=== PATIENT | male | born 1970 | race Caucasian/White ===

== ENCOUNTER 2016-06-29 14:16 | Inpatient (IN) | payer OTHER ==
[2016-06-29 18:09] VITALS: BMI 25.9
--- NOTE | 2016-06-29 18:46 | HP ---
COWS - Scale Resting Pulse: 0= [place] 80 or Below Sweatin= Chills/Flushing Restless Observation: 3= Extraneous Movement Pupil Size: 1= Pupils >than Normal Bone or Joint Aches: 2= Severe Diffuse Aches Runny Nose/ Eye Tearin= Runny Nose/Eyes GI Upset > 30mins: 2= Nausea/Diarrhea Tremor Observation: 2= Slight Tremor Visible Yawning Observation: 0= None Anxiety or Irritability: 2=Irritable/Anxious Goose Flesh Skin: 3=Piloerection COWS Score: 18 CIWA Score - CIWA Score Nausea/Vomitin-Mild Nausea/No Vomiting Muscle Tremors: 4-Moderate,w/Arms Extend Anxiety: 4-Mod. Anxious/Guarded Agitation: 4-Moderately Restless Paroxysmal Sweats: 1-Minimal Palms Moist Orientation: 2-Disoriented Date<2 days Tacttile Disturbances: 0-None Auditory Disturbances: 0-None Visual Disturbances: 0-None Headache: 1-Very Mild CIWA-Ar Total Score: 17 Admission ROS S - HPI Chief Complaint: WITHDRAWAL SX Allergies/Adverse Reactions: Allergies Allergy/AdvReac Type Severity Reaction Status Date / Time shellfish derived Allergy Severe Swelling Verified 06/29/16 19:56 No Known Drug Allergies Allergy Verified 06/29/16 19:56 NKDA Allergy Uncoded 06/29/16 19:56 History of Present Illness: 46 YEARS OLD MALE WITH LONG HISTORY OF OPIOID NICOTINE ALCOHOL DEPENDENCE HAS ASTHMA AND BIPOLAR II IS ADMITTED TO DETOX Exam Limitations: No Limitations - Ebola screening Have you traveled outside of the country in the last 21 days: No Have you had contact with anyone from an Ebola affected area: No Have you been sick,other than usual withdrawal symptoms: No Do you have a fever: No - Review of Systems Constitutional: Chills, Changes in sleep, Weight Stable EENT: reports: No Symptoms Reported Respiratory: reports: Cough, SOB with Exertion Cardiac: reports: No Symptoms Reported GI: reports: Nausea, Poor Fluid Intake, Vomiting, Indigestion, Abdominal cramping : reports: No Symptoms Reported Musculoskeletal: reports: Back Pain, Joint Pain, Muscle Pain, Neck Pain Integumentary: reports: No Symptoms Reported Neuro: reports: Tremors Endocrine: reports: No Symptoms Reported Hematology: reports: No Symptoms Reported Psychiatric: reports: Judgement Intact, Anxious, Depressed Other Systems: Reviewed and Negative Patient History - Patient Medical History Hx Anemia: No Hx Asthma: Yes Hx Chronic Obstructive Pulmonary Disease (COPD): No Hx Cancer: No Hx Cardiac Disorders: No Hx Congestive Heart Failure: No Hx Hypertension: No Hx Hypercholesterolemia: No Hx Pacemaker: No HX Cerebrovascular Accident: No Hx Seizures: No Hx Dementia: No Hx Diabetes: No Hx Gastrointestinal Disorders: Yes Hx Liver Disease: No Hx Genitourinary Disorders: No Hx Sexually Transmitted Disorders: No Hx Renal Disease (ESRD): No Hx Thyroid Disease: No Hx Human Immunodeficiency Virus (HIV): No Hx Hepatitis C: No Hx Depression: No Hx Suicide Attempt: No Hx Bipolar Disorder: Yes Hx Schizophrenia: No - Patient Surgical History Past Surgical History: Yes Hx Neurologic Surgery: No Hx Cataract Extraction: No Hx Cardiac Surgery: No Hx Lung Surgery: No Hx Breast Surgery: No Hx Breast Biopsy: No Hx Abdominal Surgery: No Hx Appendectomy: No Hx Cholecystectomy: No Hx Genitourinary Surgery: No Hx Orthopedic Surgery: Yes (R knee sx 2005) Anesthesia Reaction: No - PPD History Previous Implant?: Yes Documented Results: Negative w/o proof Implanted On Prior [facility] Admission?: Yes Date: 08/08/15 Results: 0 mm PPD to be Administered?: No - Smoking Cessation Smoking history: Current every day smoker Have you smoked in the past 12 months: Yes Aproximately how many cigarettes per day: 10 Cigars Per Day: 0 Hx Chewing Tobacco Use: No Initiated information on smoking cessation: Yes 'Breaking Loose' booklet given: 06/29/16 - Substance & Tx. History Hx Alcohol Use: Yes Hx Substance Use: Yes Substance Use Type: Alcohol, Cocaine, Opiates Hx Substance Use Treatment: Yes - Substances Abused Alcohol Route: Oral Frequency: Daily Amount used: PINT VOLKA Age of first use: 17 Date of Last Use: 06/28/16 Heroin Route: Inhalation Frequency: Daily Amount used: 12 BAGS Age of first use: 19 Date of Last Use: 06/28/16 Family Disease History - Family Disease History Family Disease History: Other: Father (DRUG & ALCOHOL) Admission Physical Exam [facility] - Vital Signs Vital Signs: Vital Signs - 24 hr 06/29/16 18:01 Temperature 95.4 F L Pulse Rate 77 Respiratory 18 Rate Blood Pressure 96/66 - Physical General Appearance: Yes: Appropriately Dressed, Moderate Distress, Tremorous, Irritable, Sweating, Anxious HEENTM: Yes: Hearing grossly Normal, Normal ENT Inspection, Normocephalic, Normal Voice Respiratory: Yes: Chest Non-Tender, No Respiratory Distress, No Accessory Muscle Use, Wheezing, Expiration Neck: Yes: Supple, Trachea in good position Breast: Yes: Breasts Symetrical Cardiology: Yes: Regular Rhythm, Regular Rate, S1, S2 Abdominal: Yes: Non Tender, Soft Genitourinary: Yes: Within Normal Limits Back: Yes: Normal Inspection Musculoskeletal: Yes: full range of Motion, Gait Steady, Back pain, Muscle Pain Extremities: Yes: Normal Range of Motion, Non-Tender, Tremors Neurological: Yes: Alert, Motor Strength 5/5, Normal Response, Depressed Affect Integumentary: Yes: Warm Lymphatic: Yes: Within Normal Limits - Diagnostic (1) Alcohol dependence with uncomplicated withdrawal Current Visit: Yes Status: Acute (2) Asthma Current Visit: Yes Status: Chronic Qualifiers: Asthma severity: mild intermittent Asthma complication type: with status asthmaticus Qualified Code(s): J45.22 - Mild intermittent asthma with status asthmaticus Comment: ventolin (3) Cocaine dependence, uncomplicated Current Visit: Yes Status: Chronic (4) Nicotine dependence Current Visit: Yes Status: Acute Qualifiers: Nicotine product type: cigarettes Substance use status: in withdrawal Qualified Code(s): F17.213 - Nicotine dependence, cigarettes, with withdrawal (5) Opioid dependence with withdrawal Current Visit: Yes Status: Acute (6) GERD (gastroesophageal reflux disease) Current Visit: Yes Status: Chronic Qualifiers: Esophagitis presence: without esophagitis Qualified Code(s): K21.9 - Gastro-esophageal reflux disease without esophagitis (7) Bipolar II disorder Current Visit: Yes Status: Suspected Cleared for Admission [facility] - Detox or Rehab [facility] Level of Care: Medically Managed Detox Regimen/Protocol: Methadone/Librium [facility] Breath Alcohol Content Breath Alcohol Content: 0 Urine Drug Screen - Results Drug Screen Negative: No Urine Drug Screen Results: GEOVANNA-Cocaine, OPI-Opiates, OXY-Oxycodone
[2016-06-29] MEDS ORDERED: ACETAMINOPHEN 325 MG TABLET (FP) PO PRN (18:53)
[2016-06-29] MEDS ORDERED: chlordiazePOXIDE HCL 25 MG CAPSULE PO PRN (18:53)
[2016-06-29] MEDS ORDERED: METHADONE HCL 10 MG TABLET (FOR DETOX USE ONLY) PO ONE ×3 (18:53→23:00)
[2016-06-29] MEDS ORDERED: MAGNESIUM HYDROX 2400MG/30ML ORAL SUSPENSION 30 ML CUP PO PRN (18:53)
[2016-06-29] MEDS ORDERED: P-EPHED 60MG/TRIPROLIDI 2.5MG TABLET PO PRN (18:53)
[2016-06-29] MEDS ORDERED: guaiFENesin/D-METHORPHAN HB 10 ML UNIT-DOSE CUPS PO PRN (18:53)
[2016-06-29] MEDS ORDERED: MENTHOL/PHENOL 1 EACH UD MM PRN (18:53)
[2016-06-29] MEDS ORDERED: LOPERAMIDE HCL 2 MG CAPSULE PO PRN (18:53)
[2016-06-29] MEDS ORDERED: diphenhydrAMINE HCL 50 MG CAPSULE PO PRN (18:53)
[2016-06-29] MEDS ORDERED: NICOTINE POLACRILEX 2 MG GUM BC PRN (18:53)
[2016-06-29] MEDS ORDERED: MAGNESIUM CITRATE 300 ML BOTTLE PO PRN (18:53)
[2016-06-29] MEDS ORDERED: MAG HYDROX/AL HYDROX/SIMETH 30 ML UNIT-DOSE CUP PO PRN (18:53)
[2016-06-29] MEDS ORDERED: ALBUTEROL SO4 2.5/IPRATROPIUM 0.5 INH SOL 3 ML VIAL.NEB. NEB PRN (18:58)
[2016-06-29] MEDS ORDERED: ALBUTEROL SO4 6.7 GM HFA INHALER IH PRN (18:58)
[2016-06-29] MEDS: THIAMINE HCL 100 MG TABLET (FP) PO SCH (22:48)
[2016-06-29] MEDS: RANITIDINE HCL 150 MG TABLET (FP) PO SCH (22:48)
[2016-06-29] MEDS: chlordiazePOXIDE HCL 25 MG CAPSULE PO SCH (22:49)
[2016-06-29 23:26] LABS: URINE APPEARANCE CLEAR; URINE BILIRUBIN NEGATIVE (NEGATIVE); URINE BLOOD NEGATIVE (NEGATIVE); URINE COLOR YELLOW; URINE GLUCOSE (UA) NEGATIVE (NEGATIVE); URINE KETONE NEGATIVE (NEGATIVE); URINE LEUK ESTERASE NEGATIVE (NEGATIVE); URINE NITRITE NEGATIVE (NEGATIVE); URINE PROTEIN NEGATIVE (NEGATIVE); URINE UROBILINOGEN NEGATIVE E.U./dl (0.2-1.0)
[2016-06-30] MEDS: chlordiazePOXIDE HCL 25 MG CAPSULE PO SCH ×4 (05:45→22:44)
[2016-06-30] MEDS ORDERED: METHADONE HCL 10 MG TABLET (FOR DETOX USE ONLY) PO SCH (10:00)
[2016-06-30 10:06] LABS: MCHC 32.9 g/dl (32.0-35.9); MEAN CELL VOLUME 91.1 fl (80-96); MEAN PLT VOLUME 10.8 fl (7.5-11.1); PLATELET COUNT 171 K/MM3 (134-434)
[2016-06-30] MEDS: PRENATAL VITAMINS W/ FOLIC ACID TABLET (FP) PO SCH (10:36)
[2016-06-30] MEDS: RANITIDINE HCL 150 MG TABLET (FP) PO SCH ×2 (10:37→22:44)
[2016-06-30] MEDS: NICOTINE 14 MG/24 HOURS TOPICAL PATCH TD SCH (10:37)
[2016-06-30 10:38] LABS: ALBUMIN 3.4 g/dl (3.4-5.0); ALK PHOS 65 U/L (45-117); ANION GAP 8 (8-16); BILIRUBIN,TOTAL 0.1 mg/dL (0.2-1.0); CALCIUM 8.5 mg/dL (8.5-10.1); CO2 28 mmol/L (21-32); COCKROFT - GAULT 86.85; CREATININE 1.2 mg/dL (0.7-1.3); GLUCOSE,RANDOM 111 mg/dL (74-106); SGOT/AST 12 U/L (15-37); SGPT/ALT 19 U/L (12-78)
--- NOTE | 2016-06-30 11:19 | EKG ---
Test Reason : Blood Pressure : / mmHG Vent. Rate : 061 BPM Atrial Rate : 061 BPM P-R Int : 126 ms QRS Dur : 092 ms QT Int : 406 ms P-R-T Axes : 027 067 048 degrees QTc Int : 408 ms NORMAL SINUS RHYTHM INCOMPLETE RBBB NO PREVIOUS ECGS AVAILABLE Confirmed by JUAN MCCATRY MD ([id number]) on 06/30/2016 11:19:09 AM Referred By: Luis E Novak Confirmed By:JUAN MCCARTY MD
--- NOTE | 2016-06-30 13:20 | CONSULT ---
[facility] Psychiatric Consult - Data Date of interview: 06/30/16 Admission source: [facility] Identifying data: Readmission to [facility] for this 46 y/o AA male seeking detox treatment for alcohol,heroin and cocaine dependence.Patient is ,a father of three,domiciled,unemployed and supported by his spouse. Substance Abuse History: - Smoking Cessation. Smoking history: Current every day smoker. Have you smoked in the past 12 months: Yes. Aproximately how many cigarettes per day: 10. Cigars Per Day: 0. Hx Chewing Tobacco Use: No. Initiated information on smoking cessation: Yes. 'Breaking Loose' booklet given : 06/29/16. - Substance & Tx. History. Hx Alcohol Use: Yes. Hx Substance Use : Yes. Substance Use Type: Alcohol, Cocaine, Opiates. Hx Substance Use Treatment: Yes. - Substances Abused. Alcohol. Route: Oral. Frequency: Daily. Amount used: PINT VOLKA. Age of first use: 17. Date of Last Use: 06/28. Heroin. Route: Inhalation. Frequency: Daily. Amount used: 12 BAGS. Age of first use: 19. Date of Last Use: 06/28/16. Confirmed by patient. Medical History: Bronchial asthma,GERD and history of stomach ulcer.Noted history of orthosurgery (right knee) in 2005. Psychiatric History: Patient reports a remote history of psychiatric hospitalizations.Diagnosed with Bipolar Disorder (as per patient).Records indicate past affiliation with the [facility] program.Lost to follow up for several months.No psychiatric OPD care provider.Patient agrees to take zolpidem to address insomnia (only for the duration of this hospital course).Patient denies history of suicide attempts. Physical/Sexual Abuse/Trauma History: Patient denies. Additional Comment: Urine Drug Screen Results: GEOVANNA-Cocaine, OPI-Opiates, OXY- Oxycodone.Noted. Mental Status Exam - Mental Status Exam Alert and Oriented to: Time, Place, Person Cognitive Function: Good Patient Appearance: Well Groomed Mood: Withdrawn Affect: Constricted Patient Behavior: Fatigued, Appropriate, Cooperative Speech Pattern: Clear, Appropriate Voice Loudness: Normal Thought Process: Goal Oriented Thought Disorder: Not Present Hallucinations: Denies Suicidal Ideation: Denies Insight/Judgement: Poor Sleep: Poorly, Difficulty falling asleep Appetite: Good Muscle strength/Tone: Normal Gait/Station: Normal Psychiatric Findings - Problem List ([place] 1, 2,3) (1) Alcohol dependence with uncomplicated withdrawal Current Visit: Yes Status: Acute (2) Nicotine dependence Current Visit: Yes Status: Acute Qualifiers: Nicotine product type: cigarettes Substance use status: in withdrawal Qualified Code(s): F17.213 - Nicotine dependence, cigarettes, with withdrawal (3) Opioid dependence with withdrawal Current Visit: Yes Status: Acute (4) Cocaine dependence, uncomplicated Current Visit: Yes Status: Acute (5) Substance induced mood disorder Current Visit: Yes Status: Chronic (6) Substance-induced sleep disorder Current Visit: Yes Status: Chronic (7) Asthma Current Visit: Yes Status: Chronic Qualifiers: Asthma severity: mild intermittent Asthma complication type: with status asthmaticus Qualified Code(s): J45.22 - Mild intermittent asthma with status asthmaticus Comment: ventolin (8) GERD (gastroesophageal reflux disease) Current Visit: Yes Status: Chronic Qualifiers: Esophagitis presence: without esophagitis Qualified Code(s): K21.9 - Gastro-esophageal reflux disease without esophagitis - Initial Treatment Plan Initial Treatment Plan: Psychoeducation.Detoxification.Medication : ambien 10 mg po hs prn.Patient is made aware of potential for parasomnias.He is in agreement with this careplan.Observation.
--- NOTE | 2016-06-30 15:27 | PN ---
[facility] CIWA - CIWA Score Nausea/Vomitin-No Nausea/No Vomiting Muscle Tremors: 3 Anxiety: 3 Agitation: 2 Paroxysmal Sweats: 3 Orientation: 0-Oriented Tacttile Disturbances: 3-Moderate Itch/Numb/Burn Auditory Disturbances: 0-None Visual Disturbances: 2-Mild Sensitivity Headache: 0-None Present CIWA-Ar Total Score: 16 [facility]HS COWS - Scale Resting Pulse: 0= [place] 80 or Below Sweatin=Flushed/Facial Moisture Restless Observation: 1= Difficult to Sit Still Pupil Size: 0= Normal to Room Light Bone or Joint Aches: 2= Severe Diffuse Aches Runny Nose/ Eye Tearin= Nasal Congestion GI Upset > 30mins: 1= Stomach Cramp Tremor Observation of Outstretched Hands: 2= Slight Tremor Visible Yawning Observation: 1= 1-2x During Session Anxiety or Irritability: 2=Irritable/Anxious Goose Flesh Skin: 3=Piloerection COWS Score: 15 S Progress Note (SOAP) Subjective: Tremors, Interrupted sleep, Back Ache, Sweating. Objective: PT. A & O X 3, OBSERVED AMBULATING ON UNIT. 06/30/16 15:24 Vital Signs Temperature 99.6 F 06/30/16 13:55 Pulse Rate 78 06/30/16 13:55 Respiratory Rate 18 06/30/16 13:55 Blood Pressure 133/66 06/30/16 13:55 O2 Sat by Pulse Oximetry (%) Laboratory Last Values WBC 7.0 K/mm3 (4.0-10.0) 06/30/16 07:00 RBC 4.46 M/mm3 (4.00-5.60) 06/30/16 07:00 Hgb 13.4 GM/dL (11.7-16.9) 06/30/16 07:00 Hct 40.7 % (35.4-49) 06/30/16 07:00 MCV 91.1 fl (80-96) 06/30/16 07:00 MCHC 32.9 g/dl (32.0-35.9) 06/30/16 07:00 RDW 14.0 % (11.9-15.9) 06/30/16 07:00 Plt Count 171 K/MM3 (134-434) D 06/30/16 07:00 MPV 10.8 fl (7.5-11.1) 06/30/16 07:00 Sodium 146 mmol/L (136-145) H 06/30/16 07:00 Potassium 3.7 mmol/L (3.5-5.1) 06/30/16 07:00 Chloride 110 mmol/L (98-107) H 06/30/16 07:00 Carbon Dioxide 28 mmol/L (21-32) 06/30/16 07:00 Anion Gap 8 (8-16) 06/30/16 07:00 BUN 22 mg/dL (7-18) H 06/30/16 07:00 Creatinine 1.2 mg/dL (0.7-1.3) 06/30/16 07:00 Creat Clearance w eGFR > 60 (>60) 06/30/16 07:00 Random Glucose 111 mg/dL (74-106) H 06/30/16 07:00 Calcium 8.5 mg/dL (8.5-10.1) 06/30/16 07:00 Total Bilirubin 0.1 mg/dL (0.2-1.0) L D 06/30/16 07:00 AST 12 U/L (15-37) L 06/30/16 07:00 ALT 19 U/L (12-78) 06/30/16 07:00 Alkaline Phosphatase 65 U/L (45-117) 06/30/16 07:00 Total Protein 6.0 g/dl (6.4-8.2) L 06/30/16 07:00 Albumin 3.4 g/dl (3.4-5.0) 06/30/16 07:00 Urine Color Yellow 06/29/16 22:51 Urine Appearance Clear 06/29/16 22:51 Urine pH 5.0 (5.0-8.0) D 06/29/16 22:51 Ur Specific [place] 1.025 (1.005-1.025) 06/29/16 22:51 Urine Protein Negative (NEGATIVE) 06/29/16 22:51 Urine Glucose (UA) Negative (NEGATIVE) 06/29/16 22:51 Urine Ketones Negative (NEGATIVE) 06/29/16 22:51 Urine Blood Negative (NEGATIVE) 06/29/16 22:51 Urine Nitrite Negative (NEGATIVE) 06/29/16 22:51 Urine Bilirubin Negative (NEGATIVE) 06/29/16 22:51 Urine Urobilinogen Negative E.U./dl (0.2-1.0) 06/29/16 22:51 Ur Leukocyte Esterase Negative (NEGATIVE) 06/29/16 22:51 RPR Titer Nonreactive (NONREACTIVE) 06/30/16 07:00 LABS NOTED. Assessment: 06/30/16 15:25 WITHDRAWAL SYMPTOMS. Plan: CONTINUE DETOX. ADVISED PATIENT TO FOLLOW-UP WITH [facility] / REHAB MEDICAL PROVIDER AFTER DISCHARGE FROM DETOX FOR GENERAL MEDICAL ASSESSMENT AND FOR ABNORMAL ADMISSION LAB VALUES.
[2016-06-30] MEDS: ZOLPIDEM TARTRATE 10 MG TABLET (PARK CARE ONLY) PO PRN (22:44)
[2016-06-30] MEDS: THIAMINE HCL 100 MG TABLET (FP) PO SCH (22:44)
[2016-07-01] MEDS: chlordiazePOXIDE HCL 25 MG CAPSULE PO SCH ×3 (05:31→17:09)
[2016-07-01] MEDS: RANITIDINE HCL 150 MG TABLET (FP) PO SCH ×2 (10:56→22:12)
[2016-07-01] MEDS: METHADONE HCL 5 MG TABLET (FOR DETOX USE ONLY) PO SCH (10:56)
[2016-07-01] MEDS: NICOTINE 14 MG/24 HOURS TOPICAL PATCH TD SCH (10:56)
[2016-07-01] MEDS: PRENATAL VITAMINS W/ FOLIC ACID TABLET (FP) PO SCH (10:56)
--- NOTE | 2016-07-01 15:19 | PN ---
[facility] CIWA - CIWA Score Nausea/Vomitin-No Nausea/No Vomiting Muscle Tremors: 2 Anxiety: 4-Mod. Anxious/Guarded Agitation: 3 Paroxysmal Sweats: 3 Orientation: 0-Oriented Tacttile Disturbances: 3-Moderate Itch/Numb/Burn Auditory Disturbances: 2-Mild Harshness/Frighten Visual Disturbances: 0-None Headache: 0-None Present CIWA-Ar Total Score: 17 B[facility] COWS - Scale Resting Pulse: 1= [place] 81-100 Sweatin=Flushed/Facial Moisture Restless Observation: 1= Difficult to Sit Still Pupil Size: 0= Normal to Room Light Bone or Joint Aches: 2= Severe Diffuse Aches Runny Nose/ Eye Tearin= Runny Nose/Eyes GI Upset > 30mins: 1= Stomach Cramp Tremor Observation of Outstretched Hands: 0= None Yawning Observation: 1= 1-2x During Session Anxiety or Irritability: 2=Irritable/Anxious Goose Flesh Skin: 3=Piloerection COWS Score: 15 S Progress Note (SOAP) Subjective: Interrupted sleep, Body aches, Sweating. Objective: PT. A & O X 3, OBSERVED AMBULATING ON UNIT. PT. DENIES CHEST PAIN. 07/01/16 15:18 Vital Signs Temperature 97.6 F 07/01/16 13:14 Pulse Rate 91 H 07/01/16 13:14 Respiratory Rate 20 07/01/16 13:14 Blood Pressure 127/87 07/01/16 13:14 O2 Sat by Pulse Oximetry (%) Laboratory Last Values WBC 7.0 K/mm3 (4.0-10.0) 06/30/16 07:00 RBC 4.46 M/mm3 (4.00-5.60) 06/30/16 07:00 Hgb 13.4 GM/dL (11.7-16.9) 06/30/16 07:00 Hct 40.7 % (35.4-49) 06/30/16 07:00 MCV 91.1 fl (80-96) 06/30/16 07:00 MCHC 32.9 g/dl (32.0-35.9) 06/30/16 07:00 RDW 14.0 % (11.9-15.9) 06/30/16 07:00 Plt Count 171 K/MM3 (134-434) D 06/30/16 07:00 MPV 10.8 fl (7.5-11.1) 06/30/16 07:00 Sodium 146 mmol/L (136-145) H 06/30/16 07:00 Potassium 3.7 mmol/L (3.5-5.1) 06/30/16 07:00 Chloride 110 mmol/L (98-107) H 06/30/16 07:00 Carbon Dioxide 28 mmol/L (21-32) 06/30/16 07:00 Anion Gap 8 (8-16) 06/30/16 07:00 BUN 22 mg/dL (7-18) H 06/30/16 07:00 Creatinine 1.2 mg/dL (0.7-1.3) 06/30/16 07:00 Creat Clearance w eGFR > 60 (>60) 06/30/16 07:00 Random Glucose 111 mg/dL (74-106) H 06/30/16 07:00 Calcium 8.5 mg/dL (8.5-10.1) 06/30/16 07:00 Total Bilirubin 0.1 mg/dL (0.2-1.0) L D 06/30/16 07:00 AST 12 U/L (15-37) L 06/30/16 07:00 ALT 19 U/L (12-78) 06/30/16 07:00 Alkaline Phosphatase 65 U/L (45-117) 06/30/16 07:00 Total Protein 6.0 g/dl (6.4-8.2) L 06/30/16 07:00 Albumin 3.4 g/dl (3.4-5.0) 06/30/16 07:00 Urine Color Yellow 06/29/16 22:51 Urine Appearance Clear 06/29/16 22:51 Urine pH 5.0 (5.0-8.0) D 06/29/16 22:51 Ur Specific [place] 1.025 (1.005-1.025) 06/29/16 22:51 Urine Protein Negative (NEGATIVE) 06/29/16 22:51 Urine Glucose (UA) Negative (NEGATIVE) 06/29/16 22:51 Urine Ketones Negative (NEGATIVE) 06/29/16 22:51 Urine Blood Negative (NEGATIVE) 06/29/16 22:51 Urine Nitrite Negative (NEGATIVE) 06/29/16 22:51 Urine Bilirubin Negative (NEGATIVE) 06/29/16 22:51 Urine Urobilinogen Negative E.U./dl (0.2-1.0) 06/29/16 22:51 Ur Leukocyte Esterase Negative (NEGATIVE) 06/29/16 22:51 RPR Titer Nonreactive (NONREACTIVE) 06/30/16 07:00 LABS NOTED. Assessment: 07/01/16 15:19 WITHDRAWAL SYMPTOMS. Plan: CONTINUE DETOX. INCREASE PO FLUID INTAKE. ADVISED PATIENT TO FOLLOW-UP WITH [facility] APPRENTICE AFTER DISCHARGE FROM DETOX FOR GENERAL MEDICAL ASSESSMENT AND FOR ABNORMAL ADMISSION LAB VALUES.
[2016-07-01] MEDS: THIAMINE HCL 100 MG TABLET (FP) PO SCH (22:12)
[2016-07-01] MEDS: ZOLPIDEM TARTRATE 10 MG TABLET (PARK CARE ONLY) PO PRN (22:13)
[2016-07-01] MEDS: chlordiazePOXIDE 5 MG CAPSULE PO SCH (22:13)
[2016-07-02] MEDS: chlordiazePOXIDE 5 MG CAPSULE PO SCH ×3 (05:17→16:56)
[2016-07-02] MEDS: RANITIDINE HCL 150 MG TABLET (FP) PO SCH ×2 (10:19→22:21)
[2016-07-02] MEDS: METHADONE HCL 5 MG TABLET (FOR DETOX USE ONLY) PO SCH (10:19)
[2016-07-02] MEDS: PRENATAL VITAMINS W/ FOLIC ACID TABLET (FP) PO SCH (10:19)
[2016-07-02] MEDS: NICOTINE 14 MG/24 HOURS TOPICAL PATCH TD SCH (10:20)
--- NOTE | 2016-07-02 16:57 | PN ---
[facility] Progress Note (SOAP) Subjective: Tremors, Interrupted sleep, H/A, Sweating. Objective: PT. A & O X 3, OBSERVED AMBULATING ON UNIT. 07/02/16 16:55 Vital Signs Temperature 96.8 F L 07/02/16 13:23 Pulse Rate 75 07/02/16 13:23 Respiratory Rate 18 07/02/16 13:23 Blood Pressure 139/93 07/02/16 13:23 O2 Sat by Pulse Oximetry (%) Laboratory Last Values WBC 7.0 K/mm3 (4.0-10.0) 06/30/16 07:00 RBC 4.46 M/mm3 (4.00-5.60) 06/30/16 07:00 Hgb 13.4 GM/dL (11.7-16.9) 06/30/16 07:00 Hct 40.7 % (35.4-49) 06/30/16 07:00 MCV 91.1 fl (80-96) 06/30/16 07:00 MCHC 32.9 g/dl (32.0-35.9) 06/30/16 07:00 RDW 14.0 % (11.9-15.9) 06/30/16 07:00 Plt Count 171 K/MM3 (134-434) D 06/30/16 07:00 MPV 10.8 fl (7.5-11.1) 06/30/16 07:00 Sodium 146 mmol/L (136-145) H 06/30/16 07:00 Potassium 3.7 mmol/L (3.5-5.1) 06/30/16 07:00 Chloride 110 mmol/L (98-107) H 06/30/16 07:00 Carbon Dioxide 28 mmol/L (21-32) 06/30/16 07:00 Anion Gap 8 (8-16) 06/30/16 07:00 BUN 22 mg/dL (7-18) H 06/30/16 07:00 Creatinine 1.2 mg/dL (0.7-1.3) 06/30/16 07:00 Creat Clearance w eGFR > 60 (>60) 06/30/16 07:00 Random Glucose 111 mg/dL (74-106) H 06/30/16 07:00 Calcium 8.5 mg/dL (8.5-10.1) 06/30/16 07:00 Total Bilirubin 0.1 mg/dL (0.2-1.0) L D 06/30/16 07:00 AST 12 U/L (15-37) L 06/30/16 07:00 ALT 19 U/L (12-78) 06/30/16 07:00 Alkaline Phosphatase 65 U/L (45-117) 06/30/16 07:00 Total Protein 6.0 g/dl (6.4-8.2) L 06/30/16 07:00 Albumin 3.4 g/dl (3.4-5.0) 06/30/16 07:00 Urine Color Yellow 06/29/16 22:51 Urine Appearance Clear 06/29/16 22:51 Urine pH 5.0 (5.0-8.0) D 06/29/16 22:51 Ur Specific [place] 1.025 (1.005-1.025) 06/29/16 22:51 Urine Protein Negative (NEGATIVE) 06/29/16 22:51 Urine Glucose (UA) Negative (NEGATIVE) 06/29/16 22:51 Urine Ketones Negative (NEGATIVE) 06/29/16 22:51 Urine Blood Negative (NEGATIVE) 06/29/16 22:51 Urine Nitrite Negative (NEGATIVE) 06/29/16 22:51 Urine Bilirubin Negative (NEGATIVE) 06/29/16 22:51 Urine Urobilinogen Negative E.U./dl (0.2-1.0) 06/29/16 22:51 Ur Leukocyte Esterase Negative (NEGATIVE) 06/29/16 22:51 RPR Titer Nonreactive (NONREACTIVE) 06/30/16 07:00 LABS NOTED. Assessment: 07/02/16 16:56 WITHDRAWAL SYMPTOMS. Plan: CONTINUE DETOX. ADVISED PATIENT TO FOLLOW-UP WITH SAFETY OFFICER AFTER DISCHARGE FROM DETOX FOR GENERAL MEDICAL ASSESSMENT AND FOR ABNORMAL ADMISSION LAB VALUES.
[2016-07-02] MEDS: chlordiazePOXIDE HCL 10 MG CAPSULE PO SCH (22:20)
[2016-07-02] MEDS: ZOLPIDEM TARTRATE 10 MG TABLET (PARK CARE ONLY) PO PRN (22:21)
[2016-07-02] MEDS: THIAMINE HCL 100 MG TABLET (FP) PO SCH (22:21)
[2016-07-03] MEDS: chlordiazePOXIDE HCL 10 MG CAPSULE PO SCH ×3 (05:46→16:49)
[2016-07-03] MEDS ORDERED: METHADONE HCL 10 MG TABLET (FOR DETOX USE ONLY) PO SCH (10:00)
[2016-07-03] MEDS: NICOTINE 14 MG/24 HOURS TOPICAL PATCH TD SCH (10:38)
[2016-07-03] MEDS: PRENATAL VITAMINS W/ FOLIC ACID TABLET (FP) PO SCH (10:38)
[2016-07-03] MEDS: RANITIDINE HCL 150 MG TABLET (FP) PO SCH ×2 (10:38→22:37)
--- NOTE | 2016-07-03 12:31 | PN ---
[facility] Progress Note (SOAP) Subjective: Sweating,interrupted sleep,restless Objective: 07/03/16 12:29 Vital Signs - 8 hr 07/03/16 07/03/16 06:19 09:28 Temperature 96.9 F L 97.4 F L Pulse Rate 81 78 Respiratory 18 18 Rate Blood Pressure 121/86 138/84 Laboratory Last Values WBC 7.0 K/mm3 (4.0-10.0) 06/30/16 07:00 RBC 4.46 M/mm3 (4.00-5.60) 06/30/16 07:00 Hgb 13.4 GM/dL (11.7-16.9) 06/30/16 07:00 Hct 40.7 % (35.4-49) 06/30/16 07:00 MCV 91.1 fl (80-96) 06/30/16 07:00 MCHC 32.9 g/dl (32.0-35.9) 06/30/16 07:00 RDW 14.0 % (11.9-15.9) 06/30/16 07:00 Plt Count 171 K/MM3 (134-434) D 06/30/16 07:00 MPV 10.8 fl (7.5-11.1) 06/30/16 07:00 Sodium 146 mmol/L (136-145) H 06/30/16 07:00 Potassium 3.7 mmol/L (3.5-5.1) 06/30/16 07:00 Chloride 110 mmol/L (98-107) H 06/30/16 07:00 Carbon Dioxide 28 mmol/L (21-32) 06/30/16 07:00 Anion Gap 8 (8-16) 06/30/16 07:00 BUN 22 mg/dL (7-18) H 06/30/16 07:00 Creatinine 1.2 mg/dL (0.7-1.3) 06/30/16 07:00 Creat Clearance w eGFR > 60 (>60) 06/30/16 07:00 Random Glucose 111 mg/dL (74-106) H 06/30/16 07:00 Calcium 8.5 mg/dL (8.5-10.1) 06/30/16 07:00 Total Bilirubin 0.1 mg/dL (0.2-1.0) L D 06/30/16 07:00 AST 12 U/L (15-37) L 06/30/16 07:00 ALT 19 U/L (12-78) 06/30/16 07:00 Alkaline Phosphatase 65 U/L (45-117) 06/30/16 07:00 Total Protein 6.0 g/dl (6.4-8.2) L 06/30/16 07:00 Albumin 3.4 g/dl (3.4-5.0) 06/30/16 07:00 Urine Color Yellow 06/29/16 22:51 Urine Appearance Clear 06/29/16 22:51 Urine pH 5.0 (5.0-8.0) D 06/29/16 22:51 Ur Specific [place] 1.025 (1.005-1.025) 06/29/16 22:51 Urine Protein Negative (NEGATIVE) 06/29/16 22:51 Urine Glucose (UA) Negative (NEGATIVE) 06/29/16 22:51 Urine Ketones Negative (NEGATIVE) 06/29/16 22:51 Urine Blood Negative (NEGATIVE) 06/29/16 22:51 Urine Nitrite Negative (NEGATIVE) 06/29/16 22:51 Urine Bilirubin Negative (NEGATIVE) 06/29/16 22:51 Urine Urobilinogen Negative E.U./dl (0.2-1.0) 06/29/16 22:51 Ur Leukocyte Esterase Negative (NEGATIVE) 06/29/16 22:51 RPR Titer Nonreactive (NONREACTIVE) 06/30/16 07:00 labs noted Assessment: 07/03/16 12:30 Withdrawal sx. Plan: Continue detox
[2016-07-03] MEDS: THIAMINE HCL 100 MG TABLET (FP) PO SCH (22:37)
[2016-07-04] MEDS ORDERED: METHADONE HCL 5 MG TABLET (FOR DETOX USE ONLY) PO SCH (06:00)
[2016-07-04 06:29] VITALS: BP 127/88; PULSE 81; TEMP 96.3
--- NOTE | 2016-07-04 08:57 | DS ---
[facility] Detox Discharge Summary Admission Date: 06/29/16 Discharge Date: 07/04/16 - History Present History: Alcohol Dependence, Cocaine Dependence, Opioid Dependence Pertinent Past History: Asthma GERD - Physical Exam Results Vital Signs: Vital Signs Temperature 96.3 F L 07/04/16 06:29 Pulse Rate 81 07/04/16 06:29 Respiratory Rate 18 07/04/16 06:29 Blood Pressure 127/88 07/04/16 06:29 O2 Sat by Pulse Oximetry (%) Pertinent Admission Physical Exam Findings: Withdrawal sx. Laboratory Last Values WBC 7.0 K/mm3 (4.0-10.0) 06/30/16 07:00 RBC 4.46 M/mm3 (4.00-5.60) 06/30/16 07:00 Hgb 13.4 GM/dL (11.7-16.9) 06/30/16 07:00 Hct 40.7 % (35.4-49) 06/30/16 07:00 MCV 91.1 fl (80-96) 06/30/16 07:00 MCHC 32.9 g/dl (32.0-35.9) 06/30/16 07:00 RDW 14.0 % (11.9-15.9) 06/30/16 07:00 Plt Count 171 K/MM3 (134-434) D 06/30/16 07:00 MPV 10.8 fl (7.5-11.1) 06/30/16 07:00 Sodium 146 mmol/L (136-145) H 06/30/16 07:00 Potassium 3.7 mmol/L (3.5-5.1) 06/30/16 07:00 Chloride 110 mmol/L (98-107) H 06/30/16 07:00 Carbon Dioxide 28 mmol/L (21-32) 06/30/16 07:00 Anion Gap 8 (8-16) 06/30/16 07:00 BUN 22 mg/dL (7-18) H 06/30/16 07:00 Creatinine 1.2 mg/dL (0.7-1.3) 06/30/16 07:00 Creat Clearance w eGFR > 60 (>60) 06/30/16 07:00 Random Glucose 111 mg/dL (74-106) H 06/30/16 07:00 Calcium 8.5 mg/dL (8.5-10.1) 06/30/16 07:00 Total Bilirubin 0.1 mg/dL (0.2-1.0) L D 06/30/16 07:00 AST 12 U/L (15-37) L 06/30/16 07:00 ALT 19 U/L (12-78) 06/30/16 07:00 Alkaline Phosphatase 65 U/L (45-117) 06/30/16 07:00 Total Protein 6.0 g/dl (6.4-8.2) L 06/30/16 07:00 Albumin 3.4 g/dl (3.4-5.0) 06/30/16 07:00 Urine Color Yellow 06/29/16 22:51 Urine Appearance Clear 06/29/16 22:51 Urine pH 5.0 (5.0-8.0) D 06/29/16 22:51 Ur Specific [place] 1.025 (1.005-1.025) 06/29/16 22:51 Urine Protein Negative (NEGATIVE) 06/29/16 22:51 Urine Glucose (UA) Negative (NEGATIVE) 06/29/16 22:51 Urine Ketones Negative (NEGATIVE) 06/29/16 22:51 Urine Blood Negative (NEGATIVE) 06/29/16 22:51 Urine Nitrite Negative (NEGATIVE) 06/29/16 22:51 Urine Bilirubin Negative (NEGATIVE) 06/29/16 22:51 Urine Urobilinogen Negative E.U./dl (0.2-1.0) 06/29/16 22:51 Ur Leukocyte Esterase Negative (NEGATIVE) 06/29/16 22:51 RPR Titer Nonreactive (NONREACTIVE) 06/30/16 07:00 labs noted - Treatment Hospital Course: Detox Protocol Followed, Detoxed Safely, Responded well, Discharged Condition Good, Rehab Referral Accepted Patient has Accepted a Rehab Referral to: AA/NA 12 Steps meetings - Medication Discharge Medications: Ambulatory Orders Albuterol Sulfate Inhaler - [Ventolin Hfa Inhaler -] 2 inh PO Q4H PRN 08/06/15 - Diagnosis (1) Alcohol dependence with uncomplicated withdrawal Status: Acute (2) Nicotine dependence Status: Acute Qualifiers: Nicotine product type: cigarettes Substance use status: in withdrawal Qualified Code(s): F17.213 - Nicotine dependence, cigarettes, with withdrawal (3) Opioid dependence with withdrawal Status: Acute (4) Asthma Status: Chronic Qualifiers: Asthma severity: mild intermittent Asthma complication type: with status asthmaticus Qualified Code(s): J45.22 - Mild intermittent asthma with status asthmaticus (5) Cocaine dependence, uncomplicated Status: Chronic (6) GERD (gastroesophageal reflux disease) Status: Chronic Qualifiers: Esophagitis presence: without esophagitis Qualified Code(s): K21.9 - Gastro-esophageal reflux disease without esophagitis (7) Substance induced mood disorder Status: Chronic (8) Substance-induced sleep disorder Status: Chronic - AMA Did Patient Leave Against Medical Advice: No
== END 2016-07-04 07:00 | disposition home or self-care (01) | DRG 897 ==
LOC: YASAS 14:16 → Y3N 19:24
PROVIDERS: ADMIT Internal Medicine Addiction Medicine; ATTEND Internal Medicine Addiction Medicine
PROC: HZ2ZZZZ Detoxification Services for Substance Abuse Treatment (ICD-10-PCS; principal; 2016-06-29)
DX: F11.23 Opioid dependence with withdrawal (principal); F14.20 Cocaine dependence, uncomplicated; F19.282 Other psychoactive substance dependence with psychoactive substance-induced sleep disorder; F31.81 Bipolar II disorder; J45.22 Mild intermittent asthma with status asthmaticus; F10.230 Alcohol dependence with withdrawal, uncomplicated; F17.213 Nicotine dependence, cigarettes, with withdrawal; F19.24 Other psychoactive substance dependence with psychoactive substance-induced mood disorder; K21.9 Gastro-esophageal reflux disease without esophagitis
CPT/HCPCS: 36415; 80053; 81003; 85027; 86593; 93005; 93010

== ENCOUNTER 2016-07-13 08:47 | Inpatient (IN) | payer OTHER ==
[2016-07-13 09:20] VITALS: BMI 25.9
[2016-07-13] MEDS ORDERED: ACETAMINOPHEN 325 MG TABLET (FP) PO PRN (12:13)
[2016-07-13] MEDS ORDERED: LOPERAMIDE HCL 2 MG CAPSULE PO PRN (12:13)
[2016-07-13] MEDS ORDERED: NICOTINE POLACRILEX 4 MG GUM BC PRN (12:13)
[2016-07-13] MEDS ORDERED: guaiFENesin/D-METHORPHAN HB 10 ML UNIT-DOSE CUPS PO PRN (12:13)
[2016-07-13] MEDS ORDERED: IBUPROFEN 400 MG TABLET (FP) PO PRN (12:13)
[2016-07-13] MEDS ORDERED: P-EPHED 60MG/TRIPROLIDI 2.5MG TABLET PO PRN (12:13)
[2016-07-13] MEDS ORDERED: MAGNESIUM CITRATE 300 ML BOTTLE PO PRN (12:13)
[2016-07-13] MEDS ORDERED: MAG HYDROX/AL HYDROX/SIMETH 30 ML UNIT-DOSE CUP PO PRN (12:13)
[2016-07-13] MEDS ORDERED: MAGNESIUM HYDROX 2400MG/30ML ORAL SUSPENSION 30 ML CUP PO PRN (12:13)
[2016-07-13] MEDS ORDERED: MENTHOL/PHENOL 1 EACH UD MM PRN (12:13)
[2016-07-13] MEDS ORDERED: diphenhydrAMINE HCL 50 MG CAPSULE PO PRN (12:13)
--- NOTE | 2016-07-13 12:13 | HP ---
[facility] Rehab Assess/Revision - Admission History Ad[facility] (PT COMPLETED DETOX ON 07/04/16.) Date of Admission to Rehab: 07/13/16 - Vital signs Vital Signs: Vital Signs Period Temp Pulse Resp BP Sys/[place] Pulse Ox Last 24 Hr 96.7 F 87 18 147/91 - Findings Detox History & Physical reviewed: Yes (HX ASTHMA AND BIPOLAR DISORDER) Concur with findings: Yes Comments/Additional Findings: PT REFERRED TO REHAB FOR AFTERCARE. ALERT O X 3. NAD. LUNGS: CTA/P [place]. ADMIT TO [facility]
[2016-07-13] MEDS ORDERED: NICOTINE 21 MG/24 HOURS TOPICAL PATCH TD SCH (12:15)
[2016-07-13] MEDS ORDERED: ALBUTEROL SO4 6.7 GM HFA INHALER IH PRN (12:19)
[2016-07-13] MEDS ORDERED: NICOTINE POLACRILEX 4 MG GUM BUC PRN (12:19)
[2016-07-13 18:17] LABS: URINE APPEARANCE CLEAR; URINE BILIRUBIN NEGATIVE (NEGATIVE); URINE COLOR LTYELLOW; URINE GLUCOSE (UA) NEGATIVE (NEGATIVE); URINE KETONE NEGATIVE (NEGATIVE); URINE LEUK ESTERASE NEGATIVE (NEGATIVE); URINE NITRITE NEGATIVE (NEGATIVE); URINE PROTEIN NEGATIVE (NEGATIVE); URINE UROBILINOGEN NEGATIVE E.U./dl (0.2-1.0)
[2016-07-13 18:23] LABS: URINE BLOOD 1+ (NEGATIVE)
[2016-07-13 18:27] LABS: URINE MUCUS RARE; URINE RBC 1 /hpf (0-3); URINE WBC <1 /hpf (3-5)
[2016-07-13] MEDS: THIAMINE HCL 100 MG TABLET (FP) PO SCH (21:44)
[2016-07-13] MEDS: BUDESONIDE/FORMETEROL FUMARATE 80/4.5 mcg INHALER IH SCH (21:44)
[2016-07-14 06:35] VITALS: BP 163/91; PULSE 73; TEMP 97.9
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
[2016-07-14] MEDS: BUDESONIDE/FORMETEROL FUMARATE 80/4.5 mcg INHALER IH SCH ×2 (10:42→22:15)
[2016-07-14] MEDS: NICOTINE 21 MG/24 HOURS TOPICAL PATCH TD SCH (10:42)
[2016-07-14] MEDS: PRENATAL VITAMINS W/ FOLIC ACID TABLET (FP) PO SCH (10:43)
[2016-07-14] MEDS: hydrOXYzine PAMOATE 25 MG CAPSULE (FP) PO PRN (14:41)
[2016-07-14] MEDS: THIAMINE HCL 100 MG TABLET (FP) PO SCH (22:15)
[2016-07-15] MEDS: hydrOXYzine PAMOATE 25 MG CAPSULE (FP) PO PRN (02:52)
[2016-07-15] MEDS ORDERED: PT OWN MED DRAWER 7, Y5N ONE (08:35)
[2016-07-15] MEDS: NICOTINE 21 MG/24 HOURS TOPICAL PATCH TD SCH (10:12)
[2016-07-15] MEDS: BUDESONIDE/FORMETEROL FUMARATE 80/4.5 mcg INHALER IH SCH (10:13)
[2016-07-15] MEDS: PRENATAL VITAMINS W/ FOLIC ACID TABLET (FP) PO SCH (10:13)
== END 2016-07-15 16:55 | disposition left against medical advice (07) | DRG 894 ==
LOC: YASAS 08:47 → Y3W 11:58
PROVIDERS: ADMIT Psychiatry & Neurology Psychiatry; ATTEND Psychiatry & Neurology Psychiatry
PROC: HZ42ZZZ Group Counseling for Substance Abuse Treatment, Cognitive-Behavioral (ICD-10-PCS; principal; 2016-07-13)
DX: F11.20 Opioid dependence, uncomplicated (principal); F14.20 Cocaine dependence, uncomplicated; F19.282 Other psychoactive substance dependence with psychoactive substance-induced sleep disorder; F31.81 Bipolar II disorder; J45.22 Mild intermittent asthma with status asthmaticus; F10.20 Alcohol dependence, uncomplicated; F17.210 Nicotine dependence, cigarettes, uncomplicated; F19.24 Other psychoactive substance dependence with psychoactive substance-induced mood disorder; K21.9 Gastro-esophageal reflux disease without esophagitis
CPT/HCPCS: 81003; 81015

== ENCOUNTER 2017-02-23 16:35 | Inpatient (IN) | payer OTHER ==
[2017-02-23 17:18] VITALS: BMI 27.3
--- NOTE | 2017-02-23 19:51 | HP ---
COWS - Scale Resting Pulse: 2= [place] 101-120 Sweatin=Flushed/Facial Moisture Restless Observation: 3= Extraneous Movement Pupil Size: 1= Pupils >than Normal Bone or Joint Aches: 2= Severe Diffuse Aches Runny Nose/ Eye Tearin= Runny Nose/Eyes GI Upset > 30mins: 2= Nausea/Diarrhea Tremor Observation: 1= Tremor [place], Not Seen Yawning Observation: 1= 1-2x During Session Anxiety or Irritability: 2=Irritable/Anxious Goose Flesh Skin: 3=Piloerection COWS Score: 21 CIWA Score - CIWA Score Nausea/Vomitin Muscle Tremors: 3 Anxiety: 3 Agitation: 1-Slight > Activity Paroxysmal Sweats: 2 Orientation: 1-Uncertain about Date Tacttile Disturbances: 0-None Auditory Disturbances: 0-None Visual Disturbances: 0-None Headache: 2-Mild CIWA-Ar Total Score: 15 Admission ROS BHS - HPI Chief Complaint: WITHDRAWAL SYMPTOMS Allergies/Adverse Reactions: Allergies Allergy/AdvReac Type Severity Reaction Status Date / Time shellfish derived Allergy Severe Swelling Verified 07/13/16 10:06 No Known Drug Allergies Allergy Verified 07/13/16 10:06 NKDA Allergy Uncoded 07/13/16 10:06 History of Present Illness: 47 Y.O. MAN WITH A HISTORY OF OPIATE, COCAINE AND ALCOHOL DEPENDENCE IS HERE SEEKING DETOX. HE LAST COMPLETED DETOX HERE IN 06/2016. HE LEFT [facility] FROM HIS LAST ADMISSION HERE TO REHAB. LONGEST PERIOD CLEAN HAS BEEN 2 YEARS. Exam Limitations: No Limitations - Ebola screening Have you traveled outside of the country in the last 21 days: No (N) Have you had contact with anyone from an Ebola affected area: No Have you been sick,other than usual withdrawal symptoms: No Do you have a fever: No - Review of Systems Constitutional: Chills, Loss of Appetite, Changes in sleep, Unintentional Wgt. Loss EENT: reports: Tearing, Nose Congestion Respiratory: reports: Cough Cardiac: reports: No Symptoms Reported GI: reports: Diarrhea, Nausea, Abdominal cramping : reports: No Symptoms Reported Musculoskeletal: reports: Joint Pain Integumentary: reports: No Symptoms Reported Neuro: reports: Headache Endocrine: reports: No Symptoms Reported Hematology: reports: No Symptoms Reported Psychiatric: reports: Anxious, Depressed Other Systems: Reviewed and Negative Patient History - Patient Medical History Hx Anemia: No Hx Asthma: Yes Hx Chronic Obstructive Pulmonary Disease (COPD): No Hx Cancer: No Hx Cardiac Disorders: No Hx Congestive Heart Failure: No Hx Hypertension: No Hx Hypercholesterolemia: No Hx Pacemaker: No HX Cerebrovascular Accident: No Hx Seizures: No Hx Dementia: No Hx Diabetes: No Hx Gastrointestinal Disorders: Yes (GERD, hx of colitis) Hx Liver Disease: No Hx Genitourinary Disorders: No Hx Sexually Transmitted Disorders: No Hx Renal Disease (ESRD): No Hx Thyroid Disease: No Hx Human Immunodeficiency Virus (HIV): No Hx Hepatitis C: No Hx Depression: Yes Hx Suicide Attempt: No Hx Bipolar Disorder: Yes Hx Schizophrenia: No - Patient Surgical History Past Surgical History: Yes Hx Neurologic Surgery: No Hx Cataract Extraction: No Hx Cardiac Surgery: No Hx Lung Surgery: No Hx Breast Surgery: No Hx Breast Biopsy: No Hx Abdominal Surgery: No Hx Appendectomy: No Hx Cholecystectomy: No Hx Genitourinary Surgery: No Hx Section: No Hx Orthopedic Surgery: Yes (R knee sx 2005) Anesthesia Reaction: No - PPD History Previous Implant?: Yes Documented Results: Negative w/proof Implanted On Prior R Admission?: Yes Date: 08/08/15 Results: 0 mm PPD to be Administered?: Yes - Reproductive History Patient is a Female of Child Bearing Age (11 -55 yrs old): No - Smoking Cessation Smoking history: Current every day smoker Have you smoked in the past 12 months: Yes Aproximately how many cigarettes per day: 10 Cigars Per Day: 0 Hx Chewing Tobacco Use: No Initiated information on smoking cessation: Yes 'Breaking Loose' booklet given: 02/23/17 - Substance & Tx. History Hx Alcohol Use: Yes Hx Substance Use: Yes Substance Use Type: Alcohol, Cocaine, Heroin Hx Substance Use Treatment: Yes (DETOX AND REHAB: 06/2016) - Substances Abused Alcohol Route: Oral Frequency: Daily Amount used: 1 PINT OF LIQUOR Age of first use: 19 Date of Last Use: 02/22/17 Heroin Route: Inhalation Frequency: Daily Amount used: 1 BUNDLE Age of first use: 19 Date of Last Use: 02/23/17 Crack Route: Smoking Frequency: 1-2 times per week Amount used: $50 Age of first use: 25 Date of Last Use: 02/21/17 Family Disease History - Family Disease History Family Disease History: Other: Father (DRUG & ALCOHOL) Admission Physical Exam [facility] - Vital Signs Vital Signs: Vital Signs - 24 hr 02/23/17 17:17 Temperature 96.4 F L Pulse Rate 102 H Respiratory 18 Rate Blood Pressure 109/80 - Physical General Appearance: Yes: Disheveled, Tremorous, Irritable, Anxious HEENTM: Yes: Hearing grossly Normal, Normal ENT Inspection, Normocephalic Respiratory: Yes: Chest Non-Tender, Lungs Clear, Normal Breath Sounds, No Respiratory Distress, No Accessory Muscle Use Neck: Yes: No masses,lesions,Nodules, Trachea in good position Breast: Yes: Breast Exam Deferred Cardiology: Yes: Regular Rhythm, Tachycardia Abdominal: Yes: Normal Bowel Sounds, Non Tender, Flat Genitourinary: Yes: Other (NO COMPLAINTS REPORTED) Back: Yes: Normal Inspection Musculoskeletal: Yes: full range of Motion, Gait Steady, Pelvis Stable Extremities: Yes: Normal Capillary Refill, Normal Inspection, Normal Range of Motion, Non-Tender Neurological: Yes: Alert, Normal Mood/Affect, Normal Response Integumentary: Yes: Normal Color, Dry, Warm Lymphatic: Yes: Within Normal Limits - Diagnostic (1) Alcohol dependence with uncomplicated withdrawal Current Visit: Yes Status: Chronic (2) Nicotine dependence Current Visit: Yes Status: Chronic (3) Opioid dependence with withdrawal Current Visit: Yes Status: Chronic (4) Weight loss Current Visit: Yes Status: Acute Comment: ensure (5) Asthma Current Visit: Yes Status: Chronic Qualifiers: Asthma severity: mild intermittent Asthma complication type: with status asthmaticus Qualified Code(s): J45.22 - Mild intermittent asthma with status asthmaticus Comment: ventolin (6) Cocaine dependence, uncomplicated Current Visit: Yes Status: Chronic (7) GERD (gastroesophageal reflux disease) Current Visit: Yes Status: Chronic Qualifiers: Esophagitis presence: without esophagitis Qualified Code(s): K21.9 - Gastro -esophageal reflux disease without esophagitis Cleared for Admission [facility] - Detox or Rehab [facility] Level of Care: Medically Managed Detox Regimen/Protocol: Methadone/Librium [facility] Breath Alcohol Content Breath Alcohol Content: 0 Urine Drug Screen - Results Drug Screen Negative: No Urine Drug Screen Results: GEOVANNA-Cocaine, OPI-Opiates
[2017-02-23] MEDS ORDERED: MAGNESIUM HYDROX 2400MG/30ML ORAL SUSPENSION 30 ML CUP PO PRN (20:01)
[2017-02-23] MEDS ORDERED: chlordiazePOXIDE HCL 25 MG CAPSULE PO PRN (20:01)
[2017-02-23] MEDS ORDERED: IBUPROFEN 400 MG TABLET (FP) PO PRN (20:01)
[2017-02-23] MEDS ORDERED: LOPERAMIDE HCL 2 MG CAPSULE PO PRN (20:01)
[2017-02-23] MEDS ORDERED: P-EPHED 60MG/TRIPROLIDI 2.5MG TABLET PO PRN (20:01)
[2017-02-23] MEDS ORDERED: MAGNESIUM CITRATE 300 ML BOTTLE PO PRN (20:01)
[2017-02-23] MEDS ORDERED: MENTHOL/PHENOL 1 EACH UD MM PRN (20:01)
[2017-02-23] MEDS ORDERED: ACETAMINOPHEN 325 MG TABLET (FP) PO PRN (20:01)
[2017-02-23] MEDS ORDERED: METHADONE HCL 10 MG TABLET (FOR DETOX USE ONLY) PO ONE ×2 (20:01→23:00)
[2017-02-23] MEDS ORDERED: MAG HYDROX/AL HYDROX/SIMETH 30 ML UNIT-DOSE CUP PO PRN (20:01)
[2017-02-23] MEDS ORDERED: hydrOXYzine PAMOATE 50 MG CAPSULE (FP) PO PRN (20:01)
[2017-02-23] MEDS ORDERED: chlordiazePOXIDE HCL 25 MG CAPSULE PO ONE (20:01)
[2017-02-23] MEDS ORDERED: guaiFENesin/D-METHORPHAN HB 10 ML UNIT-DOSE CUPS PO PRN (20:01)
[2017-02-23] MEDS: chlordiazePOXIDE HCL 25 MG CAPSULE PO SCH (22:58)
[2017-02-23] MEDS: THIAMINE HCL 100 MG TABLET (FP) PO SCH (22:59)
[2017-02-23 23:25] LABS: URINE APPEARANCE CLEAR; URINE BILIRUBIN NEGATIVE (NEGATIVE); URINE BLOOD NEGATIVE (NEGATIVE); URINE COLOR LTYELLOW; URINE GLUCOSE (UA) NEGATIVE (NEGATIVE); URINE KETONE TRACE (NEGATIVE); URINE LEUK ESTERASE NEGATIVE (NEGATIVE); URINE NITRITE NEGATIVE (NEGATIVE); URINE PROTEIN NEGATIVE (NEGATIVE); URINE UROBILINOGEN NEGATIVE mg/dL (0.2-1.0)
[2017-02-24] MEDS: chlordiazePOXIDE HCL 25 MG CAPSULE PO SCH ×4 (05:09→22:10)
--- NOTE | 2017-02-24 09:29 | PN ---
S CIWA - CIWA Score Nausea/Vomitin Muscle Tremors: 3 Anxiety: 3 Agitation: 3 Paroxysmal Sweats: 1-Minimal Palms Moist Orientation: 0-Oriented Tacttile Disturbances: 1-Very Mild Itch/Numbness Auditory Disturbances: 1-Very Mild Visual Disturbances: 0-None Headache: 2-Mild CIWA-Ar Total Score: 17 BHS COWS - Scale Resting Pulse: 1= [place] 81-100 Sweatin= Chills/Flushing Restless Observation: 3= Extraneous Movement Pupil Size: 1= Pupils >than Normal Bone or Joint Aches: 2= Severe Diffuse Aches Runny Nose/ Eye Tearin= Runny Nose/Eyes GI Upset > 30mins: 3= Vomiting/Diarrhea Tremor Observation of Outstretched Hands: 2= Slight Tremor Visible Yawning Observation: 0= None Anxiety or Irritability: 2=Irritable/Anxious Goose Flesh Skin: 0=Smooth Skin COWS Score: 17 S Progress Note (SOAP) Subjective: ALERT,IRRITABLE,ANXIOUS,INTERRUPTED SLEEP,TREMOR,PAIN IN THE BODY AND BACK Objective: 02/24/17 09:27 Vital Signs Temperature 98.4 F 02/24/17 06:03 Pulse Rate 92 H 02/24/17 06:03 Respiratory Rate 20 02/24/17 06:03 Blood Pressure 123/73 02/24/17 06:03 O2 Sat by Pulse Oximetry (%) EKG NSR,NORMAL ECG Laboratory Last Values Urine Color Ltyellow 02/23/17 22:21 Urine Appearance Clear 02/23/17 22:21 Urine pH 5.0 (5.0-8.0) 02/23/17 22:21 Ur Specific [place] 1.015 (1.001-1.035) 02/23/17 22:21 Urine Protein Negative (NEGATIVE) 02/23/17 22:21 Urine Glucose (UA) Negative (NEGATIVE) 02/23/17 22:21 Urine Ketones Trace (NEGATIVE) H 02/23/17 22:21 Urine Blood Negative (NEGATIVE) 02/23/17 22:21 Urine Nitrite Negative (NEGATIVE) 02/23/17 22:21 Urine Bilirubin Negative (NEGATIVE) 02/23/17 22:21 Urine Urobilinogen Negative mg/dL (0.2-1.0) 02/23/17 22:21 Ur Leukocyte Esterase Negative (NEGATIVE) 02/23/17 22:21 LABS PENDING Assessment: 02/24/17 09:28 WITHDRAWAL SYMPTOM Plan: CONTINUE DETOX
[2017-02-24] MEDS ORDERED: METHADONE HCL 10 MG TABLET (FOR DETOX USE ONLY) PO SCH (10:00)
[2017-02-24] MEDS: PRENATAL VITAMINS W/ FOLIC ACID TABLET (FP) PO SCH (10:07)
[2017-02-24 11:05] LABS: ALBUMIN 3.5 g/dl (3.4-5.0); ANION GAP 7 (8-16); BLOOD UREA NITROGEN 23 mg/dL (7-18); CALCIUM 8.8 mg/dL (8.5-10.1); CHLORIDE 108 mmol/L (98-107); CO2 29 mmol/L (21-32); GLUCOSE,RANDOM 135 mg/dL (74-106); POTASSIUM 4.2 mmol/L (3.5-5.1); SODIUM 144 mmol/L (136-145)
[2017-02-24 11:09] LABS: ALK PHOS 84 U/L (45-117); BILIRUBIN,TOTAL 0.3 mg/dL (0.2-1.0); CREATININE 1.3 mg/dL (0.7-1.3); SGOT/AST 16 U/L (15-37); SGPT/ALT 19 U/L (12-78); TOT PROT 6.7 g/dl (6.4-8.2)
[2017-02-24 11:12] LABS: HEMATOCRIT 40.6 % (35.4-49); HEMOGLOBIN 13.2 GM/dL (11.7-16.9); MCH 28.4 pg (25.7-33.7); MCHC 32.5 g/dl (32.0-35.9); MEAN CELL VOLUME 87.5 fl (80-96); MEAN PLT VOLUME 10.5 fl (7.5-11.1); PLATELET COUNT 247 K/MM3 (134-434); RBC 4.64 M/mm3 (4.00-5.60); RDW 14.7 % (11.9-15.9); WHITE BLOOD COUNT 7.9 K/mm3 (4.0-10.0)
--- NOTE | 2017-02-24 13:40 | EKG ---
Test Reason : Blood Pressure : / mmHG Vent. Rate : 089 BPM Atrial Rate : 089 BPM P-R Int : 136 ms QRS Dur : 080 ms QT Int : 360 ms P-R-T Axes : 060 052 048 degrees QTc Int : 438 ms NORMAL SINUS RHYTHM NORMAL ECG WHEN COMPARED WITH ECG OF 29-JUN-2016 20:10, NO SIGNIFICANT CHANGE WAS FOUND Confirmed by JUAN MCCARTY MD ([id number]) on 02/24/2017 1:39:51 PM Referred By: Confirmed By:JUAN MCCARTY MD
--- NOTE | 2017-02-24 14:49 | CONSULT ---
[facility] Psychiatric Consult - Data Date of interview: 02/24/17 Admission source: [facility] Identifying data: This is one of multiple admissions to [facility] for this 47 y/ o AA male seeking detox treatment for alcohol,heroin and cocaine dependence.Patient is ,a father of three,domiciled,unemployed and supported by his spouse. Substance Abuse History: Confirmed by patient in this session.Details in current [facility] report : Smoking history: Current every day smoker. Have you smoked in the past 12 months: Yes. Aproximately how many cigarettes per day: 10. Cigars Per Day: 0. Hx Chewing Tobacco Use: No. Initiated information on smoking cessation: Yes. 'Breaking Loose' booklet given: 02/23/17. - Substance & Tx. History. Hx Alcohol Use: Yes. Hx Substance Use: Yes. Substance Use Type : Alcohol, Cocaine, Heroin. Hx Substance Use Treatment: Yes (DETOX AND REHAB: ). - Substances Abused. Alcohol. Route: Oral. Frequency: Daily. Amount used: 1 PINT OF LIQUOR. Age of first use: 19. Date of Last Use: . Heroin. Route: Inhalation. Frequency: Daily. Amount used: 1 BUNDLE. Age of first use: 19. Date of Last Use: 02/23/17. Crack. Route: Smoking. Frequency: 1-2 times per week. Amount used: $50. Age of first use: 25. Date of Last Use: 02/21/17 Medical History: History of colitis,bronchial asthma,GERD and gastric ulcer.Remote history of orthosurgery (injury of right knee in 2005). Psychiatric History: Patient reports a remote history of psychiatric hospitalizations ([facility] in [place] and [facility] in [facility]Diagnosed with Bipolar Disorder.Mr Madison states that he used to be prescribed risperdal and hydroxyzine.Previously known to [facility] ([facility]).Lost to follow up for several months.No psychiatric OPD care provider (patient is also known to the [facility] clinic).Mr Madison declares his preference for seroquel (no more than 100 mg at bedtime) .Declines to resume lexapro and risperdal.No reported history of suicide attempts. Physical/Sexual Abuse/Trauma History: Patient denies. Additional Comment: Urine Drug Screen Results: GEOVANNA-Cocaine, OPI-Opiates.Noted. Mental Status Exam - Mental Status Exam Alert and Oriented to: Time, Place, Person Cognitive Function: Good Patient Appearance: Well Groomed Mood: Nervous, Withdrawn, Anxious Affect: Mood Congruent Patient Behavior: Fatigued, Appropriate, Cooperative Speech Pattern: Clear, Appropriate Voice Loudness: Normal Thought Process: Intact, Goal Oriented Thought Disorder: Not Present Hallucinations: Denies Suicidal Ideation: Denies Homicidal Ideation: Denies Insight/Judgement: Poor Sleep: Poorly, Difficulty falling asleep Appetite: Good Muscle strength/Tone: Normal Gait/Station: Normal Psychiatric Findings - Problem List ([place] 1, 2,3) (1) Alcohol dependence with uncomplicated withdrawal Current Visit: Yes Status: Acute (2) Opioid dependence with withdrawal Current Visit: Yes Status: Acute (3) Cocaine dependence, uncomplicated Current Visit: Yes Status: Acute (4) Nicotine dependence Current Visit: Yes Status: Acute (5) Substance induced mood disorder Current Visit: Yes Status: Chronic (6) Insomnia Current Visit: Yes Status: Acute - Initial Treatment Plan Initial Treatment Plan: Records reviewed.Psychoeducation and support provided.Detoxification in progress.Sleep hygiene discussed.Seroquel 100 mg po hs (patient's specific request).Ordered.Side effects/benefits are discussed with patient.Mr Madison gave his consent (verbal) to follow this plan of care.Observation.Patient is made aware of search of recent pharmacy claims that yields evidence of refills - on 01/03/17 - for lexapro 20 mg/day + risperdal 3 mg/hs at [id number].Patient aknowledges the findings but he INSISTS on switching to quetiapine.
[2017-02-24] MEDS: QUEtiapine FUMARATE 100 MG TABLET (FP) PO SCH (22:10)
[2017-02-24] MEDS: THIAMINE HCL 100 MG TABLET (FP) PO SCH (22:10)
[2017-02-25] MEDS: chlordiazePOXIDE HCL 25 MG CAPSULE PO SCH ×3 (05:20→17:55)
--- NOTE | 2017-02-25 09:26 | PN ---
[facility] CIWA - CIWA Score Nausea/Vomitin-No Nausea/No Vomiting Muscle Tremors: 3 Anxiety: 3 Agitation: 3 Paroxysmal Sweats: 1-Minimal Palms Moist Orientation: 0-Oriented Tacttile Disturbances: 0-None Auditory Disturbances: 0-None Visual Disturbances: 0-None Headache: 0-None Present CIWA-Ar Total Score: 10 BHS COWS - Scale Resting Pulse: 1= [place] 81-100 Sweatin= Chills/Flushing Restless Observation: 1= Difficult to Sit Still Pupil Size: 0= Normal to Room Light Bone or Joint Aches: 1= Mild Discomfort Runny Nose/ Eye Tearin= Nasal Congestion GI Upset > 30mins: 1= Stomach Cramp Tremor Observation of Outstretched Hands: 1= Tremor [place], Not Seen Yawning Observation: 0= None Anxiety or Irritability: 1=Feels Anxious/Irritable Goose Flesh Skin: 3=Piloerection COWS Score: 11 [facility] Progress Note (SOAP) Subjective: sweat body ache restlessness anxiety tremor Objective: 02/25/17 09:27 Vital Signs Temperature 97.2 F L 02/25/17 06:14 Pulse Rate 82 02/25/17 06:14 Respiratory Rate 18 02/25/17 06:14 Blood Pressure 127/85 02/25/17 06:14 O2 Sat by Pulse Oximetry (%) Laboratory Last Values WBC 7.9 K/mm3 (4.0-10.0) 02/24/17 08:00 RBC 4.64 M/mm3 (4.00-5.60) 02/24/17 08:00 Hgb 13.2 GM/dL (11.7-16.9) 02/24/17 08:00 Hct 40.6 % (35.4-49) 02/24/17 08:00 MCV 87.5 fl (80-96) 02/24/17 08:00 MCH 28.4 pg (25.7-33.7) 02/24/17 08:00 MCHC 32.5 g/dl (32.0-35.9) 02/24/17 08:00 RDW 14.7 % (11.9-15.9) 02/24/17 08:00 Plt Count 247 K/MM3 (134-434) D 02/24/17 08:00 MPV 10.5 fl (7.5-11.1) 02/24/17 08:00 Sodium 144 mmol/L (136-145) 02/24/17 08:00 Potassium 4.2 mmol/L (3.5-5.1) 02/24/17 08:00 Chloride 108 mmol/L (98-107) H 02/24/17 08:00 Carbon Dioxide 29 mmol/L (21-32) 02/24/17 08:00 Anion Gap 7 (8-16) L 02/24/17 08:00 BUN 23 mg/dL (7-18) H 02/24/17 08:00 Creatinine 1.3 mg/dL (0.7-1.3) 02/24/17 08:00 Creat Clearance w eGFR 59.17 (>60) 02/24/17 08:00 POC Glucometer 85 UNITS (80-120) 02/25/17 05:20 Random Glucose 135 mg/dL (74-106) H D 02/24/17 08:00 Calcium 8.8 mg/dL (8.5-10.1) 02/24/17 08:00 Total Bilirubin 0.3 mg/dL (0.2-1.0) D 02/24/17 08:00 AST 16 U/L (15-37) D 02/24/17 08:00 ALT 19 U/L (12-78) 02/24/17 08:00 Alkaline Phosphatase 84 U/L (45-117) D 02/24/17 08:00 Total Protein 6.7 g/dl (6.4-8.2) 02/24/17 08:00 Albumin 3.5 g/dl (3.4-5.0) 02/24/17 08:00 Urine Color Ltyellow 02/23/17 22:21 Urine Appearance Clear 02/23/17 22:21 Urine pH 5.0 (5.0-8.0) 02/23/17 22:21 Ur Specific [place] 1.015 (1.001-1.035) 02/23/17 22:21 Urine Protein Negative (NEGATIVE) 02/23/17 22:21 Urine Glucose (UA) Negative (NEGATIVE) 02/23/17 22:21 Urine Ketones Trace (NEGATIVE) H 02/23/17 22:21 Urine Blood Negative (NEGATIVE) 02/23/17 22:21 Urine Nitrite Negative (NEGATIVE) 02/23/17 22:21 Urine Bilirubin Negative (NEGATIVE) 02/23/17 22:21 Urine Urobilinogen Negative mg/dL (0.2-1.0) 02/23/17 22:21 Ur Leukocyte Esterase Negative (NEGATIVE) 02/23/17 22:21 RPR Titer Nonreactive (NONREACTIVE) 02/24/17 08:00 lab noted Assessment: 02/25/17 09:27 withdrawal sx Plan: continue detox
[2017-02-25] MEDS: METHADONE HCL 5 MG TABLET (FOR DETOX USE ONLY) PO SCH (11:05)
[2017-02-25] MEDS: PRENATAL VITAMINS W/ FOLIC ACID TABLET (FP) PO SCH (11:06)
[2017-02-25] MEDS: chlordiazePOXIDE 5 MG CAPSULE PO SCH (22:36)
[2017-02-25] MEDS: THIAMINE HCL 100 MG TABLET (FP) PO SCH (22:36)
[2017-02-25] MEDS: QUEtiapine FUMARATE 100 MG TABLET (FP) PO SCH (22:37)
[2017-02-26] MEDS: chlordiazePOXIDE 5 MG CAPSULE PO SCH ×3 (05:25→18:34)
[2017-02-26 10:07] LABS: HEMATOCRIT 43.1 % (35.4-49); HEMOGLOBIN 13.7 GM/dL (11.7-16.9); MCH 28.2 pg (25.7-33.7); MCHC 31.9 g/dl (32.0-35.9); MEAN CELL VOLUME 88.4 fl (80-96); MEAN PLT VOLUME 10.6 fl (7.5-11.1); PLATELET COUNT 219 K/MM3 (134-434); RBC 4.88 M/mm3 (4.00-5.60); RDW 14.4 % (11.9-15.9); WHITE BLOOD COUNT 6.6 K/mm3 (4.0-10.0)
--- NOTE | 2017-02-26 10:12 | PN ---
BHS Progress Note (SOAP) Subjective: ALERT,IRRITABLE,ANXIOUS,INTERRUPTED SLEEP,PAIN IN THE BODY AND BACK Objective: 02/26/17 10:11 Vital Signs Temperature 96.4 F L 02/26/17 06:06 Pulse Rate 76 02/26/17 06:06 Respiratory Rate 18 02/26/17 06:06 Blood Pressure 125/68 02/26/17 06:06 O2 Sat by Pulse Oximetry (%) Assessment: 02/26/17 10:11 WITHDRAWAL SYMPTOM Plan: CONTINUE DETOX
[2017-02-26] MEDS: PRENATAL VITAMINS W/ FOLIC ACID TABLET (FP) PO SCH (10:22)
[2017-02-26] MEDS: METHADONE HCL 5 MG TABLET (FOR DETOX USE ONLY) PO SCH (10:23)
[2017-02-26] MEDS: QUEtiapine FUMARATE 100 MG TABLET (FP) PO SCH (22:17)
[2017-02-26] MEDS: chlordiazePOXIDE HCL 10 MG CAPSULE PO SCH (22:17)
[2017-02-26] MEDS: THIAMINE HCL 100 MG TABLET (FP) PO SCH (22:17)
[2017-02-27] MEDS: chlordiazePOXIDE HCL 10 MG CAPSULE PO SCH ×3 (06:12→17:59)
[2017-02-27] MEDS ORDERED: METHADONE HCL 10 MG TABLET (FOR DETOX USE ONLY) PO SCH (10:00)
--- NOTE | 2017-02-27 10:19 | PN ---
BHS Progress Note (SOAP) Subjective: ALERT,IRRITABLE,ANXIOUS,INTERRUPTED SLEEP,PAIN IN THE BODY Objective: 02/27/17 10:18 Vital Signs Temperature 97.7 F 02/27/17 10:00 Pulse Rate 121 H 02/27/17 10:00 Respiratory Rate 0 L 02/27/17 10:00 Blood Pressure 116/69 02/27/17 10:00 O2 Sat by Pulse Oximetry (%) Assessment: 02/27/17 10:18 WITHDRAWAL SYMPTOM Plan: CONTINUE DETOX
[2017-02-27] MEDS: PRENATAL VITAMINS W/ FOLIC ACID TABLET (FP) PO SCH (10:55)
[2017-02-27] MEDS: QUEtiapine FUMARATE 100 MG TABLET (FP) PO SCH (22:15)
[2017-02-27] MEDS: THIAMINE HCL 100 MG TABLET (FP) PO SCH (22:15)
[2017-02-28] MEDS ORDERED: METHADONE HCL 5 MG TABLET (FOR DETOX USE ONLY) PO SCH (06:00)
[2017-02-28 06:24] VITALS: BP 142/66; PULSE 89; TEMP 97.9
--- NOTE | 2017-02-28 08:33 | DS ---
[facility] Detox Discharge Summary Admission Date: 02/23/17 Discharge Date: 02/28/17 - History Present History: Alcohol Dependence, Cocaine Dependence, Opioid Dependence Pertinent Past History: weight loss asthma gerd - Physical Exam Results Vital Signs: Vital Signs Temperature 97.9 F 02/28/17 06:24 Pulse Rate 89 02/28/17 06:24 Respiratory Rate 02/28/17 06:24 Blood Pressure 142/66 02/28/17 06:24 O2 Sat by Pulse Oximetry (%) Pertinent Admission Physical Exam Findings: withdrawal symptom - Treatment Hospital Course: Detox Protocol Followed, Detoxed Safely, Responded well, Discharged Condition Good, Rehab Referral Accepted Patient has Accepted [facility] Referral [facility] - Medication Discharge Medications: Ambulatory Orders Albuterol Sulfate Inhaler - [Ventolin Hfa Inhaler -] 2 inh PO Q4H PRN 08/06/15 Quetiapine Fumarate [Seroquel] 100 mg PO HS #30 tablet 02/27/17 - Diagnosis (1) Opioid dependence with withdrawal Current Visit: Yes Status: Acute (2) Alcohol dependence with uncomplicated withdrawal Current Visit: Yes Status: Acute (3) Cocaine dependence, uncomplicated Current Visit: Yes Status: Acute (4) Nicotine dependence Current Visit: Yes Status: Acute (5) Weight loss Current Visit: Yes Status: Acute (6) Asthma Current Visit: Yes Status: Chronic Qualifiers: Asthma severity: mild intermittent Asthma complication type: with status asthmaticus (7) GERD (gastroesophageal reflux disease) Current Visit: Yes Status: Chronic Qualifiers: Esophagitis presence: without esophagitis Qualified Code(s): K21.9 - Gastro -esophageal reflux disease without esophagitis (8) Insomnia Current Visit: Yes Status: Acute (9) Substance induced mood disorder Current Visit: Yes Status: Chronic - AMA Did Patient Leave Against Medical Advice: No
[2017-02-28] MEDS: PRENATAL VITAMINS W/ FOLIC ACID TABLET (FP) PO SCH (09:07)
== END 2017-02-28 09:20 | disposition home or self-care (01) | DRG 897 ==
LOC: YASAS 16:35 → Y6N 20:14
PROVIDERS: ADMIT Internal Medicine; ATTEND Internal Medicine
PROC: HZ2ZZZZ Detoxification Services for Substance Abuse Treatment (ICD-10-PCS; principal; 2017-02-23)
DX: F11.23 Opioid dependence with withdrawal (principal); F14.20 Cocaine dependence, uncomplicated; F19.282 Other psychoactive substance dependence with psychoactive substance-induced sleep disorder; J45.902 Unspecified asthma with status asthmaticus; F10.230 Alcohol dependence with withdrawal, uncomplicated; F17.210 Nicotine dependence, cigarettes, uncomplicated; F31.9 Bipolar disorder, unspecified; F19.24 Other psychoactive substance dependence with psychoactive substance-induced mood disorder; K21.9 Gastro-esophageal reflux disease without esophagitis; R63.4 Abnormal weight loss; Z68.27 Body mass index [BMI] 27.0-27.9, adult
CPT/HCPCS: 36415; 80053; 81003; 82962; 85027; 86593; 93005; 93010

== ENCOUNTER 2017-03-23 10:20 | Inpatient (IN) | payer OTHER ==
[2017-03-23 10:56] VITALS: BMI 26.6
--- NOTE | 2017-03-23 15:47 | HP ---
COWS - Scale Resting Pulse: 1= [place] 81-100 Sweatin= Chills/Flushing Restless Observation: 3= Extraneous Movement Pupil Size: 0= Normal to Room Light Bone or Joint Aches: 4=Acute Joint/Muscle Pain Runny Nose/ Eye Tearin= Runny Nose/Eyes GI Upset > 30mins: 2= Nausea/Diarrhea (NO DIARRHEA) Tremor Observation: 2= Slight Tremor Visible Yawning Observation: 1= 1-2x During Session Anxiety or Irritability: 2=Irritable/Anxious Goose Flesh Skin: 0=Smooth Skin COWS Score: 18 CIWA Score - CIWA Score Nausea/Vomitin-No Nausea/No Vomiting Muscle Tremors: 3 Anxiety: 4-Mod. Anxious/Guarded Agitation: 3 Paroxysmal Sweats: 1-Minimal Palms Moist Orientation: 0-Oriented Tacttile Disturbances: 3-Moderate Itch/Numb/Burn Auditory Disturbances: 0-None Visual Disturbances: 0-None Headache: 0-None Present CIWA-Ar Total Score: 14 Admission [facility] - HPI Chief Complaint: WITHDRAWAL SX FROM HEROIN/ALCOHOL Allergies/Adverse Reactions: Allergies Allergy/AdvReac Type Severity Reaction Status Date / Time shellfish derived Allergy Severe Swelling Verified 03/23/17 11:38 No Known Drug Allergies Allergy Verified 03/23/17 11:38 History of Present Illness: 47 Y/O MALE WITH A HX OF ALCOHOL AND HEROIN DEPENDENCE SEEKING DETOX [place]. Exam Limitations: No Limitations - Ebola screening Have you traveled outside of the country in the last 21 days: No (N) Have you had contact with anyone from an Ebola affected area: No Have you been sick,other than usual withdrawal symptoms: No Do you have a fever: No - Review of Systems Constitutional: Chills, Loss of Appetite, Night Sweats, Changes in sleep EENT: reports: Blurred Vision, Tearing, Nose Congestion Respiratory: reports: Shortness of Breath (HX ASTHMA), Wheezing Cardiac: reports: Lightheadedness GI: reports: Constipated, Diarrhea, Nausea, Vomiting : reports: No Symptoms Reported Musculoskeletal: reports: Back Pain, Muscle Pain Integumentary: reports: No Symptoms Reported Neuro: reports: Tremors, Unsteady Gait, Dizziness Endocrine: reports: No Symptoms Reported Hematology: reports: No Symptoms Reported Psychiatric: reports: Orientated x3, Anxious, Depressed Other Systems: Reviewed and Negative Patient History - Patient Medical History Hx Anemia: No Hx Asthma: Yes (MDI) Hx Chronic Obstructive Pulmonary Disease (COPD): No Hx Cancer: No Hx Cardiac Disorders: No Hx Congestive Heart Failure: No Hx Hypertension: No Hx Hypercholesterolemia: No Hx Pacemaker: No HX Cerebrovascular Accident: No Hx Seizures: No Hx Dementia: No Hx Diabetes: No Hx Gastrointestinal Disorders: No Hx Liver Disease: No Hx Genitourinary Disorders: No Hx Sexually Transmitted Disorders: No Hx Renal Disease (ESRD): No Hx Thyroid Disease: No Hx Human Immunodeficiency Virus (HIV): No (NEGATIVE HX) Hx Hepatitis C: No Hx Depression: Yes Hx Suicide Attempt: No (DENIES) Hx Bipolar Disorder: Yes (NO CURRENT MEDS) Hx Schizophrenia: No - Patient Surgical History Past Surgical History: Yes Hx Neurologic Surgery: No Hx Cataract Extraction: No Hx Cardiac Surgery: No Hx Lung Surgery: No Hx Breast Surgery: No Hx Breast Biopsy: No Hx Abdominal Surgery: No Hx Appendectomy: No Hx Cholecystectomy: No Hx Genitourinary Surgery: No Hx Orthopedic Surgery: Yes (R knee sx 2005) Anesthesia Reaction: No - PPD History Previous Implant?: Yes Documented Results: Negative w/proof Implanted On Prior [facility] Admission?: Yes Date: 02/25/17 Results: 0 mm PPD to be Administered?: No - Reproductive History Patient is a Female of Child Bearing Age (11 -55 yrs old): No (MALE) - Smoking Cessation Smoking history: Current every day smoker Have you smoked in the past 12 months: Yes Aproximately how many cigarettes per day: 10 Cigars Per Day: 0 Hx Chewing Tobacco Use: No Initiated information on smoking cessation: Yes 'Breaking Loose' booklet given: 03/23/17 - Substance & Tx. History Hx Alcohol Use: Yes (VODKA) Hx Substance Use: Yes (HEROIN/COCAINE) Substance Use Type: Alcohol, Cocaine, Heroin Hx Substance Use Treatment: Yes (LAST TX AT [facility]) - Substances Abused Alcohol Route: Oral Frequency: Daily Amount used: vodka(2 pints) Age of first use: 18 Date of Last Use: 03/22/17 Heroin Route: Inhalation Frequency: Daily Amount used: 10 bags Age of first use: 17 Date of Last Use: 03/22/17 Cocaine Route: Smoking Frequency: Daily Amount used: $100 Age of first use: 21 Date of Last Use: 03/22/17 Family Disease History - Family Disease History Family Disease History: Other: Father (DRUG & ALCOHOL) Admission Physical Exam S - Vital Signs Vital Signs: Vital Signs - 24 hr 03/23/17 10:54 Temperature 97.2 F L Pulse Rate 95 H Respiratory 20 Rate Blood Pressure 133/80 - Physical General Appearance: Yes: Moderate Distress, Irritable, Anxious HEENTM: Yes: EOMI, Normocephalic, MARVIN, Pharynx Normal, Nasal Congestion, Rhinorrhea Respiratory: Yes: Chest Non-Tender, Lungs Clear, Normal Breath Sounds, No Respiratory Distress Neck: Yes: No masses,lesions,Nodules, Supple, Trachea in good position Breast: Yes: Breast Exam Deferred Cardiology: Yes: Regular Rhythm, Regular Rate, S1, S2 Abdominal: Yes: Normal Bowel Sounds, Non Tender, Flat, Soft Genitourinary: Yes: Other (N/C) Back: Yes: Within Normal Limits Musculoskeletal: Yes: full range of Motion, Gait Steady Extremities: Yes: Normal Range of Motion, Non-Tender 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 NML intact, Fully Oriented, Alert, Motor Strength 5/5 Integumentary: Yes: Dry, Warm Lymphatic: Yes: Within Normal Limits - Diagnostic (1) Alcohol dependence with uncomplicated withdrawal Current Visit: Yes Status: Acute (2) Cocaine dependence, uncomplicated Current Visit: Yes Status: Acute (3) Nicotine dependence Current Visit: Yes Status: Acute Qualifiers: Substance use status: in withdrawal (4) Opioid dependence with withdrawal Current Visit: Yes Status: Acute (5) Asthma Current Visit: Yes Status: Chronic Qualifiers: Asthma severity: mild intermittent Asthma complication type: with status asthmaticus Comment: vanessa (6) GERD (gastroesophageal reflux disease) Current Visit: Yes Status: Chronic Qualifiers: Esophagitis presence: without esophagitis Qualified Code(s): K21.9 - Gastro -esophageal reflux disease without esophagitis Cleared for Admission BHS - Detox or Rehab Detox Regimen/Protocol: Methadone/Librium [facility] Breath Alcohol Content Breath Alcohol Content: 0 Urine Drug Screen - Results Drug Screen Negative: No Urine Drug Screen Results: GEOVANNA-Cocaine, OPI-Opiates, MET-Methamphetamine
[2017-03-23] MEDS ORDERED: NICOTINE POLACRILEX 2 MG GUM BUC PRN (15:55)
[2017-03-23] MEDS ORDERED: MAG HYDROX/AL HYDROX/SIMETH 30 ML UNIT-DOSE CUP PO PRN (15:55)
[2017-03-23] MEDS ORDERED: P-EPHED 60MG/TRIPROLIDI 2.5MG TABLET PO PRN (15:55)
[2017-03-23] MEDS ORDERED: ACETAMINOPHEN 325 MG TABLET (FP) PO PRN (15:55)
[2017-03-23] MEDS ORDERED: LOPERAMIDE HCL 2 MG CAPSULE PO PRN (15:55)
[2017-03-23] MEDS ORDERED: MENTHOL/PHENOL 1 EACH UD MM PRN (15:55)
[2017-03-23] MEDS ORDERED: chlordiazePOXIDE HCL 25 MG CAPSULE PO PRN (15:55)
[2017-03-23] MEDS ORDERED: MAGNESIUM HYDROX 2400MG/30ML ORAL SUSPENSION 30 ML CUP PO PRN (15:55)
[2017-03-23] MEDS ORDERED: IBUPROFEN 400 MG TABLET (FP) PO PRN (15:55)
[2017-03-23] MEDS ORDERED: guaiFENesin/D-METHORPHAN HB 10 ML UNIT-DOSE CUPS PO PRN (15:55)
[2017-03-23] MEDS ORDERED: METHADONE HCL 10 MG TABLET (FOR DETOX USE ONLY) PO ONE ×2 (15:55→23:00)
[2017-03-23] MEDS ORDERED: MAGNESIUM CITRATE 300 ML BOTTLE PO PRN (15:55)
[2017-03-23] MEDS: NICOTINE 14 MG/24 HOURS TOPICAL PATCH TD SCH (17:26)
[2017-03-23] MEDS: chlordiazePOXIDE HCL 25 MG CAPSULE PO SCH ×2 (17:27→22:01)
[2017-03-23] MEDS: THIAMINE HCL 100 MG TABLET (FP) PO SCH (22:00)
[2017-03-24 02:37] LABS: URINE APPEARANCE CLEAR; URINE BILIRUBIN NEGATIVE (NEGATIVE); URINE BLOOD NEGATIVE (NEGATIVE); URINE COLOR YELLOW; URINE GLUCOSE (UA) NEGATIVE (NEGATIVE); URINE KETONE 1+ (NEGATIVE); URINE LEUK ESTERASE NEGATIVE (NEGATIVE); URINE NITRITE NEGATIVE (NEGATIVE); URINE PROTEIN NEGATIVE (NEGATIVE)
[2017-03-24] MEDS: chlordiazePOXIDE HCL 25 MG CAPSULE PO SCH ×4 (05:23→22:04)
[2017-03-24] MEDS ORDERED: METHADONE HCL 10 MG TABLET (FOR DETOX USE ONLY) PO SCH (10:00)
[2017-03-24] MEDS: PRENATAL VITAMINS W/ FOLIC ACID TABLET (FP) PO SCH (10:06)
[2017-03-24] MEDS: NICOTINE 14 MG/24 HOURS TOPICAL PATCH TD SCH (10:06)
[2017-03-24 10:39] LABS: HEMOGLOBIN 13.3 GM/dL (11.7-16.9); MCH 28.4 pg (25.7-33.7); MCHC 32.4 g/dl (32.0-35.9); MEAN CELL VOLUME 87.8 fl (80-96); MEAN PLT VOLUME 12.2 fl (7.5-11.1); PLATELET COUNT 197 K/MM3 (134-434); RBC 4.67 M/mm3 (4.00-5.60); RDW 15.5 % (11.9-15.9)
[2017-03-24 11:12] LABS: ALBUMIN 3.8 g/dl (3.4-5.0); ANION GAP 8 (8-16); BLOOD UREA NITROGEN 19 mg/dL (7-18); CALCIUM 8.9 mg/dL (8.5-10.1); CHLORIDE 104 mmol/L (98-107); CO2 27 mmol/L (21-32); GLUCOSE,RANDOM 112 mg/dL (74-106); POTASSIUM 3.9 mmol/L (3.5-5.1); SGOT/AST 12 U/L (15-37); SGPT/ALT 14 U/L (12-78); SODIUM 139 mmol/L (136-145)
[2017-03-24 11:21] LABS: ALK PHOS 66 U/L (45-117); BILIRUBIN,TOTAL 0.9 mg/dL (0.2-1.0); TOT PROT 7.1 g/dl (6.4-8.2)
[2017-03-24] MEDS ORDERED: TRIMETHOBENZAMIDE HCL 200MG/2ML INJ IM PRN (11:31)
--- NOTE | 2017-03-24 11:55 | CONSULT ---
[facility] Psychiatric Consult - Data Date of interview: 03/24/17 Admission source: [facility] Identifying data: Another admission to [facility] for this 47 y/o AA male seeking detox treatment for alcohol,heroin and cocaine dependence.Patient is ,a father of three,domiciled,unemployed and supported by . Substance Abuse History: Confirmed by patient in this session.Details in current [facility] report : Smoking history: Current every day smoker. Have you smoked in the past 12 months: Yes. Aproximately how many cigarettes per day: 10. Cigars Per Day: 0. Hx Chewing Tobacco Use: No. Initiated information on smoking cessation: Yes. 'Breaking Loose' booklet given: 03/23/17. - Substance & Tx. History. Hx Alcohol Use: Yes (VODKA). Hx Substance Use: Yes (HEROIN/ COCAINE). Substance Use Type: Alcohol, Cocaine, Heroin. Hx Substance Use Treatment: Yes (LAST TX AT [facility]). - Substances Abused. Alcohol. Route: Oral. Frequency: Daily. Amount used: vodka(2 pints). Age of first use: 18. Date of Last Use: 03/22/17. Heroin. Route: Inhalation. Frequency: Daily. Amount used: 10 bags. Age of first use: 17. Date of Last Use: 03/22/17. Cocaine. Route: Smoking. Frequency: Daily. Amount used: $100. Age of first use: 21. Date of Last Use: 03/22/17 Medical History: No changes in medical profile since last month's encounter. History of colitis,bronchial asthma,GERD and gastric ulcer.Remote history of orthosurgery (injury of right knee in 2005). Psychiatric History: Distant history of psychiatric hospitalizations ([facility] facility in [place] and [facility] in [facility]) years ago.Diagnosed with Bipolar Disorder.In this interview,Mr Madison declares that he has no recollection of psychotropic medications prescribed in the past ( records indicate previous scripts for risperdal and hydroxyzine).Patient used to attend [facility] ([facility]).No follow up for several months.No psychiatric OPD care provider (patient is also known to the [facility]PD clinic) for " a while ", which is to be translated into a 2-3 years of non- adherence to aftercare (according to patient).Mr Madison requests seroquel (no more than 100 mg at bedtime).No reported history of suicide attempts. Physical/Sexual Abuse/Trauma History: Patient denies. Additional Comment: Urine Drug Screen Results: GEOVANNA-Cocaine, OPI-Opiates, MET- Methamphetamine.Noted. Mental Status Exam - Mental Status Exam Alert and Oriented to: Time, Place, Person Cognitive Function: Good Patient Appearance: Well Groomed Mood: Nervous (dysphoric), Withdrawn, Anxious Affect: Mood Congruent (neutral) Patient Behavior: Fatigued, Appropriate, Cooperative Speech Pattern: Clear, Appropriate Voice Loudness: Normal Thought Process: Intact, Goal Oriented Thought Disorder: Not Present Hallucinations: Denies Suicidal Ideation: Denies Homicidal Ideation: Denies Insight/Judgement: Poor Sleep: Poorly, Difficulty falling asleep Appetite: Good Muscle strength/Tone: Normal Gait/Station: Normal Psychiatric Findings - Problem List ([place] 1, 2,3) (1) Opioid dependence with withdrawal Current Visit: Yes Status: Acute (2) Alcohol dependence with uncomplicated withdrawal Current Visit: Yes Status: Acute (3) Cocaine dependence, uncomplicated Current Visit: Yes Status: Acute (4) Nicotine dependence Current Visit: Yes Status: Acute Qualifiers: Substance use status: in withdrawal (5) Substance induced mood disorder Current Visit: Yes Status: Chronic (6) Insomnia Current Visit: Yes Status: Acute - Initial Treatment Plan Initial Treatment Plan: Records reviewed.Psychoeducation and support provided in this session.Detoxification in progress.Sleep hygiene discussed with the patient.Seroquel 100 mg po hs.Ordered at patient's request.Side effects/ benefits revisited with patient.Mr Madison consented (verbally) to follow this plan of care.Observation.
--- NOTE | 2017-03-24 14:32 | PN ---
S CIWA - CIWA Score Nausea/Vomitin Muscle Tremors: 3 Anxiety: 4-Mod. Anxious/Guarded Agitation: 3 Paroxysmal Sweats: 3 Orientation: 0-Oriented Tacttile Disturbances: 0-None Auditory Disturbances: 0-None Visual Disturbances: 2-Mild Sensitivity Headache: 0-None Present CIWA-Ar Total Score: 18 BHS COWS - Scale Resting Pulse: 0= MA 80 or Below Sweatin= Chills/Flushing Restless Observation: 1= Difficult to Sit Still Pupil Size: 0= Normal to Room Light Bone or Joint Aches: 2= Severe Diffuse Aches Runny Nose/ Eye Tearin= None GI Upset > 30mins: 2= Nausea/Diarrhea Tremor Observation of Outstretched Hands: 2= Slight Tremor Visible Yawning Observation: 1= 1-2x During Session Anxiety or Irritability: 2=Irritable/Anxious Goose Flesh Skin: 3=Piloerection COWS Score: 14 BHS Progress Note (SOAP) Subjective: Nausea, Diarrhea, Tremors, Sweating, Body Aches, Stomach Cramping. Objective: PT. A & O X 3. NO ACUTE DISTRESS. 03/24/17 14:30 Vital Signs Temperature 96.5 F L 03/24/17 13:18 Pulse Rate 72 03/24/17 13:18 Respiratory Rate 18 03/24/17 13:18 Blood Pressure 127/83 03/24/17 13:18 O2 Sat by Pulse Oximetry (%) Laboratory Tests 03/23/17 03/24/17 03/24/17 22:45 06:00 06:00 WBC 7.0 RBC 4.67 Hgb 13.3 Hct 41.0 MCV 87.8 MCH 28.4 MCHC 32.4 RDW 15.5 Plt Count 197 MPV 12.2 H D Sodium 139 Potassium 3.9 Chloride 104 Carbon Dioxide 27 Anion Gap 8 BUN 19 H Creatinine 1.0 D Creat Clearance w eGFR > 60 Random Glucose 112 H Calcium 8.9 Total Bilirubin 0.9 D AST 12 L D ALT 14 D Alkaline Phosphatase 66 D Total Protein 7.1 Albumin 3.8 Urine Color Yellow Urine Appearance Clear Urine pH 6.0 Ur Specific [place] 1.023 Urine Protein Negative Urine Glucose (UA) Negative Urine Ketones 1+ H Urine Blood Negative Urine Nitrite Negative Urine Bilirubin Negative Urine Urobilinogen 2.0 Ur Leukocyte Esterase Negative RPR Titer 03/24/17 06:00 WBC RBC Hgb Hct MCV MCH MCHC RDW Plt Count MPV Sodium Potassium Chloride Carbon Dioxide Anion Gap BUN Creatinine Creat Clearance w eGFR Random Glucose Calcium Total Bilirubin AST ALT Alkaline Phosphatase Total Protein Albumin Urine Color Urine Appearance Urine pH Ur Specific [place] Urine Protein Urine Glucose (UA) Urine Ketones Urine Blood Urine Nitrite Urine Bilirubin Urine Urobilinogen Ur Leukocyte Esterase RPR Titer Nonreactive LABS NOTED. Assessment: 03/24/17 14:31 WITHDRAWAL SYMPTOMS. Plan: CONTINUE DETOX. TIGAN IM PRN FOR NAUSEA. PRN IMMDOIUM FOR DIARRHEA. INCREASE DAILY PO FLUID INTAKE.
[2017-03-24] MEDS: THIAMINE HCL 100 MG TABLET (FP) PO SCH (22:03)
[2017-03-24] MEDS: QUEtiapine FUMARATE 100 MG TABLET (FP) PO SCH (22:04)
[2017-03-25] MEDS: chlordiazePOXIDE HCL 25 MG CAPSULE PO SCH ×2 (06:32→10:09)
[2017-03-25] MEDS: METHADONE HCL 5 MG TABLET (FOR DETOX USE ONLY) PO SCH (10:09)
[2017-03-25] MEDS: NICOTINE 14 MG/24 HOURS TOPICAL PATCH TD SCH (10:09)
[2017-03-25] MEDS: PRENATAL VITAMINS W/ FOLIC ACID TABLET (FP) PO SCH (10:09)
--- NOTE | 2017-03-25 13:16 | PN ---
[facility] CIWA - CIWA Score Nausea/Vomitin-No Nausea/No Vomiting Muscle Tremors: 3 Anxiety: 3 Agitation: 2 Paroxysmal Sweats: 3 Orientation: 2-Disoriented Date<2 days Tacttile Disturbances: 2-Mild Itch/Numbness/Burn Auditory Disturbances: 0-None Visual Disturbances: 0-None Headache: 0-None Present CIWA-Ar Total Score: 15 BHS COWS - Scale Resting Pulse: 1= [place] 81-100 Sweatin= Chills/Flushing Restless Observation: 1= Difficult to Sit Still Pupil Size: 0= Normal to Room Light Bone or Joint Aches: 2= Severe Diffuse Aches Runny Nose/ Eye Tearin= None GI Upset > 30mins: 0= None Tremor Observation of Outstretched Hands: 2= Slight Tremor Visible Yawning Observation: 1= 1-2x During Session Anxiety or Irritability: 2=Irritable/Anxious Goose Flesh Skin: 3=Piloerection COWS Score: 13 S Progress Note (SOAP) Subjective: Tremors, Sweating, Fatigue, Body Aches. Objective: PT. A & O X 2 (UNCERTAIN ABOUT CURRENT DAY / DATE). NO ACUTE DISTRESS. 03/25/17 13:14 Vital Signs Temperature 97.4 F L 03/25/17 09:37 Pulse Rate 85 03/25/17 09:37 Respiratory Rate 18 03/25/17 09:37 Blood Pressure 127/88 03/25/17 09:37 O2 Sat by Pulse Oximetry (%) Laboratory Tests 03/23/17 03/24/17 03/24/17 22:45 06:00 06:00 WBC 7.0 RBC 4.67 Hgb 13.3 Hct 41.0 MCV 87.8 MCH 28.4 MCHC 32.4 RDW 15.5 Plt Count 197 MPV 12.2 H D Sodium 139 Potassium 3.9 Chloride 104 Carbon Dioxide 27 Anion Gap 8 BUN 19 H Creatinine 1.0 D Creat Clearance w eGFR > 60 Random Glucose 112 H Calcium 8.9 Total Bilirubin 0.9 D AST 12 L D ALT 14 D Alkaline Phosphatase 66 D Total Protein 7.1 Albumin 3.8 Urine Color Yellow Urine Appearance Clear Urine pH 6.0 Ur Specific [place] 1.023 Urine Protein Negative Urine Glucose (UA) Negative Urine Ketones 1+ H Urine Blood Negative Urine Nitrite Negative Urine Bilirubin Negative Urine Urobilinogen 2.0 Ur Leukocyte Esterase Negative RPR Titer 03/24/17 06:00 WBC RBC Hgb Hct MCV MCH MCHC RDW Plt Count MPV Sodium Potassium Chloride Carbon Dioxide Anion Gap BUN Creatinine Creat Clearance w eGFR Random Glucose Calcium Total Bilirubin AST ALT Alkaline Phosphatase Total Protein Albumin Urine Color Urine Appearance Urine pH Ur Specific [place] Urine Protein Urine Glucose (UA) Urine Ketones Urine Blood Urine Nitrite Urine Bilirubin Urine Urobilinogen Ur Leukocyte Esterase RPR Titer Nonreactive LABS NOTED. Assessment: 03/25/17 13:15 WITHDRAWAL SYMPTOMS. Plan: CONTINUE DETOX. INCREASE DAILY PO FLUID INTAKE.
--- NOTE | 2017-03-25 13:22 | EKG ---
Test Reason : Blood Pressure : / mmHG Vent. Rate : 071 BPM Atrial Rate : 071 BPM P-R Int : 132 ms QRS Dur : 086 ms QT Int : 380 ms P-R-T Axes : 038 063 049 degrees QTc Int : 412 ms NORMAL SINUS RHYTHM NORMAL ECG WHEN COMPARED WITH ECG OF 23-FEB-2017 21:10, NO SIGNIFICANT CHANGE WAS FOUND Confirmed by YESSENIA MIRELES MD ([id number]) on 03/25/2017 1:22:13 PM Referred By: Confirmed By:YESSENIA MIRELES MD
[2017-03-25] MEDS: chlordiazePOXIDE 5 MG CAPSULE PO SCH ×2 (17:32→21:59)
[2017-03-25] MEDS: QUEtiapine FUMARATE 100 MG TABLET (FP) PO SCH (21:59)
[2017-03-25] MEDS: THIAMINE HCL 100 MG TABLET (FP) PO SCH (22:00)
[2017-03-26] MEDS: chlordiazePOXIDE 5 MG CAPSULE PO SCH ×2 (05:04→10:14)
--- NOTE | 2017-03-26 10:08 | PN ---
[facility] Progress Note (SOAP) Subjective: shakes sweats Objective: 03/26/17 10:06 A & O x 3, no acute distress noted Vital Signs Temperature 96.8 F L 03/26/17 09:09 Pulse Rate 109 H 03/26/17 09:09 Respiratory Rate 16 03/26/17 09:09 Blood Pressure 131/81 03/26/17 09:09 O2 Sat by Pulse Oximetry (%) Assessment: 03/26/17 10:07 withdrawal sx Plan: continue detox
[2017-03-26] MEDS: METHADONE HCL 5 MG TABLET (FOR DETOX USE ONLY) PO SCH (10:14)
[2017-03-26] MEDS: PRENATAL VITAMINS W/ FOLIC ACID TABLET (FP) PO SCH (10:14)
[2017-03-26] MEDS: NICOTINE 14 MG/24 HOURS TOPICAL PATCH TD SCH (10:16)
[2017-03-26] MEDS: chlordiazePOXIDE HCL 10 MG CAPSULE PO SCH ×2 (17:00→21:59)
[2017-03-26] MEDS: THIAMINE HCL 100 MG TABLET (FP) PO SCH (21:57)
[2017-03-26] MEDS: QUEtiapine FUMARATE 100 MG TABLET (FP) PO SCH (21:58)
[2017-03-27] MEDS: chlordiazePOXIDE HCL 10 MG CAPSULE PO SCH ×2 (05:40→10:06)
[2017-03-27] MEDS ORDERED: METHADONE HCL 10 MG TABLET (FOR DETOX USE ONLY) PO SCH (10:00)
[2017-03-27] MEDS: PRENATAL VITAMINS W/ FOLIC ACID TABLET (FP) PO SCH (10:06)
[2017-03-27] MEDS: NICOTINE 14 MG/24 HOURS TOPICAL PATCH TD SCH (10:07)
--- NOTE | 2017-03-27 12:32 | PN ---
BHS Progress Note (SOAP) Subjective: Fatigue, Anxious, Sweating. Objective: PT. A & O X 3. NO ACUTE DISTRESS. 03/27/17 12:32 Vital Signs Temperature 96.1 F L 03/27/17 09:00 Pulse Rate 104 H 03/27/17 09:00 Respiratory Rate 20 03/27/17 09:00 Blood Pressure 126/81 03/27/17 09:00 O2 Sat by Pulse Oximetry (%) Laboratory Tests 03/23/17 03/24/17 03/24/17 22:45 06:00 06:00 WBC 7.0 RBC 4.67 Hgb 13.3 Hct 41.0 MCV 87.8 MCH 28.4 MCHC 32.4 RDW 15.5 Plt Count 197 MPV 12.2 H D Sodium 139 Potassium 3.9 Chloride 104 Carbon Dioxide 27 Anion Gap 8 BUN 19 H Creatinine 1.0 D Creat Clearance w eGFR > 60 Random Glucose 112 H Calcium 8.9 Total Bilirubin 0.9 D AST 12 L D ALT 14 D Alkaline Phosphatase 66 D Total Protein 7.1 Albumin 3.8 Urine Color Yellow Urine Appearance Clear Urine pH 6.0 Ur Specific [place] 1.023 Urine Protein Negative Urine Glucose (UA) Negative Urine Ketones 1+ H Urine Blood Negative Urine Nitrite Negative Urine Bilirubin Negative Urine Urobilinogen 2.0 Ur Leukocyte Esterase Negative RPR Titer 03/24/17 06:00 WBC RBC Hgb Hct MCV MCH MCHC RDW Plt Count MPV Sodium Potassium Chloride Carbon Dioxide Anion Gap BUN Creatinine Creat Clearance w eGFR Random Glucose Calcium Total Bilirubin AST ALT Alkaline Phosphatase Total Protein Albumin Urine Color Urine Appearance Urine pH Ur Specific [place] Urine Protein Urine Glucose (UA) Urine Ketones Urine Blood Urine Nitrite Urine Bilirubin Urine Urobilinogen Ur Leukocyte Esterase RPR Titer Nonreactive LABS NOTED. Assessment: 03/27/17 12:32 WITHDRAWAL SYMPTOMS. Plan: CONTINUE DETOX. INCREASE DAILY PO FLUID INTAKE.
[2017-03-27] MEDS: THIAMINE HCL 100 MG TABLET (FP) PO SCH (21:59)
[2017-03-27] MEDS: QUEtiapine FUMARATE 100 MG TABLET (FP) PO SCH (21:59)
[2017-03-28] MEDS ORDERED: METHADONE HCL 5 MG TABLET (FOR DETOX USE ONLY) PO SCH (06:00)
[2017-03-28 08:52] VITALS: BP 136/83; PULSE 104; TEMP 96.4
[2017-03-28] MEDS: PRENATAL VITAMINS W/ FOLIC ACID TABLET (FP) PO SCH (10:02)
--- NOTE | 2017-03-28 16:07 | DS ---
[facility] Detox Discharge Summary Admission Date: 03/23/17 Discharge Date: 03/28/17 - History Present History: Alcohol Dependence, Cocaine Dependence, Opioid Dependence Additional Comments: PATIENT REFERRED TO [facility] SUBSTANCE USE TREATMENT OUTPATIENT PROGRAM ( Balwinder MOISE) FOR AFTERCARE. PATIENT WAS DISCHARGED FROM DETOX UNIT IN STABLE MEDICAL CONDITION. Pertinent Past History: Asthma, Depression, GERD, Bipolar Disorder, Insomnia, Nicotine Dependence. - Physical Exam Results Vital Signs: Vital Signs Temperature 96.4 F L 03/28/17 08:51 Pulse Rate 104 H 03/28/17 08:51 Respiratory Rate 20 03/28/17 08:51 Blood Pressure 136/83 03/28/17 08:51 O2 Sat by Pulse Oximetry (%) Pertinent Admission Physical Exam Findings: WITHDRAWAL SYMPTOMS. Laboratory Tests 03/23/17 03/24/17 03/24/17 22:45 06:00 06:00 WBC 7.0 RBC 4.67 Hgb 13.3 Hct 41.0 MCV 87.8 MCH 28.4 MCHC 32.4 RDW 15.5 Plt Count 197 MPV 12.2 H D Sodium 139 Potassium 3.9 Chloride 104 Carbon Dioxide 27 Anion Gap 8 BUN 19 H Creatinine 1.0 D Creat Clearance w eGFR > 60 Random Glucose 112 H Calcium 8.9 Total Bilirubin 0.9 D AST 12 L D ALT 14 D Alkaline Phosphatase 66 D Total Protein 7.1 Albumin 3.8 Urine Color Yellow Urine Appearance Clear Urine pH 6.0 Ur Specific [place] 1.023 Urine Protein Negative Urine Glucose (UA) Negative Urine Ketones 1+ H Urine Blood Negative Urine Nitrite Negative Urine Bilirubin Negative Urine Urobilinogen 2.0 Ur Leukocyte Esterase Negative RPR Titer 03/24/17 06:00 WBC RBC Hgb Hct MCV MCH MCHC RDW Plt Count MPV Sodium Potassium Chloride Carbon Dioxide Anion Gap BUN Creatinine Creat Clearance w eGFR Random Glucose Calcium Total Bilirubin AST ALT Alkaline Phosphatase Total Protein Albumin Urine Color Urine Appearance Urine pH Ur Specific [place] Urine Protein Urine Glucose (UA) Urine Ketones Urine Blood Urine Nitrite Urine Bilirubin Urine Urobilinogen Ur Leukocyte Esterase RPR Titer Nonreactive LABS NOTED. - Treatment Hospital Course: Detox Protocol Followed, Detoxed Safely, Responded well Patient has Accepted a Rehab Referral to: PT GOING TO [facility] OUTPATIENT TREATMENT PROGRAM (Balwinder MOISE). - Medication Discharge Medications: Ambulatory Orders Quetiapine Fumarate [Seroquel] 100 mg PO HS #30 tablet 02/27/17 Albuterol Sulfate Inhaler - [Ventolin HFA Inhaler -] 2 inh PO Q4H PRN #1 inhaler 02/28/17 Quetiapine Fumarate [Seroquel] 100 mg PO HS #30 tablet 03/24/17 - Diagnosis (1) Alcohol dependence with uncomplicated withdrawal Status: Acute (2) Nicotine dependence Status: Acute Qualifiers: Nicotine product type: cigarettes Substance use status: in withdrawal Qualified Code(s): F17.213 - Nicotine dependence, cigarettes, with withdrawal (3) Opioid dependence with withdrawal Status: Acute (4) Asthma Status: Chronic Qualifiers: Asthma severity: unspecified severity Asthma persistence: unspecified Asthma complication type: with status asthmaticus Qualified Code(s): J45.902 - Unspecified asthma with status asthmaticus (5) GERD (gastroesophageal reflux disease) Status: Chronic Qualifiers: Esophagitis presence: without esophagitis Qualified Code(s): K21.9 - Gastro -esophageal reflux disease without esophagitis (6) Cocaine dependence, uncomplicated Status: Acute (7) Insomnia Status: Acute Qualifiers: Insomnia type: unspecified Qualified Code(s): G47.00 - Insomnia, unspecified (8) Substance induced mood disorder Status: Chronic - AMA Did Patient Leave Against Medical Advice: No
== END 2017-03-28 11:29 | disposition home or self-care (01) | DRG 897 ==
LOC: YASAS 10:20 → Y3N 14:48
PROVIDERS: ADMIT Internal Medicine; ATTEND Internal Medicine
PROC: HZ2ZZZZ Detoxification Services for Substance Abuse Treatment (ICD-10-PCS; principal; 2017-03-23)
DX: F11.23 Opioid dependence with withdrawal (principal); F14.20 Cocaine dependence, uncomplicated; J45.902 Unspecified asthma with status asthmaticus; F10.230 Alcohol dependence with withdrawal, uncomplicated; F17.213 Nicotine dependence, cigarettes, with withdrawal; F19.24 Other psychoactive substance dependence with psychoactive substance-induced mood disorder; K21.9 Gastro-esophageal reflux disease without esophagitis; G47.00 Insomnia, unspecified; Z91.013 Allergy to seafood
CPT/HCPCS: 36415; 80053; 81003; 85027; 86593; 93005; 93010

== ENCOUNTER 2017-05-24 08:57 | Inpatient (IN) | payer OTHER ==
[2017-05-24 09:35] VITALS: BMI 26.9
--- NOTE | 2017-05-24 14:10 | HP ---
COWS - Scale Resting Pulse: 1= [place] 81-100 Sweatin=Flushed/Facial Moisture Restless Observation: 3= Extraneous Movement Pupil Size: 2= Moderately Dilated Bone or Joint Aches: 2= Severe Diffuse Aches Runny Nose/ Eye Tearin= Runny Nose/Eyes GI Upset > 30mins: 3= Vomiting/Diarrhea Tremor Observation: 2= Slight Tremor Visible Yawning Observation: 2= >3x During Session Anxiety or Irritability: 2=Irritable/Anxious Goose Flesh Skin: 0=Smooth Skin COWS Score: 21 CIWA Score - CIWA Score Nausea/Vomitin Muscle Tremors: 3 Anxiety: 3 Agitation: 3 Paroxysmal Sweats: 2 Orientation: 0-Oriented Tacttile Disturbances: 2-Mild Itch/Numbness/Burn Auditory Disturbances: 2-Mild Harshness/Frighten Visual Disturbances: 1-Very Mild Sensitivity Headache: 2-Mild CIWA-Ar Total Score: 21 Admission ROS BHS - HPI Chief Complaint: I NEED HELP TO STOP USING HEROIN,ALCOHOL AND COCAINE Allergies/Adverse Reactions: Allergies Allergy/AdvReac Type Severity Reaction Status Date / Time shellfish derived Allergy Severe Swelling Verified 05/24/17 10:13 No Known Drug Allergies Allergy Verified 05/24/17 10:13 History of Present Illness: THIS 47 YEARS OLD MALE WITH HEROIN,ALCOHOL AND COCAINE DEPENDENCE SEEKING DETOX, WITHDRAWAL SYMPTOM,LAST DETOX 03/23/17 TO 03/28/17 SYNCOPE ASTHMA NICOTINE DEPENDENCE BIPOLAR DISORDER,ANXIETY AND DEPRESSION LONGEST PERIOD OF SOBRIETY 2 YEARS Exam Limitations: No Limitations - Ebola screening Have you traveled outside of the country in the last 21 days: No (N) Have you had contact with anyone from an Ebola affected area: No Have you been sick,other than usual withdrawal symptoms: No Do you have a fever: No - Review of Systems Constitutional: Chills, Diaphoresis, Loss of Appetite, Malaise, Night Sweats, Changes in sleep, Weakness, Unintentional Wgt. Loss EENT: reports: Tearing, Nose Congestion Respiratory: reports: No Symptoms reported, Other (ASTHMA) Cardiac: reports: No Symptoms Reported GI: reports: Diarrhea, Nausea, Vomiting, Abdominal cramping : reports: No Symptoms Reported Musculoskeletal: reports: Back Pain, Joint Pain, Muscle Pain, Joint Stiffness Integumentary: reports: Dryness Neuro: reports: Headache, Tremors Endocrine: reports: No Symptoms Reported Hematology: reports: No Symptoms Reported Psychiatric: reports: No Sypmtoms Reported (BIPOLAR DISORDER), Judgement Intact , Mood/Affect Appropiate, Anxious, Depressed Patient History - Patient Medical History Hx Anemia: No Hx Asthma: Yes (ON ALBUTEROL INHALER) Hx Chronic Obstructive Pulmonary Disease (COPD): No Hx Cancer: No Hx Cardiac Disorders: No Hx Congestive Heart Failure: No Hx Hypertension: No Hx Hypercholesterolemia: No Hx Pacemaker: No HX Cerebrovascular Accident: No Hx Seizures: No Hx Dementia: No Hx Diabetes: No Hx Gastrointestinal Disorders: Yes (acid reflux) Hx Liver Disease: No Hx Genitourinary Disorders: No Hx Sexually Transmitted Disorders: No Hx Renal Disease (ESRD): No Hx Thyroid Disease: No Hx Human Immunodeficiency Virus (HIV): No (NEGATIVE HX LAST 1995) Hx Hepatitis C: No Hx Depression: Yes Hx Suicide Attempt: Yes (Pt states he tried to overdose as a teenager.) Hx Bipolar Disorder: Yes (NO CURRENT MEDS) Hx Schizophrenia: No Other Medical History: NO SUICIDAL,NO HOMICIDAL - Patient Surgical History Past Surgical History: Yes Hx Neurologic Surgery: No Hx Cataract Extraction: No Hx Cardiac Surgery: No Hx Lung Surgery: No Hx Breast Surgery: No Hx Breast Biopsy: No Hx Abdominal Surgery: No Hx Appendectomy: No Hx Cholecystectomy: No Hx Genitourinary Surgery: No Hx Section: No Hx Orthopedic Surgery: Yes (R knee sx 2005) Anesthesia Reaction: No - PPD History Previous Implant?: Yes Documented Results: Negative w/proof Implanted On Prior R Admission?: Yes Date: 02/25/17 Results: 0 MM PPD to be Administered?: No - Smoking Cessation Smoking history: Current every day smoker Have you smoked in the past 12 months: Yes Aproximately how many cigarettes per day: 10 Cigars Per Day: 0 Hx Chewing Tobacco Use: No Initiated information on smoking cessation: Yes 'Breaking Loose' booklet given: 05/24/17 - Substance & Tx. History Hx Alcohol Use: Yes Hx Substance Use: Yes Substance Use Type: Alcohol, Cocaine, Heroin - Substances Abused Heroin Route: Inhalation Frequency: Daily Amount used: 10 BAGS Age of first use: 18 Date of Last Use: 05/23/17 Alcohol Route: Oral Frequency: Daily Amount used: 2 PINTS VODKA Age of first use: 25 Date of Last Use: 05/23/17 Crack Route: Smoking Frequency: Daily Amount used: $50 Age of first use: 21 Date of Last Use: 05/23/17 Family Disease History - Family Disease History Family Disease History: Other: Father (DRUG & ALCOHOL) Admission Physical Exam S - Vital Signs Vital Signs: Vital Signs - 24 hr 05/24/17 09:23 Temperature 97.9 F Pulse Rate 95 H Respiratory 20 Rate Blood Pressure 147/94 - Physical General Appearance: Yes: Within Normal Limits, Moderate Distress, Tremorous, Irritable, Sweating, Anxious HEENTM: Yes: Normal ENT Inspection, MARVIN, Pharynx Normal Respiratory: Yes: Within Normal Limits, Lungs Clear, Normal Breath Sounds Neck: Yes: Within Normal Limits, Supple, Trachea in good position Breast: Yes: Within Normal Limits Cardiology: Yes: Within Normal Limits, Regular Rhythm, Regular Rate, S1, S2 Abdominal: Yes: Within Normal Limits, Normal Bowel Sounds, Non Tender, Soft, Hepatomegaly Back: Yes: Within Normal Limits, Normal Inspection, Muscle Spasm Musculoskeletal: Yes: full range of Motion, Back pain, Muscle Pain Extremities: Yes: Within Normal Limits, Normal Range of Motion, Tremors Neurological: Yes: fixture maker II-XII NML intact, Fully Oriented, Alert, Motor Strength 5/5 Integumentary: Yes: Within Normal Limits, Dry Lymphatic: Yes: Within Normal Limits - Diagnostic (1) Opioid dependence with withdrawal Current Visit: No Status: Acute (2) Alcohol dependence with uncomplicated withdrawal Current Visit: No Status: Acute (3) Bipolar 1 disorder, depressed Current Visit: No Status: Chronic (4) Cocaine dependence, uncomplicated Current Visit: No Status: Acute (5) Nicotine dependence Current Visit: No Status: Acute Qualifiers: Nicotine product type: cigarettes Substance use status: in withdrawal Qualified Code(s): F17.213 - Nicotine dependence, cigarettes, with withdrawal (6) Weight loss Current Visit: No Status: Acute Comment: ensure (7) Asthma Current Visit: No Status: Chronic Qualifiers: Asthma severity: unspecified severity Asthma persistence: unspecified Asthma complication type: with status asthmaticus Qualified Code(s): J45.902 - Unspecified asthma with status asthmaticus Comment: ventolin (8) GERD (gastroesophageal reflux disease) Current Visit: No Status: Chronic Qualifiers: Esophagitis presence: without esophagitis Qualified Code(s): K21.9 - Gastro -esophageal reflux disease without esophagitis Cleared for Admission [facility] - Detox or Rehab [facility] Level of Care: Medically Managed Detox Regimen/Protocol: Methadone/Librium S Breath Alcohol Content Breath Alcohol Content: 0 Urine Drug Screen - Results Drug Screen Negative: No Urine Drug Screen Results: GEOVANNA-Cocaine, OPI-Opiates
[2017-05-24] MEDS ORDERED: MAGNESIUM CITRATE 300 ML BOTTLE PO PRN (14:18)
[2017-05-24] MEDS ORDERED: MAGNESIUM HYDROX 2400MG/30ML ORAL SUSPENSION 30 ML CUP PO PRN (14:18)
[2017-05-24] MEDS ORDERED: P-EPHED 60MG/TRIPROLIDI 2.5MG TABLET PO PRN (14:18)
[2017-05-24] MEDS ORDERED: MAG HYDROX/AL HYDROX/SIMETH 30 ML UNIT-DOSE CUP PO PRN (14:18)
[2017-05-24] MEDS ORDERED: chlordiazePOXIDE HCL 25 MG CAPSULE PO PRN (14:18)
[2017-05-24] MEDS ORDERED: guaiFENesin/D-METHORPHAN HB 10 ML UNIT-DOSE CUPS PO PRN (14:18)
[2017-05-24] MEDS ORDERED: ACETAMINOPHEN 325 MG TABLET (FP) PO PRN (14:18)
[2017-05-24] MEDS ORDERED: hydrOXYzine PAMOATE 25 MG CAPSULE (FP) PO PRN (14:18)
[2017-05-24] MEDS ORDERED: IBUPROFEN 400 MG TABLET (FP) PO PRN (14:18)
[2017-05-24] MEDS ORDERED: LOPERAMIDE HCL 2 MG CAPSULE PO PRN (14:18)
[2017-05-24] MEDS ORDERED: MENTHOL/PHENOL 1 EACH UD MM PRN (14:18)
[2017-05-24] MEDS ORDERED: ALBUTEROL SO4 18 GM HFA INHALER IH PRN (14:22)
[2017-05-24] MEDS ORDERED: chlordiazePOXIDE HCL 25 MG CAPSULE PO ONE (14:40)
[2017-05-24] MEDS ORDERED: METHADONE HCL 10 MG TABLET (FOR DETOX USE ONLY) PO ONE ×2 (14:40→23:00)
[2017-05-24] MEDS: NICOTINE 21 MG/24 HOURS TOPICAL PATCH TD SCH (14:55)
--- NOTE | 2017-05-24 15:17 | CONSULT ---
[facility] Psychiatric Consult - Data Date of interview: 05/24/17 Admission source: [facility] Identifying data: This is 47 years old male, , father of three, unemployed, living with family, with history of Bipolar Disorder, history of psychiatrioc hospitalization, is here for detoxification with withdrawl symptoms after abusing Alcohol, Cocaine, Heroin and Nicotine Substance Abuse History: Smoking history: Current every day smoker. Have you smoked in the past 12 months: Yes. Aproximately how many cigarettes per day: 10. Cigars Per Day: 0. Hx Chewing Tobacco Use: No. Initiated information on smoking cessation: Yes. 'Breaking Loose' booklet given: 05/24/17. - Substance & Tx. History. Hx Alcohol Use: Yes. Hx Substance Use: Yes. Substance Use Type : Alcohol, Cocaine, Heroin. - Substances Abused. Heroin. Route: Inhalation. Frequency: Daily. Amount used: 10 BAGS. Age of first use: 18. Date of Last Use: 05/23/17. Alcohol. Route: Oral. Frequency: Daily. Amount used: 2 PINTS VODKA. Age of first use: 25. Date of Last Use: 05/23/17. Crack. Route: Smoking. Frequency: Daily. Amount used: $50. Age of first use: 21. Date of Last Use: 05/23/17 Medical History: Patient reports history of Asthma, Syncope Psychiatric History: Patient reports history of Bipolar disorder, reports psychiatric admission back on more then 15 years ago, reports history of depression and anxietry, insomnia, reports taking prior to admission: Seroquel 100mg po qhs. Denies suicidal, Homicidal history. As per computer carries Schizop[hrenia as well Physical/Sexual Abuse/Trauma History: Denies Additional Comment: Seroquel 100mg po qhs Mental Status Exam - Mental Status Exam Alert and Oriented to: Person Cognitive Function: Fair Patient Appearance: Unkempt Mood: Anxious Affect: Mood Congruent Patient Behavior: Cooperative Speech Pattern: Appropriate Voice Loudness: Normal Thought Process: Goal Oriented Thought Disorder: Being Controlled Hallucinations: Denies Suicidal Ideation: Denies Homicidal Ideation: Denies Insight/Judgement: Fair Sleep: Difficulty falling asleep Appetite: Fair Muscle strength/Tone: Normal Gait/Station: Normal Additional Comments: Seroquel 100mg po qhs Psychiatric Findings - Problem List ([place] 1, 2,3) (1) Alcohol dependence with uncomplicated withdrawal Current Visit: No Status: Acute (2) Bipolar 1 disorder, depressed Current Visit: No Status: Chronic (3) Cocaine dependence, uncomplicated Current Visit: No Status: Acute (4) Nicotine dependence Current Visit: No Status: Acute Qualifiers: Nicotine product type: cigarettes Substance use status: in withdrawal Qualified Code(s): F17.213 - Nicotine dependence, cigarettes, with withdrawal (5) Opioid dependence with withdrawal Current Visit: No Status: Acute (6) Substance induced mood disorder Current Visit: No Status: Chronic (7) Substance-induced sleep disorder Current Visit: No Status: Chronic (8) Schizophrenia Current Visit: No Status: Suspected Qualifiers: Schizophrenia type: undifferentiated schizophrenia Qualified Code(s): F20.3 - Undifferentiated schizophrenia Comment: auditory hallucination - people talking vision hallucination - see people walking passing - Initial Treatment Plan Initial Treatment Plan: Seroquel 100mg po qhs
[2017-05-24] MEDS: chlordiazePOXIDE HCL 25 MG CAPSULE PO SCH ×2 (17:52→22:36)
[2017-05-24 19:42] LABS: URINE APPEARANCE CLEAR; URINE BILIRUBIN NEGATIVE (<2.0 mg/dL); URINE BLOOD NEGATIVE (NEGATIVE); URINE COLOR LTYELLOW; URINE GLUCOSE (UA) NEGATIVE (NEGATIVE); URINE KETONE NEGATIVE (NEGATIVE); URINE LEUK ESTERASE NEGATIVE (NEGATIVE); URINE NITRITE NEGATIVE (NEGATIVE); URINE PROTEIN NEGATIVE (NEGATIVE)
[2017-05-24] MEDS ORDERED: MELATONIN 5 MG TABLETS PO PRN (22:00)
[2017-05-24] MEDS: THIAMINE HCL 100 MG TABLET (FP) PO SCH (22:37)
[2017-05-25] MEDS: chlordiazePOXIDE HCL 25 MG CAPSULE PO SCH ×4 (05:49→22:32)
[2017-05-25] MEDS ORDERED: METHADONE HCL 10 MG TABLET (FOR DETOX USE ONLY) PO SCH (10:00)
[2017-05-25 10:22] LABS: HEMATOCRIT 42.8 % (35.4-49); HEMOGLOBIN 14.3 GM/dL (11.7-16.9); MCH 30.1 pg (25.7-33.7); MCHC 33.3 g/dl (32.0-35.9); MEAN CELL VOLUME 90.4 fl (80-96); MEAN PLT VOLUME 11.4 fl (7.5-11.1); PLATELET COUNT 210 K/MM3 (134-434); RBC 4.74 M/mm3 (4.00-5.60); RDW 15.7 % (11.9-15.9); WHITE BLOOD COUNT 7.7 K/mm3 (4.0-10.0)
[2017-05-25 10:27] LABS: CHLORIDE 101 mmol/L (98-107); POTASSIUM 4.4 mmol/L (3.5-5.1); SODIUM 138 mmol/L (136-145)
--- NOTE | 2017-05-25 10:37 | PN ---
S CIWA - CIWA Score Nausea/Vomitin Muscle Tremors: 3 Anxiety: 3 Agitation: 3 Paroxysmal Sweats: 1-Minimal Palms Moist Orientation: 0-Oriented Tacttile Disturbances: 1-Very Mild Itch/Numbness Auditory Disturbances: 1-Very Mild Visual Disturbances: 0-None Headache: 2-Mild CIWA-Ar Total Score: 17 BHS COWS - Scale Resting Pulse: 0= [place] 80 or Below Sweatin= Chills/Flushing Restless Observation: 3= Extraneous Movement Pupil Size: 1= Pupils >than Normal Bone or Joint Aches: 2= Severe Diffuse Aches Runny Nose/ Eye Tearin= Nasal Congestion GI Upset > 30mins: 2= Nausea/Diarrhea Tremor Observation of Outstretched Hands: 2= Slight Tremor Visible Yawning Observation: 1= 1-2x During Session Anxiety or Irritability: 2=Irritable/Anxious Goose Flesh Skin: 0=Smooth Skin COWS Score: 15 BHS Progress Note (SOAP) Subjective: ALERT,IRRITABLE,ANXIOUS,INTERRUPTED SLEEP,TREMOR,PAIN IN THE BODY AND BACK Objective: 05/25/17 10:35 Vital Signs Temperature 97.7 F 05/25/17 10:22 Pulse Rate 76 05/25/17 10:22 Respiratory Rate 18 05/25/17 10:22 Blood Pressure 133/69 05/25/17 10:22 O2 Sat by Pulse Oximetry (%) 05/25/17 10:36 EKG NSR,NORMAL ECG Laboratory Last Values Urine Color Ltyellow 05/24/17 19:00 Urine Appearance Clear 05/24/17 19:00 Urine pH 7.0 (5.0-8.0) 05/24/17 19:00 Ur Specific [place] 1.011 (1.001-1.035) 05/24/17 19:00 Urine Protein Negative (NEGATIVE) 05/24/17 19:00 Urine Glucose (UA) Negative (NEGATIVE) 05/24/17 19:00 Urine Ketones Negative (NEGATIVE) 05/24/17 19:00 Urine Blood Negative (NEGATIVE) 05/24/17 19:00 Urine Nitrite Negative (NEGATIVE) 05/24/17 19:00 Urine Bilirubin Negative (<2.0 mg/dL) 05/24/17 19:00 Urine Urobilinogen 2.0 mg/dL (0.2-1.0) 05/24/17 19:00 Ur Leukocyte Esterase Negative (NEGATIVE) 05/24/17 19:00 LABS PENDING Assessment: 05/25/17 10:37 WITHDRAWAL SYMPTOM Plan: CONTINUE DETOX
[2017-05-25 10:39] LABS: ALBUMIN 4.1 g/dl (3.4-5.0); ALK PHOS 69 U/L (45-117); ANION GAP 8 (8-16); BILIRUBIN,TOTAL 0.5 mg/dL (0.2-1.0); BLOOD UREA NITROGEN 23 mg/dL (7-18); CALCIUM 9.1 mg/dL (8.5-10.1); CO2 29 mmol/L (21-32); CREATININE 1.2 mg/dL (0.7-1.3); GLUCOSE,RANDOM 79 mg/dL (74-106); SGOT/AST 17 U/L (15-37); SGPT/ALT 19 U/L (12-78); TOT PROT 7.4 g/dl (6.4-8.2)
[2017-05-25] MEDS: PRENATAL VITAMINS W/ FOLIC ACID TABLET (FP) PO SCH (10:56)
[2017-05-25] MEDS: NICOTINE 21 MG/24 HOURS TOPICAL PATCH TD SCH (10:57)
--- NOTE | 2017-05-25 12:51 | PN ---
Psychiatric Progress Note Vital Signs: Vital Signs Period Temp Pulse Resp BP Sys/[place] Pulse Ox Last 24 Hr 97 F-99.3 F 64-91 18-20 116-146/60-91 Date of Session: 05/25/17 Chief Complaint:: " I did not sleep well." ROS: Unremarkable Current Medications: Active Medications Generic Name Dose Route Start Last Admin Trade Name Freq PRN Reason Stop Dose Admin Acetaminophen 650 mg 05/24/17 14:18 Tylenol - PO Q4H PRN FEVER Al Hydroxide/Mg Hydroxide 30 ml 05/24/17 14:18 Mylanta Oral Suspension - PO Q6H PRN DYSPEPSIA Albuterol Sulfate 2 puff 05/24/17 14:22 Ventolin Hfa Inhaler - IH Q4H PRN ASTHMA Chlordiazepoxide HCl 25 mg 05/25/17 17:00 Librium - PO 05/26/17 11:01 [id number] DEMETRI Chlordiazepoxide HCl 15 mg 05/26/17 17:00 Librium - PO 05/27/17 11:01 [id number] DEMETRI Chlordiazepoxide HCl 10 mg 05/27/17 17:00 Librium - PO 05/28/17 11:01 [id number] DEMETRI Chlordiazepoxide HCl 25 mg 05/24/17 14:18 Librium - PO 05/27/17 14:18 Q4H PRN WITHDRAWAL(CONT SUBST) Eucalyptus/Menthol/Phenol/Sorbitol 1 each 05/24/17 14:18 Cepastat Lozenge - MM Q4H PRN SORE THROAT Guaifenesin 10 ml 05/24/17 14:18 Robitussin Dm - PO Q6H PRN COUGH Hydroxyzine Pamoate 25 mg 05/24/17 14:18 Vistaril - PO Q4H PRN AGITATION Ibuprofen 400 mg 05/24/17 14:18 Motrin - PO Q6H PRN PAIN LEVEL 4-6 Loperamide HCl 4 mg 05/24/17 14:18 Imodium - PO Q6H PRN DIARRHEA Magnesium Citrate 300 ml 05/24/17 14:18 Citroma - PO Q48H PRN CONSTIPATION Magnesium Hydroxide 30 ml 05/24/17 14:18 Milk Of Magnesia - PO DAILY PRN CONSTIPATION Melatonin 5 mg 05/24/17 22:00 05/24/17 22:40 Melatonin PO 5 mg HS PRN Administration INSOMNIA Methadone HCl 15 mg 05/26/17 10:00 Dolophine - PO 05/27/17 10:01 DAILY DEMETRI Methadone HCl 5 mg 05/29/17 06:00 Dolophine - PO 05/29/17 06:01 DAILY@0600 DEMETRI Methadone HCl 10 mg 05/28/17 10:00 Dolophine - PO 05/28/17 10:01 DAILY DEMETRI Nicotine 21 mg 05/24/17 14:30 05/25/17 10:57 Nicoderm Patch - TD Not Given DAILY [facility] Multivit/Folic Acid/Iron 1 tab 05/25/17 10:00 05/25/17 10:56 Vitamins (Sjr) - PO 1 tab DAILY DEMETRI Administration Pseudoephedrine/Triprolidine 1 combo 05/24/17 14:18 Actifed - PO TID PRN NASAL CONGESTION Quetiapine Fumarate 100 mg 05/25/17 22:00 Seroquel - PO HS DEMETRI Thiamine HCl 100 mg 05/24/17 22:00 05/24/17 22:37 Vitamin B1 - PO 100 mg HS DEMETRI Administration Medication(s) Change(s): Yes. Will add Seroquel 100mg qhs. Current Side Effect: No Lab tests ordered: No Lab tests reviewed: Yes Provider note:: Cpr Instructor met with patient for psychiatric reconsultation. Pt. seen by Dr. Miller on 05/24/17. Dr. Miller's note read and appreciated. Pt. reports poor sleep and state he takes seroquel 100mg qhs. Pt. reports taking the most recent dose of seroquel a few days before admitting self to hospital. As per pharmacy claims patient received his most recent prescription of seroquel on 03/24/17. Pt. has also been prescribed risperdal 3mg in the past. Seroquel 100mg qhs to be ordered. Benefits and side effects discussed. Verbal consent given. Will continue to monitor. Total face to face time:: 15 Mental Status Exam - Mental Status Exam Alert and Oriented to: Time, Place, Person Cognitive Function: Good Patient Appearance: Well Groomed Mood: Hopeful Affect: Appropriate Patient Behavior: Appropriate, Cooperative Speech Pattern: Clear, Appropriate Voice Loudness: Normal Thought Process: Goal Oriented Thought Disorder: Not Present Hallucinations: Denies Suicidal Ideation: Denies Homicidal Ideation: Denies Insight/Judgement: Poor Sleep: Poorly Appetite: Fair Muscle strength/Tone: Normal Gait/Station: Normal Psychiatric Treatment Plan - Problem List (1) Cocaine dependence, uncomplicated Current Visit: Yes (2) Insomnia Current Visit: Yes Qualifiers: Insomnia type: unspecified Qualified Code(s): G47.00 - Insomnia, unspecified (3) Opioid dependence with withdrawal Current Visit: Yes
[2017-05-25] MEDS: QUEtiapine FUMARATE 100 MG TABLET (FP) PO SCH (22:32)
[2017-05-25] MEDS: THIAMINE HCL 100 MG TABLET (FP) PO SCH (22:32)
[2017-05-26] MEDS: chlordiazePOXIDE HCL 25 MG CAPSULE PO SCH ×2 (05:28→10:35)
[2017-05-26] MEDS: PRENATAL VITAMINS W/ FOLIC ACID TABLET (FP) PO SCH (10:34)
[2017-05-26] MEDS: NICOTINE 21 MG/24 HOURS TOPICAL PATCH TD SCH (10:35)
[2017-05-26] MEDS: METHADONE HCL 5 MG TABLET (FOR DETOX USE ONLY) PO SCH (10:35)
--- NOTE | 2017-05-26 10:39 | EKG ---
Test Reason : Blood Pressure : / mmHG Vent. Rate : 081 BPM Atrial Rate : 081 BPM P-R Int : 134 ms QRS Dur : 088 ms QT Int : 368 ms P-R-T Axes : 037 059 050 degrees QTc Int : 427 ms NORMAL SINUS RHYTHM NORMAL ECG WHEN COMPARED WITH ECG OF 23-MAR-2017 16:57, NO SIGNIFICANT CHANGE WAS FOUND Confirmed by JEANINE ROSAS MD ([id number]) on 05/26/2017 10:38:37 AM Referred By: Confirmed By:JEANINE ROSAS MD
--- NOTE | 2017-05-26 11:38 | PN ---
S CIWA - CIWA Score Nausea/Vomitin Muscle Tremors: 2 Anxiety: 2 Agitation: 2 Paroxysmal Sweats: 2 Orientation: 0-Oriented Tacttile Disturbances: 2-Mild Itch/Numbness/Burn Auditory Disturbances: 0-None Visual Disturbances: 1-Very Mild Sensitivity Headache: 2-Mild CIWA-Ar Total Score: 15 BHS COWS - Scale Resting Pulse: 0= [place] 80 or Below Sweatin= Chills/Flushing Restless Observation: 1= Difficult to Sit Still Pupil Size: 0= Normal to Room Light Bone or Joint Aches: 1= Mild Discomfort Runny Nose/ Eye Tearin= Nasal Congestion GI Upset > 30mins: 2= Nausea/Diarrhea Tremor Observation of Outstretched Hands: 2= Slight Tremor Visible Yawning Observation: 1= 1-2x During Session Anxiety or Irritability: 1=Feels Anxious/Irritable Goose Flesh Skin: 3=Piloerection COWS Score: 13 BHS Progress Note (SOAP) Subjective: Generalized pain, interrupted sleep, nausea, diarrhea, shakes and sweats Objective: 05/26/17 11:37 Vital Signs 05/26/17 05/26/17 06:00 10:00 Temperature 97.0 F L 96.4 F L Pulse Rate 78 92 H Respiratory 18 20 Rate Blood Pressure 120/68 136/82 Laboratory Last Values WBC 7.7 K/mm3 (4.0-10.0) 05/25/17 05:50 RBC 4.74 M/mm3 (4.00-5.60) 05/25/17 05:50 Hgb 14.3 GM/dL (11.7-16.9) 05/25/17 05:50 Hct 42.8 % (35.4-49) 05/25/17 05:50 MCV 90.4 fl (80-96) 05/25/17 05:50 MCH 30.1 pg (25.7-33.7) 05/25/17 05:50 MCHC 33.3 g/dl (32.0-35.9) 05/25/17 05:50 RDW 15.7 % (11.9-15.9) 05/25/17 05:50 Plt Count 210 K/MM3 (134-434) 05/25/17 05:50 MPV 11.4 fl (7.5-11.1) H 05/25/17 05:50 Sodium 138 mmol/L (136-145) 05/25/17 05:50 Potassium 4.4 mmol/L (3.5-5.1) 05/25/17 05:50 Chloride 101 mmol/L (98-107) 05/25/17 05:50 Carbon Dioxide 29 mmol/L (21-32) 05/25/17 05:50 Anion Gap 8 (8-16) 05/25/17 05:50 BUN 23 mg/dL (7-18) H D 05/25/17 05:50 Creatinine 1.2 mg/dL (0.7-1.3) 05/25/17 05:50 Creat Clearance w eGFR > 60 (>60) 05/25/17 05:50 Random Glucose 79 mg/dL (74-106) D 05/25/17 05:50 Calcium 9.1 mg/dL (8.5-10.1) 05/25/17 05:50 Total Bilirubin 0.5 mg/dL (0.2-1.0) D 05/25/17 05:50 AST 17 U/L (15-37) D 05/25/17 05:50 ALT 19 U/L (12-78) D 05/25/17 05:50 Alkaline Phosphatase 69 U/L (45-117) 05/25/17 05:50 Total Protein 7.4 g/dl (6.4-8.2) 05/25/17 05:50 Albumin 4.1 g/dl (3.4-5.0) 05/25/17 05:50 Urine Color Ltyellow 05/24/17 19:00 Urine Appearance Clear 05/24/17 19:00 Urine pH 7.0 (5.0-8.0) 05/24/17 19:00 Ur Specific [place] 1.011 (1.001-1.035) 05/24/17 19:00 Urine Protein Negative (NEGATIVE) 05/24/17 19:00 Urine Glucose (UA) Negative (NEGATIVE) 05/24/17 19:00 Urine Ketones Negative (NEGATIVE) 05/24/17 19:00 Urine Blood Negative (NEGATIVE) 05/24/17 19:00 Urine Nitrite Negative (NEGATIVE) 05/24/17 19:00 Urine Bilirubin Negative (<2.0 mg/dL) 05/24/17 19:00 Urine Urobilinogen 2.0 mg/dL (0.2-1.0) 05/24/17 19:00 Ur Leukocyte Esterase Negative (NEGATIVE) 05/24/17 19:00 RPR Titer Nonreactive (NONREACTIVE) 05/25/17 05:50 Labs noted Assessment: 05/26/17 11:37 Withdrawal sx Plan: Continue detox
[2017-05-26] MEDS: chlordiazePOXIDE 5 MG CAPSULE PO SCH ×2 (17:58→22:31)
[2017-05-26] MEDS: THIAMINE HCL 100 MG TABLET (FP) PO SCH (22:31)
[2017-05-26] MEDS: QUEtiapine FUMARATE 100 MG TABLET (FP) PO SCH (22:31)
[2017-05-27] MEDS: chlordiazePOXIDE 5 MG CAPSULE PO SCH ×2 (06:03→10:36)
[2017-05-27] MEDS: NICOTINE 21 MG/24 HOURS TOPICAL PATCH TD SCH (10:36)
[2017-05-27] MEDS: PRENATAL VITAMINS W/ FOLIC ACID TABLET (FP) PO SCH (10:36)
[2017-05-27] MEDS: METHADONE HCL 5 MG TABLET (FOR DETOX USE ONLY) PO SCH (10:37)
--- NOTE | 2017-05-27 13:19 | PN ---
[facility] Progress Note (SOAP) Subjective: joint ache restlessness sweat irritable Objective: 05/27/17 13:18 Vital Signs Temperature 97.0 F L 05/27/17 10:00 Pulse Rate 97 H 05/27/17 10:00 Respiratory Rate 18 05/27/17 10:00 Blood Pressure 136/77 05/27/17 10:00 O2 Sat by Pulse Oximetry (%) Laboratory Last Values WBC 7.7 K/mm3 (4.0-10.0) 05/25/17 05:50 RBC 4.74 M/mm3 (4.00-5.60) 05/25/17 05:50 Hgb 14.3 GM/dL (11.7-16.9) 05/25/17 05:50 Hct 42.8 % (35.4-49) 05/25/17 05:50 MCV 90.4 fl (80-96) 05/25/17 05:50 MCH 30.1 pg (25.7-33.7) 05/25/17 05:50 MCHC 33.3 g/dl (32.0-35.9) 05/25/17 05:50 RDW 15.7 % (11.9-15.9) 05/25/17 05:50 Plt Count 210 K/MM3 (134-434) 05/25/17 05:50 MPV 11.4 fl (7.5-11.1) H 05/25/17 05:50 Sodium 138 mmol/L (136-145) 05/25/17 05:50 Potassium 4.4 mmol/L (3.5-5.1) 05/25/17 05:50 Chloride 101 mmol/L (98-107) 05/25/17 05:50 Carbon Dioxide 29 mmol/L (21-32) 05/25/17 05:50 Anion Gap 8 (8-16) 05/25/17 05:50 BUN 23 mg/dL (7-18) H D 05/25/17 05:50 Creatinine 1.2 mg/dL (0.7-1.3) 05/25/17 05:50 Creat Clearance w eGFR > 60 (>60) 05/25/17 05:50 Random Glucose 79 mg/dL (74-106) D 05/25/17 05:50 Calcium 9.1 mg/dL (8.5-10.1) 05/25/17 05:50 Total Bilirubin 0.5 mg/dL (0.2-1.0) D 05/25/17 05:50 AST 17 U/L (15-37) D 05/25/17 05:50 ALT 19 U/L (12-78) D 05/25/17 05:50 Alkaline Phosphatase 69 U/L (45-117) 05/25/17 05:50 Total Protein 7.4 g/dl (6.4-8.2) 05/25/17 05:50 Albumin 4.1 g/dl (3.4-5.0) 05/25/17 05:50 Urine Color Ltyellow 05/24/17 19:00 Urine Appearance Clear 05/24/17 19:00 Urine pH 7.0 (5.0-8.0) 05/24/17 19:00 Ur Specific [place] 1.011 (1.001-1.035) 05/24/17 19:00 Urine Protein Negative (NEGATIVE) 05/24/17 19:00 Urine Glucose (UA) Negative (NEGATIVE) 05/24/17 19:00 Urine Ketones Negative (NEGATIVE) 05/24/17 19:00 Urine Blood Negative (NEGATIVE) 05/24/17 19:00 Urine Nitrite Negative (NEGATIVE) 05/24/17 19:00 Urine Bilirubin Negative (<2.0 mg/dL) 05/24/17 19:00 Urine Urobilinogen 2.0 mg/dL (0.2-1.0) 05/24/17 19:00 Ur Leukocyte Esterase Negative (NEGATIVE) 05/24/17 19:00 RPR Titer Nonreactive (NONREACTIVE) 05/25/17 05:50 lab noted Assessment: 05/27/17 13:18 withdrawal sx Plan: continue detox
[2017-05-27] MEDS: chlordiazePOXIDE HCL 10 MG CAPSULE PO SCH ×2 (17:06→22:22)
[2017-05-27] MEDS: THIAMINE HCL 100 MG TABLET (FP) PO SCH (22:22)
[2017-05-27] MEDS: QUEtiapine FUMARATE 100 MG TABLET (FP) PO SCH (22:22)
[2017-05-28] MEDS: chlordiazePOXIDE HCL 10 MG CAPSULE PO SCH ×2 (05:35→10:08)
[2017-05-28] MEDS ORDERED: METHADONE HCL 10 MG TABLET (FOR DETOX USE ONLY) PO SCH (10:00)
[2017-05-28] MEDS: PRENATAL VITAMINS W/ FOLIC ACID TABLET (FP) PO SCH (10:07)
[2017-05-28] MEDS: NICOTINE 21 MG/24 HOURS TOPICAL PATCH TD SCH (10:08)
--- NOTE | 2017-05-28 11:23 | PN ---
S Progress Note (SOAP) Subjective: ALERT,IRRITABLE,ANXIOUS,INTERRUPTED SLEEP Objective: 05/28/17 11:21 Vital Signs Temperature 97.3 F L 05/28/17 09:58 Pulse Rate 91 H 05/28/17 09:58 Respiratory Rate 18 05/28/17 09:58 Blood Pressure 128/80 05/28/17 09:58 O2 Sat by Pulse Oximetry (%) Assessment: 05/28/17 11:22 WITHDRAWAL SYMPTOM Plan: CONTINUE DETOX,DISCHARGE IN AM
[2017-05-28] MEDS: QUEtiapine FUMARATE 100 MG TABLET (FP) PO SCH (22:15)
[2017-05-28] MEDS: THIAMINE HCL 100 MG TABLET (FP) PO SCH (22:15)
[2017-05-29] MEDS ORDERED: METHADONE HCL 5 MG TABLET (FOR DETOX USE ONLY) PO SCH (06:00)
--- NOTE | 2017-05-29 08:28 | PN ---
S Progress Note (SOAP) Subjective: ALERT,NO COMPLAINT Objective: 05/29/17 08:27 Vital Signs Temperature 97.2 F L 05/29/17 06:16 Pulse Rate 88 05/29/17 06:16 Respiratory Rate 18 05/29/17 06:16 Blood Pressure 113/66 05/29/17 06:16 O2 Sat by Pulse Oximetry (%) Assessment: 05/29/17 08:27 DETOX COMPLETED,NO WITHDRAWAL SYMPTOM Plan: DISCHARGE TODAY,FOLLOW UP WITH AFTER CARE PROGRAM ARRANGEMENT
--- NOTE | 2017-05-29 08:48 | DS ---
[facility] Detox Discharge Summary Admission Date: 05/24/17 Discharge Date: 05/29/17 - History Present History: Alcohol Dependence, Cocaine Dependence, Opioid Dependence Additional Comments: FOLLOW UP WITH AFTER CARE PROGRAM ,[facility] Pertinent Past History: NICOTINE DEPENDENCE BIPOLAR 1 DISORDER - Physical Exam Results Vital Signs: Vital Signs Temperature 97.2 F L 05/29/17 06:16 Pulse Rate 88 05/29/17 06:16 Respiratory Rate 18 05/29/17 06:16 Blood Pressure 113/66 05/29/17 06:16 O2 Sat by Pulse Oximetry (%) Pertinent Admission Physical Exam Findings: WITHDRAWAL SIGNS AND SYMPTOM Vital Signs Temperature 97.2 F L 05/29/17 06:16 Pulse Rate 88 05/29/17 06:16 Respiratory Rate 18 05/29/17 06:16 Blood Pressure 113/66 05/29/17 06:16 O2 Sat by Pulse Oximetry (%) Laboratory Last Values WBC 7.7 K/mm3 (4.0-10.0) 05/25/17 05:50 RBC 4.74 M/mm3 (4.00-5.60) 05/25/17 05:50 Hgb 14.3 GM/dL (11.7-16.9) 05/25/17 05:50 Hct 42.8 % (35.4-49) 05/25/17 05:50 MCV 90.4 fl (80-96) 05/25/17 05:50 MCH 30.1 pg (25.7-33.7) 05/25/17 05:50 MCHC 33.3 g/dl (32.0-35.9) 05/25/17 05:50 RDW 15.7 % (11.9-15.9) 05/25/17 05:50 Plt Count 210 K/MM3 (134-434) 05/25/17 05:50 MPV 11.4 fl (7.5-11.1) H 05/25/17 05:50 Sodium 138 mmol/L (136-145) 05/25/17 05:50 Potassium 4.4 mmol/L (3.5-5.1) 05/25/17 05:50 Chloride 101 mmol/L (98-107) 05/25/17 05:50 Carbon Dioxide 29 mmol/L (21-32) 05/25/17 05:50 Anion Gap 8 (8-16) 05/25/17 05:50 BUN 23 mg/dL (7-18) H D 05/25/17 05:50 Creatinine 1.2 mg/dL (0.7-1.3) 05/25/17 05:50 Creat Clearance w eGFR > 60 (>60) 05/25/17 05:50 Random Glucose 79 mg/dL (74-106) D 05/25/17 05:50 Calcium 9.1 mg/dL (8.5-10.1) 05/25/17 05:50 Total Bilirubin 0.5 mg/dL (0.2-1.0) D 05/25/17 05:50 AST 17 U/L (15-37) D 05/25/17 05:50 ALT 19 U/L (12-78) D 05/25/17 05:50 Alkaline Phosphatase 69 U/L (45-117) 05/25/17 05:50 Total Protein 7.4 g/dl (6.4-8.2) 05/25/17 05:50 Albumin 4.1 g/dl (3.4-5.0) 05/25/17 05:50 Urine Color Ltyellow 05/24/17 19:00 Urine Appearance Clear 05/24/17 19:00 Urine pH 7.0 (5.0-8.0) 05/24/17 19:00 Ur Specific [place] 1.011 (1.001-1.035) 05/24/17 19:00 Urine Protein Negative (NEGATIVE) 05/24/17 19:00 Urine Glucose (UA) Negative (NEGATIVE) 05/24/17 19:00 Urine Ketones Negative (NEGATIVE) 05/24/17 19:00 Urine Blood Negative (NEGATIVE) 05/24/17 19:00 Urine Nitrite Negative (NEGATIVE) 05/24/17 19:00 Urine Bilirubin Negative (<2.0 mg/dL) 05/24/17 19:00 Urine Urobilinogen 2.0 mg/dL (0.2-1.0) 05/24/17 19:00 Ur Leukocyte Esterase Negative (NEGATIVE) 05/24/17 19:00 RPR Titer Nonreactive (NONREACTIVE) 05/25/17 05:50 - Treatment Hospital Course: Detox Protocol Followed, Detoxed Safely, Responded well, Discharged Condition Good Patient has Accepted a Rehab Referral to: [facility] - Medication Discharge Medications: Ambulatory Orders Quetiapine Fumarate [Seroquel] 100 mg PO HS #30 tablet 05/24/17 Albuterol Sulfate Inhaler - [Ventolin HFA Inhaler -] 2 puff IH Q4H PRN #1 inhaler 05/28/17 - Diagnosis (1) Opioid dependence with withdrawal Current Visit: Yes Status: Acute (2) Alcohol dependence with uncomplicated withdrawal Current Visit: Yes Status: Acute (3) Bipolar 1 disorder, depressed Current Visit: Yes Status: Chronic (4) Cocaine dependence, uncomplicated Current Visit: Yes Status: Acute (5) Nicotine dependence Current Visit: Yes Status: Acute Qualifiers: Nicotine product type: cigarettes Substance use status: in withdrawal Qualified Code(s): F17.213 - Nicotine dependence, cigarettes, with withdrawal (6) Weight loss Current Visit: No Status: Acute (7) Asthma Current Visit: No Status: Chronic Qualifiers: Asthma severity: mild Asthma persistence: intermittent Asthma complication type: uncomplicated Qualified Code(s): J45.20 - Mild intermittent asthma, uncomplicated (8) GERD (gastroesophageal reflux disease) Current Visit: No Status: Chronic Qualifiers: Esophagitis presence: without esophagitis Qualified Code(s): K21.9 - Gastro -esophageal reflux disease without esophagitis - AMA Did Patient Leave Against Medical Advice: No
[2017-05-29] MEDS: PRENATAL VITAMINS W/ FOLIC ACID TABLET (FP) PO SCH (10:39)
[2017-05-29] MEDS: NICOTINE 21 MG/24 HOURS TOPICAL PATCH TD SCH (10:40)
[2017-05-29 14:08] VITALS: BP 122/70; PULSE 105; TEMP 98.1
== END 2017-05-29 12:30 | disposition other institution (70) | DRG 897 ==
LOC: YASAS 08:57 → Y6N 14:26
PROVIDERS: ADMIT Internal Medicine; ATTEND Internal Medicine
PROC: HZ2ZZZZ Detoxification Services for Substance Abuse Treatment (ICD-10-PCS; principal; 2017-05-24)
DX: F11.23 Opioid dependence with withdrawal (principal); F14.20 Cocaine dependence, uncomplicated; F31.89 Other bipolar disorder; F19.282 Other psychoactive substance dependence with psychoactive substance-induced sleep disorder; J45.902 Unspecified asthma with status asthmaticus; F10.230 Alcohol dependence with withdrawal, uncomplicated; F17.210 Nicotine dependence, cigarettes, uncomplicated; F19.24 Other psychoactive substance dependence with psychoactive substance-induced mood disorder; F20.3 Undifferentiated schizophrenia; K21.9 Gastro-esophageal reflux disease without esophagitis; R63.4 Abnormal weight loss; Z68.26 Body mass index [BMI] 26.0-26.9, adult; G47.00 Insomnia, unspecified
CPT/HCPCS: 36415; 80053; 81003; 85027; 86593; 93005; 93010

== ENCOUNTER 2017-05-29 12:55 | Inpatient (IN) | payer OTHER ==
[2017-05-29] MEDS ORDERED: P-EPHED 60MG/TRIPROLIDI 2.5MG TABLET PO PRN (15:10)
[2017-05-29] MEDS ORDERED: MAG HYDROX/AL HYDROX/SIMETH 30 ML UNIT-DOSE CUP PO PRN (15:10)
[2017-05-29] MEDS ORDERED: LOPERAMIDE HCL 2 MG CAPSULE PO PRN (15:10)
[2017-05-29] MEDS ORDERED: MAGNESIUM HYDROX 2400MG/30ML ORAL SUSPENSION 30 ML CUP PO PRN (15:10)
[2017-05-29] MEDS ORDERED: IBUPROFEN 400 MG TABLET (FP) PO PRN (15:10)
[2017-05-29] MEDS ORDERED: NICOTINE 14 MG/24 HOURS TOPICAL PATCH TD PRN (15:10)
[2017-05-29] MEDS ORDERED: MENTHOL/PHENOL 1 EACH UD MM PRN (15:10)
[2017-05-29] MEDS ORDERED: NICOTINE POLACRILEX 2 MG GUM BUC PRN (15:10)
[2017-05-29] MEDS ORDERED: ACETAMINOPHEN 325 MG TABLET (FP) PO PRN (15:10)
[2017-05-29] MEDS ORDERED: guaiFENesin/D-METHORPHAN HB 10 ML UNIT-DOSE CUPS PO PRN (15:10)
[2017-05-29] MEDS ORDERED: MAGNESIUM CITRATE 300 ML BOTTLE PO PRN (15:10)
--- NOTE | 2017-05-29 15:10 | HP ---
[facility] Rehab Assess/Revision - Admission History Admitted to Rehab from: [facility] Date of Admission to Rehab: 05/29/17 - Vital signs Vital Signs: Vital Signs Period Temp Pulse Resp BP Sys/[place] Pulse Ox Last 24 Hr 98.8 F 104 18 112/70 - Findings Detox History & Physical reviewed: Yes Concur with findings: Yes Comments/Additional Findings: transferred from detox to rehab admission as per protocol Inpatient Rehab Admission - Initial Determination Are CD services needed?: Yes Free of communicable disease: Yes Not in need of hospitalization: Yes - Rehab Admission Criteria Previous failed treatment: Yes Poor recovery environment: Yes Comorbidities: Yes Lacks judgement: No Patient is meeting Inpatient Rehab admission criteria:: Yes
[2017-05-29] MEDS ORDERED: ALBUTEROL SO4 18 GM HFA INHALER IH PRN (15:12)
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
[2017-05-29] MEDS ORDERED: THIAMINE HCL 100 MG TABLET (FP) PO SCH (22:00)
[2017-05-29] MEDS ORDERED: MELATONIN 5 MG TABLETS PO PRN (22:00)
[2017-05-29] MEDS ORDERED: QUEtiapine FUMARATE 100 MG TABLET (FP) PO SCH (22:00)
[2017-05-30 07:01] VITALS: BP 126/85; PULSE 95; TEMP 98.4
[2017-05-30] MEDS ORDERED: ESCITALOPRAM OXALATE 10 MG TABLET (FP) PO SCH (10:00)
[2017-05-30] MEDS ORDERED: PRENATAL VITAMINS W/ FOLIC ACID TABLET (FP) PO SCH (10:00)
--- NOTE | 2017-05-31 08:03 | PN ---
S Progress Note Note: patient signed out AMA on 05/30/17 evening shift, please see medical staff notes.
== END 2017-05-30 08:35 | disposition left against medical advice (07) | DRG 894 ==
LOC: YASAS 12:55 → Y5N 12:57
PROVIDERS: ADMIT Psychiatry & Neurology Psychiatry; ATTEND Psychiatry & Neurology Psychiatry
PROC: HZ42ZZZ Group Counseling for Substance Abuse Treatment, Cognitive-Behavioral (ICD-10-PCS; principal; 2017-05-29)
DX: F11.20 Opioid dependence, uncomplicated (principal); F14.20 Cocaine dependence, uncomplicated; F17.213 Nicotine dependence, cigarettes, with withdrawal; F31.89 Other bipolar disorder; K21.9 Gastro-esophageal reflux disease without esophagitis; J45.909 Unspecified asthma, uncomplicated; Z87.19 Personal history of other diseases of the digestive system

== ENCOUNTER 2017-09-13 20:42 | Inpatient (IN) | payer BC, OTHER ==
[2017-09-13 21:51] VITALS: BMI 24.8
[2017-09-13] MEDS ORDERED: MELATONIN 5 MG TABLETS PO PRN (22:00)
--- NOTE | 2017-09-13 22:20 | HP ---
COWS - Scale Resting Pulse: 1= LA 81-100 Sweatin=Flushed/Facial Moisture Restless Observation: 1= Difficult to Sit Still Pupil Size: 0= Normal to Room Light Bone or Joint Aches: 2= Severe Diffuse Aches Runny Nose/ Eye Tearin= Runny Nose/Eyes GI Upset > 30mins: 3= Vomiting/Diarrhea (vomiting x 2, diarrhea x 4) Tremor Observation: 2= Slight Tremor Visible Yawning Observation: 0= None Anxiety or Irritability: 2=Irritable/Anxious Goose Flesh Skin: 0=Smooth Skin COWS Score: 15 CIWA Score - CIWA Score Nausea/Vomitin Muscle Tremors: 4-Moderate,w/Arms Extend Anxiety: 3 Agitation: 0-Normal Activity Paroxysmal Sweats: 2 Orientation: 0-Oriented Tacttile Disturbances: 0-None Auditory Disturbances: 0-None Visual Disturbances: 0-None Headache: 4-Moderately Severe CIWA-Ar Total Score: 16 Admission [facility] - HPI Chief Complaint: Alcohol and heroin withdrawal symptoms Allergies/Adverse Reactions: Allergies Allergy/AdvReac Type Severity Reaction Status Date / Time shellfish derived Allergy Severe Difficulty Verified 09/13/17 22:43 Breathing No Known Drug Allergies Allergy Verified 09/13/17 22:43 History of Present Illness: 47 years old male with a long history of alcohol and heroin withdrawal symptoms is seeking admission to detox. Patient was in detox 08/18- 08/23/2017 at [facility]. He reports 3 years of sobriety. He has medical history of asthma, depression, anxiety. He denies suicide attempt and suicidal ideation at this time Exam Limitations: No Limitations - Ebola screening Have you traveled outside of the country in the last 21 days: No Have you had contact with anyone from an Ebola affected area: No Have you been sick,other than usual withdrawal symptoms: No Do you have a fever: No - Review of Systems Constitutional: Chills, Loss of Appetite, Malaise, Changes in sleep, Weakness EENT: reports: No Symptoms Reported Respiratory: reports: No Symptoms reported Cardiac: reports: No Symptoms Reported GI: reports: Poor Appetite, Poor Fluid Intake, Abdominal cramping : reports: No Symptoms Reported Musculoskeletal: reports: Back Pain Integumentary: reports: Dryness Neuro: reports: Headache, Tremors Endocrine: reports: No Symptoms Reported Hematology: reports: No Symptoms Reported Psychiatric: reports: Anxious, Depressed Other Systems: Reviewed and Negative Patient History - Patient Medical History Hx Anemia: No Hx Asthma: Yes (Albuterol) Hx Chronic Obstructive Pulmonary Disease (COPD): No Hx Cancer: No Hx Cardiac Disorders: No Hx Congestive Heart Failure: No Hx Hypertension: No Hx Hypercholesterolemia: No Hx Pacemaker: No HX Cerebrovascular Accident: No Hx Seizures: No Hx Dementia: No Hx Diabetes: No Hx Gastrointestinal Disorders: Yes (hx diverticulitis, GERD - Not on medication) Hx Liver Disease: No Hx Genitourinary Disorders: No Hx Sexually Transmitted Disorders: No Hx Renal Disease (ESRD): No Hx Thyroid Disease: No Hx Human Immunodeficiency Virus (HIV): No (NEGATIVE HX LAST 1995) Hx Hepatitis C: No Hx Depression: Yes (with anxiety, hospitalized years ago) Hx Suicide Attempt: Yes (Patient does not remember suicide year. Denies ideation at this time) Hx Bipolar Disorder: Yes ('I just stopped going for treatment') Hx Schizophrenia: Yes (sometimes hear voices) - Patient Surgical History Past Surgical History: Yes Hx Neurologic Surgery: No Hx Cataract Extraction: No Hx Cardiac Surgery: No Hx Lung Surgery: No Hx Abdominal Surgery: No Hx Appendectomy: No Hx Cholecystectomy: No Hx Genitourinary Surgery: No Hx Orthopedic Surgery: Yes (R knee sx 2005) Other Surgical History: right foot surgery for calcium build-up plantar 2000 Anesthesia Reaction: No - PPD History Previous Implant?: Yes Documented Results: Negative w/proof Date: 02/25/17 Results: 0.0 PPD to be Administered?: No - Reproductive History Patient is a Female of Child Bearing Age (11 -55 yrs old): No (Male) - Smoking Cessation Smoking history: Current every day smoker Have you smoked in the past 12 months: Yes Aproximately how many cigarettes per day: 10 Cigars Per Day: 0 Hx Chewing Tobacco Use: No Initiated information on smoking cessation: Yes 'Breaking Loose' booklet given: 09/13/17 - Substance & Tx. History Hx Alcohol Use: Yes Hx Substance Use: Yes Substance Use Type: Cocaine, Opiates Hx Substance Use Treatment: Yes ([facility] ) - Substances Abused Heroin Route: Inhalation Frequency: Daily Amount used: 10 bags Age of first use: 18 Date of Last Use: 09/12/17 Cocaine Route: Smoking Frequency: Daily Amount used: 8 bags Date of Last Use: 09/12/17 Family Disease History - Family Disease History Family History: Denies Family Disease History: Other: Father (living, DRUG & ALCOHOL), Mother (living, healthy), Brother (two - living - healthy), Son (one - living - age 15), Daughter (two - living - ages 30, 25) Admission Physical Exam [facility] - Vital Signs Vital Signs: Vital Signs - 24 hr 09/13/17 21:48 Temperature 98.8 F Pulse Rate 86 Respiratory 18 Rate Blood Pressure 120/75 - Physical General Appearance: Yes: Moderate Distress, Tremorous, Irritable, Sweating, Anxious HEENTM: Yes: EOMI, Normal ENT Inspection, Normal Voice, MARVIN Respiratory: Yes: Normal Breath Sounds, No Respiratory Distress Neck: Yes: Supple Breast: Yes: Breast Exam Deferred Cardiology: Yes: Regular Rhythm, Regular Rate Abdominal: Yes: Normal Bowel Sounds, Soft Genitourinary: Yes: Within Normal Limits Back: Yes: Normal Inspection Musculoskeletal: Yes: Gait Steady, Back pain, Joint swelling Extremities: Yes: Tremors Neurological: Yes: Alert, Normal Mood/Affect Integumentary: Yes: Warm Lymphatic: Yes: Within Normal Limits - Diagnostic (1) Alcohol dependence with uncomplicated withdrawal Current Visit: No Status: Acute (2) Cocaine dependence, uncomplicated Current Visit: Yes Status: Chronic (3) Nicotine dependence Current Visit: Yes Status: Chronic Qualifiers: Nicotine product type: cigarettes Substance use status: in withdrawal Qualified Code(s): F17.213 - Nicotine dependence, cigarettes, with withdrawal (4) Opioid dependence with withdrawal Current Visit: Yes Status: Chronic (5) Asthma Current Visit: Yes Status: Chronic Qualifiers: Asthma severity: mild Asthma persistence: intermittent Asthma complication type: uncomplicated Qualified Code(s): J45.20 - Mild intermittent asthma, uncomplicated Comment: ventolin (6) GERD (gastroesophageal reflux disease) Current Visit: Yes Status: Chronic Qualifiers: Esophagitis presence: without esophagitis Qualified Code(s): K21.9 - Gastro -esophageal reflux disease without esophagitis Cleared for Admission S - Detox or Rehab [facility] Level of Care: Medically Managed Detox Regimen/Protocol: Methadone/Librium S Breath Alcohol Content Breath Alcohol Content: 0 Urine Drug Screen - Results Drug Screen Negative: No Urine Drug Screen Results: GEOVANNA-Cocaine, OPI-Opiates
[2017-09-13] MEDS ORDERED: IBUPROFEN 400 MG TABLET (FP) PO PRN (22:43)
[2017-09-13] MEDS ORDERED: ACETAMINOPHEN 325 MG TABLET (FP) PO PRN (22:43)
[2017-09-13] MEDS ORDERED: LOPERAMIDE HCL 2 MG CAPSULE PO PRN (22:43)
[2017-09-13] MEDS ORDERED: MAG HYDROX/AL HYDROX/SIMETH 30 ML UNIT-DOSE CUP PO PRN (22:43)
[2017-09-13] MEDS ORDERED: chlordiazePOXIDE HCL 25 MG CAPSULE PO PRN (22:43)
[2017-09-13] MEDS ORDERED: guaiFENesin/D-METHORPHAN HB 10 ML UNIT-DOSE CUPS PO PRN (22:43)
[2017-09-13] MEDS ORDERED: MENTHOL/PHENOL 1 EACH UD MM PRN (22:43)
[2017-09-13] MEDS ORDERED: MAGNESIUM CITRATE 300 ML BOTTLE PO PRN (22:43)
[2017-09-13] MEDS ORDERED: MAGNESIUM HYDROX 2400MG/30ML ORAL SUSPENSION 30 ML CUP PO PRN (22:43)
[2017-09-13] MEDS ORDERED: NICOTINE POLACRILEX 2 MG GUM BC PRN (22:43)
[2017-09-13] MEDS ORDERED: P-EPHED 60MG/TRIPROLIDI 2.5MG TABLET PO PRN (22:43)
[2017-09-13] MEDS ORDERED: ALBUTEROL SO4 8 GM HFA INHALER IH PRN (22:46)
[2017-09-13] MEDS ORDERED: METHADONE HCL 10 MG TABLET (FOR DETOX USE ONLY) PO ONE ×2 (23:00→23:15)
[2017-09-13] MEDS: chlordiazePOXIDE HCL 25 MG CAPSULE PO SCH (23:47)
[2017-09-13 23:53] LABS: URINE APPEARANCE CLEAR; URINE BILIRUBIN NEGATIVE (<2.0 mg/dL); URINE COLOR YELLOW; URINE GLUCOSE (UA) NEGATIVE (NEGATIVE); URINE KETONE NEGATIVE (NEGATIVE); URINE LEUK ESTERASE NEGATIVE (NEGATIVE); URINE NITRITE NEGATIVE (NEGATIVE); URINE PROTEIN NEGATIVE (NEGATIVE); URINE UROBILINOGEN NEGATIVE mg/dL (0.2-1.0)
[2017-09-14] MEDS: chlordiazePOXIDE HCL 25 MG CAPSULE PO SCH ×4 (05:48→22:22)
--- NOTE | 2017-09-14 09:41 | PN ---
S CIWA - CIWA Score Nausea/Vomitin Muscle Tremors: 3 Anxiety: 3 Agitation: 3 Paroxysmal Sweats: 2 Orientation: 0-Oriented Tacttile Disturbances: 1-Very Mild Itch/Numbness Auditory Disturbances: 1-Very Mild Visual Disturbances: 0-None Headache: 2-Mild CIWA-Ar Total Score: 18 [facility] COWS - Scale Resting Pulse: 0= SD 80 or Below Sweatin= Chills/Flushing Restless Observation: 3= Extraneous Movement Pupil Size: 1= Pupils >than Normal Bone or Joint Aches: 2= Severe Diffuse Aches Runny Nose/ Eye Tearin= Runny Nose/Eyes GI Upset > 30mins: 2= Nausea/Diarrhea Tremor Observation of Outstretched Hands: 2= Slight Tremor Visible Yawning Observation: 1= 1-2x During Session Anxiety or Irritability: 2=Irritable/Anxious Goose Flesh Skin: 0=Smooth Skin COWS Score: 16 S Progress Note (SOAP) Subjective: alert,irritable,anxious,interrupted sleep,tremor,pain in the body and back Objective: 09/14/17 09:39 Vital Signs Temperature 97.7 F 09/14/17 09:23 Pulse Rate 84 09/14/17 09:23 Respiratory Rate 17 09/14/17 09:23 Blood Pressure 122/71 09/14/17 09:23 O2 Sat by Pulse Oximetry (%) ekg nsr,normal ecg qt/qtc 396/427 Laboratory Last Values Urine Color Yellow 09/13/17 10:53 Urine Appearance Clear 09/13/17 10:53 Urine pH 5.0 (5.0-8.0) 09/13/17 10:53 Ur Specific [place] 1.021 (1.001-1.035) 09/13/17 10:53 Urine Protein Negative (NEGATIVE) 09/13/17 10:53 Urine Glucose (UA) Negative (NEGATIVE) 09/13/17 10:53 Urine Ketones Negative (NEGATIVE) 09/13/17 10:53 Urine Blood Negative (NEGATIVE) 09/13/17 10:53 Urine Nitrite Negative (NEGATIVE) 09/13/17 10:53 Urine Bilirubin Negative (<2.0 mg/dL) 09/13/17 10:53 Urine Urobilinogen Negative mg/dL (0.2-1.0) 09/13/17 10:53 Ur Leukocyte Esterase Negative (NEGATIVE) 09/13/17 10:53 labs pending Assessment: 09/14/17 09:40 withdrawal symptom Plan: continue detox
[2017-09-14 09:58] LABS: ALBUMIN 3.4 g/dl (3.4-5.0); ANION GAP 7 (8-16); BLOOD UREA NITROGEN 16 mg/dL (7-18); CALCIUM 8.5 mg/dL (8.5-10.1); CHLORIDE 109 mmol/L (98-107); CO2 30 mmol/L (21-32); GLUCOSE,RANDOM 93 mg/dL (74-106); POTASSIUM 4.4 mmol/L (3.5-5.1); SGOT/AST 11 U/L (15-37); SODIUM 146 mmol/L (136-145)
[2017-09-14 10:00] LABS: ALK PHOS 67 U/L (45-117); BILIRUBIN,TOTAL 0.2 mg/dL (0.2-1.0); CREATININE 1.1 mg/dL (0.7-1.3); SGPT/ALT 17 U/L (12-78); TOT PROT 6.6 g/dl (6.4-8.2)
[2017-09-14] MEDS ORDERED: METHADONE HCL 10 MG TABLET (FOR DETOX USE ONLY) PO SCH (10:00)
[2017-09-14 10:06] LABS: HEMATOCRIT 38.8 % (35.4-49); HEMOGLOBIN 12.9 GM/dL (11.7-16.9); MCH 30.1 pg (25.7-33.7); MCHC 33.2 g/dl (32.0-35.9); MEAN CELL VOLUME 90.6 fl (80-96); MEAN PLT VOLUME 10.9 fl (7.5-11.1); PLATELET COUNT 231 K/MM3 (134-434); RBC 4.28 M/mm3 (4.00-5.60); RDW 15.9 % (11.9-15.9); WHITE BLOOD COUNT 7.3 K/mm3 (4.0-10.0)
[2017-09-14] MEDS: PRENATAL VITAMINS W/ FOLIC ACID TABLET (FP) PO SCH (10:23)
[2017-09-14] MEDS: NICOTINE 14 MG/24 HOURS TOPICAL PATCH TD SCH (10:24)
[2017-09-14] MEDS: cloNIDine HCL 0.1 MG TABLET PO SCH ×2 (11:00→22:22)
--- NOTE | 2017-09-14 11:44 | CONSULT ---
[facility] Psychiatric Consult - Data Date of interview: 09/14/17 Admission source: [facility] Identifying data: Patient is a 47 year old male, father of three, unemployed, and domiciled. This is one of multiple admissions for patient. Pt. admitted to for alcohol, cocaine, and opiate dependence. Substance Abuse History: Smoking Cessation. Smoking history: Current every day smoker. Have you smoked in the past 12 months: Yes. Aproximately how many cigarettes per day: 10. Cigars Per Day: 0. Hx Chewing Tobacco Use: No. Initiated information on smoking cessation: Yes. 'Breaking Loose' booklet given : 09/13/17. - Substance & Tx. History. Hx Alcohol Use: Yes. Hx Substance Use : Yes. Substance Use Type: Cocaine, Opiates. Hx Substance Use Treatment: Yes ( [facility] ). - Substances Abused. Heroin. Route: Inhalation. Frequency: Daily. Amount used: 10 bags. Age of first use: 18. Date of Last Use: . Cocaine. Route: Smoking. Frequency: Daily. Amount used: 8 bags. Date of Last Use: 09/12/17 Medical History: hx diverticulitis, right knee surgery 2005, Asthma Psychiatric History: Pt. unable to provide a cohesive psychiatric history. Pt. reports three psychiatric hospitalizations, all in [place]. Pt. denies current OPD. Reports a diagnosis of Bipolar disorder. Pt. was seen by Dr. Frank on 08/19/17 while on detox and was restarted on lexapro 10mg + Seroquel 100mg qhs. Pt. reports taking medication several days ago. Pt. denies h/o suicide attempt. Physical/Sexual Abuse/Trauma History: Denies. Mental Status Exam - Mental Status Exam Alert and Oriented to: Time, Place, Person Cognitive Function: Good Patient Appearance: Well Groomed Mood: Euthymic Affect: Mood Congruent Patient Behavior: Cooperative Speech Pattern: Appropriate Voice Loudness: Normal Thought Process: Intact, Goal Oriented Thought Disorder: Not Present Hallucinations: Denies Suicidal Ideation: Denies Homicidal Ideation: Denies Insight/Judgement: Poor Sleep: Fair Appetite: Fair Muscle strength/Tone: Normal Gait/Station: Normal Psychiatric Findings - Problem List ([place] 1, 2,3) (1) Cocaine dependence, uncomplicated Current Visit: Yes Status: Acute (2) Opioid dependence with withdrawal Current Visit: Yes Status: Acute (3) Alcohol dependence with uncomplicated withdrawal Current Visit: Yes Status: Acute (4) Substance induced mood disorder Current Visit: Yes Status: Acute (5) Bipolar 1 disorder, depressed Current Visit: Yes Status: Suspected - Initial Treatment Plan Initial Treatment Plan: Psychoeducation provided. Detoxification in progress. Lexapro 10mg PO daily + Seroquel 100mg qhs. Benefits and side effects discussed. Verbal consent given. Will continue to monitor.
[2017-09-14] MEDS: ESCITALOPRAM OXALATE 10 MG TABLET (FP) PO SCH (12:00)
[2017-09-14] MEDS: QUEtiapine FUMARATE 100 MG TABLET (FP) PO SCH (22:22)
[2017-09-14] MEDS: THIAMINE HCL 100 MG TABLET (FP) PO SCH (22:24)
[2017-09-15] MEDS: chlordiazePOXIDE HCL 25 MG CAPSULE PO SCH ×3 (07:13→18:31)
[2017-09-15] MEDS: PRENATAL VITAMINS W/ FOLIC ACID TABLET (FP) PO SCH (10:55)
[2017-09-15] MEDS: ESCITALOPRAM OXALATE 10 MG TABLET (FP) PO SCH (10:55)
[2017-09-15] MEDS: cloNIDine HCL 0.1 MG TABLET PO SCH ×2 (10:55→22:32)
[2017-09-15] MEDS: METHADONE HCL 5 MG TABLET (FOR DETOX USE ONLY) PO SCH (10:55)
[2017-09-15] MEDS: NICOTINE 14 MG/24 HOURS TOPICAL PATCH TD SCH (10:56)
--- NOTE | 2017-09-15 11:07 | PN ---
[facility] CIWA - CIWA Score Nausea/Vomitin Muscle Tremors: 2 Anxiety: 2 Agitation: 2 Paroxysmal Sweats: 2 Orientation: 0-Oriented Tacttile Disturbances: 1-Very Mild Itch/Numbness Auditory Disturbances: 1-Very Mild Visual Disturbances: 0-None Headache: 2-Mild CIWA-Ar Total Score: 14 BHS COWS - Scale Resting Pulse: 1= [place] 81-100 Sweatin= Chills/Flushing Restless Observation: 1= Difficult to Sit Still Pupil Size: 0= Normal to Room Light Bone or Joint Aches: 2= Severe Diffuse Aches Runny Nose/ Eye Tearin= Runny Nose/Eyes GI Upset > 30mins: 2= Nausea/Diarrhea Tremor Observation of Outstretched Hands: 2= Slight Tremor Visible Yawning Observation: 0= None Anxiety or Irritability: 2=Irritable/Anxious Goose Flesh Skin: 3=Piloerection COWS Score: 16 S Progress Note (SOAP) Subjective: Tremors, sleep interruption, restlessness and abdominal cramps Objective: 09/15/17 11:05 Vital Signs 09/15/17 09/15/17 09/15/17 03:30 06:00 10:10 Temperature 96.8 F L 97.9 F Pulse Rate 97 H 88 Respiratory 18 18 18 Rate Blood Pressure 122/67 139/61 Laboratory Last Values WBC 7.3 K/mm3 (4.0-10.0) 09/14/17 07:00 RBC 4.28 M/mm3 (4.00-5.60) 09/14/17 07:00 Hgb 12.9 GM/dL (11.7-16.9) 09/14/17 07:00 Hct 38.8 % (35.4-49) 09/14/17 07:00 MCV 90.6 fl (80-96) 09/14/17 07:00 MCH 30.1 pg (25.7-33.7) 09/14/17 07:00 MCHC 33.2 g/dl (32.0-35.9) 09/14/17 07:00 RDW 15.9 % (11.9-15.9) 09/14/17 07:00 Plt Count 231 K/MM3 (134-434) 09/14/17 07:00 MPV 10.9 fl (7.5-11.1) 09/14/17 07:00 Sodium 146 mmol/L (136-145) H 09/14/17 07:00 Potassium 4.4 mmol/L (3.5-5.1) 09/14/17 07:00 Chloride 109 mmol/L (98-107) H 09/14/17 07:00 Carbon Dioxide 30 mmol/L (21-32) D 09/14/17 07:00 Anion Gap 7 (8-16) L 09/14/17 07:00 BUN 16 mg/dL (7-18) 09/14/17 07:00 Creatinine 1.1 mg/dL (0.7-1.3) 09/14/17 07:00 Creat Clearance w eGFR > 60 (>60) 09/14/17 07:00 POC Glucometer 108 UNITS (80-120) 09/15/17 06:50 Random Glucose 93 mg/dL (74-106) 09/14/17 07:00 Calcium 8.5 mg/dL (8.5-10.1) 09/14/17 07:00 Total Bilirubin 0.2 mg/dL (0.2-1.0) 09/14/17 07:00 AST 11 U/L (15-37) L 09/14/17 07:00 ALT 17 U/L (12-78) 09/14/17 07:00 Alkaline Phosphatase 67 U/L (45-117) 09/14/17 07:00 Total Protein 6.6 g/dl (6.4-8.2) 09/14/17 07:00 Albumin 3.4 g/dl (3.4-5.0) 09/14/17 07:00 Urine Color Yellow 09/13/17 10:53 Urine Appearance Clear 09/13/17 10:53 Urine pH 5.0 (5.0-8.0) 09/13/17 10:53 Ur Specific [place] 1.021 (1.001-1.035) 09/13/17 10:53 Urine Protein Negative (NEGATIVE) 09/13/17 10:53 Urine Glucose (UA) Negative (NEGATIVE) 09/13/17 10:53 Urine Ketones Negative (NEGATIVE) 09/13/17 10:53 Urine Blood Negative (NEGATIVE) 09/13/17 10:53 Urine Nitrite Negative (NEGATIVE) 09/13/17 10:53 Urine Bilirubin Negative (<2.0 mg/dL) 09/13/17 10:53 Urine Urobilinogen Negative mg/dL (0.2-1.0) 09/13/17 10:53 Ur Leukocyte Esterase Negative (NEGATIVE) 09/13/17 10:53 RPR Titer Nonreactive (NONREACTIVE) 09/14/17 07:00 Labs noted Assessment: 09/15/17 11:06 Withdrawal sx Plan: Continue detox
[2017-09-15] MEDS: QUEtiapine FUMARATE 100 MG TABLET (FP) PO SCH (22:28)
[2017-09-15] MEDS: chlordiazePOXIDE 5 MG CAPSULE PO SCH (22:28)
[2017-09-15] MEDS: CYCLOBENZAPRINE HCL 10 MG TABLET (FP) PO PRN (22:28)
[2017-09-15] MEDS: THIAMINE HCL 100 MG TABLET (FP) PO SCH (22:32)
[2017-09-16] MEDS: chlordiazePOXIDE 5 MG CAPSULE PO SCH ×3 (05:20→18:13)
[2017-09-16] MEDS: cloNIDine HCL 0.1 MG TABLET PO SCH ×2 (10:24→22:59)
[2017-09-16] MEDS: ESCITALOPRAM OXALATE 10 MG TABLET (FP) PO SCH (10:24)
[2017-09-16] MEDS: NICOTINE 14 MG/24 HOURS TOPICAL PATCH TD SCH (10:24)
[2017-09-16] MEDS: PRENATAL VITAMINS W/ FOLIC ACID TABLET (FP) PO SCH (10:24)
[2017-09-16] MEDS: METHADONE HCL 5 MG TABLET (FOR DETOX USE ONLY) PO SCH (10:25)
--- NOTE | 2017-09-16 13:03 | PN ---
BHS Progress Note (SOAP) Subjective: feeling better no tremor less sweat sleep better at night no gi distress no body aches Objective: 09/16/17 13:02 Vital Signs Temperature 96.4 F L 09/16/17 06:00 Pulse Rate 65 09/16/17 06:00 Respiratory Rate 18 09/16/17 06:00 Blood Pressure 122/71 09/16/17 06:00 O2 Sat by Pulse Oximetry (%) Laboratory Last Values WBC 7.3 K/mm3 (4.0-10.0) 09/14/17 07:00 RBC 4.28 M/mm3 (4.00-5.60) 09/14/17 07:00 Hgb 12.9 GM/dL (11.7-16.9) 09/14/17 07:00 Hct 38.8 % (35.4-49) 09/14/17 07:00 MCV 90.6 fl (80-96) 09/14/17 07:00 MCH 30.1 pg (25.7-33.7) 09/14/17 07:00 MCHC 33.2 g/dl (32.0-35.9) 09/14/17 07:00 RDW 15.9 % (11.9-15.9) 09/14/17 07:00 Plt Count 231 K/MM3 (134-434) 09/14/17 07:00 MPV 10.9 fl (7.5-11.1) 09/14/17 07:00 Sodium 146 mmol/L (136-145) H 09/14/17 07:00 Potassium 4.4 mmol/L (3.5-5.1) 09/14/17 07:00 Chloride 109 mmol/L (98-107) H 09/14/17 07:00 Carbon Dioxide 30 mmol/L (21-32) D 09/14/17 07:00 Anion Gap 7 (8-16) L 09/14/17 07:00 BUN 16 mg/dL (7-18) 09/14/17 07:00 Creatinine 1.1 mg/dL (0.7-1.3) 09/14/17 07:00 Creat Clearance w eGFR > 60 (>60) 09/14/17 07:00 POC Glucometer 108 UNITS (80-120) 09/15/17 06:50 Random Glucose 93 mg/dL (74-106) 09/14/17 07:00 Calcium 8.5 mg/dL (8.5-10.1) 09/14/17 07:00 Total Bilirubin 0.2 mg/dL (0.2-1.0) 09/14/17 07:00 AST 11 U/L (15-37) L 09/14/17 07:00 ALT 17 U/L (12-78) 09/14/17 07:00 Alkaline Phosphatase 67 U/L (45-117) 09/14/17 07:00 Total Protein 6.6 g/dl (6.4-8.2) 09/14/17 07:00 Albumin 3.4 g/dl (3.4-5.0) 09/14/17 07:00 Urine Color Yellow 09/13/17 10:53 Urine Appearance Clear 09/13/17 10:53 Urine pH 5.0 (5.0-8.0) 09/13/17 10:53 Ur Specific [place] 1.021 (1.001-1.035) 09/13/17 10:53 Urine Protein Negative (NEGATIVE) 09/13/17 10:53 Urine Glucose (UA) Negative (NEGATIVE) 09/13/17 10:53 Urine Ketones Negative (NEGATIVE) 09/13/17 10:53 Urine Blood Negative (NEGATIVE) 09/13/17 10:53 Urine Nitrite Negative (NEGATIVE) 09/13/17 10:53 Urine Bilirubin Negative (<2.0 mg/dL) 09/13/17 10:53 Urine Urobilinogen Negative mg/dL (0.2-1.0) 09/13/17 10:53 Ur Leukocyte Esterase Negative (NEGATIVE) 09/13/17 10:53 RPR Titer Nonreactive (NONREACTIVE) 09/14/17 07:00 lab noted Assessment: 09/16/17 13:02 mild withdrawal sx Plan: medically supervised detox
[2017-09-16] MEDS: CYCLOBENZAPRINE HCL 10 MG TABLET (FP) PO PRN ×2 (18:23→22:59)
[2017-09-16] MEDS: THIAMINE HCL 100 MG TABLET (FP) PO SCH (22:59)
[2017-09-16] MEDS: chlordiazePOXIDE HCL 10 MG CAPSULE PO SCH (22:59)
[2017-09-16] MEDS: QUEtiapine FUMARATE 100 MG TABLET (FP) PO SCH (22:59)
[2017-09-17] MEDS: chlordiazePOXIDE HCL 10 MG CAPSULE PO SCH ×3 (05:48→17:31)
[2017-09-17] MEDS ORDERED: METHADONE HCL 10 MG TABLET (FOR DETOX USE ONLY) PO SCH (10:00)
[2017-09-17] MEDS: cloNIDine HCL 0.1 MG TABLET PO SCH ×2 (10:41→21:58)
[2017-09-17] MEDS: ESCITALOPRAM OXALATE 10 MG TABLET (FP) PO SCH (10:41)
[2017-09-17] MEDS: PRENATAL VITAMINS W/ FOLIC ACID TABLET (FP) PO SCH (10:41)
[2017-09-17] MEDS: NICOTINE 14 MG/24 HOURS TOPICAL PATCH TD SCH (10:43)
--- NOTE | 2017-09-17 11:11 | EKG ---
Test Reason : Blood Pressure : / mmHG Vent. Rate : 070 BPM Atrial Rate : 070 BPM P-R Int : 122 ms QRS Dur : 088 ms QT Int : 396 ms P-R-T Axes : 035 061 049 degrees QTc Int : 427 ms NORMAL SINUS RHYTHM NORMAL ECG WHEN COMPARED WITH ECG OF 18-AUG-2017 11:53, NO SIGNIFICANT CHANGE WAS FOUND Confirmed by DAMIR CAMARENA MD ([id number]) on 09/17/2017 11:10:30 AM Referred By: Confirmed By:DAMIR CAMARENA MD
--- NOTE | 2017-09-17 12:28 | PN ---
S Progress Note (SOAP) Subjective: alert,irritable,interrupted sleep Objective: 09/17/17 12:27 Vital Signs Temperature 97.7 F 09/17/17 09:00 Pulse Rate 77 09/17/17 09:00 Respiratory Rate 18 09/17/17 09:00 Blood Pressure 115/63 09/17/17 09:00 O2 Sat by Pulse Oximetry (%) Assessment: 09/17/17 12:27 withdrawal symptom Plan: continue detox,discharge in am
[2017-09-17] MEDS: QUEtiapine FUMARATE 100 MG TABLET (FP) PO SCH (21:58)
[2017-09-17] MEDS: THIAMINE HCL 100 MG TABLET (FP) PO SCH (21:58)
[2017-09-17 22:59] VITALS: TEMP 97
[2017-09-18] MEDS ORDERED: METHADONE HCL 5 MG TABLET (FOR DETOX USE ONLY) PO SCH (06:00)
[2017-09-18 07:33] VITALS: BP 125/74; PULSE 76
--- NOTE | 2017-09-18 08:34 | PN ---
BHS Progress Note (SOAP) Subjective: alert,no complaint Objective: 09/18/17 08:29 Vital Signs Temperature 97 F L 09/18/17 07:32 Pulse Rate 76 09/18/17 07:32 Respiratory Rate 18 09/18/17 07:32 Blood Pressure 125/74 09/18/17 07:32 O2 Sat by Pulse Oximetry (%) 40detox completed Assessment: 09/18/17 08:34 detox completed,no withdrawal symptom 09/18/17 08:34 Plan: discharge today,follow up with after care program as arrangement
--- NOTE | 2017-09-18 08:44 | DS ---
[facility] Detox Discharge Summary Admission Date: 09/13/17 Discharge Date: 09/18/17 - History Present History: Alcohol Dependence, Cocaine Dependence, Opioid Dependence Additional Comments: follow up with after care program as arrangement Pertinent Past History: asthma nicotine dependence gerd - Physical Exam Results Vital Signs: Vital Signs Temperature 97 F L 09/18/17 07:32 Pulse Rate 76 09/18/17 07:32 Respiratory Rate 18 09/18/17 07:32 Blood Pressure 125/74 09/18/17 07:32 O2 Sat by Pulse Oximetry (%) Pertinent Admission Physical Exam Findings: withdrawal signs and symptom Laboratory Last Values WBC 7.3 K/mm3 (4.0-10.0) 09/14/17 07:00 RBC 4.28 M/mm3 (4.00-5.60) 09/14/17 07:00 Hgb 12.9 GM/dL (11.7-16.9) 09/14/17 07:00 Hct 38.8 % (35.4-49) 09/14/17 07:00 MCV 90.6 fl (80-96) 09/14/17 07:00 MCH 30.1 pg (25.7-33.7) 09/14/17 07:00 MCHC 33.2 g/dl (32.0-35.9) 09/14/17 07:00 RDW 15.9 % (11.9-15.9) 09/14/17 07:00 Plt Count 231 K/MM3 (134-434) 09/14/17 07:00 MPV 10.9 fl (7.5-11.1) 09/14/17 07:00 Sodium 146 mmol/L (136-145) H 09/14/17 07:00 Potassium 4.4 mmol/L (3.5-5.1) 09/14/17 07:00 Chloride 109 mmol/L (98-107) H 09/14/17 07:00 Carbon Dioxide 30 mmol/L (21-32) D 09/14/17 07:00 Anion Gap 7 (8-16) L 09/14/17 07:00 BUN 16 mg/dL (7-18) 09/14/17 07:00 Creatinine 1.1 mg/dL (0.7-1.3) 09/14/17 07:00 Creat Clearance w eGFR > 60 (>60) 09/14/17 07:00 POC Glucometer 108 UNITS (80-120) 09/15/17 06:50 Random Glucose 93 mg/dL (74-106) 09/14/17 07:00 Calcium 8.5 mg/dL (8.5-10.1) 09/14/17 07:00 Total Bilirubin 0.2 mg/dL (0.2-1.0) 09/14/17 07:00 AST 11 U/L (15-37) L 09/14/17 07:00 ALT 17 U/L (12-78) 09/14/17 07:00 Alkaline Phosphatase 67 U/L (45-117) 09/14/17 07:00 Total Protein 6.6 g/dl (6.4-8.2) 09/14/17 07:00 Albumin 3.4 g/dl (3.4-5.0) 09/14/17 07:00 Urine Color Yellow 09/13/17 10:53 Urine Appearance Clear 09/13/17 10:53 Urine pH 5.0 (5.0-8.0) 09/13/17 10:53 Ur Specific [place] 1.021 (1.001-1.035) 09/13/17 10:53 Urine Protein Negative (NEGATIVE) 09/13/17 10:53 Urine Glucose (UA) Negative (NEGATIVE) 09/13/17 10:53 Urine Ketones Negative (NEGATIVE) 09/13/17 10:53 Urine Blood Negative (NEGATIVE) 09/13/17 10:53 Urine Nitrite Negative (NEGATIVE) 09/13/17 10:53 Urine Bilirubin Negative (<2.0 mg/dL) 09/13/17 10:53 Urine Urobilinogen Negative mg/dL (0.2-1.0) 09/13/17 10:53 Ur Leukocyte Esterase Negative (NEGATIVE) 09/13/17 10:53 RPR Titer Nonreactive (NONREACTIVE) 09/14/17 07:00 Vital Signs Temperature 97 F L 09/18/17 07:32 Pulse Rate 76 09/18/17 07:32 Respiratory Rate 18 09/18/17 07:32 Blood Pressure 125/74 09/18/17 07:32 O2 Sat by Pulse Oximetry (%) - Treatment Hospital Course: Detox Protocol Followed, Detoxed Safely, Responded well, Discharged Condition Good Patient has Accepted a Rehab Referral to: declined - Medication Discharge Medications: Ambulatory Orders Escitalopram Oxalate [Lexapro -] 10 mg PO DAILY #30 tablet 08/19/17 Albuterol Sulfate Inhaler - [Ventolin HFA Inhaler -] 2 puff IH Q4H PRN #1 inhaler 09/16/17 Quetiapine Fumarate [Seroquel] 100 mg PO HS #30 tablet 09/17/17 - Diagnosis (1) Opioid dependence with withdrawal Current Visit: Yes Status: Acute (2) Asthma Current Visit: Yes Status: Chronic Qualifiers: Asthma severity: mild Asthma persistence: intermittent Asthma complication type: uncomplicated Qualified Code(s): J45.20 - Mild intermittent asthma, uncomplicated (3) Cocaine dependence, uncomplicated Current Visit: Yes Status: Acute (4) GERD (gastroesophageal reflux disease) Current Visit: Yes Status: Chronic Qualifiers: Esophagitis presence: without esophagitis Qualified Code(s): K21.9 - Gastro -esophageal reflux disease without esophagitis (5) Alcohol dependence with uncomplicated withdrawal Current Visit: Yes Status: Acute (6) Cocaine dependence Current Visit: No Status: Acute - AMA Did Patient Leave Against Medical Advice: No
== END 2017-09-18 09:03 | disposition home or self-care (01) | DRG 897 ==
LOC: YASAS 20:42 → Y6N 23:12
PROVIDERS: ADMIT Surgery; ATTEND Surgery
PROC: HZ2ZZZZ Detoxification Services for Substance Abuse Treatment (ICD-10-PCS; principal; 2017-09-13)
DX: F11.23 Opioid dependence with withdrawal (principal); F14.20 Cocaine dependence, uncomplicated; F31.89 Other bipolar disorder; F10.230 Alcohol dependence with withdrawal, uncomplicated; F19.24 Other psychoactive substance dependence with psychoactive substance-induced mood disorder; J45.20 Mild intermittent asthma, uncomplicated; K21.9 Gastro-esophageal reflux disease without esophagitis; Z91.5 Personal history of self-harm; Z87.19 Personal history of other diseases of the digestive system
CPT/HCPCS: 36415; 80053; 81003; 82962; 85027; 86593; 93005; 93010; J0735

== ENCOUNTER 2017-10-23 09:06 | Inpatient (IN) | payer BC, OTHER ==
[2017-10-23 09:30] VITALS: BMI 23.6
--- NOTE | 2017-10-23 13:32 | HP ---
COWS - Scale Resting Pulse: 1= [place] 81-100 Sweatin= Chills/Flushing Restless Observation: 0= Sits Still Pupil Size: 0= Normal to Room Light Bone or Joint Aches: 4=Acute Joint/Muscle Pain Runny Nose/ Eye Tearin= Runny Nose/Eyes GI Upset > 30mins: 3= Vomiting/Diarrhea Tremor Observation: 1= Tremor [place], Not Seen Yawning Observation: 0= None Anxiety or Irritability: 2=Irritable/Anxious Goose Flesh Skin: 0=Smooth Skin COWS Score: 14 CIWA Score - CIWA Score Nausea/Vomitin Muscle Tremors: 2 Anxiety: 4-Mod. Anxious/Guarded Agitation: 3 Paroxysmal Sweats: 1-Minimal Palms Moist Orientation: 0-Oriented Tacttile Disturbances: 0-None Auditory Disturbances: 0-None Visual Disturbances: 0-None Headache: 1-Very Mild CIWA-Ar Total Score: 16 Admission ROS BHS - HPI Chief Complaint: HEROIN AND ALCOHOL WITHDRAWAL SX Allergies/Adverse Reactions: Allergies Allergy/AdvReac Type Severity Reaction Status Date / Time shellfish derived Allergy Severe Difficulty Verified 10/23/17 09:39 Breathing No Known Drug Allergies Allergy Verified 10/23/17 09:39 History of Present Illness: 47 Y/O AA/MALE WITH A HX OF HEROIN AND ALCOHOL DEPENDENCE SEEKING DETOX TX. PT DELATORRE SPREVIOUS TX EPISODES. REPORTS HE HAS BEEN OFF PAIN MEDS BELOW BUT USING HEROIN. Others' Prescriptions Patient Name: Duc Madison Date: 1970 Address: [address] [place] [address] Sex: Male Rx Written Rx Dispensed Drug Quantity Days Supply Prescriber Name 07/10/2017 07/10/2017 oxycodone-acetaminophen 5-325 mg tablet 5 3 Shital Fuentes * - Drugs marked with an asterisk are compound drugs. If the compound drug is made up of more than one controlled substance, then each controlle Exam Limitations: No Limitations - Ebola screening Have you traveled outside of the country in the last 21 days: No Have you had contact with anyone from an Ebola affected area: No Have you been sick,other than usual withdrawal symptoms: No Do you have a fever: No - Review of Systems Constitutional: Chills, Loss of Appetite, Night Sweats, Changes in sleep, Unintentional Wgt. Loss EENT: reports: Blurred Vision, Tearing, Nose Bleeding, Nose Congestion Respiratory: reports: Shortness of Breath (HX ASTHMA), Wheezing Cardiac: reports: Lightheadedness GI: reports: Constipated, Diarrhea, Nausea, Poor Appetite, Poor Fluid Intake, Vomiting, Indigestion (HX GERD -NO CURRENT MED), Abdominal cramping : reports: No Symptoms Reported Musculoskeletal: reports: Back Pain, Joint Pain, Muscle Pain Integumentary: reports: Bruising (FACIAL ABRASION DUE TO PEELED SCAB FROM HEROIN RASH PER PATIENT) Neuro: reports: Headache, Numbness, Tingling, Tremors, Unsteady Gait (HX OF FALLS), Dizziness, Other (BLACKOUTS) Endocrine: reports: No Symptoms Reported Hematology: reports: No Symptoms Reported Psychiatric: reports: Orientated x3, Depressed Other Systems: Reviewed and Negative Patient History - Patient Medical History Hx Anemia: No Hx Asthma: Yes (Albuterol) Hx Chronic Obstructive Pulmonary Disease (COPD): No Hx Cancer: No Hx Cardiac Disorders: No Hx Congestive Heart Failure: No Hx Hypertension: No Hx Hypercholesterolemia: No Hx Pacemaker: No HX Cerebrovascular Accident: No Hx Seizures: No Hx Dementia: No Hx Diabetes: No Hx Gastrointestinal Disorders: Yes (hx diverticulitis, GERD - Not on medication) Hx Liver Disease: No Hx Genitourinary Disorders: No Hx Sexually Transmitted Disorders: No Hx Renal Disease (ESRD): No Hx Thyroid Disease: No Hx Human Immunodeficiency Virus (HIV): No (NEGATIVE HX LAST 1995) Hx Hepatitis C: No Hx Depression: Yes (with anxiety, hospitalized years ago) Hx Suicide Attempt: No Hx Bipolar Disorder: Yes ('I just stopped going for treatment') Hx Schizophrenia: Yes - Patient Surgical History Past Surgical History: Yes Hx Neurologic Surgery: No Hx Cataract Extraction: No Hx Cardiac Surgery: No Hx Lung Surgery: No Hx Breast Surgery: No Hx Breast Biopsy: No Hx Abdominal Surgery: No Hx Appendectomy: No Hx Cholecystectomy: No Hx Genitourinary Surgery: No Hx Section: No Hx Orthopedic Surgery: Yes (R knee sx 2005) Other Surgical History: right foot surgery for calcium build-up plantar 1999 Anesthesia Reaction: No - PPD History Previous Implant?: Yes Documented Results: Negative w/proof Implanted On Prior [facility] Admission?: Yes Date: 02/25/17 Results: NEGATIVE - Reproductive History Patient is a Female of Child Bearing Age (11 -55 yrs old): No (MALE) - Smoking Cessation Smoking history: Current every day smoker Have you smoked in the past 12 months: Yes Aproximately how many cigarettes per day: 10 Cigars Per Day: 0 Hx Chewing Tobacco Use: No Initiated information on smoking cessation: Yes 'Breaking Loose' booklet given: 10/23/17 - Substance & Tx. History Hx Alcohol Use: Yes (VODKA) Hx Substance Use: Yes (HEROIN) Substance Use Type: Alcohol, Heroin Hx Substance Use Treatment: Yes (LAST [facility]) - Substances Abused Heroin Route: Inhalation Frequency: Daily Amount used: 10-12 BAGS DAILY Age of first use: 18 Date of Last Use: 10/22/17 Alcohol Route: Oral Frequency: Daily Amount used: 1 PINT OF VODKA Age of first use: 20 Date of Last Use: 10/22/17 Family Disease History - Family Disease History Family Disease History: Other: Father (living, DRUG & ALCOHOL), Mother (living, healthy), Brother (two - living - healthy), Son (one - living - age 15), Daughter (two - living - ages 30, 25) Admission Physical Exam [facility] - Vital Signs Vital Signs: Vital Signs - 24 hr 10/23/17 09:23 Temperature 98.9 F Pulse Rate 98 H Respiratory 18 Rate Blood Pressure 113/83 - Physical General Appearance: Yes: Moderate Distress, Irritable, Anxious HEENTM: Yes: EOMI, Normocephalic, MARVIN, Pharynx Normal Respiratory: Yes: Chest Non-Tender, Lungs Clear, Normal Breath Sounds, No Respiratory Distress Neck: Yes: No masses,lesions,Nodules, Supple, Trachea in good position Breast: Yes: Breast Exam Deferred Cardiology: Yes: Regular Rhythm, Regular Rate, S1, S2 Abdominal: Yes: Normal Bowel Sounds, Non Tender, Flat, Soft Genitourinary: Yes: Other (N/C) Back: Yes: Within Normal Limits Musculoskeletal: Yes: full range of Motion, Gait Steady Extremities: Yes: Normal Range of Motion, Non-Tender Neurological: Yes: software engineer mobile II-XII NML intact, Fully Oriented, Alert, Motor Strength 5/5 Integumentary: Yes: Dry, Warm Lymphatic: Yes: Within Normal Limits - Diagnostic (1) Alcohol dependence with uncomplicated withdrawal Current Visit: Yes Status: Acute (2) Insomnia Current Visit: Yes Status: Chronic Qualifiers: Insomnia type: unspecified Qualified Code(s): G47.00 - Insomnia, unspecified (3) Opioid dependence with withdrawal Current Visit: Yes Status: Acute (4) Asthma Current Visit: Yes Status: Chronic Qualifiers: Asthma severity: unspecified severity Asthma persistence: unspecified Asthma complication type: unspecified Qualified Code(s): J45.909 - Unspecified asthma, uncomplicated Comment: ventolin (5) GERD (gastroesophageal reflux disease) Current Visit: Yes Status: Chronic Qualifiers: Esophagitis presence: esophagitis presence not specified Qualified Code(s) : K21.9 - Gastro-esophageal reflux disease without esophagitis (6) Nicotine dependence Current Visit: Yes Status: Chronic Qualifiers: Nicotine product type: cigarettes Substance use status: in withdrawal Qualified Code(s): F17.213 - Nicotine dependence, cigarettes, with withdrawal (7) Anxiety and depression Current Visit: Yes Status: Chronic Cleared for Admission BHS - Detox or Rehab S Level of Care: Medically Managed Detox Regimen/Protocol: Methadone/Librium S Breath Alcohol Content Breath Alcohol Content: 0 Urine Drug Screen - Results Drug Screen Negative: No Urine Drug Screen Results: OPI-Opiates, OXY-Oxycodone
[2017-10-23] MEDS ORDERED: guaiFENesin/D-METHORPHAN HB 10 ML UNIT-DOSE CUPS PO PRN (14:04)
[2017-10-23] MEDS ORDERED: MENTHOL/PHENOL 1 EACH UD MM PRN (14:04)
[2017-10-23] MEDS ORDERED: ACETAMINOPHEN 325 MG TABLET (FP) PO PRN (14:04)
[2017-10-23] MEDS ORDERED: chlordiazePOXIDE HCL 25 MG CAPSULE PO PRN (14:04)
[2017-10-23] MEDS ORDERED: LOPERAMIDE HCL 2 MG CAPSULE PO PRN (14:04)
[2017-10-23] MEDS ORDERED: P-EPHED 60MG/TRIPROLIDI 2.5MG TABLET PO PRN (14:04)
[2017-10-23] MEDS ORDERED: MAG HYDROX/AL HYDROX/SIMETH 30 ML UNIT-DOSE CUP PO PRN (14:04)
[2017-10-23] MEDS ORDERED: MAGNESIUM HYDROX 2400MG/30ML ORAL SUSPENSION 30 ML CUP PO PRN (14:04)
[2017-10-23] MEDS ORDERED: NICOTINE POLACRILEX 2 MG GUM BUC PRN (14:04)
[2017-10-23] MEDS ORDERED: MAGNESIUM CITRATE 300 ML BOTTLE PO PRN (14:04)
[2017-10-23] MEDS ORDERED: IBUPROFEN 400 MG TABLET (FP) PO PRN (14:04)
[2017-10-23] MEDS ORDERED: METHADONE HCL 10 MG TABLET (FOR DETOX USE ONLY) PO ONE ×2 (14:25→23:00)
[2017-10-23] MEDS ORDERED: ALBUTEROL SO4 8 GM HFA INHALER IH PRN (15:36)
[2017-10-23] MEDS: chlordiazePOXIDE HCL 25 MG CAPSULE PO SCH ×2 (17:35→22:16)
[2017-10-23] MEDS: NICOTINE 14 MG/24 HOURS TOPICAL PATCH TD SCH (17:37)
[2017-10-23 18:46] LABS: URINE APPEARANCE CLEAR; URINE BILIRUBIN NEGATIVE (<2.0 mg/dL); URINE COLOR YELLOW; URINE GLUCOSE (UA) NEGATIVE (NEGATIVE); URINE KETONE NEGATIVE (NEGATIVE); URINE LEUK ESTERASE NEGATIVE (NEGATIVE); URINE NITRITE NEGATIVE (NEGATIVE); URINE PROTEIN NEGATIVE (NEGATIVE); URINE UROBILINOGEN NEGATIVE mg/dL (0.2-1.0)
[2017-10-23] MEDS ORDERED: MELATONIN 5 MG TABLETS PO PRN (22:00)
[2017-10-23] MEDS: THIAMINE HCL 100 MG TABLET (FP) PO SCH (22:16)
[2017-10-24] MEDS: chlordiazePOXIDE HCL 25 MG CAPSULE PO SCH ×4 (05:41→22:28)
[2017-10-24] MEDS ORDERED: METHADONE HCL 10 MG TABLET (FOR DETOX USE ONLY) PO SCH (10:00)
[2017-10-24 10:23] LABS: HEMATOCRIT 43.6 % (35.4-49); HEMOGLOBIN 14.2 GM/dL (11.7-16.9); MCH 29.6 pg (25.7-33.7); MCHC 32.5 g/dl (32.0-35.9); MEAN CELL VOLUME 90.9 fl (80-96); MEAN PLT VOLUME 11.2 fl (7.5-11.1); PLATELET COUNT 168 K/MM3 (134-434); RBC 4.79 M/mm3 (4.00-5.60); RDW 14.9 % (11.9-15.9); WHITE BLOOD COUNT 6.5 K/mm3 (4.0-10.0)
[2017-10-24] MEDS: PRENATAL VITAMINS W/ FOLIC ACID TABLET (FP) PO SCH (10:25)
[2017-10-24] MEDS: NICOTINE 14 MG/24 HOURS TOPICAL PATCH TD SCH (10:25)
[2017-10-24 11:30] LABS: CHLORIDE 110 mmol/L (98-107); POTASSIUM 3.8 mmol/L (3.5-5.1); SODIUM 145 mmol/L (136-145)
[2017-10-24 11:37] LABS: ALK PHOS 74 U/L (45-117); ANION GAP 11 MMOL/L (8-16); BILIRUBIN,TOTAL 0.3 mg/dL (0.2-1.0); BLOOD UREA NITROGEN 26 mg/dL (7-18); CALCIUM 9.1 mg/dL (8.5-10.1); CO2 24 mmol/L (21-32); CREATININE 1.4 mg/dL (0.7-1.3); GLUCOSE,RANDOM 133 mg/dL (74-106); SGOT/AST 16 U/L (15-37); SGPT/ALT 18 U/L (12-78); TOT PROT 7.7 g/dl (6.4-8.2)
--- NOTE | 2017-10-24 12:33 | EKG ---
Test Reason : Blood Pressure : / mmHG Vent. Rate : 080 BPM Atrial Rate : 080 BPM P-R Int : 146 ms QRS Dur : 090 ms QT Int : 370 ms P-R-T Axes : 062 054 045 degrees QTc Int : 426 ms NORMAL SINUS RHYTHM POSSIBLE LEFT ATRIAL ENLARGEMENT BORDERLINE ECG WHEN COMPARED WITH ECG OF 13-SEP-2017 23:37, NO SIGNIFICANT CHANGE WAS FOUND Confirmed by RALPH PACHECO, JEANINE ([id number]) on 10/24/2017 12:32:41 PM Referred By: Confirmed By:JEANINE ROSAS MD
--- NOTE | 2017-10-24 13:48 | PN ---
S CIWA - CIWA Score Nausea/Vomitin-No Nausea/No Vomiting Muscle Tremors: 4-Moderate,w/Arms Extend Anxiety: 4-Mod. Anxious/Guarded Agitation: 4-Moderately Restless Paroxysmal Sweats: 2 Orientation: 0-Oriented Tacttile Disturbances: 0-None Auditory Disturbances: 0-None Visual Disturbances: 0-None Headache: 0-None Present CIWA-Ar Total Score: 14 S COWS - Scale Resting Pulse: 0= [place] 80 or Below Sweatin= Chills/Flushing Restless Observation: 3= Extraneous Movement Pupil Size: 2= Moderately Dilated Bone or Joint Aches: 1= Mild Discomfort Runny Nose/ Eye Tearin= None GI Upset > 30mins: 0= None Tremor Observation of Outstretched Hands: 2= Slight Tremor Visible Yawning Observation: 2= >3x During Session Anxiety or Irritability: 2=Irritable/Anxious Goose Flesh Skin: 0=Smooth Skin COWS Score: 13 S Progress Note (SOAP) Subjective: ANXIETY, SWEAT,TREMORS,INTERMITTENT SLEEP. Objective: 10/24/17 13:48 Vital Signs 10/24/17 10/24/17 10/24/17 06:27 06:30 09:16 Temperature 97.0 F L 96.9 F L Pulse Rate 66 77 Respiratory 18 18 18 Rate Blood Pressure 120/77 139/88 10/24/17 13:33 Temperature 98.0 F Pulse Rate 71 Respiratory 18 Rate Blood Pressure 125/70 Laboratory Tests 10/23/17 10/24/17 10/24/17 17:00 06:00 06:00 WBC 6.5 RBC 4.79 Hgb 14.2 Hct 43.6 MCV 90.9 MCH 29.6 MCHC 32.5 RDW 14.9 Plt Count 168 D MPV 11.2 H Sodium 145 Potassium 3.8 Chloride 110 H Carbon Dioxide 24 Anion Gap 11 BUN 26 H Creatinine 1.4 H Creat Clearance w eGFR 54.32 Random Glucose 133 H D Calcium 9.1 Total Bilirubin 0.3 AST 16 D ALT 18 Alkaline Phosphatase 74 Total Protein 7.7 Albumin 4.0 Urine Color Yellow Urine Appearance Clear Urine pH 5.0 Ur Specific [place] 1.026 Urine Protein Negative Urine Glucose (UA) Negative Urine Ketones Negative Urine Blood Negative Urine Nitrite Negative Urine Bilirubin Negative Urine Urobilinogen Negative Ur Leukocyte Esterase Negative RPR Titer 09/05/18 06:00 WBC RBC Hgb Hct MCV MCH MCHC RDW Plt Count MPV Sodium Potassium Chloride Carbon Dioxide Anion Gap BUN Creatinine Creat Clearance w eGFR Random Glucose Calcium Total Bilirubin AST ALT Alkaline Phosphatase Total Protein Albumin Urine Color Urine Appearance Urine pH Ur Specific [place] Urine Protein Urine Glucose (UA) Urine Ketones Urine Blood Urine Nitrite Urine Bilirubin Urine Urobilinogen Ur Leukocyte Esterase RPR Titer Nonreactive Assessment: 10/24/17 13:48 WITHDRAWAL SX Plan: CONTINUE DETOX
--- NOTE | 2017-10-24 17:27 | CONSULT ---
[facility] Psychiatric Consult - Data Date of interview: 10/24/17 Admission source: [facility] Identifying data: Readmission to [facility] for this 47 y/o AA male,self- referred for detoxification treatment (heroin,cocaine,alcohol dependence) .Patient is ,a father of three,domiciled,unemployed and supported by . Substance Abuse History: Discussed with the patient in this interiew.Details in current [facility] report as follows : Smoking history: Current every day smoker. Have you smoked in the past 12 months: Yes. Aproximately how many cigarettes per day: 10. Cigars Per Day: 0. Hx Chewing Tobacco Use: No. Initiated information on smoking cessation: Yes. 'Breaking Loose' booklet given: . - Substance & Tx. History. Hx Alcohol Use: Yes (VODKA). Hx Substance Use : Yes (HEROIN). Substance Use Type: Alcohol, Heroin. Hx Substance Use Treatment: Yes (LAST [place] [facility]). - Substances Abused. Heroin. Route: Inhalation. Frequency: Daily. Amount used: 10-12 BAGS DAILY. Age of first use : 18. Date of Last Use: 10/22/17. Alcohol. Route: Oral. Frequency: Daily. Amount used: 1 PINT OF VODKA. Age of first use: 20. Date of Last Use: 10/22/17 Medical History: History of colitis,diverticulitis,bronchial asthma,GERD and gastric ulcer.Remote history of orthosurgery (injury of right knee in 2005) and right foot surgery (1999). Psychiatric History: No recent history of psychiatric hospitalizations.Patient admits to a distant antecedent of psychiatric hospitalizations ([facility] facility in [place] and [facility] in [facility]) years ago.Diagnosed, at the time, with Bipolar Disorder.Mr Madison declares his current psychotropic medication as lexapro (dose not recalled) and seroquel 100 mg/hs, prescribed by [facility] providers.Patient used to attend the [facility] ([facility]).No follow up for several months.No psychiatric OPD care provider (patient is also known to the [facility]PD clinic.Patient reports a history of one suicide attempt, 20 years ago (overdose with pills). Physical/Sexual Abuse/Trauma History: Patient denies. Additional Comment: Urine Drug Screen Results: OPI-Opiates, OXY-Oxycodone.Noted. Mental Status Exam - Mental Status Exam Alert and Oriented to: Time, Place, Person Cognitive Function: Good Patient Appearance: Well Groomed Mood: Withdrawn, Apprehensive Affect: Mood Congruent, Constricted Patient Behavior: Fatigued, Cooperative Speech Pattern: Clear, Appropriate Voice Loudness: Normal Thought Process: Goal Oriented Thought Disorder: Not Present Hallucinations: Denies Suicidal Ideation: Denies Homicidal Ideation: Denies Insight/Judgement: Poor Sleep: Poorly, Difficulty falling asleep Appetite: Good Muscle strength/Tone: Normal Gait/Station: Normal Psychiatric Findings - Problem List ([place] 1, 2,3) (1) Alcohol dependence with uncomplicated withdrawal Current Visit: Yes Status: Acute (2) Opioid dependence with withdrawal Current Visit: Yes Status: Acute (3) Cocaine dependence Current Visit: Yes Status: Acute (4) Nicotine dependence Current Visit: Yes Status: Acute Qualifiers: Nicotine product type: cigarettes Substance use status: in withdrawal Qualified Code(s): F17.213 - Nicotine dependence, cigarettes, with withdrawal (5) Substance induced mood disorder Current Visit: Yes Status: Acute (6) Insomnia Current Visit: Yes Status: Acute Qualifiers: Insomnia type: unspecified Qualified Code(s): G47.00 - Insomnia, unspecified - Initial Treatment Plan Initial Treatment Plan: Psychoeducation.Sleep hygiene.Detoxification.Medications : lexapro 10 mg po daily + seroquel 100 mg po hs.Side effects/benefits of both medications are discussed with the patient.Mr Madison agrees to folow this careplan.Observation.
[2017-10-24] MEDS: QUEtiapine FUMARATE 100 MG TABLET (FP) PO SCH (22:28)
[2017-10-24] MEDS: THIAMINE HCL 100 MG TABLET (FP) PO SCH (22:28)
[2017-10-25] MEDS: chlordiazePOXIDE HCL 25 MG CAPSULE PO SCH ×2 (06:05→10:44)
[2017-10-25] MEDS: PRENATAL VITAMINS W/ FOLIC ACID TABLET (FP) PO SCH (10:43)
[2017-10-25] MEDS: ESCITALOPRAM OXALATE 10 MG TABLET (FP) PO SCH (10:44)
[2017-10-25] MEDS: NICOTINE 14 MG/24 HOURS TOPICAL PATCH TD SCH (10:44)
[2017-10-25] MEDS: METHADONE HCL 5 MG TABLET (FOR DETOX USE ONLY) PO SCH (10:44)
--- NOTE | 2017-10-25 14:52 | PN ---
[facility] CIWA - CIWA Score Nausea/Vomitin-No Nausea/No Vomiting Muscle Tremors: 4-Moderate,w/Arms Extend Anxiety: 4-Mod. Anxious/Guarded Agitation: 4-Moderately Restless Paroxysmal Sweats: 1-Minimal Palms Moist Orientation: 0-Oriented Tacttile Disturbances: 0-None Auditory Disturbances: 0-None Visual Disturbances: 0-None Headache: 0-None Present CIWA-Ar Total Score: 13 S COWS - Scale Resting Pulse: 0= [place] 80 or Below Sweatin= Chills/Flushing Restless Observation: 3= Extraneous Movement Pupil Size: 0= Normal to Room Light Bone or Joint Aches: 4=Acute Joint/Muscle Pain Runny Nose/ Eye Tearin= None GI Upset > 30mins: 0= None Tremor Observation of Outstretched Hands: 1= Tremor [place], Not Seen Yawning Observation: 1= 1-2x During Session Anxiety or Irritability: 2=Irritable/Anxious Goose Flesh Skin: 0=Smooth Skin COWS Score: 12 [facility] Progress Note (SOAP) Subjective: ANXIETY,SWEATS/CHILLS,FATIGUE,INTERMITTENT SLEEP Objective: 10/25/17 14:51 Vital Signs 10/25/17 10:51 Temperature 98.6 F Pulse Rate 74 Respiratory 18 Rate Blood Pressure 118/78 Laboratory Tests 10/23/17 10/24/17 10/24/17 17:00 06:00 06:00 WBC 6.5 RBC 4.79 Hgb 14.2 Hct 43.6 MCV 90.9 MCH 29.6 MCHC 32.5 RDW 14.9 Plt Count 168 D MPV 11.2 H Sodium 145 Potassium 3.8 Chloride 110 H Carbon Dioxide 24 Anion Gap 11 BUN 26 H Creatinine 1.4 H Creat Clearance w eGFR 54.32 Random Glucose 133 H D Calcium 9.1 Total Bilirubin 0.3 AST 16 D ALT 18 Alkaline Phosphatase 74 Total Protein 7.7 Albumin 4.0 Urine Color Yellow Urine Appearance Clear Urine pH 5.0 Ur Specific [place] 1.026 Urine Protein Negative Urine Glucose (UA) Negative Urine Ketones Negative Urine Blood Negative Urine Nitrite Negative Urine Bilirubin Negative Urine Urobilinogen Negative Ur Leukocyte Esterase Negative RPR Titer 10/24/17 06:00 WBC RBC Hgb Hct MCV MCH MCHC RDW Plt Count MPV Sodium Potassium Chloride Carbon Dioxide Anion Gap BUN Creatinine Creat Clearance w eGFR Random Glucose Calcium Total Bilirubin AST ALT Alkaline Phosphatase Total Protein Albumin Urine Color Urine Appearance Urine pH Ur Specific [place] Urine Protein Urine Glucose (UA) Urine Ketones Urine Blood Urine Nitrite Urine Bilirubin Urine Urobilinogen Ur Leukocyte Esterase RPR Titer Nonreactive Assessment: 10/25/17 14:51 WITHDRAWAL SX Plan: CONTINUE DETOX
[2017-10-25] MEDS: chlordiazePOXIDE 5 MG CAPSULE PO SCH ×2 (17:29→22:31)
[2017-10-25] MEDS: QUEtiapine FUMARATE 100 MG TABLET (FP) PO SCH (22:31)
[2017-10-25] MEDS: THIAMINE HCL 100 MG TABLET (FP) PO SCH (22:31)
[2017-10-26] MEDS: chlordiazePOXIDE 5 MG CAPSULE PO SCH ×2 (05:33→10:36)
[2017-10-26] MEDS: METHADONE HCL 5 MG TABLET (FOR DETOX USE ONLY) PO SCH (10:36)
[2017-10-26] MEDS: PRENATAL VITAMINS W/ FOLIC ACID TABLET (FP) PO SCH (10:36)
[2017-10-26] MEDS: ESCITALOPRAM OXALATE 10 MG TABLET (FP) PO SCH (10:36)
[2017-10-26] MEDS: NICOTINE 14 MG/24 HOURS TOPICAL PATCH TD SCH (10:37)
--- NOTE | 2017-10-26 16:02 | PN ---
[facility] Progress Note (SOAP) Subjective: ANXIETY,STOMACH DISCOMFORT, NO BM- Objective: 10/26/17 16:01 Vital Signs 10/26/17 10/26/17 09:22 14:20 Temperature 97.8 F 98.4 F Pulse Rate 86 101 H Respiratory 18 18 Rate Blood Pressure 131/91 129/83 Laboratory Tests 10/23/17 10/24/17 10/24/17 17:00 06:00 06:00 WBC 6.5 RBC 4.79 Hgb 14.2 Hct 43.6 MCV 90.9 MCH 29.6 MCHC 32.5 RDW 14.9 Plt Count 168 D MPV 11.2 H Sodium 145 Potassium 3.8 Chloride 110 H Carbon Dioxide 24 Anion Gap 11 BUN 26 H Creatinine 1.4 H Creat Clearance w eGFR 54.32 Random Glucose 133 H D Calcium 9.1 Total Bilirubin 0.3 AST 16 D ALT 18 Alkaline Phosphatase 74 Total Protein 7.7 Albumin 4.0 Urine Color Yellow Urine Appearance Clear Urine pH 5.0 Ur Specific [place] 1.026 Urine Protein Negative Urine Glucose (UA) Negative Urine Ketones Negative Urine Blood Negative Urine Nitrite Negative Urine Bilirubin Negative Urine Urobilinogen Negative Ur Leukocyte Esterase Negative RPR Titer 10/24/17 06:00 WBC RBC Hgb Hct MCV MCH MCHC RDW Plt Count MPV Sodium Potassium Chloride Carbon Dioxide Anion Gap BUN Creatinine Creat Clearance w eGFR Random Glucose Calcium Total Bilirubin AST ALT Alkaline Phosphatase Total Protein Albumin Urine Color Urine Appearance Urine pH Ur Specific [place] Urine Protein Urine Glucose (UA) Urine Ketones Urine Blood Urine Nitrite Urine Bilirubin Urine Urobilinogen Ur Leukocyte Esterase RPR Titer Nonreactive Assessment: 10/26/17 16:01 WITHDRAWAL SX CONSTIPATION Plan: CONTINUE DETOX INCREASE PO FLUIDS MOM PRN. CITRATE OF MAG IF NOT EFFECTIVE.
[2017-10-26] MEDS: chlordiazePOXIDE HCL 10 MG CAPSULE PO SCH ×2 (17:27→22:25)
[2017-10-26] MEDS: QUEtiapine FUMARATE 100 MG TABLET (FP) PO SCH (22:25)
[2017-10-26] MEDS: THIAMINE HCL 100 MG TABLET (FP) PO SCH (22:25)
[2017-10-27] MEDS: chlordiazePOXIDE HCL 10 MG CAPSULE PO SCH (05:34)
[2017-10-27 07:04] VITALS: BP 104/67; PULSE 68; TEMP 97
[2017-10-27] MEDS ORDERED: METHADONE HCL 5 MG TABLET (FOR DETOX USE ONLY) PO ONE (10:00)
[2017-10-27] MEDS ORDERED: METHADONE HCL 10 MG TABLET (FOR DETOX USE ONLY) PO SCH (10:00)
--- NOTE | 2017-10-27 13:00 | PN ---
[facility] Progress Note (SOAP) Subjective: DETOX COMPLETED. ALERT O X 3. NAD. PT HAS A PMD, DR. PERRIN ON [place], [place]. Objective: 10/27/17 12:56 Vital Signs 10/27/17 07:03 Temperature 97.0 F L Pulse Rate 68 Respiratory 18 Rate Blood Pressure 104/67 Laboratory Tests 10/23/17 10/24/17 10/24/17 17:00 06:00 06:00 WBC 6.5 RBC 4.79 Hgb 14.2 Hct 43.6 MCV 90.9 MCH 29.6 MCHC 32.5 RDW 14.9 Plt Count 168 D MPV 11.2 H Sodium 145 Potassium 3.8 Chloride 110 H Carbon Dioxide 24 Anion Gap 11 BUN 26 H Creatinine 1.4 H Creat Clearance w eGFR 54.32 Random Glucose 133 H D Calcium 9.1 Total Bilirubin 0.3 AST 16 D ALT 18 Alkaline Phosphatase 74 Total Protein 7.7 Albumin 4.0 Urine Color Yellow Urine Appearance Clear Urine pH 5.0 Ur Specific [place] 1.026 Urine Protein Negative Urine Glucose (UA) Negative Urine Ketones Negative Urine Blood Negative Urine Nitrite Negative Urine Bilirubin Negative Urine Urobilinogen Negative Ur Leukocyte Esterase Negative RPR Titer 10/24/17 06:00 WBC RBC Hgb Hct MCV MCH MCHC RDW Plt Count MPV Sodium Potassium Chloride Carbon Dioxide Anion Gap BUN Creatinine Creat Clearance w eGFR Random Glucose Calcium Total Bilirubin AST ALT Alkaline Phosphatase Total Protein Albumin Urine Color Urine Appearance Urine pH Ur Specific [place] Urine Protein Urine Glucose (UA) Urine Ketones Urine Blood Urine Nitrite Urine Bilirubin Urine Urobilinogen Ur Leukocyte Esterase RPR Titer Nonreactive Assessment: 10/27/17 12:57 MEDICALLY STABLE Plan: D/C PT TODAY
[2017-10-28] MEDS ORDERED: METHADONE HCL 5 MG TABLET (FOR DETOX USE ONLY) PO SCH (06:00)
== END 2017-10-27 09:20 | disposition home or self-care (01) | DRG 897 ==
LOC: YASAS 09:06 → Y3N 14:21
PROC: HZ2ZZZZ Detoxification Services for Substance Abuse Treatment (ICD-10-PCS; principal; 2017-10-23)
DX: F11.23 Opioid dependence with withdrawal (principal); F14.20 Cocaine dependence, uncomplicated; F10.230 Alcohol dependence with withdrawal, uncomplicated; F17.213 Nicotine dependence, cigarettes, with withdrawal; F19.24 Other psychoactive substance dependence with psychoactive substance-induced mood disorder; F41.8 Other specified anxiety disorders; F31.9 Bipolar disorder, unspecified; G47.00 Insomnia, unspecified; K21.9 Gastro-esophageal reflux disease without esophagitis; J45.909 Unspecified asthma, uncomplicated; Z87.19 Personal history of other diseases of the digestive system; Z91.5 Personal history of self-harm; Z91.013 Allergy to seafood
CPT/HCPCS: 36415; 80053; 81003; 85027; 86593; 93005; 93010

== ENCOUNTER 2017-11-23 08:43 | Inpatient (IN) | payer OTHER ==
[2017-11-23 09:06] VITALS: BMI 26.2
--- NOTE | 2017-11-23 09:40 | HP ---
COWS - Scale Resting Pulse: 0= [place] 80 or Below Sweatin= Chills/Flushing Restless Observation: 3= Extraneous Movement Pupil Size: 1= Pupils >than Normal Bone or Joint Aches: 2= Severe Diffuse Aches Runny Nose/ Eye Tearin= Runny Nose/Eyes GI Upset > 30mins: 2= Nausea/Diarrhea Tremor Observation: 2= Slight Tremor Visible Yawning Observation: 1= 1-2x During Session Anxiety or Irritability: 2=Irritable/Anxious Goose Flesh Skin: 0=Smooth Skin COWS Score: 16 CIWA Score - CIWA Score Nausea/Vomitin Muscle Tremors: 3 Anxiety: 3 Agitation: 2 Paroxysmal Sweats: 1-Minimal Palms Moist Orientation: 0-Oriented Tacttile Disturbances: 1-Very Mild Itch/Numbness Auditory Disturbances: 1-Very Mild Visual Disturbances: 1-Very Mild Sensitivity Headache: 2-Mild CIWA-Ar Total Score: 17 Admission ROS [facility] - HPI Chief Complaint: i need help to stop using heroin,alcohol and cocaine Allergies/Adverse Reactions: Allergies Allergy/AdvReac Type Severity Reaction Status Date / Time shellfish derived Allergy Severe Difficulty Verified 11/23/17 09:20 Breathing No Known Drug Allergies Allergy Verified 11/23/17 09:20 History of Present Illness: this 47 years old male iwth heroin,alcohol and cocaine dependence,seeking detox, withdrawal symptom, multiple admissions in detox,last admissions [facility] 10/23/17 to 10/27/17 syncope alcohol and drugs related frequent falls nicotine dependence history of asthma,diverticulitis,gastric ulcer weight loss anxiety,depression and insonia longest period of sobriety 2 years - Ebola screening Have you traveled outside of the country in the last 21 days: No Have you had contact with anyone from an Ebola affected area: No Have you been sick,other than usual withdrawal symptoms: No Do you have a fever: No - Review of Systems Constitutional: Chills, Loss of Appetite, Night Sweats, Changes in sleep, Weakness, Unintentional Wgt. Loss EENT: reports: Tearing, Nose Congestion Respiratory: reports: No Symptoms reported, Other (asthma history) Cardiac: reports: No Symptoms Reported GI: reports: Diarrhea, Nausea, Vomiting, Abdominal cramping : reports: No Symptoms Reported Musculoskeletal: reports: Back Pain, Joint Pain, Muscle Pain, Joint Stiffness Integumentary: reports: Dryness Neuro: reports: Headache, Tremors Endocrine: reports: No Symptoms Reported Hematology: reports: No Symptoms Reported Psychiatric: reports: No Sypmtoms Reported, Judgement Intact, Mood/Affect Appropiate, Orientated x3 (inomnia), Anxious, Depressed Patient History - Patient Medical History Hx Anemia: No Hx Asthma: Yes (on albuterol inhaler) Hx Chronic Obstructive Pulmonary Disease (COPD): No Hx Cancer: No Hx Cardiac Disorders: No Hx Congestive Heart Failure: No Hx Hypertension: No Hx Hypercholesterolemia: No Hx Pacemaker: No HX Cerebrovascular Accident: No Hx Seizures: No Hx Dementia: No Hx Diabetes: No Hx Gastrointestinal Disorders: Yes (gastritis, stomach ulcer,no med) Hx Liver Disease: No Hx Genitourinary Disorders: Yes (diverticulitis) Hx Sexually Transmitted Disorders: No Hx Renal Disease (ESRD): No Hx Thyroid Disease: No Hx Human Immunodeficiency Virus (HIV): No (NEGATIVE HX LAST 1995) Hx Hepatitis C: No Hx Depression: Yes Hx Suicide Attempt: Yes (pill overdose at age 30) Hx Bipolar Disorder: Yes ('I just stopped going for treatment') Hx Schizophrenia: No Other Medical History: no sucida,no homicidal - Patient Surgical History Past Surgical History: Yes Hx Neurologic Surgery: No Hx Cataract Extraction: No Hx Cardiac Surgery: No Hx Lung Surgery: No Hx Breast Surgery: No Hx Breast Biopsy: No Hx Abdominal Surgery: No Hx Appendectomy: No Hx Cholecystectomy: No Hx Genitourinary Surgery: No Hx Section: No Hx Orthopedic Surgery: Yes (R knee in 2005) Other Surgical History: right foot surgery for calcium build-up plantar 2000 Anesthesia Reaction: No - PPD History Previous Implant?: Yes Documented Results: Negative w/proof Implanted On Prior [facility] Admission?: Yes Date: 02/25/17 Results: 0 mm PPD to be Administered?: No - Smoking Cessation Smoking history: Current every day smoker Have you smoked in the past 12 months: Yes Aproximately how many cigarettes per day: 10 Cigars Per Day: 0 Hx Chewing Tobacco Use: No Initiated information on smoking cessation: Yes 'Breaking Loose' booklet given: 11/23/17 - Substance & Tx. History Hx Alcohol Use: Yes Hx Substance Use: Yes Substance Use Type: Alcohol, Cocaine, Heroin Hx Substance Use Treatment: Yes ([facility] 10/23/17 to 10/27/17) - Substances Abused Heroin Route: Inhalation Frequency: Daily Amount used: 10-12 bags Age of first use: 19 Date of Last Use: 11/22/17 Cocaine Route: Inhalation Frequency: Daily Amount used: $100 Age of first use: 25 Date of Last Use: 11/21/17 Alcohol-vodka Route: Oral Frequency: Daily Amount used: 1 1/2 pts. Age of first use: 22 Date of Last Use: 11/22/17 Family Disease History - Family Disease History Family Disease History: Other: Father (living, DRUG & ALCOHOL), Mother (living, healthy), Brother (two - living - healthy), Son (one - living - age 15), Daughter (two - living - ages 30, 25) Admission Physical Exam S - Vital Signs Vital Signs: Vital Signs - 24 hr 11/23/17 09:02 Temperature 98 F Pulse Rate 77 Respiratory 19 Rate Blood Pressure 133/80 - Physical General Appearance: Yes: Moderate Distress, Tremorous, Irritable, Sweating, Anxious HEENTM: Yes: Normal ENT Inspection, MARVIN, Pharynx Normal Respiratory: Yes: Lungs Clear, Normal Breath Sounds, No Respiratory Distress Neck: Yes: Within Normal Limits, Supple, Trachea in good position Breast: Yes: Within Normal Limits Cardiology: Yes: Within Normal Limits, Regular Rhythm, Regular Rate, S1, S2 Abdominal: Yes: Within Normal Limits, Normal Bowel Sounds, Non Tender, Flat, Soft Genitourinary: Yes: Within Normal Limits Back: Yes: Muscle Spasm Musculoskeletal: Yes: full range of Motion, Back pain, Joint Stiffness, Muscle Pain Extremities: Yes: Normal Range of Motion, Tremors Neurological: Yes: bone process operator II-XII NML intact, Fully Oriented, Alert, Motor Strength 5/5 Integumentary: Yes: Dry Lymphatic: Yes: Within Normal Limits - Diagnostic (1) Opioid dependence with withdrawal Current Visit: Yes Status: Acute (2) Alcohol dependence with uncomplicated withdrawal Current Visit: Yes Status: Acute (3) Cocaine dependence Current Visit: No Status: Acute (4) Nicotine dependence Current Visit: Yes Status: Acute Qualifiers: Nicotine product type: cigarettes Substance use status: in withdrawal Qualified Code(s): F17.213 - Nicotine dependence, cigarettes, with withdrawal (5) Weight loss Current Visit: No Status: Acute Comment: ensure (6) Asthma Current Visit: No Status: Chronic Qualifiers: Asthma severity: unspecified severity Asthma persistence: unspecified Asthma complication type: unspecified Qualified Code(s): J45.909 - Unspecified asthma, uncomplicated Comment: ventolin (7) GERD (gastroesophageal reflux disease) Current Visit: No Status: Chronic Qualifiers: Esophagitis presence: esophagitis presence not specified Qualified Code(s) : K21.9 - Gastro-esophageal reflux disease without esophagitis (8) Bipolar disorder Current Visit: Yes Status: Acute (9) Insomnia secondary to depression with anxiety Current Visit: Yes Status: Acute (10) Dehydration Current Visit: Yes Status: Acute Cleared for Admission S - Detox or Rehab [facility] Level of Care: Medically Managed Detox Regimen/Protocol: Methadone/Librium S Breath Alcohol Content Breath Alcohol Content: 0 Urine Drug Screen - Results Drug Screen Negative: No Urine Drug Screen Results: GEOVANNA-Cocaine, OPI-Opiates, FEN-Fentanyl
[2017-11-23] MEDS ORDERED: ACETAMINOPHEN 325 MG TABLET (FP) PO PRN (09:54)
[2017-11-23] MEDS ORDERED: LOPERAMIDE HCL 2 MG CAPSULE PO PRN (09:54)
[2017-11-23] MEDS ORDERED: chlordiazePOXIDE HCL 25 MG CAPSULE PO PRN (09:54)
[2017-11-23] MEDS ORDERED: IBUPROFEN 400 MG TABLET (FP) PO PRN (09:54)
[2017-11-23] MEDS ORDERED: P-EPHED 60MG/TRIPROLIDI 2.5MG TABLET PO PRN (09:54)
[2017-11-23] MEDS ORDERED: MAG HYDROX/AL HYDROX/SIMETH 30 ML UNIT-DOSE CUP PO PRN (09:54)
[2017-11-23] MEDS ORDERED: MAGNESIUM CITRATE 300 ML BOTTLE PO PRN (09:54)
[2017-11-23] MEDS ORDERED: hydrOXYzine PAMOATE 25 MG CAPSULE (FP) PO PRN (09:54)
[2017-11-23] MEDS ORDERED: MENTHOL/PHENOL 1 EACH UD MM PRN (09:54)
[2017-11-23] MEDS ORDERED: MAGNESIUM HYDROX 2400MG/30ML ORAL SUSPENSION 30 ML CUP PO PRN (09:54)
[2017-11-23] MEDS ORDERED: guaiFENesin/D-METHORPHAN HB 10 ML UNIT-DOSE CUPS PO PRN (09:54)
[2017-11-23] MEDS ORDERED: ALBUTEROL SO4 8 GM HFA INHALER IH PRN (09:57)
[2017-11-23] MEDS ORDERED: CYCLOBENZAPRINE HCL 10 MG TABLET (FP) PO PRN (09:58)
[2017-11-23] MEDS ORDERED: METHADONE HCL 10 MG TABLET (FOR DETOX USE ONLY) PO ONE ×2 (10:30→23:00)
[2017-11-23] MEDS: chlordiazePOXIDE HCL 25 MG CAPSULE PO SCH ×3 (10:53→22:27)
[2017-11-23] MEDS: PRENATAL VITAMINS W/ FOLIC ACID TABLET (FP) PO SCH (10:54)
[2017-11-23] MEDS: NICOTINE 21 MG/24 HOURS TOPICAL PATCH TD SCH (10:54)
[2017-11-23] MEDS: cloNIDine HCL 0.1 MG TABLET PO SCH ×2 (10:54→22:28)
--- NOTE | 2017-11-23 12:55 | CONSULT ---
[facility] Psychiatric Consult - Data Date of interview: 11/23/17 Admission source: [facility] Identifying data: Readmission to [facility], one month after discharge from this facility, for this 47 y/o AA male seeking detoxification treatment for alcohol, heroin and cocaine dependence.Patient is ,a father of three,domiciled, unemployed and supported by spouse. Substance Abuse History: Discussed with the patient in this session.Mr Madison confirms profile of substance abuse described in this [facility] report : Smoking history: Current every day smoker. Have you smoked in the past 12 months: Yes. Aproximately how many cigarettes per day: 10. Cigars Per Day: 0. Hx Chewing Tobacco Use: No. Initiated information on smoking cessation: Yes. 'Breaking Loose' booklet given: 11/23/17. - Substance & Tx. History. Hx Alcohol Use: Yes. Hx Substance Use: Yes. Substance Use Type: Alcohol, Cocaine, Heroin. Hx Substance Use Treatment: Yes ([facility] 10/23/17 to 10/27/17). - Substances Abused. Heroin. Route: Inhalation. Frequency: Daily. Amount used: 10-12 bags. Age of first use: 19. Date of Last Use: 11/22/17. Cocaine. Route: Inhalation. Frequency: Daily. Amount used: $100. Age of first use: 25. Date of Last Use: 11/21/17. Alcohol-vodka. Route: Oral. Frequency: Daily. Amount used: 1 1/2 pts. Age of first use: 22. Date of Last Use: 11/22/17 Medical History: No change in medical profile [facility] encounter of 10/24/17 : history of colitis,diverticulitis,bronchial asthma,GERD and gastric ulcer.Remote history of orthosurgery (injury of right knee in 2005) and right foot surgery (1999). Psychiatric History: History remains same as version given to this service writer on 10/24 as the following : no recent history of psychiatric hospitalizations.Patient admits to a distant antecedent of psychiatric hospitalizations (unnamed facility in [place] and [facility] in [facility]) years ago.Diagnosed, at the time, with Bipolar Disorder.Mr Madison declares his current psychotropic medication as lexapro (dose not recalled) and seroquel 100 mg/hs, prescribed by CPEP providers.Patient used to attend the [facility] program ([place]). Dropped out months ago. Still without psychiatric OPD care provider.Known to the [facility] OPD clinic (no show for several months).Patient reports a history of one suicide attempt, 20 years ago ( overdose with pills). Physical/Sexual Abuse/Trauma History: Patient denies. Additional Comment: Urine Drug Screen Results: GEOVANNA-Cocaine, OPI-Opiates, FEN- Fentanyl.Noted. Mental Status Exam - Mental Status Exam Alert and Oriented to: Time, Place, Person Cognitive Function: Good Patient Appearance: Well Groomed Mood: Withdrawn Affect: Mood Congruent, Constricted Patient Behavior: Fatigued, Cooperative Speech Pattern: Clear, Appropriate Voice Loudness: Normal Thought Process: Intact, Goal Oriented Thought Disorder: Not Present Hallucinations: Denies Suicidal Ideation: Denies Homicidal Ideation: Denies Insight/Judgement: Poor Sleep: Poorly, Difficulty falling asleep Appetite: Good Muscle strength/Tone: Normal Gait/Station: Normal Psychiatric Findings - Problem List ([place] 1, 2,3) (1) Alcohol dependence with uncomplicated withdrawal Current Visit: Yes Status: Acute (2) Opioid dependence with withdrawal Current Visit: Yes Status: Acute (3) Nicotine dependence Current Visit: Yes Status: Acute Qualifiers: Nicotine product type: cigarettes Substance use status: in withdrawal Qualified Code(s): F17.213 - Nicotine dependence, cigarettes, with withdrawal (4) Cocaine dependence, uncomplicated Current Visit: Yes Status: Acute (5) Substance induced mood disorder Current Visit: Yes Status: Acute (6) Insomnia Current Visit: Yes Status: Acute Qualifiers: Insomnia type: unspecified Qualified Code(s): G47.00 - Insomnia, unspecified (7) Non-compliance Current Visit: Yes Status: Chronic - Initial Treatment Plan Initial Treatment Plan: Psychoeducation.Sleep hygiene.Detoxification in progress.Seroquel 100 mg po hs.Side effects/benefits discussed with the patient.Mr Madison agrees to this plan of care.Observation.
[2017-11-23] MEDS ORDERED: MELATONIN 5 MG TABLETS PO PRN (22:00)
[2017-11-23] MEDS: QUEtiapine FUMARATE 100 MG TABLET (FP) PO SCH (22:27)
[2017-11-23] MEDS: THIAMINE HCL 100 MG TABLET (FP) PO SCH (22:28)
[2017-11-24] MEDS: chlordiazePOXIDE HCL 25 MG CAPSULE PO SCH ×4 (05:04→23:19)
[2017-11-24] MEDS ORDERED: METHADONE HCL 10 MG TABLET (FOR DETOX USE ONLY) PO SCH (10:00)
[2017-11-24 10:05] LABS: HEMATOCRIT 41.5 % (35.4-49); HEMOGLOBIN 13.6 GM/dL (11.7-16.9); MCH 29.9 pg (25.7-33.7); MCHC 32.7 g/dl (32.0-35.9); MEAN CELL VOLUME 91.4 fl (80-96); MEAN PLT VOLUME 11.9 fl (7.5-11.1); PLATELET COUNT 183 K/MM3 (134-434); RBC 4.54 M/mm3 (4.00-5.60); RDW 14.5 % (11.9-15.9); WHITE BLOOD COUNT 6.4 K/mm3 (4.0-10.0)
[2017-11-24 10:20] LABS: URINE APPEARANCE CLEAR; URINE BILIRUBIN NEGATIVE (<2.0 mg/dL); URINE COLOR LTYELLOW; URINE GLUCOSE (UA) NEGATIVE (NEGATIVE); URINE KETONE NEGATIVE (NEGATIVE); URINE LEUK ESTERASE NEGATIVE (NEGATIVE); URINE NITRITE NEGATIVE (NEGATIVE); URINE PROTEIN NEGATIVE (NEGATIVE); URINE UROBILINOGEN NEGATIVE mg/dL (0.2-1.0)
--- NOTE | 2017-11-24 10:26 | PN ---
S CIWA - CIWA Score Nausea/Vomitin-No Nausea/No Vomiting Muscle Tremors: 3 Anxiety: 4-Mod. Anxious/Guarded Agitation: 3 Paroxysmal Sweats: 2 Orientation: 0-Oriented Tacttile Disturbances: 0-None Auditory Disturbances: 0-None Visual Disturbances: 0-None Headache: 0-None Present CIWA-Ar Total Score: 12 [facility] COWS - Scale Resting Pulse: 1= [place] 81-100 Sweatin= Chills/Flushing Restless Observation: 0= Sits Still Pupil Size: 0= Normal to Room Light Bone or Joint Aches: 2= Severe Diffuse Aches Runny Nose/ Eye Tearin= None GI Upset > 30mins: 0= None Tremor Observation of Outstretched Hands: 2= Slight Tremor Visible Yawning Observation: 1= 1-2x During Session Anxiety or Irritability: 2=Irritable/Anxious Goose Flesh Skin: 0=Smooth Skin COWS Score: 9 B[facility] Progress Note (SOAP) Subjective: PATIENT STATES " I FEEL TIRED." PULLED SHEETS OVER HEAD. ANXIOUS/IRRITABLE. CHANGING BODY POSITION WHILE IN BED FREQUENTLY. Objective: 11/24/17 10:25 Laboratory Tests 11/24/17 11/24/17 06:00 08:30 WBC 6.4 RBC 4.54 Hgb 13.6 Hct 41.5 MCV 91.4 MCH 29.9 MCHC 32.7 RDW 14.5 Plt Count 183 MPV 11.9 H Urine Color [place] Urine Appearance Clear Urine pH 5.0 Ur Specific [place] 1.013 Urine Protein Negative Urine Glucose (UA) Negative Urine Ketones Negative Urine Blood Negative Urine Nitrite Negative Urine Bilirubin Negative Urine Urobilinogen Negative Ur Leukocyte Esterase Negative Vital Signs Period Temp Pulse Resp BP Sys/[place] Pulse Ox Last 24 Hr 96.6 F-97.9 F 69-94 18-18 114-141/65-85 ALERT AND ORIENTED UNCOOPERATIVE WITH EXAM ANXIOUS/IRRITABILITY Assessment: 11/24/17 10:26 WITHDRAWAL SYNDROME Plan: CONTINUE DETOX ENCOURAGE ORAL FLUIDS CONTINUE TO MONITOR
[2017-11-24] MEDS: ESCITALOPRAM OXALATE 10 MG TABLET (FP) PO SCH (10:39)
[2017-11-24] MEDS: PRENATAL VITAMINS W/ FOLIC ACID TABLET (FP) PO SCH (10:39)
[2017-11-24] MEDS: cloNIDine HCL 0.1 MG TABLET PO SCH ×2 (10:39→23:19)
[2017-11-24] MEDS: NICOTINE 21 MG/24 HOURS TOPICAL PATCH TD SCH (10:40)
[2017-11-24 11:03] LABS: ALBUMIN 3.6 g/dl (3.4-5.0); ALK PHOS 70 U/L (45-117); ANION GAP 6 MMOL/L (8-16); BILIRUBIN,TOTAL 0.2 mg/dL (0.2-1); BLOOD UREA NITROGEN 29 mg/dL (7-18); CALCIUM 9.3 mg/dL (8.5-10.1); CHLORIDE 108 mmol/L (98-107); CO2 27 mmol/L (21-32); CREATININE 1.2 mg/dL (0.55-1.3); GLUCOSE,RANDOM 92 mg/dL (74-106); POTASSIUM 4.5 mmol/L (3.5-5.1); SGOT/AST 14 U/L (15-37); SGPT/ALT 20 U/L (13-61); SODIUM 141 mmol/L (136-145); TOT PROT 7.1 g/dl (6.4-8.2)
[2017-11-24] MEDS ORDERED: FLU VACCINE QUAD 60 MCG/0.5 ML (MDV 18-19) IM ONE (12:00)
--- NOTE | 2017-11-24 17:31 | EKG ---
Test Reason : Blood Pressure : / mmHG Vent. Rate : 060 BPM Atrial Rate : 060 BPM P-R Int : 132 ms QRS Dur : 086 ms QT Int : 382 ms P-R-T Axes : 035 066 046 degrees QTc Int : 382 ms NORMAL SINUS RHYTHM NORMAL ECG WHEN COMPARED WITH ECG OF 23-OCT-2017 17:25, NO SIGNIFICANT CHANGE WAS FOUND Confirmed by YESSENIA MIRELES MD ([id number]) on 11/24/2017 5:31:30 PM Referred By: Confirmed By:YESSENIA MIRELES MD
[2017-11-24] MEDS: THIAMINE HCL 100 MG TABLET (FP) PO SCH (23:19)
[2017-11-24] MEDS: QUEtiapine FUMARATE 100 MG TABLET (FP) PO SCH (23:19)
[2017-11-25] MEDS: chlordiazePOXIDE HCL 25 MG CAPSULE PO SCH (05:51)
[2017-11-25] MEDS: NICOTINE 21 MG/24 HOURS TOPICAL PATCH TD SCH (10:49)
[2017-11-25] MEDS: chlordiazePOXIDE 5 MG CAPSULE PO SCH ×3 (10:49→22:47)
[2017-11-25] MEDS: PRENATAL VITAMINS W/ FOLIC ACID TABLET (FP) PO SCH (10:49)
[2017-11-25] MEDS: METHADONE HCL 5 MG TABLET (FOR DETOX USE ONLY) PO SCH (10:50)
[2017-11-25] MEDS: ESCITALOPRAM OXALATE 10 MG TABLET (FP) PO SCH (10:50)
[2017-11-25] MEDS: cloNIDine HCL 0.1 MG TABLET PO SCH ×2 (10:50→22:48)
--- NOTE | 2017-11-25 16:22 | PN ---
[facility] CIWA - CIWA Score Nausea/Vomitin-No Nausea/No Vomiting Muscle Tremors: 3 Anxiety: 1-Mildly Anxious Agitation: 4-Moderately Restless Paroxysmal Sweats: 1-Minimal Palms Moist Orientation: 0-Oriented Tacttile Disturbances: 1-Very Mild Itch/Numbness Auditory Disturbances: 0-None Visual Disturbances: 0-None Headache: 1-Very Mild CIWA-Ar Total Score: 11 [facility] COWS - Scale Resting Pulse: 0= MD 80 or Below Sweatin= Chills/Flushing Restless Observation: 1= Difficult to Sit Still Pupil Size: 0= Normal to Room Light Bone or Joint Aches: 1= Mild Discomfort Runny Nose/ Eye Tearin= Nasal Congestion GI Upset > 30mins: 1= Stomach Cramp Tremor Observation of Outstretched Hands: 1= Tremor [place], Not Seen Yawning Observation: 1= 1-2x During Session Anxiety or Irritability: 2=Irritable/Anxious Goose Flesh Skin: 0=Smooth Skin COWS Score: 9 [facility] Progress Note (SOAP) Subjective: body ache joint pain sweat tremor Objective: 11/25/17 16:21 Vital Signs Temperature 97.9 F 11/25/17 15:38 Pulse Rate 87 11/25/17 15:38 Respiratory Rate 18 11/25/17 15:38 Blood Pressure 121/75 11/25/17 15:38 O2 Sat by Pulse Oximetry (%) Laboratory Last Values WBC 6.4 K/mm3 (4.0-10.0) 11/24/17 06:00 RBC 4.54 M/mm3 (4.00-5.60) 11/24/17 06:00 Hgb 13.6 GM/dL (11.7-16.9) 11/24/17 06:00 Hct 41.5 % (35.4-49) 11/24/17 06:00 MCV 91.4 fl (80-96) 11/24/17 06:00 MCH 29.9 pg (25.7-33.7) 11/24/17 06:00 MCHC 32.7 g/dl (32.0-35.9) 11/24/17 06:00 RDW 14.5 % (11.9-15.9) 11/24/17 06:00 Plt Count 183 K/MM3 (134-434) 11/24/17 06:00 MPV 11.9 fl (7.5-11.1) H 11/24/17 06:00 Sodium 141 mmol/L (136-145) 11/24/17 06:00 Potassium 4.5 mmol/L (3.5-5.1) 11/24/17 06:00 Chloride 108 mmol/L (98-107) H 11/24/17 06:00 Carbon Dioxide 27 mmol/L (21-32) 11/24/17 06:00 Anion Gap 6 MMOL/L (8-16) L 11/24/17 06:00 BUN 29 mg/dL (7-18) H 11/24/17 06:00 Creatinine 1.2 mg/dL (0.55-1.3) 11/24/17 06:00 Creat Clearance w eGFR > 60 (>60) 11/24/17 06:00 Random Glucose 92 mg/dL (74-106) 11/24/17 06:00 Calcium 9.3 mg/dL (8.5-10.1) 11/24/17 06:00 Total Bilirubin 0.2 mg/dL (0.2-1) 11/24/17 06:00 AST 14 U/L (15-37) L 11/24/17 06:00 ALT 20 U/L (13-61) 11/24/17 06:00 Alkaline Phosphatase 70 U/L (45-117) 11/24/17 06:00 Total Protein 7.1 g/dl (6.4-8.2) 11/24/17 06:00 Albumin 3.6 g/dl (3.4-5.0) 11/24/17 06:00 Urine Color Ltyellow 11/24/17 08:30 Urine Appearance Clear 11/24/17 08:30 Urine pH 5.0 (5.0-8.0) 11/24/17 08:30 Ur Specific [place] 1.013 (1.010-1.035) 11/24/17 08:30 Urine Protein Negative (NEGATIVE) 11/24/17 08:30 Urine Glucose (UA) Negative (NEGATIVE) 11/24/17 08:30 Urine Ketones Negative (NEGATIVE) 11/24/17 08:30 Urine Blood Negative (NEGATIVE) 11/24/17 08:30 Urine Nitrite Negative (NEGATIVE) 11/24/17 08:30 Urine Bilirubin Negative (<2.0 mg/dL) 11/24/17 08:30 Urine Urobilinogen Negative mg/dL (0.2-1.0) 11/24/17 08:30 Ur Leukocyte Esterase Negative (NEGATIVE) 11/24/17 08:30 RPR Titer Nonreactive (NONREACTIVE) 11/24/17 06:00 lab noted Assessment: 11/25/17 16:21 withdrawal sx Plan: continue detox
[2017-11-25] MEDS: THIAMINE HCL 100 MG TABLET (FP) PO SCH (22:47)
[2017-11-25] MEDS: QUEtiapine FUMARATE 100 MG TABLET (FP) PO SCH (22:48)
[2017-11-26] MEDS: chlordiazePOXIDE 5 MG CAPSULE PO SCH (05:32)
[2017-11-26] MEDS: PRENATAL VITAMINS W/ FOLIC ACID TABLET (FP) PO SCH (10:47)
[2017-11-26] MEDS: chlordiazePOXIDE HCL 10 MG CAPSULE PO SCH ×3 (10:47→22:03)
[2017-11-26] MEDS: METHADONE HCL 5 MG TABLET (FOR DETOX USE ONLY) PO SCH (10:47)
[2017-11-26] MEDS: cloNIDine HCL 0.1 MG TABLET PO SCH ×2 (10:47→22:03)
[2017-11-26] MEDS: ESCITALOPRAM OXALATE 10 MG TABLET (FP) PO SCH (10:49)
[2017-11-26] MEDS: NICOTINE 21 MG/24 HOURS TOPICAL PATCH TD SCH (10:49)
--- NOTE | 2017-11-26 12:54 | PN ---
[facility] Progress Note (SOAP) Subjective: back pain muscle cramp sweat tremor anxiety Objective: 11/26/17 12:53 Vital Signs Temperature 98.0 F 11/26/17 09:16 Pulse Rate 79 11/26/17 09:16 Respiratory Rate 18 11/26/17 09:16 Blood Pressure 141/70 11/26/17 09:16 O2 Sat by Pulse Oximetry (%) Laboratory Last Values WBC 6.4 K/mm3 (4.0-10.0) 11/24/17 06:00 RBC 4.54 M/mm3 (4.00-5.60) 11/24/17 06:00 Hgb 13.6 GM/dL (11.7-16.9) 11/24/17 06:00 Hct 41.5 % (35.4-49) 11/24/17 06:00 MCV 91.4 fl (80-96) 11/24/17 06:00 MCH 29.9 pg (25.7-33.7) 11/24/17 06:00 MCHC 32.7 g/dl (32.0-35.9) 11/24/17 06:00 RDW 14.5 % (11.9-15.9) 11/24/17 06:00 Plt Count 183 K/MM3 (134-434) 11/24/17 06:00 MPV 11.9 fl (7.5-11.1) H 11/24/17 06:00 Sodium 141 mmol/L (136-145) 11/24/17 06:00 Potassium 4.5 mmol/L (3.5-5.1) 11/24/17 06:00 Chloride 108 mmol/L (98-107) H 11/24/17 06:00 Carbon Dioxide 27 mmol/L (21-32) 11/24/17 06:00 Anion Gap 6 MMOL/L (8-16) L 11/24/17 06:00 BUN 19 mg/dL (7-18) H 11/26/17 07:30 Creatinine 1.2 mg/dL (0.55-1.3) 11/24/17 06:00 Creat Clearance w eGFR > 60 (>60) 11/24/17 06:00 Random Glucose 92 mg/dL (74-106) 11/24/17 06:00 Calcium 9.3 mg/dL (8.5-10.1) 11/24/17 06:00 Total Bilirubin 0.2 mg/dL (0.2-1) 11/24/17 06:00 AST 14 U/L (15-37) L 11/24/17 06:00 ALT 20 U/L (13-61) 11/24/17 06:00 Alkaline Phosphatase 70 U/L (45-117) 11/24/17 06:00 Total Protein 7.1 g/dl (6.4-8.2) 11/24/17 06:00 Albumin 3.6 g/dl (3.4-5.0) 11/24/17 06:00 Urine Color Ltyellow 11/24/17 08:30 Urine Appearance Clear 11/24/17 08:30 Urine pH 5.0 (5.0-8.0) 11/24/17 08:30 Ur Specific [place] 1.013 (1.010-1.035) 11/24/17 08:30 Urine Protein Negative (NEGATIVE) 11/24/17 08:30 Urine Glucose (UA) Negative (NEGATIVE) 11/24/17 08:30 Urine Ketones Negative (NEGATIVE) 11/24/17 08:30 Urine Blood Negative (NEGATIVE) 11/24/17 08:30 Urine Nitrite Negative (NEGATIVE) 11/24/17 08:30 Urine Bilirubin Negative (<2.0 mg/dL) 11/24/17 08:30 Urine Urobilinogen Negative mg/dL (0.2-1.0) 11/24/17 08:30 Ur Leukocyte Esterase Negative (NEGATIVE) 11/24/17 08:30 RPR Titer Nonreactive (NONREACTIVE) 11/24/17 06:00 lab noted Assessment: 11/26/17 12:54 withdrawal sx Plan: continue detox
[2017-11-26] MEDS: QUEtiapine FUMARATE 100 MG TABLET (FP) PO SCH (22:03)
[2017-11-26] MEDS: THIAMINE HCL 100 MG TABLET (FP) PO SCH (22:03)
[2017-11-27] MEDS: chlordiazePOXIDE HCL 10 MG CAPSULE PO SCH (05:59)
[2017-11-27] MEDS ORDERED: METHADONE HCL 5 MG TABLET (FOR DETOX USE ONLY) PO SCH (09:18)
[2017-11-27 09:34] VITALS: BP 140/77; PULSE 83; TEMP 97.4
[2017-11-27] MEDS: cloNIDine HCL 0.1 MG TABLET PO SCH (09:43)
[2017-11-27] MEDS: PRENATAL VITAMINS W/ FOLIC ACID TABLET (FP) PO SCH (09:43)
[2017-11-27] MEDS: ESCITALOPRAM OXALATE 10 MG TABLET (FP) PO SCH (09:43)
[2017-11-27] MEDS: NICOTINE 21 MG/24 HOURS TOPICAL PATCH TD SCH (09:45)
[2017-11-27] MEDS ORDERED: METHADONE HCL 10 MG TABLET (FOR DETOX USE ONLY) PO SCH (10:00)
--- NOTE | 2017-11-27 10:49 | DS ---
[facility] Detox Discharge Summary Admission Date: 11/23/17 Discharge Date: 11/27/17 - History Present History: Alcohol Dependence, Opioid Dependence Additional Comments: 47 years old male aditted on 11/23/17 for alcohol and opiate withdrawal sx reported feeling better prefer to go to recovery program today at [facility] out patient services alert oriented x 3 no acute distress denies alcohol and opiate withdrawal sx denies suicidal denies homocidal aftercare [facility] [place] Physical Exam Results Vital Signs: Vital Signs Temperature 97.4 F L 11/27/17 09:34 Pulse Rate 83 11/27/17 09:34 Respiratory Rate 18 11/27/17 09:34 Blood Pressure 140/77 11/27/17 09:34 O2 Sat by Pulse Oximetry (%) Pertinent Admission Physical Exam Findings: alcohol and opiate withdrawal sx Vital Signs Temperature 97.4 F L 11/27/17 09:34 Pulse Rate 83 11/27/17 09:34 Respiratory Rate 18 11/27/17 09:34 Blood Pressure 140/77 11/27/17 09:34 O2 Sat by Pulse Oximetry (%) Laboratory Last Values WBC 6.4 K/mm3 (4.0-10.0) 11/24/17 06:00 RBC 4.54 M/mm3 (4.00-5.60) 11/24/17 06:00 Hgb 13.6 GM/dL (11.7-16.9) 11/24/17 06:00 Hct 41.5 % (35.4-49) 11/24/17 06:00 MCV 91.4 fl (80-96) 11/24/17 06:00 MCH 29.9 pg (25.7-33.7) 11/24/17 06:00 MCHC 32.7 g/dl (32.0-35.9) 11/24/17 06:00 RDW 14.5 % (11.9-15.9) 11/24/17 06:00 Plt Count 183 K/MM3 (134-434) 11/24/17 06:00 MPV 11.9 fl (7.5-11.1) H 11/24/17 06:00 Sodium 141 mmol/L (136-145) 11/24/17 06:00 Potassium 4.5 mmol/L (3.5-5.1) 11/24/17 06:00 Chloride 108 mmol/L (98-107) H 11/24/17 06:00 Carbon Dioxide 27 mmol/L (21-32) 11/24/17 06:00 Anion Gap 6 MMOL/L (8-16) L 11/24/17 06:00 BUN 19 mg/dL (7-18) H 11/26/17 07:30 Creatinine 1.2 mg/dL (0.55-1.3) 11/24/17 06:00 Creat Clearance w eGFR > 60 (>60) 11/24/17 06:00 Random Glucose 92 mg/dL (74-106) 11/24/17 06:00 Calcium 9.3 mg/dL (8.5-10.1) 11/24/17 06:00 Total Bilirubin 0.2 mg/dL (0.2-1) 11/24/17 06:00 AST 14 U/L (15-37) L 11/24/17 06:00 ALT 20 U/L (13-61) 11/24/17 06:00 Alkaline Phosphatase 70 U/L (45-117) 11/24/17 06:00 Total Protein 7.1 g/dl (6.4-8.2) 11/24/17 06:00 Albumin 3.6 g/dl (3.4-5.0) 11/24/17 06:00 Urine Color Ltyellow 11/24/17 08:30 Urine Appearance Clear 11/24/17 08:30 Urine pH 5.0 (5.0-8.0) 11/24/17 08:30 Ur Specific [place] 1.013 (1.010-1.035) 11/24/17 08:30 Urine Protein Negative (NEGATIVE) 11/24/17 08:30 Urine Glucose (UA) Negative (NEGATIVE) 11/24/17 08:30 Urine Ketones Negative (NEGATIVE) 11/24/17 08:30 Urine Blood Negative (NEGATIVE) 11/24/17 08:30 Urine Nitrite Negative (NEGATIVE) 11/24/17 08:30 Urine Bilirubin Negative (<2.0 mg/dL) 11/24/17 08:30 Urine Urobilinogen Negative mg/dL (0.2-1.0) 11/24/17 08:30 Ur Leukocyte Esterase Negative (NEGATIVE) 11/24/17 08:30 RPR Titer Nonreactive (NONREACTIVE) 11/24/17 06:00 lab noted - Treatment Hospital Course: Detox Protocol Followed, Detoxed Safely, Responded well, Discharged Condition Good, Rehab Referral Accepted Patient has Accepted a [facility] Ref[place] [facility] [place] - Medication Discharge Medications: Ambulatory Orders Escitalopram Oxalate [Lexapro -] 10 mg PO DAILY #30 tablet 08/19/17 Quetiapine Fumarate [Seroquel] 100 mg PO HS #30 tablet 09/17/17 Albuterol Sulfate Inhaler - [Ventolin HFA Inhaler -] 2 puff IH Q4H PRN #1 inhaler 11/27/17 - Diagnosis (1) Alcohol dependence with uncomplicated withdrawal Current Visit: Yes Status: Acute (2) Nicotine dependence Current Visit: Yes Status: Acute Qualifiers: Nicotine product type: cigarettes Substance use status: in withdrawal Qualified Code(s): F17.213 - Nicotine dependence, cigarettes, with withdrawal (3) Opioid dependence with withdrawal Current Visit: Yes Status: Acute (4) Substance induced mood disorder Current Visit: Yes Status: Suspected (5) Asthma Current Visit: Yes Status: Chronic Qualifiers: Asthma severity: mild Asthma persistence: intermittent Asthma complication type: unspecified Qualified Code(s): J45.20 - Mild intermittent asthma, uncomplicated (6) GERD (gastroesophageal reflux disease) Current Visit: Yes Status: Chronic Qualifiers: Esophagitis presence: esophagitis presence not specified Qualified Code(s) : K21.9 - Gastro-esophageal reflux disease without esophagitis - AMA Did Patient Leave Against Medical Advice: No
[2017-11-28] MEDS ORDERED: METHADONE HCL 5 MG TABLET (FOR DETOX USE ONLY) PO SCH (06:00)
== END 2017-11-27 09:45 | disposition home or self-care (01) | DRG 897 ==
LOC: YASAS 08:43 → Y6N 09:58
PROC: HZ2ZZZZ Detoxification Services for Substance Abuse Treatment (ICD-10-PCS; principal; 2017-11-23)
DX: F11.23 Opioid dependence with withdrawal (principal); F14.20 Cocaine dependence, uncomplicated; F10.230 Alcohol dependence with withdrawal, uncomplicated; F17.213 Nicotine dependence, cigarettes, with withdrawal; F19.24 Other psychoactive substance dependence with psychoactive substance-induced mood disorder; F31.9 Bipolar disorder, unspecified; F51.05 Insomnia due to other mental disorder; J45.20 Mild intermittent asthma, uncomplicated; K21.9 Gastro-esophageal reflux disease without esophagitis; G47.00 Insomnia, unspecified; E86.0 Dehydration; Z91.19 Patient's noncompliance with other medical treatment and regimen; Z91.013 Allergy to seafood; Z91.5 Personal history of self-harm
CPT/HCPCS: 36415; 80053; 81003; 84520; 85027; 86593; 93005; 93010; J0735

== ENCOUNTER 2017-12-21 08:17 | Inpatient (IN) | payer BC, OTHER ==
[2017-12-21 09:42] VITALS: BMI 27.6
--- NOTE | 2017-12-21 10:28 | HP ---
COWS - Scale Resting Pulse: 1= ID [id number] Sweatin= Chills/Flushing Restless Observation: 1= Difficult to Sit Still Pupil Size: 1= Pupils >than Normal Bone or Joint Aches: 2= Severe Diffuse Aches Runny Nose/ Eye Tearin= Runny Nose/Eyes GI Upset > 30mins: 2= Nausea/Diarrhea Tremor Observation: 2= Slight Tremor Visible Yawning Observation: 1= 1-2x During Session Anxiety or Irritability: 2=Irritable/Anxious Goose Flesh Skin: 0=Smooth Skin COWS Score: 15 CIWA Score - CIWA Score Nausea/Vomitin Muscle Tremors: 2 Anxiety: 2 Agitation: 2 Paroxysmal Sweats: 1-Minimal Palms Moist Orientation: 0-Oriented Tacttile Disturbances: 1-Very Mild Itch/Numbness Auditory Disturbances: 1-Very Mild Visual Disturbances: 1-Very Mild Sensitivity Headache: 2-Mild CIWA-Ar Total Score: 14 CIWA Score Nausea/Vomitin Muscle Tremors: 2 Anxiety: 2 Agitation: 2 Paroxysmal Sweats: 1-Minimal Palms Moist Orientation: 0-Oriented Tacttile Disturbances: 1-Very Mild Itch/Numbness Auditory Disturbances: 1-Very Mild Visual Disturbances: 1-Very Mild Sensitivity Headache: 2-Mild CIWA-Ar Total Score: 14 - Admission Criteria Patient presents the following: CIWA greater than 12 Admission Criteria Met: Admission criteria met Admission ROS S - [facility] Chief Complaint: i need help to stop using heroin,alcohol,cocaine Allergies/Adverse Reactions: Allergies Allergy/AdvReac Type Severity Reaction Status Date / Time shellfish derived Allergy Severe Difficulty Verified 12/21/17 09:41 Breathing No Known Drug Allergies Allergy Verified 12/21/17 09:41 History of Present Illness: this 47 years old male with heroin,alcohol and cocaine dependence,multiple admissions in detox,extensive history, multiple admissions but keep relapsing,last detox 11/23/17 to 11/27/17 failed out patient program syncope nicotine dependence weight loss longest period of sobriety 2 years bipolar disorder,anxiety,depression,insomnia also has asthma Exam Limitations: No Limitations - Ebola screening Have you traveled outside of the country in the last 21 days: No Have you had contact with anyone from an Ebola affected area: No Have you been sick,other than usual withdrawal symptoms: No Do you have a fever: No - Review of Systems Constitutional: Chills, Loss of Appetite, Malaise, Night Sweats, Changes in sleep, Weakness, Unintentional Wgt. Loss EENT: reports: Tearing, Nose Congestion Respiratory: reports: No Symptoms reported GI: reports: Diarrhea, Nausea, Abdominal cramping : reports: No Symptoms Reported Musculoskeletal: reports: Back Pain, Joint Pain, Muscle Pain Integumentary: reports: Dryness Neuro: reports: Headache, Tremors Endocrine: reports: No Symptoms Reported Hematology: reports: No Symptoms Reported Psychiatric: reports: No Sypmtoms Reported, Judgement Intact, Mood/Affect Appropiate, Orientated x3, Anxious (insomnia,bipolar disorder), Depressed Patient History - Patient Medical History Hx Anemia: No Hx Asthma: Yes (on albuterol inhaler) Hx Chronic Obstructive Pulmonary Disease (COPD): No Hx Cancer: No Hx Cardiac Disorders: No Hx Congestive Heart Failure: No Hx Hypertension: No Hx Hypercholesterolemia: No Hx Pacemaker: No HX Cerebrovascular Accident: No Hx Seizures: No Hx Dementia: No Hx Diabetes: No Hx Gastrointestinal Disorders: No Hx Liver Disease: No Hx Genitourinary Disorders: No Hx Sexually Transmitted Disorders: No Hx Renal Disease (ESRD): No Hx Thyroid Disease: No Hx Human Immunodeficiency Virus (HIV): No (NEGATIVE HX LAST 1995) Hx Hepatitis C: No Hx Depression: Yes Hx Suicide Attempt: No Hx Bipolar Disorder: Yes ('I just stopped going for treatment') Hx Schizophrenia: No Other Medical History: no suicidal,no homicidal - Patient Surgical History Past Surgical History: Yes Hx Neurologic Surgery: No Hx Cataract Extraction: No Hx Cardiac Surgery: No Hx Lung Surgery: No Hx Breast Surgery: No Hx Breast Biopsy: No Hx Abdominal Surgery: No Hx Appendectomy: No Hx Cholecystectomy: No Hx Genitourinary Surgery: No Hx Section: No Hx Orthopedic Surgery: Yes (R knee in 2005 lap) Other Surgical History: right foot surgery for calcium build-up plantar 1999 Anesthesia Reaction: No - PPD History Previous Implant?: Yes Documented Results: Negative w/proof Implanted On Prior R Admission?: Yes Date: 02/25/17 Results: 0 mm PPD to be Administered?: No - Smoking Cessation Smoking history: Current every day smoker Have you smoked in the past 12 months: Yes Aproximately how many cigarettes per day: 10 Cigars Per Day: 0 Hx Chewing Tobacco Use: No Initiated information on smoking cessation: Yes 'Breaking Loose' booklet given: 12/21/17 - Substance & Tx. History Hx Alcohol Use: Yes Hx Substance Use: Yes Substance Use Type: Alcohol, Cocaine, Heroin - Substances Abused Cocaine Route: Inhalation Frequency: 3-6 times per week Amount used: $50 Age of first use: 18 Date of Last Use: 12/20/17 Heroin Route: Inhalation Frequency: Daily Amount used: 10-12 bags Age of first use: 19 Date of Last Use: 12/20/17 Alcohol Route: Oral Frequency: Daily Amount used: 1-2 PINTS OF VODKA Age of first use: 21 Date of Last Use: 12/20/17 Family Disease History - Family Disease History Family Disease History: Other: Father (living, DRUG & ALCOHOL), Mother (living, healthy), Brother (two - living - healthy), Son (one - living - age 15), Daughter (two - living - ages 30, 25) Admission Physical Exam [facility] - Vital Signs Vital Signs: Vital Signs - 24 hr 12/21/17 09:39 Temperature 97.9 F Pulse Rate 86 Respiratory 19 Rate Blood Pressure 131/85 - Physical General Appearance: Yes: Moderate Distress, Tremorous, Irritable, Sweating, Anxious HEENTM: Yes: Hearing grossly Normal, Normal ENT Inspection, Normocephalic, MARVIN Respiratory: Yes: Within Normal Limits Neck: Yes: Within Normal Limits, Supple, Trachea in good position Breast: Yes: Within Normal Limits Cardiology: Yes: Within Normal Limits, Regular Rhythm, Regular Rate, S1, S2 Abdominal: Yes: Within Normal Limits, Normal Bowel Sounds, Non Tender, Flat, Soft Genitourinary: Yes: Within Normal Limits Back: Yes: Normal Inspection, Muscle Spasm Musculoskeletal: Yes: full range of Motion, Back pain, Muscle Pain Extremities: Yes: Within Normal Limits, Tremors, Other (sp arthroscopic surgery of right knee) 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, Alert, Motor Strength 5/5 Integumentary: Yes: Dry Lymphatic: Yes: Within Normal Limits - Diagnostic (1) Opioid dependence with withdrawal Status: Acute (2) Alcohol dependence with uncomplicated withdrawal Status: Acute (3) Bipolar disorder Status: Chronic (4) Cocaine dependence, uncomplicated Status: Acute (5) Dehydration Status: Acute (6) Insomnia Status: Acute Qualifiers: Insomnia type: unspecified Qualified Code(s): G47.00 - Insomnia, unspecified (7) Nicotine dependence Status: Chronic Qualifiers: Nicotine product type: cigarettes Substance use status: in withdrawal Qualified Code(s): F17.213 - Nicotine dependence, cigarettes, with withdrawal (8) Asthma Status: Chronic Qualifiers: Asthma severity: mild Asthma persistence: intermittent Asthma complication type: unspecified Qualified Code(s): J45.20 - Mild intermittent asthma, uncomplicated Comment: ventolin Cleared for Admission S - Detox or Rehab [facility] Level of Care: Medically Managed Detox Regimen/Protocol: Methadone/Librium S Breath Alcohol Content Breath Alcohol Content: 0 Urine Drug Screen - Results Drug Screen Negative: No Urine Drug Screen Results: GEOVANNA-Cocaine, OPI-Opiates
[2017-12-21] MEDS ORDERED: guaiFENesin/D-METHORPHAN HB 10 ML UNIT-DOSE CUPS PO PRN (10:38)
[2017-12-21] MEDS ORDERED: P-EPHED 60MG/TRIPROLIDI 2.5MG TABLET PO PRN (10:38)
[2017-12-21] MEDS ORDERED: MENTHOL/PHENOL 1 EACH UD MM PRN (10:38)
[2017-12-21] MEDS ORDERED: LOPERAMIDE HCL 2 MG CAPSULE PO PRN (10:38)
[2017-12-21] MEDS ORDERED: MAG HYDROX/AL HYDROX/SIMETH 30 ML UNIT-DOSE CUP PO PRN (10:38)
[2017-12-21] MEDS ORDERED: ACETAMINOPHEN 325 MG TABLET (FP) PO PRN (10:38)
[2017-12-21] MEDS ORDERED: MAGNESIUM CITRATE 300 ML BOTTLE PO PRN (10:38)
[2017-12-21] MEDS ORDERED: chlordiazePOXIDE HCL 25 MG CAPSULE PO PRN (10:38)
[2017-12-21] MEDS ORDERED: NICOTINE POLACRILEX 2 MG GUM BC PRN (10:38)
[2017-12-21] MEDS ORDERED: MAGNESIUM HYDROX 2400MG/30ML ORAL SUSPENSION 30 ML CUP PO PRN (10:38)
[2017-12-21] MEDS ORDERED: IBUPROFEN 400 MG TABLET (FP) PO PRN (10:38)
[2017-12-21] MEDS ORDERED: ALBUTEROL SO4 8 GM HFA INHALER IH PRN (10:40)
[2017-12-21] MEDS ORDERED: CYCLOBENZAPRINE HCL 10 MG TABLET (FP) PO PRN (10:41)
[2017-12-21] MEDS ORDERED: METHADONE HCL 10 MG TABLET (FOR DETOX USE ONLY) PO ONE ×2 (11:45→23:00)
[2017-12-21] MEDS: NICOTINE 21 MG/24 HOURS TOPICAL PATCH TD SCH (12:25)
[2017-12-21] MEDS: chlordiazePOXIDE HCL 25 MG CAPSULE PO SCH ×3 (12:26→22:27)
--- NOTE | 2017-12-21 14:37 | CONSULT ---
[facility] Psychiatric Consult - Data Date of interview: 12/21/17 Admission source: [facility] Identifying data: This is one of multiple admissions to [facility] for this 47 y/ o AA male seeking detoxification treatment, on , for alcohol, heroin and cocaine dependence. Patient is , a father of three, domiciled, unemployed and supported by spouse. Substance Abuse History: Confirmed by the patient in this interview. Details in current [facility] report : Smoking history: Current every day smoker. Have you smoked in the past 12 months: Yes. Aproximately how many cigarettes per day: 10. Cigars Per Day: 0. Hx Chewing Tobacco Use: No. Initiated information on smoking cessation: Yes. 'Breaking Loose' booklet given: 12/21/17. - Substance & Tx. History. Hx Alcohol Use: Yes. Hx Substance Use: Yes. Substance Use Type : Alcohol, Cocaine, Heroin. - Substances Abused. Cocaine. Route: Inhalation. Frequency: 3-6 times per week. Amount used: $50. Age of first use : 18. Date of Last Use: 12/20/17. Heroin. Route: Inhalation. Frequency: Daily. Amount used: 10-12 bags. Age of first use: 19. Date of Last Use: 12/20. Alcohol. Route: Oral. Frequency: Daily. Amount used: 1-2 PINTS OF VODKA. Age of first use: 21. Date of Last Use: 12/20/17 Medical History: History of colitis, diverticulitis, bronchial asthma, GERD and gastric ulcer. Remote history of orthosurgery (injury of right knee in 2005) and right foot surgery (1999). Psychiatric History: Remote history of psychiatric hospitalizations ([facility] in [facility]) years ago. Patient was reportedly diagnosed, at the time, with Bipolar Disorder. Mr Madison is currently medicated with seroquel 100 mg/hs, prescribed by CPEP providers (has no OPD care providers). Patient has dropped out of the [facility] program ([facility]). Known for chronic non- adherence to OPD programs (did drop out of the [facility] OPD clinic). History of one suicide attempt, 20 years ago, via overdose with pills. Physical/Sexual Abuse/Trauma History: Patient denies. Additional Comment: Urine Drug Screen Results: GEOVANNA-Cocaine, OPI-Opiates. Noted. Mental Status Exam - Mental Status Exam Alert and Oriented to: Time, Place, Person Cognitive Function: Good Patient Appearance: Well Groomed Mood: Withdrawn, Apprehensive Affect: Mood Congruent, Constricted Patient Behavior: Fatigued, Appropriate, Cooperative Speech Pattern: Clear Voice Loudness: Normal Thought Process: Intact, Goal Oriented Thought Disorder: Not Present Hallucinations: Denies Suicidal Ideation: Denies Homicidal Ideation: Denies Insight/Judgement: Poor Sleep: Poorly, Difficulty falling asleep Appetite: Good Muscle strength/Tone: Normal Gait/Station: Normal Psychiatric Findings - Problem List ([place] 1, 2,3) (1) Opioid dependence with withdrawal Current Visit: Yes Status: Acute (2) Alcohol dependence with uncomplicated withdrawal Current Visit: Yes Status: Acute (3) Cocaine dependence Current Visit: Yes Status: Acute (4) Nicotine dependence Current Visit: Yes Status: Acute Qualifiers: Nicotine product type: cigarettes Substance use status: in withdrawal Qualified Code(s): F17.213 - Nicotine dependence, cigarettes, with withdrawal (5) Substance induced mood disorder Current Visit: Yes Status: Acute (6) Insomnia Current Visit: Yes Status: Acute Qualifiers: Insomnia type: unspecified Qualified Code(s): G47.00 - Insomnia, unspecified (7) Non-compliant patient Current Visit: Yes Status: Chronic - Initial Treatment Plan Initial Treatment Plan: Psychoeducation. Sleep hygiene. Detoxification protocol implemented. Well tolerated. AA/NA fellowships are recommended to the patient. Psychosocial assessment made by the social work team. Psychotherapy (group, supportive, motivational, cognitive/behavioral). Seroquel 100 mg po hs (mood stabilization + management of insomnia). Resumed at patient's request. Side effects/benefits discussed with the patient. Mr Madison declares that he is in agreement with this plan of care. Assets available for relapse prevention (FDA- approved opioid antagonist, partial agonist and full agonist + counseling + psychosocial support network + psychotherapy) : discussed in detail with patient. Still ambivalent about his aftercare plans. Observation.
[2017-12-21] MEDS: cloNIDine HCL 0.1 MG TABLET PO SCH (22:27)
[2017-12-21] MEDS: THIAMINE HCL 100 MG TABLET (FP) PO SCH (22:28)
[2017-12-22] MEDS: chlordiazePOXIDE HCL 25 MG CAPSULE PO SCH ×4 (05:25→22:10)
[2017-12-22] MEDS ORDERED: METHADONE HCL 10 MG TABLET (FOR DETOX USE ONLY) PO SCH (10:00)
[2017-12-22 10:23] LABS: HEMATOCRIT 39.3 % (35.4-49); HEMOGLOBIN 13.5 GM/dL (11.7-16.9); MCH 31.6 pg (25.7-33.7); MCHC 34.3 g/dl (32.0-35.9); MEAN PLT VOLUME 12.1 fl (7.5-11.1); PLATELET COUNT 185 K/MM3 (134-434); RBC 4.27 M/mm3 (4.00-5.60); RDW 14.2 % (11.9-15.9); WHITE BLOOD COUNT 6.9 K/mm3 (4.0-10.0)
[2017-12-22] MEDS: cloNIDine HCL 0.1 MG TABLET PO SCH ×2 (10:27→22:10)
[2017-12-22] MEDS: PRENATAL VITAMINS W/ FOLIC ACID TABLET (FP) PO SCH (10:27)
[2017-12-22] MEDS: NICOTINE 21 MG/24 HOURS TOPICAL PATCH TD SCH (10:28)
[2017-12-22 10:45] LABS: ALBUMIN 3.6 g/dl (3.4-5.0); ALK PHOS 67 U/L (45-117); ANION GAP 10 MMOL/L (8-16); BILIRUBIN,TOTAL 0.2 mg/dL (0.2-1); BLOOD UREA NITROGEN 27 mg/dL (7-18); CALCIUM 8.5 mg/dL (8.5-10.1); CHLORIDE 107 mmol/L (98-107); CO2 27 mmol/L (21-32); CREATININE 1.2 mg/dL (0.55-1.3); GLUCOSE,RANDOM 100 mg/dL (74-106); SGOT/AST 16 U/L (15-37); SGPT/ALT 18 U/L (13-61); SODIUM 144 mmol/L (136-145); TOT PROT 6.7 g/dl (6.4-8.2)
[2017-12-22] MEDS ORDERED: FLU VACCINE QUAD 60 MCG/0.5 ML (MDV 18-19) IM ONE (12:00)
--- NOTE | 2017-12-22 12:27 | EKG ---
Test Reason : Blood Pressure : / mmHG Vent. Rate : 077 BPM Atrial Rate : 077 BPM P-R Int : 138 ms QRS Dur : 096 ms QT Int : 382 ms P-R-T Axes : 068 050 046 degrees QTc Int : 432 ms NORMAL SINUS RHYTHM WITH SINUS ARRHYTHMIA NORMAL ECG WHEN COMPARED WITH ECG OF 23-NOV-2017 10:15, QT HAS LENGTHENED Confirmed by JUAN MCCARTY MD ([id number]) on 12/22/2017 12:27:02 PM Referred By: Confirmed By:JUAN MCCARTY MD
--- NOTE | 2017-12-22 13:21 | PN ---
[facility] CIWA - CIWA Score Nausea/Vomitin-No Nausea/No Vomiting Muscle Tremors: 2 Anxiety: 3 Agitation: 3 Paroxysmal Sweats: 2 Orientation: 0-Oriented Tacttile Disturbances: 1-Very Mild Itch/Numbness Auditory Disturbances: 0-None Visual Disturbances: 0-None Headache: 1-Very Mild CIWA-Ar Total Score: 12 [facility] COWS - Scale Resting Pulse: 0= [place] 80 or Below Sweatin=Flushed/Facial Moisture Restless Observation: 1= Difficult to Sit Still Pupil Size: 0= Normal to Room Light Bone or Joint Aches: 1= Mild Discomfort Runny Nose/ Eye Tearin= Runny Nose/Eyes GI Upset > 30mins: 1= Stomach Cramp Tremor Observation of Outstretched Hands: 1= Tremor [place], Not Seen Yawning Observation: 2= >3x During Session Anxiety or Irritability: 2=Irritable/Anxious Goose Flesh Skin: 0=Smooth Skin COWS Score: 12 [facility] Progress Note (SOAP) Subjective: sweats, chills, interrupted sleep, generalized body aches Objective: 12/22/17 13:16 Vital Signs Temperature 97.8 F 12/22/17 09:18 Pulse Rate 80 12/22/17 09:18 Respiratory Rate 18 12/22/17 09:18 Blood Pressure 131/91 12/22/17 09:18 O2 Sat by Pulse Oximetry (%) Laboratory Last Values WBC 6.9 K/mm3 (4.0-10.0) 12/22/17 06:00 RBC 4.27 M/mm3 (4.00-5.60) 12/22/17 06:00 Hgb 13.5 GM/dL (11.7-16.9) 12/22/17 06:00 Hct 39.3 % (35.4-49) 12/22/17 06:00 MCV 92.0 fl (80-96) 12/22/17 06:00 MCH 31.6 pg (25.7-33.7) 12/22/17 06:00 MCHC 34.3 g/dl (32.0-35.9) 12/22/17 06:00 RDW 14.2 % (11.9-15.9) 12/22/17 06:00 Plt Count 185 K/MM3 (134-434) 12/22/17 06:00 MPV 12.1 fl (7.5-11.1) H 12/22/17 06:00 Sodium 144 mmol/L (136-145) 12/22/17 06:00 Potassium 4.0 mmol/L (3.5-5.1) 12/22/17 06:00 Chloride 107 mmol/L (98-107) 12/22/17 06:00 Carbon Dioxide 27 mmol/L (21-32) 12/22/17 06:00 Anion Gap 10 MMOL/L (8-16) 12/22/17 06:00 BUN 27 mg/dL (7-18) H 12/22/17 06:00 Creatinine 1.2 mg/dL (0.55-1.3) 12/22/17 06:00 Creat Clearance w eGFR > 60 (>60) 12/22/17 06:00 Random Glucose 100 mg/dL (74-106) 12/22/17 06:00 Calcium 8.5 mg/dL (8.5-10.1) 12/22/17 06:00 Total Bilirubin 0.2 mg/dL (0.2-1) 12/22/17 06:00 AST 16 U/L (15-37) 12/22/17 06:00 ALT 18 U/L (13-61) 12/22/17 06:00 Alkaline Phosphatase 67 U/L (45-117) 12/22/17 06:00 Total Protein 6.7 g/dl (6.4-8.2) 12/22/17 06:00 Albumin 3.6 g/dl (3.4-5.0) 12/22/17 06:00 RPR Titer Nonreactive (NONREACTIVE) 12/22/17 06:00 Assessment: 12/22/17 13:21 withdrawal symptoms Plan: increase po fluids continue detox continue to monitor
[2017-12-22] MEDS: THIAMINE HCL 100 MG TABLET (FP) PO SCH (22:10)
[2017-12-22] MEDS: MELATONIN 5 MG TABLETS PO PRN (22:11)
[2017-12-23] MEDS: chlordiazePOXIDE HCL 25 MG CAPSULE PO SCH (06:57)
[2017-12-23] MEDS: PRENATAL VITAMINS W/ FOLIC ACID TABLET (FP) PO SCH (10:12)
[2017-12-23] MEDS: cloNIDine HCL 0.1 MG TABLET PO SCH ×2 (10:12→22:01)
[2017-12-23] MEDS: METHADONE HCL 5 MG TABLET (FOR DETOX USE ONLY) PO SCH (10:12)
[2017-12-23] MEDS: chlordiazePOXIDE 5 MG CAPSULE PO SCH ×3 (10:13→22:01)
[2017-12-23] MEDS: NICOTINE 21 MG/24 HOURS TOPICAL PATCH TD SCH (10:13)
[2017-12-23 10:38] LABS: URINE APPEARANCE CLEAR; URINE BILIRUBIN NEGATIVE (<2.0 mg/dL); URINE COLOR YELLOW; URINE GLUCOSE (UA) NEGATIVE (NEGATIVE); URINE KETONE NEGATIVE (NEGATIVE); URINE LEUK ESTERASE NEGATIVE (NEGATIVE); URINE NITRITE NEGATIVE (NEGATIVE); URINE PROTEIN NEGATIVE (NEGATIVE)
--- NOTE | 2017-12-23 16:45 | PN ---
[facility] CIWA - CIWA Score Nausea/Vomitin Muscle Tremors: 3 Anxiety: 3 Agitation: 2 Paroxysmal Sweats: 3 Orientation: 0-Oriented Tacttile Disturbances: 0-None Auditory Disturbances: 0-None Visual Disturbances: 0-None Headache: 1-Very Mild CIWA-Ar Total Score: 14 [facility] COWS - Scale Resting Pulse: 1= [place] 81-100 Sweatin= Chills/Flushing Restless Observation: 3= Extraneous Movement Pupil Size: 0= Normal to Room Light Bone or Joint Aches: 2= Severe Diffuse Aches Runny Nose/ Eye Tearin= Runny Nose/Eyes GI Upset > 30mins: 2= Nausea/Diarrhea Tremor Observation of Outstretched Hands: 2= Slight Tremor Visible Yawning Observation: 0= None Anxiety or Irritability: 2=Irritable/Anxious Goose Flesh Skin: 0=Smooth Skin COWS Score: 15 [facility] Progress Note (SOAP) Subjective: Sweating, headache, interrupted sleep Objective: 12/23/17 16:42 Last Vital Signs Temp Pulse Resp BP Pulse Ox 97.8 F 88 20 96/61 12/23/17 13:37 12/23/17 13:37 12/23/17 13:37 12/23/17 13:37 Hypotension noted Laboratory Tests 12/22/17 12/22/17 12/22/17 06:00 06:00 06:00 WBC 6.9 RBC 4.27 Hgb 13.5 Hct 39.3 MCV 92.0 MCH 31.6 MCHC 34.3 RDW 14.2 Plt Count 185 MPV 12.1 H Sodium 144 Potassium 4.0 Chloride 107 Carbon Dioxide 27 Anion Gap 10 BUN 27 H Creatinine 1.2 Creat Clearance w eGFR > 60 Random Glucose 100 Calcium 8.5 Total Bilirubin 0.2 AST 16 ALT 18 Alkaline Phosphatase 67 Total Protein 6.7 Albumin 3.6 Urine Color Urine Appearance Urine pH Ur Specific [place] Urine Protein Urine Glucose (UA) Urine Ketones Urine Blood Urine Nitrite Urine Bilirubin Urine Urobilinogen Ur Leukocyte Esterase RPR Titer Nonreactive 12/23/17 08:40 WBC RBC Hgb Hct MCV MCH MCHC RDW Plt Count MPV Sodium Potassium Chloride Carbon Dioxide Anion Gap BUN Creatinine Creat Clearance w eGFR Random Glucose Calcium Total Bilirubin AST ALT Alkaline Phosphatase Total Protein Albumin Urine Color Yellow Urine Appearance Clear Urine pH 7.0 D Ur Specific [place] 1.020 Urine Protein Negative Urine Glucose (UA) Negative Urine Ketones Negative Urine Blood Negative Urine Nitrite Negative Urine Bilirubin Negative Urine Urobilinogen 2.0 Ur Leukocyte Esterase Negative RPR Titer Labs reviewed: bun 27 Assessment: 12/23/17 16:44 Withdrawal symptoms Noted with hypotension and azotemia Plan: Continue detox Hypotension: asymptomatic, encouraged to drink more water, continue to monitor Azotemia: encouraged PO water intake
[2017-12-23] MEDS: QUEtiapine FUMARATE 100 MG TABLET (FP) PO SCH (22:01)
[2017-12-23] MEDS: THIAMINE HCL 100 MG TABLET (FP) PO SCH (22:02)
[2017-12-24] MEDS: chlordiazePOXIDE 5 MG CAPSULE PO SCH (05:56)
[2017-12-24] MEDS: PRENATAL VITAMINS W/ FOLIC ACID TABLET (FP) PO SCH (10:06)
[2017-12-24] MEDS: METHADONE HCL 5 MG TABLET (FOR DETOX USE ONLY) PO SCH (10:06)
[2017-12-24] MEDS: NICOTINE 21 MG/24 HOURS TOPICAL PATCH TD SCH (10:07)
[2017-12-24] MEDS: cloNIDine HCL 0.1 MG TABLET PO SCH ×2 (10:07→22:26)
[2017-12-24] MEDS: chlordiazePOXIDE HCL 10 MG CAPSULE PO SCH ×3 (11:20→22:26)
--- NOTE | 2017-12-24 13:15 | PN ---
[facility] Progress Note (SOAP) Subjective: Sweating, headache, interrupted sleep Objective: 12/24/17 13:09 Last Vital Signs Temp Pulse Resp BP Pulse Ox 97.1 F L 66 18 102/61 12/24/17 09:13 12/24/17 09:13 12/24/17 09:13 12/24/17 09:13 Laboratory Tests 12/22/17 12/22/17 12/22/17 06:00 06:00 06:00 WBC 6.9 RBC 4.27 Hgb 13.5 Hct 39.3 MCV 92.0 MCH 31.6 MCHC 34.3 RDW 14.2 Plt Count 185 MPV 12.1 H Sodium 144 Potassium 4.0 Chloride 107 Carbon Dioxide 27 Anion Gap 10 BUN 27 H Creatinine 1.2 Creat Clearance w eGFR > 60 Random Glucose 100 Calcium 8.5 Total Bilirubin 0.2 AST 16 ALT 18 Alkaline Phosphatase 67 Total Protein 6.7 Albumin 3.6 Urine Color Urine Appearance Urine pH Ur Specific [place] Urine Protein Urine Glucose (UA) Urine Ketones Urine Blood Urine Nitrite Urine Bilirubin Urine Urobilinogen Ur Leukocyte Esterase RPR Titer Nonreactive 12/23/17 08:40 WBC RBC Hgb Hct MCV MCH MCHC RDW Plt Count MPV Sodium Potassium Chloride Carbon Dioxide Anion Gap BUN Creatinine Creat Clearance w eGFR Random Glucose Calcium Total Bilirubin AST ALT Alkaline Phosphatase Total Protein Albumin Urine Color Yellow Urine Appearance Clear Urine pH 7.0 D Ur Specific [place] 1.020 Urine Protein Negative Urine Glucose (UA) Negative Urine Ketones Negative Urine Blood Negative Urine Nitrite Negative Urine Bilirubin Negative Urine Urobilinogen 2.0 Ur Leukocyte Esterase Negative RPR Titer Labs reviewed Assessment: 12/24/17 13:10 Withdrawal symptoms Plan: Continue detox Encouraged PO water intake
[2017-12-24] MEDS: THIAMINE HCL 100 MG TABLET (FP) PO SCH (22:25)
[2017-12-24] MEDS: QUEtiapine FUMARATE 100 MG TABLET (FP) PO SCH (22:26)
[2017-12-24] MEDS: MELATONIN 5 MG TABLETS PO PRN (22:26)
[2017-12-25] MEDS: chlordiazePOXIDE HCL 10 MG CAPSULE PO SCH (05:52)
[2017-12-25 07:41] VITALS: BP 102/69; PULSE 78; TEMP 96.6
[2017-12-25] MEDS ORDERED: METHADONE HCL 10 MG TABLET (FOR DETOX USE ONLY) PO SCH (10:00)
[2017-12-25] MEDS: NICOTINE 21 MG/24 HOURS TOPICAL PATCH TD SCH (11:11)
[2017-12-25] MEDS: cloNIDine HCL 0.1 MG TABLET PO SCH (11:11)
[2017-12-25] MEDS: PRENATAL VITAMINS W/ FOLIC ACID TABLET (FP) PO SCH (11:11)
--- NOTE | 2017-12-25 11:38 | DS ---
[facility] Detox Discharge Summary Admission Date: 12/21/17 Discharge Date: 12/25/17 - History Present History: Alcohol Dependence, Cocaine Dependence, Opioid Dependence Additional Comments: Patient decided to leave AMA stating he has to go because he has things to do. Patient is A/A/Ox3, in nad, ambulatory. Pre Billing Specialist and staff encouraged patient to complete detox. Patient instructed to call 911 if any withdrawal symptoms or feeling sick and to see his PCP within 3 days. Pertinent Past History: Asthma Alcohol dependence Cocaine dependence Opioid dependence Nicotine dependence Bipolar disorder - Physical Exam Results Vital Signs: Vital Signs Temperature 96.6 F L 12/25/17 07:40 Pulse Rate 78 12/25/17 07:40 Respiratory Rate 18 12/25/17 07:40 Blood Pressure 102/69 12/25/17 07:40 O2 Sat by Pulse Oximetry (%) Pertinent Admission Physical Exam Findings: Withdrawal symptoms Laboratory Tests 12/22/17 12/22/17 12/22/17 06:00 06:00 06:00 WBC 6.9 RBC 4.27 Hgb 13.5 Hct 39.3 MCV 92.0 MCH 31.6 MCHC 34.3 RDW 14.2 Plt Count 185 MPV 12.1 H Sodium 144 Potassium 4.0 Chloride 107 Carbon Dioxide 27 Anion Gap 10 BUN 27 H Creatinine 1.2 Creat Clearance w eGFR > 60 Random Glucose 100 Calcium 8.5 Total Bilirubin 0.2 AST 16 ALT 18 Alkaline Phosphatase 67 Total Protein 6.7 Albumin 3.6 Urine Color Urine Appearance Urine pH Ur Specific [place] Urine Protein Urine Glucose (UA) Urine Ketones Urine Blood Urine Nitrite Urine Bilirubin Urine Urobilinogen Ur Leukocyte Esterase RPR Titer Nonreactive 12/23/17 08:40 WBC RBC Hgb Hct MCV MCH MCHC RDW Plt Count MPV Sodium Potassium Chloride Carbon Dioxide Anion Gap BUN Creatinine Creat Clearance w eGFR Random Glucose Calcium Total Bilirubin AST ALT Alkaline Phosphatase Total Protein Albumin Urine Color Yellow Urine Appearance Clear Urine pH 7.0 D Ur Specific [place] 1.020 Urine Protein Negative Urine Glucose (UA) Negative Urine Ketones Negative Urine Blood Negative Urine Nitrite Negative Urine Bilirubin Negative Urine Urobilinogen 2.0 Ur Leukocyte Esterase Negative RPR Titer Labs reviewed - Medication Discharge Medications: Ambulatory Orders Albuterol Sulfate Inhaler - [Ventolin HFA Inhaler -] 2 puff IH Q4H PRN #1 inhaler 11/27/17 - Diagnosis (1) Azotemia Status: Acute (2) Hypotension Status: Resolved (3) Alcohol dependence with uncomplicated withdrawal Status: Acute (4) Cocaine dependence Status: Chronic (5) Insomnia Status: Acute Qualifiers: Insomnia type: unspecified Qualified Code(s): G47.00 - Insomnia, unspecified (6) Nicotine dependence Status: Chronic Qualifiers: Nicotine product type: cigarettes Substance use status: in withdrawal Qualified Code(s): F17.213 - Nicotine dependence, cigarettes, with withdrawal (7) Opioid dependence with withdrawal Status: Acute (8) Bipolar disorder Status: Chronic (9) Asthma Status: Chronic Qualifiers: Asthma severity: mild Asthma persistence: intermittent Asthma complication type: unspecified Qualified Code(s): J45.20 - Mild intermittent asthma, uncomplicated - AMA Did Patient Leave Against Medical Advice: Yes (Patient instructed to call 911 if withdrawal sxs or feeling sick)
[2017-12-26] MEDS ORDERED: METHADONE HCL 5 MG TABLET (FOR DETOX USE ONLY) PO SCH (06:00)
== END 2017-12-25 10:10 | disposition left against medical advice (07) | DRG 894 ==
LOC: YASAS 08:17 → Y3N 10:40
PROC: HZ2ZZZZ Detoxification Services for Substance Abuse Treatment (ICD-10-PCS; principal; 2017-12-21)
DX: F11.23 Opioid dependence with withdrawal (principal); F14.20 Cocaine dependence, uncomplicated; F10.230 Alcohol dependence with withdrawal, uncomplicated; F17.210 Nicotine dependence, cigarettes, uncomplicated; F19.24 Other psychoactive substance dependence with psychoactive substance-induced mood disorder; F31.9 Bipolar disorder, unspecified; I95.9 Hypotension, unspecified; J45.20 Mild intermittent asthma, uncomplicated; G47.00 Insomnia, unspecified; M25.561 Pain in right knee; E86.0 Dehydration; R79.89 Other specified abnormal findings of blood chemistry; R63.4 Abnormal weight loss; Z68.27 Body mass index [BMI] 27.0-27.9, adult; Z87.19 Personal history of other diseases of the digestive system; Z91.19 Patient's noncompliance with other medical treatment and regimen
CPT/HCPCS: 36415; 80053; 81003; 85027; 86593; 90688; 93005; 93010; G0008; J0735

== ENCOUNTER 2018-02-04 09:04 | Inpatient (IN) | payer OTHER ==
[2018-02-04 09:23] VITALS: BMI 26.1
--- NOTE | 2018-02-04 10:23 | HP ---
COWS - Scale Resting Pulse: 1= [place] 81-100 Sweatin= Chills/Flushing Restless Observation: 1= Difficult to Sit Still Pupil Size: 1= Pupils >than Normal Bone or Joint Aches: 2= Severe Diffuse Aches Runny Nose/ Eye Tearin= Runny Nose/Eyes GI Upset > 30mins: 2= Nausea/Diarrhea Tremor Observation: 2= Slight Tremor Visible Yawning Observation: 1= 1-2x During Session Anxiety or Irritability: 2=Irritable/Anxious Goose Flesh Skin: 0=Smooth Skin COWS Score: 15 CIWA Score Nausea/Vomitin Muscle Tremors: 2 Anxiety: 2 Agitation: 2 Paroxysmal Sweats: 1-Minimal Palms Moist Orientation: 0-Oriented Tacttile Disturbances: 1-Very Mild Itch/Numbness Auditory Disturbances: 1-Very Mild Visual Disturbances: 0-None Headache: 2-Mild CIWA-Ar Total Score: 13 - Admission Criteria [facility] Guidelines: Admission for Medically Managed Detox: Requires at least one of the followin. CIWA greater than 12 2. Seizures within the past 24 hours 3. Delirium tremens within the past 24 hours 4. Hallucinations within the past 24 hours 5. Acute intervention needed for co occurring medical disorder 6. Acute intervention needed for co occurring psychiatric disorder 7. Severe withdrawal that cannot be handled at a lower level of care (continued vomiting, continued diarrhea, abnormal vital signs) requiring intravenous medication and/or fluids 8. Patient presents the following: CIWA greater than 12 Admission Criteria Met: Admission criteria met Admission ROS [facility] [place] [facility] Chief Complaint: i need help to stop using heroin,alcohol and cocaine Allergies/Adverse Reactions: Allergies Allergy/AdvReac Type Severity Reaction Status Date / Time shellfish derived Allergy Severe Difficulty Verified 12/21/17 09:41 Breathing No Known Drug Allergies Allergy Verified 12/21/17 09:41 History of Present Illness: this 48 years old male with heroin,alcohol and cocaine dependence,seeking detox, withdrawal symptom,last detox [facility] 12/21/17 to 12/25/17 history of asthma bipolar disorder no med nicotine dependence no significant period of sobriety need help for detox plan for rehab multiple admissions in the past but keep relapsing - Ebola screening Have you traveled outside of the country in the last 21 days: No Have you had contact with anyone from an Ebola affected area: No Have you been sick,other than usual withdrawal symptoms: No - Review of Systems Constitutional: Chills, Loss of Appetite, Malaise, Night Sweats, Changes in sleep, Weakness, Unintentional Wgt. Loss EENT: reports: Tearing, Nose Congestion Respiratory: reports: No Symptoms reported, Other (history of asthma) Cardiac: reports: No Symptoms Reported GI: reports: Nausea, Vomiting, Abdominal cramping : reports: No Symptoms Reported Musculoskeletal: reports: Back Pain, Muscle Pain Integumentary: reports: Dryness Neuro: reports: Headache, Tremors Endocrine: reports: No Symptoms Reported Hematology: reports: No Symptoms Reported Psychiatric: reports: No Sypmtoms Reported, Judgement Intact, Mood/Affect Appropiate, Orientated x3, other (bipolar disorder) Patient History - Patient Medical History Hx Anemia: No Hx Asthma: Yes (on albuterol inhaler) Hx Chronic Obstructive Pulmonary Disease (COPD): No Hx Cancer: No Hx Cardiac Disorders: No Hx Congestive Heart Failure: No Hx Hypertension: No Hx Hypercholesterolemia: No Hx Pacemaker: No HX Cerebrovascular Accident: No Hx Seizures: No Hx Dementia: No Hx Diabetes: No Hx Gastrointestinal Disorders: No Hx Liver Disease: No Hx Genitourinary Disorders: No Hx Sexually Transmitted Disorders: No Hx Renal Disease (ESRD): No Hx Thyroid Disease: No Hx Human Immunodeficiency Virus (HIV): No (NEGATIVE HX LAST 1995) Hx Hepatitis C: No Hx Depression: Yes Hx Suicide Attempt: Yes (overose ar age of 30) Hx Bipolar Disorder: Yes ('I just stopped going for treatment') Hx Schizophrenia: No Other Medical History: no sucidal,no homicidal - Patient Surgical History Past Surgical History: Yes Hx Neurologic Surgery: No Hx Cataract Extraction: No Hx Cardiac Surgery: No Hx Lung Surgery: No Hx Breast Surgery: No Hx Breast Biopsy: No Hx Abdominal Surgery: No Hx Appendectomy: No Hx Cholecystectomy: No Hx Genitourinary Surgery: No Hx Section: No Hx Orthopedic Surgery: Yes (R knee in 2005 lap) Other Surgical History: right foot surgery for calcium build-up plantar 2000 Anesthesia Reaction: No - PPD History Previous Implant?: Yes Documented Results: Negative w/proof Implanted On Prior [facility] Admission?: Yes Date: 02/25/17 Results: 0 mm PPD to be Administered?: No - Smoking Cessation Smoking history: Current every day smoker Have you smoked in the past 12 months: Yes Aproximately how many cigarettes per day: 10 Cigars Per Day: 0 Hx Chewing Tobacco Use: No Initiated information on smoking cessation: Yes 'Breaking Loose' booklet given: 02/04/18 - Substance & Tx. History Hx Alcohol Use: Yes Hx Substance Use: Yes Substance Use Type: Alcohol, Cocaine, Heroin Hx Substance Use Treatment: Yes ([facility] 12/21/17 to 12/25/17) - Substances Abused Heroin Route: Inhalation Frequency: Daily Amount used: 12-15 bags Age of first use: 19 Date of Last Use: 02/03/18 Alcohol Route: Oral Frequency: Daily Amount used: 2 pints vodka Age of first use: 19 Date of Last Use: 02/03/18 Cocaine Route: Smoking Frequency: Daily Amount used: $100 Age of first use: 25 Date of Last Use: 02/02/18 Family Disease History - Family Disease History Family Disease History: Other: Father (living, DRUG & ALCOHOL), Mother (living, healthy), Brother (two - living - healthy), Son (one - living - age 15), Daughter (two - living - ages 30, 25) Admission Physical Exam [facility] - Vital Signs Vital Signs: Vital Signs - 24 hr 02/04/18 09:20 Temperature 97.9 F Pulse Rate 92 H Respiratory 18 Rate Blood Pressure 155/76 - Physical General Appearance: Yes: Moderate Distress, Tremorous, Irritable, Sweating, Anxious HEENTM: Yes: Normal ENT Inspection, MARVIN, Pharynx Normal Respiratory: Yes: Lungs Clear, Normal Breath Sounds, No Respiratory Distress Neck: Yes: Within Normal Limits, Supple, Trachea in good position Breast: Yes: Within Normal Limits Cardiology: Yes: Within Normal Limits, Regular Rhythm, Regular Rate, S1, S2 Abdominal: Yes: Within Normal Limits, Normal Bowel Sounds, Non Tender, Flat, Soft Genitourinary: Yes: Within Normal Limits Back: Yes: Muscle Spasm Musculoskeletal: Yes: full range of Motion, Back pain, Joint Stiffness, Muscle Pain Extremities: Yes: Within Normal Limits, Normal Range of Motion, Tremors Neurological: Yes: laundry washer II-XII NML intact, Fully Oriented, Alert, Motor Strength 5/5 Integumentary: Yes: Dry Lymphatic: Yes: Within Normal Limits - Diagnostic (1) Opioid dependence with withdrawal Current Visit: Yes Status: Acute (2) Nicotine dependence Current Visit: Yes Status: Chronic Qualifiers: Nicotine product type: cigarettes Substance use status: in withdrawal Qualified Code(s): F17.213 - Nicotine dependence, cigarettes, with withdrawal (3) Alcohol dependence with uncomplicated withdrawal Current Visit: Yes Status: Acute (4) Cocaine dependence, uncomplicated Current Visit: No Status: Acute (5) Dehydration Current Visit: No Status: Acute (6) Knee pain, right Current Visit: No Status: Acute (7) Asthma Current Visit: No Status: Chronic Qualifiers: Asthma severity: mild Asthma persistence: intermittent Asthma complication type: unspecified Qualified Code(s): J45.20 - Mild intermittent asthma, uncomplicated Comment: ventolin (8) Bipolar disorder Current Visit: No Status: Chronic (9) Bipolar 1 disorder, depressed Current Visit: No Status: Suspected Cleared for Admission [facility] - Detox or Rehab [facility] Level of Care: Medically Managed Detox Regimen/Protocol: Methadone/Librium S Breath Alcohol Content Breath Alcohol Content: 0 Urine Drug Screen - Results Drug Screen Negative: Yes Urine Drug Screen Results: GEOVANNA-Cocaine, OPI-Opiates, FEN-Fentanyl, BUP-Suboxone
[2018-02-04] MEDS ORDERED: hydrOXYzine PAMOATE 50 MG CAPSULE (FP) PO PRN (10:37)
[2018-02-04] MEDS ORDERED: MENTHOL/PHENOL 1 EACH UD MM PRN (10:37)
[2018-02-04] MEDS ORDERED: IBUPROFEN 400 MG TABLET (FP) PO PRN (10:37)
[2018-02-04] MEDS ORDERED: MAGNESIUM CITRATE 300 ML BOTTLE PO PRN (10:37)
[2018-02-04] MEDS ORDERED: guaiFENesin/D-METHORPHAN HB 10 ML UNIT-DOSE CUPS PO PRN (10:37)
[2018-02-04] MEDS ORDERED: P-EPHED 60MG/TRIPROLIDI 2.5MG TABLET PO PRN (10:37)
[2018-02-04] MEDS ORDERED: chlordiazePOXIDE HCL 25 MG CAPSULE PO PRN (10:37)
[2018-02-04] MEDS ORDERED: ACETAMINOPHEN 325 MG TABLET (FP) PO PRN (10:37)
[2018-02-04] MEDS ORDERED: MAG HYDROX/AL HYDROX/SIMETH 30 ML UNIT-DOSE CUP PO PRN (10:37)
[2018-02-04] MEDS ORDERED: MAGNESIUM HYDROX 2400MG/30ML ORAL SUSPENSION 30 ML CUP PO PRN (10:37)
[2018-02-04] MEDS ORDERED: ALBUTEROL SO4 8 GM HFA INHALER IH PRN (10:41)
[2018-02-04] MEDS ORDERED: METHADONE HCL 10 MG TABLET (FOR DETOX USE ONLY) PO ONE ×2 (11:00→23:00)
[2018-02-04] MEDS: NICOTINE 21 MG/24 HOURS TOPICAL PATCH TD SCH (11:50)
--- NOTE | 2018-02-04 17:00 | CONSULT ---
[facility] Psychiatric Consult - Data Date of interview: 02/04/18 Admission source: [facility] Identifying data: Readmission to [facility] for this 48 y/o AA male seeking detoxification treatment, on , for alcohol, heroin and cocaine dependence. Patient is , a father of three, domiciled, unemployed and supported by spouse. Substance Abuse History: Discussed in this session. Confirmed by the patient. Details in current [facility] report : Smoking history: Current every day smoker. Have you smoked in the past 12 months: Yes. Aproximately how many cigarettes per day: 10. Cigars Per Day: 0. Hx Chewing Tobacco Use: No. Initiated information on smoking cessation: Yes. 'Breaking Loose' booklet given: . - Substance & Tx. History. Hx Alcohol Use: Yes. Hx Substance Use: Yes. Substance Use Type: Alcohol, Cocaine, Heroin. Hx Substance Use Treatment: Yes ( [facility] 12/21/17 to 12/25/17) Medical History: History of colitis, diverticulitis, bronchial asthma, GERD and gastric ulcer. Remote history of orthosurgery (injury of right knee in 2005) and left foot surgery (1999). Psychiatric History: History of multiple psychiatric hospitalizations ([facility] in [facility]). Reportedly diagnosed with Bipolar Disorder and PTSD. Mr Madison is currently medicated with seroquel 100 mg/hs, prescribed by CPEP providers (has no OPD care providers). Patient has dropped out of the [facility] program ([facility]). Chronically non-adherent to OPD programs (did drop out of the [facility] OPD clinic). History of one suicide attempt, 20 years ago, via overdose with pills. Physical/Sexual Abuse/Trauma History: Patient denies. Additional Comment: Urine Drug Screen Results: GEOVANNA-Cocaine, OPI-Opiates, FEN- Fentanyl, BUP-Suboxone. Noted. Mental Status Exam - Mental Status Exam Alert and Oriented to: Time, Place, Person Cognitive Function: Good Patient Appearance: Well Groomed Mood: Withdrawn, Hopeful Affect: Appropriate, Normal Range Patient Behavior: Fatigued, Cooperative Speech Pattern: Clear Voice Loudness: Normal Thought Process: Goal Oriented Thought Disorder: Not Present Hallucinations: Denies Suicidal Ideation: Denies Homicidal Ideation: Denies Insight/Judgement: Poor Sleep: Poorly, Difficulty falling asleep Appetite: Good Muscle strength/Tone: Normal Gait/Station: Normal Psychiatric Findings - Problem List ([place] 1, 2,3) (1) Opioid dependence with withdrawal Current Visit: Yes Status: Acute (2) Alcohol dependence with uncomplicated withdrawal Current Visit: Yes Status: Acute (3) Cocaine dependence, uncomplicated Current Visit: No Status: Acute (4) Nicotine dependence Current Visit: Yes Status: Chronic Qualifiers: Nicotine product type: cigarettes Substance use status: in withdrawal Qualified Code(s): F17.213 - Nicotine dependence, cigarettes, with withdrawal (5) Substance induced mood disorder Current Visit: Yes Status: Chronic (6) Insomnia Current Visit: Yes Status: Acute Qualifiers: Insomnia type: unspecified Qualified Code(s): G47.00 - Insomnia, unspecified (7) Non-compliant patient Current Visit: Yes Status: Chronic - Initial Treatment Plan Initial Treatment Plan: Psychoeducation. Sleep hygiene. Detoxification. Motivational rounds for promotion of sobriety. AA/NA meetings. Seroquel 100 mg po hs. Ordered at patient's request. Side effects/benefits discussed with the patient. Consent (verbal) granted to MD. Delgadillo.
[2018-02-04] MEDS: chlordiazePOXIDE HCL 25 MG CAPSULE PO SCH ×2 (17:13→22:12)
[2018-02-04] MEDS ORDERED: MELATONIN 5 MG TABLETS PO PRN (22:00)
[2018-02-04] MEDS: THIAMINE HCL 100 MG TABLET (FP) PO SCH (22:12)
[2018-02-04] MEDS: QUEtiapine FUMARATE 100 MG TABLET (FP) PO SCH (22:13)
[2018-02-05] MEDS: chlordiazePOXIDE HCL 25 MG CAPSULE PO SCH ×4 (06:27→22:08)
[2018-02-05] MEDS ORDERED: METHADONE HCL 10 MG TABLET (FOR DETOX USE ONLY) PO SCH (10:00)
[2018-02-05] MEDS: NICOTINE 21 MG/24 HOURS TOPICAL PATCH TD SCH (10:06)
[2018-02-05] MEDS: PRENATAL VITAMINS W/ FOLIC ACID TABLET (FP) PO SCH (10:06)
[2018-02-05] MEDS: LOPERAMIDE HCL 2 MG CAPSULE PO PRN ×2 (10:11→17:19)
--- NOTE | 2018-02-05 10:22 | PN ---
[facility] CIWA - CIWA Score Nausea/Vomitin-No Nausea/No Vomiting Muscle Tremors: 3 Anxiety: 3 Agitation: 3 Paroxysmal Sweats: 3 Orientation: 0-Oriented Tacttile Disturbances: 0-None Auditory Disturbances: 0-None Visual Disturbances: 0-None Headache: 0-None Present CIWA-Ar Total Score: 12 [facility] COWS - Scale Resting Pulse: 1= [place] 81-100 Sweatin=Flushed/Facial Moisture Restless Observation: 1= Difficult to Sit Still Pupil Size: 0= Normal to Room Light Bone or Joint Aches: 2= Severe Diffuse Aches Runny Nose/ Eye Tearin= Nasal Congestion GI Upset > 30mins: 2= Nausea/Diarrhea Tremor Observation of Outstretched Hands: 2= Slight Tremor Visible Yawning Observation: 2= >3x During Session Anxiety or Irritability: 2=Irritable/Anxious Goose Flesh Skin: 0=Smooth Skin COWS Score: 15 S Progress Note (SOAP) Subjective: agitation anxiety interrupted sleep body aches sweats shakes tired Objective: 02/05/18 10:21 Vital Signs Temperature 97.2 F L 02/05/18 09:25 Pulse Rate 90 02/05/18 09:25 Respiratory Rate 16 02/05/18 09:25 Blood Pressure 135/86 02/05/18 09:25 O2 Sat by Pulse Oximetry (%) labs pending aaox3 ambulating no acute distress Assessment: 02/05/18 10:21 withdrawal sx Plan: continue detox increase fluids labs pending
[2018-02-05 10:26] LABS: MCH 29.4 pg (25.7-33.7); MCHC 31.8 g/dl (32.0-35.9); MEAN CELL VOLUME 92.5 fl (80-96); MEAN PLT VOLUME 11.8 fl (7.5-11.1); PLATELET COUNT 219 K/MM3 (134-434); RBC 4.76 M/mm3 (4.00-5.60); RDW 14.8 % (11.9-15.9); WHITE BLOOD COUNT 5.8 K/mm3 (4.0-10.0)
[2018-02-05 11:00] LABS: ALBUMIN 3.7 g/dl (3.4-5.0); ALK PHOS 70 U/L (45-117); ANION GAP 5 MMOL/L (8-16); BILIRUBIN,TOTAL 0.6 mg/dL (0.2-1); BLOOD UREA NITROGEN 17 mg/dL (7-18); CALCIUM 8.5 mg/dL (8.5-10.1); CHLORIDE 106 mmol/L (98-107); CO2 29 mmol/L (21-32); CREATININE 1.2 mg/dL (0.55-1.3); GLUCOSE,RANDOM 124 mg/dL (74-106); POTASSIUM 4.4 mmol/L (3.5-5.1); SGOT/AST 21 U/L (15-37); SGPT/ALT 20 U/L (13-61); SODIUM 140 mmol/L (136-145); TOT PROT 7.2 g/dl (6.4-8.2)
[2018-02-05] MEDS: THIAMINE HCL 100 MG TABLET (FP) PO SCH (22:07)
[2018-02-05] MEDS: QUEtiapine FUMARATE 100 MG TABLET (FP) PO SCH (22:08)
[2018-02-06] MEDS: chlordiazePOXIDE HCL 25 MG CAPSULE PO SCH ×2 (06:30→10:09)
[2018-02-06] MEDS: METHADONE HCL 5 MG TABLET (FOR DETOX USE ONLY) PO SCH (10:09)
[2018-02-06] MEDS: PRENATAL VITAMINS W/ FOLIC ACID TABLET (FP) PO SCH (10:09)
[2018-02-06] MEDS: NICOTINE 21 MG/24 HOURS TOPICAL PATCH TD SCH (10:09)
[2018-02-06] MEDS: LOPERAMIDE HCL 2 MG CAPSULE PO PRN (10:12)
--- NOTE | 2018-02-06 10:56 | PN ---
[facility] CIWA - CIWA Score Nausea/Vomitin Muscle Tremors: 3 Anxiety: 3 Agitation: 2 Paroxysmal Sweats: 3 Orientation: 0-Oriented Tacttile Disturbances: 2-Mild Itch/Numbness/Burn Auditory Disturbances: 0-None Visual Disturbances: 0-None Headache: 0-None Present CIWA-Ar Total Score: 15 S COWS - Scale Resting Pulse: 0= [place] 80 or Below Sweatin=Flushed/Facial Moisture Restless Observation: 1= Difficult to Sit Still Pupil Size: 1= Pupils >than Normal Bone or Joint Aches: 2= Severe Diffuse Aches Runny Nose/ Eye Tearin= Nasal Congestion GI Upset > 30mins: 2= Nausea/Diarrhea Tremor Observation of Outstretched Hands: 0= None Yawning Observation: 0= None Anxiety or Irritability: 2=Irritable/Anxious Goose Flesh Skin: 0=Smooth Skin COWS Score: 11 [facility] Progress Note (SOAP) Subjective: interrupted sleep, sweats, shakes, diarrhea Objective: 02/06/18 10:41 Last Vital Signs Temp Pulse Resp BP Pulse Ox 97.3 F L 85 16 134/83 02/06/18 09:15 02/06/18 09:15 02/06/18 09:15 02/06/18 09:15 Laboratory Tests 02/05/18 02/05/18 02/05/18 05:45 05:45 05:45 WBC 5.8 RBC 4.76 Hgb 14.0 Hct 44.0 MCV 92.5 MCH 29.4 MCHC 31.8 L RDW 14.8 Plt Count 219 MPV 11.8 H Sodium 140 Potassium 4.4 Chloride 106 Carbon Dioxide 29 Anion Gap 5 L BUN 17 Creatinine 1.2 Creat Clearance w eGFR > 60 Random Glucose 124 H Calcium 8.5 Total Bilirubin 0.6 AST 21 ALT 20 Alkaline Phosphatase 70 Total Protein 7.2 Albumin 3.7 RPR Titer Nonreactive pt aox3 in nad ambulating Assessment: 02/06/18 10:42 withdrawal sx's Plan: cont. detox increase fluids imodium prn
[2018-02-06] MEDS: chlordiazePOXIDE 5 MG CAPSULE PO SCH ×2 (17:24→22:14)
[2018-02-06] MEDS: THIAMINE HCL 100 MG TABLET (FP) PO SCH (22:14)
[2018-02-06] MEDS: QUEtiapine FUMARATE 100 MG TABLET (FP) PO SCH (22:14)
[2018-02-07] MEDS: chlordiazePOXIDE 5 MG CAPSULE PO SCH ×2 (06:21→10:13)
[2018-02-07] MEDS: PRENATAL VITAMINS W/ FOLIC ACID TABLET (FP) PO SCH (10:13)
[2018-02-07] MEDS: NICOTINE 21 MG/24 HOURS TOPICAL PATCH TD SCH (10:13)
[2018-02-07] MEDS: METHADONE HCL 5 MG TABLET (FOR DETOX USE ONLY) PO SCH (10:13)
--- NOTE | 2018-02-07 12:07 | PN ---
[facility] Progress Note (SOAP) Subjective: sweats agitation Objective: 02/07/18 12:06 Vital Signs Temperature 97.9 F 02/07/18 09:18 Pulse Rate 96 H 02/07/18 09:18 Respiratory Rate 18 02/07/18 09:18 Blood Pressure 116/70 02/07/18 09:18 O2 Sat by Pulse Oximetry (%) [id number] ambulating no acute distress Assessment: 02/07/18 12:07 withdrawal sx Plan: continue detox increase fluids
[2018-02-07] MEDS: chlordiazePOXIDE HCL 10 MG CAPSULE PO SCH ×2 (17:24→22:06)
[2018-02-07] MEDS: THIAMINE HCL 100 MG TABLET (FP) PO SCH (22:06)
[2018-02-07] MEDS: QUEtiapine FUMARATE 100 MG TABLET (FP) PO SCH (22:06)
[2018-02-08] MEDS: chlordiazePOXIDE HCL 10 MG CAPSULE PO SCH ×2 (06:13→10:22)
[2018-02-08] MEDS ORDERED: METHADONE HCL 10 MG TABLET (FOR DETOX USE ONLY) PO SCH (10:00)
[2018-02-08] MEDS: PRENATAL VITAMINS W/ FOLIC ACID TABLET (FP) PO SCH (10:22)
[2018-02-08] MEDS: NICOTINE 21 MG/24 HOURS TOPICAL PATCH TD SCH (10:22)
--- NOTE | 2018-02-08 12:16 | PN ---
[facility] Progress Note (SOAP) Subjective: I'm feeling better Objective: 02/08/18 12:15 Vital Signs Temperature 97.5 F L 02/08/18 09:12 Pulse Rate 109 H 02/08/18 09:12 Respiratory Rate 18 02/08/18 09:12 Blood Pressure 122/85 02/08/18 09:12 O2 Sat by Pulse Oximetry (%) Laboratory Tests 02/05/18 02/05/18 02/05/18 05:45 05:45 05:45 WBC 5.8 RBC 4.76 Hgb 14.0 Hct 44.0 MCV 92.5 MCH 29.4 MCHC 31.8 L RDW 14.8 Plt Count 219 MPV 11.8 H Sodium 140 Potassium 4.4 Chloride 106 Carbon Dioxide 29 Anion Gap 5 L BUN 17 Creatinine 1.2 Creat Clearance w eGFR > 60 Random Glucose 124 H Calcium 8.5 Total Bilirubin 0.6 AST 21 ALT 20 Alkaline Phosphatase 70 Total Protein 7.2 Albumin 3.7 RPR Titer Nonreactive pt aox3 in nad ambulating Assessment: 02/08/18 12:17 withdrawal sx's Plan: cont. detox increase fluids d/c in am
[2018-02-08 13:58] VITALS: BP 109/73; PULSE 108; TEMP 98.2
--- NOTE | 2018-02-08 14:52 | DS ---
[facility] Detox Discharge Summary Admission Date: 02/04/18 Discharge Date: 02/08/18 - History Present History: Alcohol Dependence, Cocaine Dependence, Opioid Dependence - Physical Exam Results Vital Signs: Vital Signs Temperature 98.2 F 02/08/18 13:57 Pulse Rate 108 H 02/08/18 13:57 Respiratory Rate 18 02/08/18 13:57 Blood Pressure 109/73 02/08/18 13:57 O2 Sat by Pulse Oximetry (%) - Treatment Hospital Course: Detox Protocol Followed, Detoxed Safely, Responded well, Discharged Condition Good - Medication Discharge Medications: Ambulatory Orders Albuterol Sulfate Inhaler - [Ventolin HFA Inhaler -] 2 puff IH Q4H PRN #1 inhaler 11/27/17 - Diagnosis (1) Alcohol dependence with uncomplicated withdrawal Current Visit: Yes Status: Chronic (2) Opioid dependence with withdrawal Current Visit: Yes Status: Chronic (3) Nicotine dependence Current Visit: Yes Status: Chronic Qualifiers: Nicotine product type: cigarettes Substance use status: in withdrawal Qualified Code(s): F17.213 - Nicotine dependence, cigarettes, with withdrawal (4) Cocaine dependence, uncomplicated Current Visit: Yes Status: Chronic (5) Bipolar 1 disorder, depressed Current Visit: Yes Status: Chronic - AMA Did Patient Leave Against Medical Advice: No (pt wants an early d/c needs to get home )
[2018-02-09] MEDS ORDERED: METHADONE HCL 5 MG TABLET (FOR DETOX USE ONLY) PO SCH (06:00)
== END 2018-02-08 15:15 | disposition home or self-care (01) | DRG 897 ==
LOC: YASAS 09:04 → Y6N 10:43
PROC: HZ2ZZZZ Detoxification Services for Substance Abuse Treatment (ICD-10-PCS; principal; 2018-02-04)
DX: F11.23 Opioid dependence with withdrawal (principal); F14.20 Cocaine dependence, uncomplicated; F31.89 Other bipolar disorder; F10.230 Alcohol dependence with withdrawal, uncomplicated; F17.213 Nicotine dependence, cigarettes, with withdrawal; G47.00 Insomnia, unspecified; K21.9 Gastro-esophageal reflux disease without esophagitis; J45.909 Unspecified asthma, uncomplicated; E86.0 Dehydration; M25.561 Pain in right knee; Z91.19 Patient's noncompliance with other medical treatment and regimen; Z91.013 Allergy to seafood; Z91.5 Personal history of self-harm
CPT/HCPCS: 36415; 80053; 85027; 86593

== ENCOUNTER 2018-02-28 08:05 | Inpatient (IN) | payer OTHER ==
[2018-02-28 08:25] VITALS: BMI 25.8
--- NOTE | 2018-02-28 08:52 | HP ---
COWS - Scale Resting Pulse: 1= [place] 81-100 Sweatin= Chills/Flushing Restless Observation: 3= Extraneous Movement Pupil Size: 1= Pupils >than Normal Bone or Joint Aches: 2= Severe Diffuse Aches Runny Nose/ Eye Tearin= Runny Nose/Eyes GI Upset > 30mins: 2= Nausea/Diarrhea Tremor Observation: 2= Slight Tremor Visible Yawning Observation: 2= >3x During Session Anxiety or Irritability: 2=Irritable/Anxious Goose Flesh Skin: 0=Smooth Skin COWS Score: 18 CIWA Score Nausea/Vomitin Muscle Tremors: 2 Anxiety: 2 Agitation: 2 Paroxysmal Sweats: 1-Minimal Palms Moist Orientation: 0-Oriented Tacttile Disturbances: 1-Very Mild Itch/Numbness Auditory Disturbances: 0-None Visual Disturbances: 1-Very Mild Sensitivity Headache: 2-Mild CIWA-Ar Total Score: 13 - Admission Criteria [facility] Guidelines: Admission for Medically Managed Detox: Requires at least one of the followin. CIWA greater than 12 2. Seizures within the past 24 hours 3. Delirium tremens within the past 24 hours 4. Hallucinations within the past 24 hours 5. Acute intervention needed for co occurring medical disorder 6. Acute intervention needed for co occurring psychiatric disorder 7. Severe withdrawal that cannot be handled at a lower level of care (continued vomiting, continued diarrhea, abnormal vital signs) requiring intravenous medication and/or fluids 8. Patient presents the following: CIWA greater than 12 Admission Criteria Met: Admission criteria met Admission ROS [facility] Chief Complaint: i need help to stop using heroin,alcohol and cocaine Allergies/Adverse Reactions: Allergies Allergy/AdvReac Type Severity Reaction Status Date / Time shellfish derived Allergy Severe Difficulty Verified 02/28/18 08:21 Breathing No Known Drug Allergies Allergy Verified 02/28/18 08:21 History of Present Illness: this 48 years old male with heroin ,cocaine and alcohol dependence,seeking detox ,withdrawal symptom, extensive history od alcohol and drigs dependence,multiple admissions in detox keep relapsing,last detox 02/04/18 to 02/08/18 history of syncope fell this morning at the bus stop [place] injury to left knee with abrasion ,able wo walk,did not want to go to er for evaluation no head injury nicotine dependence weight loss longest period of sobriety 2 years bipolar disorder,depression,insomnia,no medication for 1 year Exam Limitations: No Limitations - Ebola screening Have you traveled outside of the country in the last 21 days: No Have you had contact with anyone from an Ebola affected area: No Have you been sick,other than usual withdrawal symptoms: No Do you have a fever: No - Review of Systems Constitutional: Chills, Loss of Appetite, Malaise, Night Sweats, Changes in sleep, Weakness EENT: reports: Tearing, Nose Congestion Respiratory: reports: No Symptoms reported Cardiac: reports: No Symptoms Reported GI: reports: Diarrhea, Nausea, Vomiting, Abdominal cramping : reports: No Symptoms Reported Musculoskeletal: reports: Joint Pain, Muscle Pain, Joint Stiffness (abrasion abdoul left knee no deformity able to walk with pain) Neuro: reports: Headache, Tremors Endocrine: reports: No Symptoms Reported Hematology: reports: No Symptoms Reported, See HPI, Anemia Psychiatric: reports: No Sypmtoms Reported, Judgement Intact, Mood/Affect Appropiate, Orientated x3, Anxious, Depressed, other (bipolar disorder) Patient History - Patient Medical History Hx Anemia: No Hx Asthma: Yes (on albuterol inhaler) Hx Chronic Obstructive Pulmonary Disease (COPD): No Hx Cancer: No Hx Cardiac Disorders: No Hx Congestive Heart Failure: No Hx Hypertension: No Hx Hypercholesterolemia: No Hx Pacemaker: No HX Cerebrovascular Accident: No Hx Seizures: No Hx Dementia: No Hx Diabetes: No Hx Gastrointestinal Disorders: No Hx Liver Disease: No Hx Genitourinary Disorders: No Hx Sexually Transmitted Disorders: No Hx Renal Disease (ESRD): No Hx Thyroid Disease: No Hx Human Immunodeficiency Virus (HIV): No (NEGATIVE HX LAST 1995) Hx Hepatitis C: No Hx Depression: Yes Hx Suicide Attempt: Yes (overose ar age of 30) Hx Bipolar Disorder: Yes ('I just stopped going for treatment') Hx Schizophrenia: No Other Medical History: no suicidal,no homicidal - Patient Surgical History Past Surgical History: Yes Hx Neurologic Surgery: No Hx Cataract Extraction: No Hx Cardiac Surgery: No Hx Lung Surgery: No Hx Breast Surgery: No Hx Breast Biopsy: No Hx Abdominal Surgery: No Hx Appendectomy: No Hx Cholecystectomy: No Hx Genitourinary Surgery: No Hx Section: No Hx Orthopedic Surgery: Yes (R knee in 2005 arthroosocpy ) Other Surgical History: right foot surgery for calcium build-up plantar 1999 Anesthesia Reaction: No - PPD History Previous Implant?: Yes Implanted On Prior [facility] Admission?: Yes Date: 02/25/17 Results: 0 mm PPD to be Administered?: Yes - Smoking Cessation Smoking history: Current every day smoker Have you smoked in the past 12 months: Yes Aproximately how many cigarettes per day: 20 Cigars Per Day: 0 Hx Chewing Tobacco Use: No Initiated information on smoking cessation: Yes 'Breaking Loose' booklet given: 02/28/18 - Substance & Tx. History Hx Alcohol Use: Yes Hx Substance Use: Yes Substance Use Type: Alcohol, Cocaine, Heroin Hx Substance [facility] - Substances Abused Heroin Route: Inhalation Frequency: Daily Amount used: 10-15 BAGS Age of first use: 19 Date of Last Use: 02/27/18 Alcohol Route: Oral Frequency: Daily Amount used: 1.5-2 PINTS OF VODKA Age of first use: 19 Date of Last Use: 02/27/18 Crack Route: Smoking Frequency: 3-6 times per week Amount used: $100 Age of first use: 22 Date of Last Use: 02/27/18 Family Disease History - Family Disease History Family Disease History: Other: Father (living, DRUG & ALCOHOL), Mother (living, healthy), Brother (two - living - healthy), Son (one - living - age 15), Daughter (two - living - ages 30, 25) Admission Physical Exam S - Vital Signs Vital Signs: Vital Signs - 24 hr 02/28/18 08:18 Temperature 97.3 F L Pulse Rate 98 H Respiratory 18 Rate Blood Pressure 139/89 - Physical General Appearance: Yes: Moderate Distress, Tremorous, Irritable, Sweating, Anxious HEENTM: Yes: MARVIN, Pharynx Normal Respiratory: Yes: Lungs Clear, Normal Breath Sounds, No Respiratory Distress Neck: Yes: Within Normal Limits, Supple, Trachea in good position Breast: Yes: Within Normal Limits Cardiology: Yes: Within Normal Limits, Regular Rhythm, Regular Rate, S1, S2 Abdominal: Yes: Within Normal Limits, Normal Bowel Sounds, Non Tender, Soft Genitourinary: Yes: Within Normal Limits Back: Yes: Muscle Spasm Musculoskeletal: Yes: Back pain, Joint Stiffness, Muscle Pain Extremities: Yes: Tremors, Other (abrasion of left knee,no bleeding,no dermoty, able to ambulate) Neurological: 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: 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 NML intact, Fully Oriented, Alert, Motor Strength 5/5 Integumentary: Yes: Dry Lymphatic: Yes: Within Normal Limits - Diagnostic (1) Dehydration Current Visit: No Status: Acute (2) Opioid dependence with withdrawal Current Visit: No Status: Acute (3) Alcohol dependence with uncomplicated withdrawal Current Visit: No Status: Chronic (4) Asthma Current Visit: No Status: Chronic Qualifiers: Asthma severity: mild Asthma persistence: intermittent Asthma complication type: unspecified Qualified Code(s): J45.20 - Mild intermittent asthma, uncomplicated Comment: ventolin (5) Bipolar disorder Current Visit: No Status: Chronic (6) Cocaine dependence Current Visit: No Status: Chronic (7) Nicotine dependence Current Visit: No Status: Chronic Qualifiers: Nicotine product type: cigarettes Substance use status: in withdrawal Qualified Code(s): F17.213 - Nicotine dependence, cigarettes, with withdrawal Cleared for Admission [facility] - Detox or Rehab [facility] Level of Care: Medically Managed Detox Regimen/Protocol: Methadone/Librium S Breath Alcohol Content Breath Alcohol Content: 0 Urine Drug Screen - Results Drug Screen Negative: No Urine Drug Screen Results: GEOVANNA-Cocaine, OPI-Opiates, BZO-Benzodiazepines, FEN- Fentanyl
[2018-02-28] MEDS ORDERED: NICOTINE POLACRILEX 2 MG GUM BUC PRN (09:03)
[2018-02-28] MEDS ORDERED: MAGNESIUM HYDROX 2400MG/30ML ORAL SUSPENSION 30 ML CUP PO PRN (09:03)
[2018-02-28] MEDS ORDERED: LOPERAMIDE HCL 2 MG CAPSULE PO PRN (09:03)
[2018-02-28] MEDS ORDERED: chlordiazePOXIDE HCL 25 MG CAPSULE PO PRN (09:03)
[2018-02-28] MEDS ORDERED: ACETAMINOPHEN 325 MG TABLET (FP) PO PRN (09:03)
[2018-02-28] MEDS ORDERED: IBUPROFEN 400 MG TABLET (FP) PO PRN (09:03)
[2018-02-28] MEDS ORDERED: MAGNESIUM CITRATE 300 ML BOTTLE PO PRN (09:03)
[2018-02-28] MEDS ORDERED: MAG HYDROX/AL HYDROX/SIMETH 30 ML UNIT-DOSE CUP PO PRN (09:03)
[2018-02-28] MEDS: chlordiazePOXIDE HCL 25 MG CAPSULE PO SCH ×3 (11:57→22:13)
[2018-02-28] MEDS: cloNIDine HCL 0.1 MG TABLET PO SCH ×2 (11:57→22:13)
[2018-02-28] MEDS: BACITRACIN 0.9 GM PACKET TP SCH ×2 (11:57→22:13)
[2018-02-28] MEDS: NICOTINE 21 MG/24 HOURS TOPICAL PATCH TD SCH (11:58)
[2018-02-28] MEDS: PRENATAL VITAMINS W/ FOLIC ACID TABLET (FP) PO SCH (11:59)
[2018-02-28] MEDS ORDERED: ALBUTEROL SO4 8 GM HFA INHALER IH PRN (12:06)
[2018-02-28] MEDS ORDERED: METHADONE HCL 10 MG TABLET (FOR DETOX USE ONLY) PO ONE ×2 (12:30→23:00)
[2018-02-28 16:34] LABS: URINE APPEARANCE CLOUDY; URINE BILIRUBIN NEGATIVE (<2.0 mg/dL); URINE COLOR YELLOW; URINE GLUCOSE (UA) NEGATIVE (NEGATIVE); URINE KETONE TRACE (NEGATIVE); URINE LEUK ESTERASE NEGATIVE (NEGATIVE); URINE NITRITE NEGATIVE (NEGATIVE); URINE PROTEIN NEGATIVE (NEGATIVE); URINE UROBILINOGEN NEGATIVE mg/dL (0.2-1.0)
[2018-02-28] MEDS ORDERED: MELATONIN 5 MG TABLETS PO PRN (22:00)
[2018-02-28] MEDS: THIAMINE HCL 100 MG TABLET (FP) PO SCH (22:13)
[2018-03-01] MEDS: chlordiazePOXIDE HCL 25 MG CAPSULE PO SCH ×4 (06:09→22:08)
--- NOTE | 2018-03-01 09:36 | CONSULT ---
[facility] Psychiatric Consult - Data Date of interview: 03/01/18 Admission source: [facility] Identifying data: Patient is a 48 year old single male, father of three, domiciled but currently unemployed. This is one of multiple admissions for patient. Patient admitted to for opiate dependence. Substance Abuse History: Smoking Cessation. Smoking history: Current every day smoker. Have you smoked in the past 12 months: Yes. Aproximately how many cigarettes per day: 20. Cigars Per Day: 0. Hx Chewing Tobacco Use: No. Initiated information on smoking cessation: Yes. 'Breaking Loose' booklet given : 02/28/18. - Substance & Tx. History. Hx Alcohol Use: Yes. Hx Substance Use : Yes. Substance Use Type: Alcohol, Cocaine, Heroin. Hx Substance Use Treatment: Yes ([facility] 02/04/18 to 02/08/18). - Substances Abused. Heroin. Route: Inhalation. Frequency: Daily. Amount used: 10-15 BAGS. Age of first use: 19. Date of Last Use: 02/27/18. Alcohol. Route: Oral. Frequency: Daily. Amount used: 1.5-2 PINTS OF VODKA. Age of first use: 19. Date of Last Use: 02/27/18. Crack. Route: Smoking. Frequency: 3-6 times per week. Amount used: $100. Age of first use: 22. Date of Last Use: 02/27/18 Medical History: Asthma, R knee in 2005 arthroscopy Psychiatric History: Patient reports h/o multiple psychiatric hospitalizations at [facility] and at a hospital located in [place]. Mr. Madison reports past history of outpatient psychiatric care at [facility] several years ago. States he used to be prescribed seroquel 100mg HS. He denies current outpatient psychiatric care and most recently accepted seroquel 100mg while in detox last month. Patient denies h/o suicide attempt. At present, he reports difficulty sleeping. Physical/Sexual Abuse/Trauma History: denies. Mental Status Exam - Mental Status Exam Alert and Oriented to: Time, Place, Person Cognitive Function: Good Patient Appearance: Well Groomed Mood: Withdrawn, Euthymic Affect: Mood Congruent Patient Behavior: Fatigued Speech Pattern: Clear Voice Loudness: Moderately Soft/Quiet Thought Process: Intact, Goal Oriented Thought Disorder: Not Present Hallucinations: Denies Suicidal Ideation: Denies Homicidal Ideation: Denies Insight/Judgement: Poor Sleep: Poorly Appetite: Fair Muscle strength/Tone: Normal Gait/Station: Normal Psychiatric Findings - Problem List ([place] 1, 2,3) (1) Opioid dependence with withdrawal Current Visit: Yes Status: Acute (2) Substance-induced sleep disorder Current Visit: Yes Status: Acute (3) Alcohol dependence with uncomplicated withdrawal Current Visit: Yes Status: Chronic (4) Cocaine dependence Current Visit: No Status: Chronic (5) Non-compliance Current Visit: No Status: Chronic - Initial Treatment Plan Initial Treatment Plan: Psychoeducation provided. Detoxification in progress. Will order Seroquel 50mg qhs. Benefits and side effects discussed. Verbal consent given.
[2018-03-01] MEDS ORDERED: METHADONE HCL 10 MG TABLET (FOR DETOX USE ONLY) PO ONE (10:00)
[2018-03-01] MEDS: PRENATAL VITAMINS W/ FOLIC ACID TABLET (FP) PO SCH (10:04)
[2018-03-01] MEDS: cloNIDine HCL 0.1 MG TABLET PO SCH ×2 (10:04→21:54)
[2018-03-01] MEDS: BACITRACIN 0.9 GM PACKET TP SCH ×2 (10:04→21:54)
[2018-03-01] MEDS: NICOTINE 21 MG/24 HOURS TOPICAL PATCH TD SCH (10:06)
[2018-03-01 10:20] LABS: HEMATOCRIT 43.1 % (35.4-49); HEMOGLOBIN 13.7 GM/dL (11.7-16.9); MCH 29.2 pg (25.7-33.7); MCHC 31.8 g/dl (32.0-35.9); MEAN CELL VOLUME 91.8 fl (80-96); MEAN PLT VOLUME 11.6 fl (7.5-11.1); PLATELET COUNT 174 K/MM3 (134-434); RDW 15.2 % (11.9-15.9)
[2018-03-01 10:47] LABS: ALBUMIN 3.9 g/dl (3.4-5.0); ALK PHOS 78 U/L (45-117); ANION GAP 8 MMOL/L (8-16); BILIRUBIN,TOTAL 0.9 mg/dL (0.2-1); BLOOD UREA NITROGEN 23 mg/dL (7-18); CALCIUM 8.8 mg/dL (8.5-10.1); CHLORIDE 107 mmol/L (98-107); CO2 26 mmol/L (21-32); GLUCOSE,RANDOM 108 mg/dL (74-106); SGOT/AST 18 U/L (15-37); SGPT/ALT 17 U/L (13-61); SODIUM 141 mmol/L (136-145); TOT PROT 7.1 g/dl (6.4-8.2)
--- NOTE | 2018-03-01 12:21 | PN ---
[facility] CIWA - CIWA Score Nausea/Vomitin-Mild Nausea/No Vomiting Muscle Tremors: 1-None Visible, but Spur Anxiety: 1-Mildly Anxious Agitation: 1-Slight > Activity Paroxysmal Sweats: 1-Minimal Palms Moist Orientation: 0-Oriented Tacttile Disturbances: 0-None Auditory Disturbances: 0-None Visual Disturbances: 0-None Headache: 0-None Present CIWA-Ar Total Score: 5 S COWS - Scale Resting Pulse: 0= [place] 80 or Below Sweatin= No chills or Flushing Restless Observation: 1= Difficult to Sit Still Pupil Size: 0= Normal to Room Light Bone or Joint Aches: 1= Mild Discomfort Runny Nose/ Eye Tearin= Nasal Congestion GI Upset > 30mins: 0= None Tremor Observation of Outstretched Hands: 1= Tremor Spur, Not Seen Yawning Observation: 0= None Anxiety or Irritability: 1=Feels Anxious/Irritable Goose Flesh Skin: 0=Smooth Skin COWS Score: 5 [facility] Progress Note (SOAP) Objective: 03/01/18 12:18 pt states he has pain of L knee when he fell prior to admission, says doing well since admission yesterday O: L knee with abrasion, no evidence for infection Vital Signs - 24 hr 02/28/18 02/28/18 02/28/18 13:08 18:00 21:10 Temperature 98.8 F 98.4 F 98 F Pulse Rate 91 H 84 97 H Respiratory 18 18 18 Rate Blood Pressure 125/72 117/69 135/78 03/01/18 03/01/18 03/01/18 00:30 03:30 06:30 Temperature 97.5 F L Pulse Rate 90 Respiratory 20 18 18 Rate Blood Pressure 128/74 03/01/18 09:28 Temperature 98.7 F Pulse Rate 93 H Respiratory 20 Rate Blood Pressure 132/81 Laboratory Tests 02/28/18 03/01/18 03/01/18 14:46 05:45 05:45 WBC 13.0 H RBC 4.70 Hgb 13.7 Hct 43.1 MCV 91.8 MCH 29.2 MCHC 31.8 L RDW 15.2 Plt Count 174 D MPV 11.6 H Sodium 141 Potassium 4.0 Chloride 107 Carbon Dioxide 26 Anion Gap 8 BUN 23 H Creatinine 1.0 Creat Clearance w eGFR > 60 Random Glucose 108 H Calcium 8.8 Total Bilirubin 0.9 AST 18 ALT 17 Alkaline Phosphatase 78 Total Protein 7.1 Albumin 3.9 Urine Color Yellow Urine Appearance Cloudy Urine pH 5.0 D Ur Specific [place] 1.023 Urine Protein Negative Urine Glucose (UA) Negative Urine Ketones Trace H Urine Blood Negative Urine Nitrite Negative Urine Bilirubin Negative Urine Urobilinogen Negative Ur Leukocyte Esterase Negative a/p: alcohol and heroin detox: doing well with the protocols- continue knee abrasion- pt to keep area clean and dry and to inform staff if with increased pain, swelling...
[2018-03-01] MEDS: THIAMINE HCL 100 MG TABLET (FP) PO SCH (21:54)
[2018-03-01] MEDS ORDERED: QUEtiapine FUMARATE 50 MG TABLET PO SCH (22:00)
[2018-03-02] MEDS: chlordiazePOXIDE HCL 25 MG CAPSULE PO SCH (06:23)
[2018-03-02] MEDS ORDERED: METHADONE HCL 5 MG TABLET (FOR DETOX USE ONLY) PO ONE (10:00)
[2018-03-02] MEDS: BACITRACIN 0.9 GM PACKET TP SCH ×2 (10:04→22:03)
[2018-03-02] MEDS: cloNIDine HCL 0.1 MG TABLET PO SCH ×2 (10:04→22:04)
[2018-03-02] MEDS: PRENATAL VITAMINS W/ FOLIC ACID TABLET (FP) PO SCH (10:04)
[2018-03-02] MEDS: NICOTINE 21 MG/24 HOURS TOPICAL PATCH TD SCH (10:07)
[2018-03-02] MEDS: chlordiazePOXIDE 5 MG CAPSULE PO SCH ×3 (10:08→22:04)
--- NOTE | 2018-03-02 10:39 | PN ---
S Progress Note Note: Psychiatric nurse practitioner note: Patient reports poor sleep despite accepting seroquel 50mg. Will increase seroquel to 100mg. Benefits and side effects discussed. Verbal consent given.
--- NOTE | 2018-03-02 13:19 | PN ---
S CIWA - CIWA Score Nausea/Vomitin-No Nausea/No Vomiting Muscle Tremors: None Anxiety: 0-No Anxiety, at Ease Agitation: 0-Normal Activity Paroxysmal Sweats: No Perspiration Orientation: 2-Disoriented Date<2 days Tacttile Disturbances: 3-Moderate Itch/Numb/Burn Auditory Disturbances: 1-Very Mild Visual Disturbances: 2-Mild Sensitivity Headache: 3-Moderate CIWA-Ar Total Score: 11 [facility] COWS - Scale Resting Pulse: 1= [place] 81-100 Sweatin= Chills/Flushing Restless Observation: 1= Difficult to Sit Still Pupil Size: 0= Normal to Room Light Bone or Joint Aches: 2= Severe Diffuse Aches Runny Nose/ Eye Tearin= None GI Upset > 30mins: 1= Stomach Cramp Tremor Observation of Outstretched Hands: 0= None Yawning Observation: 1= 1-2x During Session Anxiety or Irritability: 2=Irritable/Anxious Goose Flesh Skin: 3=[place] COWS Score: 12 S Progress Note (SOAP) Subjective: Body Aches, H/A, Stomach Cramping, Fatigue. Objective: PATIENT A & O X 2 (UNCERTAIN ABOUT CURRENT DAY / DATE). PATIENT OBSERVED AMBULATING ON UNIT. IN NO ACUTE DISTRESS. 03/02/18 13:17 Vital Signs Temperature 98.1 F 03/02/18 09:51 Pulse Rate 90 03/02/18 09:51 Respiratory Rate 16 03/02/18 09:51 Blood Pressure 121/78 03/02/18 09:51 O2 Sat by Pulse Oximetry (%) Laboratory Tests 02/28/18 03/01/18 03/01/18 14:46 05:45 05:45 WBC 13.0 H RBC 4.70 Hgb 13.7 Hct 43.1 MCV 91.8 MCH 29.2 MCHC 31.8 L RDW 15.2 Plt Count 174 D MPV 11.6 H Sodium 141 Potassium 4.0 Chloride 107 Carbon Dioxide 26 Anion Gap 8 BUN 23 H Creatinine 1.0 Creat Clearance w eGFR > 60 Random Glucose 108 H Calcium 8.8 Total Bilirubin 0.9 AST 18 ALT 17 Alkaline Phosphatase 78 Total Protein 7.1 Albumin 3.9 Urine Color Yellow Urine Appearance Cloudy Urine pH 5.0 D Ur Specific [place] 1.023 Urine Protein Negative Urine Glucose (UA) Negative Urine Ketones Trace H Urine Blood Negative Urine Nitrite Negative Urine Bilirubin Negative Urine Urobilinogen Negative Ur Leukocyte Esterase Negative RPR Titer 03/01/18 05:45 WBC RBC Hgb Hct MCV MCH MCHC RDW Plt Count MPV Sodium Potassium Chloride Carbon Dioxide Anion Gap BUN Creatinine Creat Clearance w eGFR Random Glucose Calcium Total Bilirubin AST ALT Alkaline Phosphatase Total Protein Albumin Urine Color Urine Appearance Urine pH Ur Specific [place] Urine Protein Urine Glucose (UA) Urine Ketones Urine Blood Urine Nitrite Urine Bilirubin Urine Urobilinogen Ur Leukocyte Esterase RPR Titer Nonreactive LABS NOTED. Assessment: 03/02/18 13:17 WITHDRAWAL SYMPTOMS. LEUKOCYTOSIS. 03/02/18 13:19 Plan: CONTINUE DETOX. INCREASE DAILY PO FLUID INTAKE. REPEAT CBC TOMORROW AM FOR ELEVATED ADMISSION WBC LEVEL.
[2018-03-02] MEDS: guaiFENesin/D-METHORPHAN HB 10 ML UNIT-DOSE CUPS PO PRN (20:05)
[2018-03-02] MEDS: THIAMINE HCL 100 MG TABLET (FP) PO SCH (22:03)
[2018-03-02] MEDS: QUEtiapine FUMARATE 100 MG TABLET (FP) PO SCH (22:04)
[2018-03-03] MEDS: chlordiazePOXIDE 5 MG CAPSULE PO SCH (06:34)
[2018-03-03] MEDS ORDERED: METHADONE HCL 5 MG TABLET (FOR DETOX USE ONLY) PO ONE (10:00)
[2018-03-03] MEDS: PRENATAL VITAMINS W/ FOLIC ACID TABLET (FP) PO SCH (10:37)
[2018-03-03] MEDS: cloNIDine HCL 0.1 MG TABLET PO SCH ×2 (10:37→22:00)
[2018-03-03] MEDS: BACITRACIN 0.9 GM PACKET TP SCH ×2 (10:37→22:00)
[2018-03-03] MEDS: NICOTINE 21 MG/24 HOURS TOPICAL PATCH TD SCH (10:38)
[2018-03-03] MEDS: chlordiazePOXIDE HCL 10 MG CAPSULE PO SCH ×3 (10:39→22:00)
[2018-03-03] MEDS: guaiFENesin/D-METHORPHAN HB 10 ML UNIT-DOSE CUPS PO PRN ×3 (10:42→22:04)
[2018-03-03 10:47] LABS: BASO % 0.7 % (0-2.0); EOS % 5.5 % (0-4.5); HEMATOCRIT 43.6 % (35.4-49); HEMOGLOBIN 13.6 GM/dL (11.7-16.9); LYMPH % 32.1 % (8-40); MCH 28.9 pg (25.7-33.7); MCHC 31.2 g/dl (32.0-35.9); MEAN CELL VOLUME 92.7 fl (80-96); MEAN PLT VOLUME 10.4 fl (7.5-11.1); MONO % 7.6 % (3.8-10.2); NEUT % 54.1 % (42.8-82.8); PLATELET COUNT 170 K/MM3 (134-434); RDW 15.1 % (11.9-15.9); WHITE BLOOD COUNT 5.9 K/mm3 (4.0-10.0)
--- NOTE | 2018-03-03 10:48 | PN ---
[facility] Progress Note (SOAP) Subjective: Sweating, headache Objective: 03/03/18 10:43 Last Vital Signs Temp Pulse Resp BP Pulse Ox 97.2 F L 90 18 128/71 03/03/18 10:02 03/03/18 10:02 03/03/18 10:02 03/03/18 10:02 Laboratory Tests 02/28/18 03/01/18 03/01/18 14:46 05:45 05:45 WBC 13.0 H RBC 4.70 Hgb 13.7 Hct 43.1 MCV 91.8 MCH 29.2 MCHC 31.8 L RDW 15.2 Plt Count 174 D MPV 11.6 H Sodium 141 Potassium 4.0 Chloride 107 Carbon Dioxide 26 Anion Gap 8 BUN 23 H Creatinine 1.0 Creat Clearance w eGFR > 60 Random Glucose 108 H Calcium 8.8 Total Bilirubin 0.9 AST 18 ALT 17 Alkaline Phosphatase 78 Total Protein 7.1 Albumin 3.9 Urine Color Yellow Urine Appearance Cloudy Urine pH 5.0 D Ur Specific [place] 1.023 Urine Protein Negative Urine Glucose (UA) Negative Urine Ketones Trace H Urine Blood Negative Urine Nitrite Negative Urine Bilirubin Negative Urine Urobilinogen Negative Ur Leukocyte Esterase Negative RPR Titer 03/01/18 05:45 WBC RBC Hgb Hct MCV MCH MCHC RDW Plt Count MPV Sodium Potassium Chloride Carbon Dioxide Anion Gap BUN Creatinine Creat Clearance w eGFR Random Glucose Calcium Total Bilirubin AST ALT Alkaline Phosphatase Total Protein Albumin Urine Color Urine Appearance Urine pH Ur Specific [place] Urine Protein Urine Glucose (UA) Urine Ketones Urine Blood Urine Nitrite Urine Bilirubin Urine Urobilinogen Ur Leukocyte Esterase RPR Titer Nonreactive Labs reviewed: wbc 13.0, bun 23 Assessment: 03/03/18 10:48 Withdrawal symptoms Noted with leukocytosis and azotemia Plan: Continue detox Leukocytosis: asymptomatic, repeat CBC (already ordered, result pending), follow up on result Azotemia: encouraged PO water intake
[2018-03-03] MEDS: P-EPHED 60MG/TRIPROLIDI 2.5MG TABLET PO PRN (17:17)
[2018-03-03] MEDS: MENTHOL/PHENOL 1 EACH UD MM PRN ×2 (17:17→22:02)
[2018-03-03] MEDS: THIAMINE HCL 100 MG TABLET (FP) PO SCH (22:00)
[2018-03-03] MEDS: QUEtiapine FUMARATE 100 MG TABLET (FP) PO SCH (22:00)
[2018-03-04] MEDS: chlordiazePOXIDE HCL 10 MG CAPSULE PO SCH (06:22)
[2018-03-04] MEDS ORDERED: METHADONE HCL 10 MG TABLET (FOR DETOX USE ONLY) PO ONE (10:00)
[2018-03-04] MEDS: PRENATAL VITAMINS W/ FOLIC ACID TABLET (FP) PO SCH (10:27)
[2018-03-04] MEDS: BACITRACIN 0.9 GM PACKET TP SCH ×2 (10:27→22:15)
[2018-03-04] MEDS: cloNIDine HCL 0.1 MG TABLET PO SCH ×2 (10:27→22:15)
[2018-03-04] MEDS: NICOTINE 21 MG/24 HOURS TOPICAL PATCH TD SCH (10:27)
[2018-03-04] MEDS: guaiFENesin/D-METHORPHAN HB 10 ML UNIT-DOSE CUPS PO PRN (10:29)
--- NOTE | 2018-03-04 15:48 | PN ---
[facility] Progress Note (SOAP) Subjective: feeling better less tremor mild body aches little sweating Objective: 03/04/18 15:47 Vital Signs Temperature 98.3 F 03/04/18 14:00 Pulse Rate 82 03/04/18 14:00 Respiratory Rate 16 03/04/18 14:00 Blood Pressure 100/60 03/04/18 14:00 O2 Sat by Pulse Oximetry (%) Laboratory Last Values WBC 5.9 K/mm3 (4.0-10.0) 03/03/18 07:50 RBC 4.70 M/mm3 (4.00-5.60) 03/03/18 07:50 Hgb 13.6 GM/dL (11.7-16.9) 03/03/18 07:50 Hct 43.6 % (35.4-49) 03/03/18 07:50 MCV 92.7 fl (80-96) 03/03/18 07:50 MCH 28.9 pg (25.7-33.7) 03/03/18 07:50 MCHC 31.2 g/dl (32.0-35.9) L 03/03/18 07:50 RDW 15.1 % (11.9-15.9) 03/03/18 07:50 Plt Count 170 K/MM3 (134-434) 03/03/18 07:50 MPV 10.4 fl (7.5-11.1) D 03/03/18 07:50 Absolute Neuts (auto) 3.2 K/mm3 (1.5-8.0) 03/03/18 07:50 Neutrophils % 54.1 % (42.8-82.8) 03/03/18 07:50 Lymphocytes % 32.1 % (8-40) 03/03/18 07:50 Monocytes % 7.6 % (3.8-10.2) 03/03/18 07:50 Eosinophils % 5.5 % (0-4.5) H 03/03/18 07:50 Basophils % 0.7 % (0-2.0) 03/03/18 07:50 Nucleated RBC % 0 % (0-0) 03/03/18 07:50 Sodium 141 mmol/L (136-145) 03/01/18 05:45 Potassium 4.0 mmol/L (3.5-5.1) 03/01/18 05:45 Chloride 107 mmol/L (98-107) 03/01/18 05:45 Carbon Dioxide 26 mmol/L (21-32) 03/01/18 05:45 Anion Gap 8 MMOL/L (8-16) 03/01/18 05:45 BUN 23 mg/dL (7-18) H 03/01/18 05:45 Creatinine 1.0 mg/dL (0.55-1.3) 03/01/18 05:45 Creat Clearance w eGFR > 60 (>60) 03/01/18 05:45 Random Glucose 108 mg/dL (74-106) H 03/01/18 05:45 Calcium 8.8 mg/dL (8.5-10.1) 03/01/18 05:45 Total Bilirubin 0.9 mg/dL (0.2-1) 03/01/18 05:45 AST 18 U/L (15-37) 03/01/18 05:45 ALT 17 U/L (13-61) 03/01/18 05:45 Alkaline Phosphatase 78 U/L (45-117) 03/01/18 05:45 Total Protein 7.1 g/dl (6.4-8.2) 03/01/18 05:45 Albumin 3.9 g/dl (3.4-5.0) 03/01/18 05:45 Urine Color Yellow 02/28/18 14:46 Urine Appearance Cloudy 02/28/18 14:46 Urine pH 5.0 (5.0-8.0) D 02/28/18 14:46 Ur Specific [place] 1.023 (1.010-1.035) 02/28/18 14:46 Urine Protein Negative (NEGATIVE) 02/28/18 14:46 Urine Glucose (UA) Negative (NEGATIVE) 02/28/18 14:46 Urine Ketones Trace (NEGATIVE) H 02/28/18 14:46 Urine Blood Negative (NEGATIVE) 02/28/18 14:46 Urine Nitrite Negative (NEGATIVE) 02/28/18 14:46 Urine Bilirubin Negative (<2.0 mg/dL) 02/28/18 14:46 Urine Urobilinogen Negative mg/dL (0.2-1.0) 02/28/18 14:46 Ur Leukocyte Esterase Negative (NEGATIVE) 02/28/18 14:46 RPR Titer Nonreactive (NONREACTIVE) 03/01/18 05:45 lab noted Assessment: 03/04/18 15:48 mild withdrawal sx Plan: continue detox
[2018-03-04] MEDS: QUEtiapine FUMARATE 100 MG TABLET (FP) PO SCH (22:15)
[2018-03-04] MEDS: THIAMINE HCL 100 MG TABLET (FP) PO SCH (22:15)
[2018-03-04] MEDS: P-EPHED 60MG/TRIPROLIDI 2.5MG TABLET PO PRN (22:17)
[2018-03-04] MEDS: MENTHOL/PHENOL 1 EACH UD MM PRN (22:17)
[2018-03-05] MEDS ORDERED: METHADONE HCL 5 MG TABLET (FOR DETOX USE ONLY) PO ONE (06:00)
[2018-03-05 06:05] VITALS: BP 108/69; PULSE 73; TEMP 97
--- NOTE | 2018-03-05 17:38 | DS ---
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 THUS, PRE- DISCHARGE MEDICAL ASSESSMENT UNABLE TO BE DONE. PER PATIENT'S COUNSELOR (Crystal DEGROOT), PATIENT REFERRED TO '[facility] OUTPATIENT SUBSTANCE USE TREATMENT PROGRAM ([place], [place]) FOR AFTERCARE. Pertinent Past History: Asthma, History of Depression, History of Bipolar Disorder, Dehydration, Nicotine Dependence, Abrasion Of Left Knee. - Physical Exam Results Vital Signs: Vital Signs Temperature 97 F L 03/05/18 06:05 Pulse Rate 73 03/05/18 06:05 Respiratory Rate 18 03/05/18 06:05 Blood Pressure 108/69 03/05/18 06:05 O2 Sat by Pulse Oximetry (%) Pertinent Admission Physical Exam Findings: WITHDRAWAL SYMPTOMS. Laboratory Tests 02/28/18 03/01/18 03/01/18 14:46 05:45 05:45 WBC 13.0 H RBC 4.70 Hgb 13.7 Hct 43.1 MCV 91.8 MCH 29.2 MCHC 31.8 L RDW 15.2 Plt Count 174 D MPV 11.6 H Absolute Neuts (auto) Neutrophils % Lymphocytes % Monocytes % Eosinophils % Basophils % Nucleated RBC % Sodium 141 Potassium 4.0 Chloride 107 Carbon Dioxide 26 Anion Gap 8 BUN 23 H Creatinine 1.0 Creat Clearance w eGFR > 60 Random Glucose 108 H Calcium 8.8 Total Bilirubin 0.9 AST 18 ALT 17 Alkaline Phosphatase 78 Total Protein 7.1 Albumin 3.9 Urine Color Yellow Urine Appearance Cloudy Urine pH 5.0 D Ur Specific [place] 1.023 Urine Protein Negative Urine Glucose (UA) Negative Urine Ketones Trace H Urine Blood Negative Urine Nitrite Negative Urine Bilirubin Negative Urine Urobilinogen Negative Ur Leukocyte Esterase Negative RPR Titer 03/01/18 03/03/18 05:45 07:50 WBC 5.9 RBC 4.70 Hgb 13.6 Hct 43.6 MCV 92.7 MCH 28.9 MCHC 31.2 L RDW 15.1 Plt Count 170 MPV 10.4 D Absolute Neuts (auto) 3.2 Neutrophils % 54.1 Lymphocytes % 32.1 Monocytes % 7.6 Eosinophils % 5.5 H Basophils % 0.7 Nucleated RBC % 0 Sodium Potassium Chloride Carbon Dioxide Anion Gap BUN Creatinine Creat Clearance w eGFR Random Glucose Calcium Total Bilirubin AST ALT Alkaline Phosphatase Total Protein Albumin Urine Color Urine Appearance Urine pH Ur Specific [place] Urine Protein Urine Glucose (UA) Urine Ketones Urine Blood Urine Nitrite Urine Bilirubin Urine Urobilinogen Ur Leukocyte Esterase RPR Titer Nonreactive LABS NOTED. - Treatment Hospital Course: Detox Protocol Followed, Detoxed Safely, Responded well, Discharged Condition Good Patient has Accepted a Rehab Referral to: [facility] SUBSTNASCE USE TREATMENT PROGRAM ([place] - Medication Discharge Medications: Ambulatory Orders Albuterol Sulfate Inhaler - [Ventolin HFA Inhaler -] 2 puff IH Q4H PRN #1 inhaler 03/04/18 - Diagnosis (1) Alcohol dependence with uncomplicated withdrawal Status: Acute (2) Opioid dependence with withdrawal Status: Acute (3) Cocaine dependence, uncomplicated Status: Chronic (4) Abrasion of left knee Status: Acute Qualifiers: Encounter type: sequela Qualified Code(s): S80.212S - Abrasion, left knee, sequela (5) Dehydration Status: Acute (6) Substance-induced sleep disorder Status: Acute (7) Nicotine dependence Status: Chronic Qualifiers: Nicotine product type: cigarettes Substance use status: in withdrawal Qualified Code(s): F17.213 - Nicotine dependence, cigarettes, with withdrawal (8) Non-compliance Status: Chronic (9) Opioid dependence with withdrawal Status: Chronic - AMA Did Patient Leave Against Medical Advice: No
== END 2018-03-05 09:20 | disposition home or self-care (01) | DRG 897 ==
LOC: YASAS 08:05 → Y3N 10:28
PROC: HZ2ZZZZ Detoxification Services for Substance Abuse Treatment (ICD-10-PCS; principal; 2018-02-28)
DX: F11.23 Opioid dependence with withdrawal (principal); F14.20 Cocaine dependence, uncomplicated; F19.282 Other psychoactive substance dependence with psychoactive substance-induced sleep disorder; F10.230 Alcohol dependence with withdrawal, uncomplicated; F17.213 Nicotine dependence, cigarettes, with withdrawal; F31.9 Bipolar disorder, unspecified; I95.9 Hypotension, unspecified; E86.0 Dehydration; D72.829 Elevated white blood cell count, unspecified; J45.20 Mild intermittent asthma, uncomplicated; R79.89 Other specified abnormal findings of blood chemistry; S80.212A Abrasion, left knee, initial encounter; W10.1XXA Fall (on)(from) sidewalk curb, initial encounter; Y93.9 Activity, unspecified; Y92.480 Sidewalk as the place of occurrence of the external cause; Y99.8 Other external cause status; Z91.19 Patient's noncompliance with other medical treatment and regimen
CPT/HCPCS: 36415; 73562-TC-LT-FY; 80053; 81003; 85025; 85027; 86593; J0735

== ENCOUNTER 2018-03-19 | Emergency (ER) | payer BC, OTHER ==
--- NOTE | 2018-03-19 00:37 | PDOC ---
History of Present Illness - General Stated Complaint: WITHDRAWAL Time Seen by Provider: 03/19/18 00:36 - History of Present Illness Initial Comments: 03/19/18 00:50 Mr. Madison is a 48 yo male w/ pmh of asthma and alcohol, cocaine, and heroin abuse who presents for evaluation from detox reportedly withdrawing. Patient reports he last used heroin and alcohol during the day on the . Has since had nausea, vomiting, diarrhea, and tremors. The patient denies chest pain, shortness of breath, headache and dizziness. Denies dysuria, frequency, urgency and hematuria. Past History - Past Medical History Allergies/Adverse Reactions: Allergies Allergy/AdvReac Type Severity Reaction Status Date / Time shellfish derived Allergy Severe Difficulty Verified 03/19/18 00:51 Breathing No Known Drug Allergies Allergy Verified 03/19/18 00:51 Home Medications: Ambulatory Orders Albuterol Sulfate Inhaler - [Ventolin HFA Inhaler -] 2 puff IH Q4H PRN #1 inhaler 03/04/18 Anemia: No Asthma: Yes (on albuterol inhaler) Cancer: No Cardiac Disorders: No CVA: No COPD: No CHF: No Dementia: No Diabetes: No GI Disorders: No Disorders: No HTN: No Hypercholesterolemia: No Kidney Stones: No Liver Disease: No Seizures: No Thyroid Disease: No - Surgical History Abdominal Surgery: No Appendectomy: No Cardiac Surgery: No Cholecystectomy: No Lung Surgery: No Neurologic Surgery: No Orthopedic Surgery: Yes (R knee in 2005 arthroosocpy ) - Reproductive History Testicular Surgery: No - Suicide/Smoking/Psychosocial Hx Smoking History: Current every day smoker Have you smoked in the past 12 months: Yes Number of Cigarettes Smoked Daily: 20 Cigars Per Day: 0 'Breaking Loose' booklet given: 02/28/18 Hx Alcohol Use: Yes Drug/Substance Use Hx: Yes Substance Use Type: Alcohol, Cocaine, Heroin Hx Substance Use Treatment: Yes ([facility] 02/04/18 to 02/08/18) Review of Systems - Review of Systems Comments:: 03/19/18 00:53 GENERAL/CONSTITUTIONAL: +"Sweats" yesterday. No weakness. HEAD, EYES, EARS, NOSE AND THROAT: No change in vision. No ear pain or discharge. No sore throat. CARDIOVASCULAR: No chest pain or shortness of breath RESPIRATORY: No cough, wheezing, or hemoptysis. GASTROINTESTINAL: +N/V/D as described. GENITOURINARY: No dysuria, frequency, or change in urination. MUSCULOSKELETAL: No joint or muscle swelling or pain. No neck or back pain. SKIN: No rash NEUROLOGIC: No headache, vertigo, loss of consciousness, or change in strength/ sensation. ENDOCRINE: No increased thirst. No abnormal weight change HEMATOLOGIC/LYMPHATIC: No anemia, easy bleeding, or history of blood clots. ALLERGIC/IMMUNOLOGIC: No hives or skin allergy. *Physical Exam - Physical Exam Comments: 03/19/18 00:54 GENERAL: +Patient agitated appearing. Awake, alert, and fully oriented, in no acute distress HEAD: No signs of trauma, normocephalic, atraumatic EYES: PERRLA, EOMI, sclera anicteric, conjunctiva clear ENT: Auricles normal inspection, hearing grossly normal, nares patent, oropharynx clear without exudates. Moist mucosa NECK: Normal ROM, supple, no lymphadenopathy, JVD, or masses LUNGS: +Mild diffuse wheezes appreciated. No distress, speaks full sentences HEART: Regular rate and rhythm, normal S1 and S2, no murmurs, rubs or gallops, peripheral pulses normal and equal bilaterally. ABDOMEN: Soft, nontender, normoactive bowel sounds. No guarding, no rebound. No masses EXTREMITIES: Normal inspection, Normal range of motion, no edema. No clubbing or cyanosis. NEUROLOGICAL: Cranial nerves II through XII grossly intact. Normal speech, normal gait, no focal sensorimotor deficits SKIN: Warm, Dry, normal turgor, no rashes or lesions noted. ED Treatment Course - LABORATORY CBC & Chemistry Diagram: 03/19/18 01:05 03/19/18 01:05 Medical Decision Making - Medical Decision Making 03/19/18 01:05 Mr. Madison is a 48 yo male w/ pmh as described who presents for evaluation of withdrawal symptoms. Patient evaluated using CIWA-Ar scale with score of 8: 2 for previous N/V, 4 for anxiety, and 2 for agitation. Given duonebs x2 for minor wheezes appreciated on exam. 03/19/18 01:58 Patient evaluated with labs as below and CXR. CXR negative; labs grossly wnl. Patient hydrated with 500mL NS and given 25mg librium for prophylaxis. Patient lung exam improved following 2 rounds of duonebs and patient no longer wheezing. Discussed librium administration with patient and warned that if he chooses to drink further upon discharge with librium he risks adverse effects. Patient verbalized understanding with this and reports he will not drink further and will follow-up with detox facility in AM. Discharging to home. Laboratory Results - last 24 hr 03/19/18 03/19/18 03/19/18 01:05 01:05 01:05 WBC 6.2 RBC 4.27 Hgb 13.1 Hct 37.7 MCV 88.2 MCH 30.7 MCHC 34.8 RDW 14.7 Plt Count 205 D MPV 10.2 Absolute Neuts (auto) 3.8 Neutrophils % 60.7 Lymphocytes % 28.9 Monocytes % 9.4 Eosinophils % 0.2 D Basophils % 0.8 Nucleated RBC % 0 Sodium 137 Potassium 3.9 Chloride 103 Carbon Dioxide 25 Anion Gap 9 BUN 20 H Creatinine 1.0 Creat Clearance w eGFR > 60 Random Glucose 80 Calcium 8.3 L Total Bilirubin 0.6 AST 22 ALT 19 Alkaline Phosphatase 72 Total Protein 7.0 Albumin 3.6 Lipase 101 Salicylates < 1.7 L Acetaminophen < 2.0 L Alcohol, Quantitative < 3.0 *DC/Admit/Observation/Transfer Diagnosis at time of Disposition: Opioid dependence with withdrawal - Discharge Dispostion Disposition: HOME Condition at time of disposition: Fair - Referrals - Patient Instructions Printed Discharge Instructions: DI for Drug or Alcohol Withdrawal Additional Instructions: You were evaluated today in the ER for your withdrawal symptoms. No concerning findings were found at this time and we believe you are safe to return home. Please follow-up with primary care provider tomorrow for further evaluation. Return to ED for any fever, chills, pain, altered mental status, or other concerning symptoms. - Post Discharge Activity
[2018-03-19 00:50] VITALS: BP 116/84; PULSE 75; TEMP 98.1; BMI 30.1
[2018-03-19] MEDS ORDERED: ONDANSETRON 4 MG/2 ML VIAL IVPUSH ONE (00:50)
[2018-03-19] MEDS ORDERED: SODIUM CHLORIDE 1,000 ML IV STA (01:11)
[2018-03-19 01:14] LABS: BASO % 0.8 % (0-2.0); EOS % 0.2 % (0-4.5); HEMATOCRIT 37.7 % (35.4-49); HEMOGLOBIN 13.1 GM/dL (11.7-16.9); LYMPH % 28.9 % (8-40); MCH 30.7 pg (25.7-33.7); MCHC 34.8 g/dl (32.0-35.9); MEAN CELL VOLUME 88.2 fl (80-96); MEAN PLT VOLUME 10.2 fl (7.5-11.1); MONO % 9.4 % (3.8-10.2); NEUT % 60.7 % (42.8-82.8); PLATELET COUNT 205 K/MM3 (134-434); RBC 4.27 M/mm3 (4.00-5.60); RDW 14.7 % (11.9-15.9); WHITE BLOOD COUNT 6.2 K/mm3 (4.0-10.0)
[2018-03-19] MEDS ORDERED: ONDANSETRON 4 MG/2 ML VIAL ONE (01:15)
[2018-03-19] MEDS ORDERED: SODIUM CHLORIDE 500 ML IV STA (01:17)
[2018-03-19] MEDS ORDERED: ALBUTEROL SO4 2.5/IPRATROPIUM 0.5 INH SOL 3 ML VIAL.NEB. NEB ONE ×3 (01:17→01:24)
[2018-03-19] MEDS ORDERED: methylPREDNISolone NA SUCC 125 MG/2 ML VIAL IVPB ONE (01:19)
[2018-03-19] MEDS ORDERED: methylPREDNISolone NA SUCC 125 MG/2 ML VIAL ONE (01:25)
[2018-03-19 01:36] LABS: ALBUMIN 3.6 g/dl (3.4-5.0); ALK PHOS 72 U/L (45-117); ANION GAP 9 MMOL/L (8-16); BILIRUBIN,TOTAL 0.6 mg/dL (0.2-1); BLOOD UREA NITROGEN 20 mg/dL (7-18); CALCIUM 8.3 mg/dL (8.5-10.1); CHLORIDE 103 mmol/L (98-107); CO2 25 mmol/L (21-32); GLUCOSE,RANDOM 80 mg/dL (74-106); LIPASE 101 U/L (73-393); POTASSIUM 3.9 mmol/L (3.5-5.1); SGOT/AST 22 U/L (15-37); SGPT/ALT 19 U/L (13-61); SODIUM 137 mmol/L (136-145)
[2018-03-19] MEDS ORDERED: chlordiazePOXIDE HCL 25 MG CAPSULE PO ONE (01:57)
[2018-03-19] MEDS ORDERED: chlordiazePOXIDE HCL 25 MG CAPSULE ONE (02:11)
--- NOTE | 2018-03-19 02:43 | PDOC ---
Attending Attestation - Resident Resident Name: Ari Hadley - ED Attending Attestation I have performed the following: I have examined & evaluated the patient, The case was reviewed & discussed with the resident, I agree w/resident's findings & plan - HPI HPI: 03/19/18 02:35 48-year-old male sent from a drug rehabilitation facility because he did not meet criteria for admission, sent here for evaluation of heroin and alcohol dependence and possible withdrawal. Pt complaining primarily of nausea and diarrhea, pt states he last used heroin and alcohol yesterday morning. 03/19/18 03:03 - Physicial Exam PE: 03/19/18 02:42 Agree with residents physical exam - Medical Decision Making 03/19/18 02:43 48 yo male with history of polysubstance abuse pt given zofran ,ivf and librium in the ED duonebs x 2 as well as solumedrol 125mg ivbp on re evaluation pt feeling better, inc air movement b/l no signs of ETOH withdrawal pt agreed to refrain from substance abuse this evening and was counseled as to the risks of alcohol and heroin use regarding respiratory depression he agrees with d/c plan and will go to another detox facility in the morning on his own pt called his for a ride home 03/19/18 03:00
== END 2018-03-19 02:35 | disposition home or self-care (01) ==
LOC: JER
DX: F11.23 Opioid dependence with withdrawal (principal); F10.230 Alcohol dependence with withdrawal, uncomplicated; F14.20 Cocaine dependence, uncomplicated
CPT/HCPCS: 36415; 71045-TC-FY; 80053; 80307; 83690; 85025; 99285-25; J7030

== ENCOUNTER 2018-08-27 08:36 | Inpatient (IN) | payer OTHER ==
[2018-08-27 09:29] VITALS: BMI 25.9
--- NOTE | 2018-08-27 10:08 | HP ---
COWS - Scale Resting Pulse: 1= [place] 81-100 Sweatin=Flushed/Facial Moisture Restless Observation: 1= Difficult to Sit Still Pupil Size: 0= Normal to Room Light Bone or Joint Aches: 4=Acute Joint/Muscle Pain Runny Nose/ Eye Tearin= Runny Nose/Eyes GI Upset > 30mins: 0= None Tremor Observation: 0= None Yawning Observation: 0= None Anxiety or Irritability: 2=Irritable/Anxious Goose Flesh Skin: 0=Smooth Skin COWS Score: 12 CIWA Score Nausea/Vomitin-No Nausea/No Vomiting Muscle Tremors: 1-None Visible, but [place] Anxiety: 4-Mod. Anxious/Guarded Agitation: 4-Moderately Restless Paroxysmal Sweats: 3 Orientation: 1-Uncertain about Date Tacttile Disturbances: 2-Mild Itch/Numbness/Burn Auditory Disturbances: 2-Mild Harshness/Frighten Visual Disturbances: 2-Mild Sensitivity Headache: 2-Mild CIWA-Ar Total Score: 21 - Admission Criteria OASAS Guidelines: Admission for Medically Managed Detox: Requires at least one of the followin. CIWA greater than 12 2. Seizures within the past 24 hours 3. Delirium tremens within the past 24 hours 4. Hallucinations within the past 24 hours 5. Acute intervention needed for co occurring medical disorder 6. Acute intervention needed for co occurring psychiatric disorder 7. Severe withdrawal that cannot be handled at a lower level of care (continued vomiting, continued diarrhea, abnormal vital signs) requiring intravenous medication and/or fluids 8. Admission ROS [facility] Allergies/Adverse Reactions: Allergies Allergy/AdvReac Type Severity Reaction Status Date / Time shellfish derived Allergy Severe Difficulty Verified 08/27/18 09:18 Breathing No Known Drug Allergies Allergy Verified 08/27/18 09:18 History of Present Illness: This report was requested by: Asia Anderson | Reference #: [id number] Others' Prescriptions Patient Name: Duc Madison Date: 1970 Address: [address] [place] [address] Sex: Male Rx Written Rx Dispensed Drug Quantity Days Supply Prescriber Name 04/08/2018 04/10/2018 chlordiazepoxide 25 mg capsule 26 5 Jalil Ram MD pt here requesting detox from etoh use , reports 2 pints/ day since age 24 , reports tremors if not drinking , starts drinking in the mornings, + blackouts, + falls while intoxicated most recently 1 week ago with no reported injuries , denies seizures , latest use today 8 am . heroin use : 10 bags via inhalation since age 19 , latest use yesterday . prior detox x " a lot " , OD x 3 most recently 1 year ago , Narcan by a friend . Most recent detox at this facility . cocaine : 100 $ /day tobacco : / ppd pmhx : denies PSHX : knee r psych : bipolar d/o , depression , anxiety , denies SI / HI . Exam Limitations: Clinical Condition - Ebola screening Have you traveled outside of the country in the last 21 days: No Have you had contact with anyone from an Ebola affected area: No - Review of Systems Constitutional: Chills, Loss of Appetite EENT: reports: See HPI Respiratory: reports: Shortness of Breath (h/o asthma) Cardiac: reports: No Symptoms Reported GI: reports: See HPI : reports: No Symptoms Reported Musculoskeletal: reports: See HPI Integumentary: reports: No Symptoms Reported Neuro: reports: See HPI Endocrine: reports: No Symptoms Reported Psychiatric: reports: Orientated x3, Agitated, Anxious Patient History - Patient Medical History Hx Anemia: No Hx Asthma: Yes (on albuterol inhaler) Hx Chronic Obstructive Pulmonary Disease (COPD): No Hx Cancer: No Hx Cardiac Disorders: No Hx Congestive Heart Failure: No Hx Hypertension: No Hx Hypercholesterolemia: No Hx Pacemaker: No HX Cerebrovascular Accident: No Hx Seizures: No Hx Dementia: No Hx Diabetes: No Hx Gastrointestinal Disorders: No Hx Liver Disease: No Hx Genitourinary Disorders: No Hx Sexually Transmitted Disorders: No Hx Renal Disease (ESRD): No Hx Thyroid Disease: No Hx Human Immunodeficiency Virus (HIV): No (NEGATIVE HX LAST 1995) Hx Hepatitis C: No Hx Depression: Yes Hx Suicide Attempt: Yes (overose ar age of 30) Hx Bipolar Disorder: Yes ('I just stopped going for treatment') Hx Schizophrenia: No - Patient Surgical History Past Surgical History: Yes Hx Neurologic Surgery: No Hx Cataract Extraction: No Hx Cardiac Surgery: No Hx Lung Surgery: No Hx Breast Surgery: No Hx Breast Biopsy: No Hx Abdominal Surgery: No Hx Appendectomy: No Hx Cholecystectomy: No Hx Genitourinary Surgery: No Hx Section: No Hx Orthopedic Surgery: Yes (R knee in 2005 arthroosocpy ) Other Surgical History: right foot surgery for calcium build-up plantar 2000 Anesthesia Reaction: No - PPD History Date: 02/25/17 Results: 0 mm - Smoking Cessation Smoking history: Current every day smoker Have you smoked in the past 12 months: Yes Aproximately how many cigarettes per day: 20 Cigars Per Day: 0 Hx Chewing Tobacco Use: No Initiated information on smoking cessation: No - Substances abused Alcohol Substance route: Oral Frequency: Daily Amount used: 2 PINTS Age of first use: 23 Date of last use: 08/27/18 Heroin Substance route: Inhalation Frequency: Daily Amount used: 10 BAGS Age of first use: 24 Date of last use: 08/26/18 Cocaine Substance route: Smoking Frequency: Daily Amount used: $80 Age of first use: 22 Date of last use: 08/26/18 Family Disease History - Family Disease History Family Disease History: Other: Father (living, DRUG & ALCOHOL), Mother (living, healthy), Brother (two - living - healthy), Son (one - living - age 15), Daughter (two - living - ages 30, 25) Admission Physical Exam [facility] - Vital Signs Vital Signs: Vital Signs - 24 hr 08/27/18 08/27/18 09:09 09:53 Temperature 97.5 F L 97.5 F L Pulse Rate 85 85 Respiratory 17 17 Rate Blood Pressure 125/74 125/74 - Physical General Appearance: Yes: Disheveled, Mild Distress, Moderate Distress, Anxious HEENTM: Yes: Normocephalic, Normal Voice, Nasal Congestion, Rhinorrhea Respiratory: Yes: Lungs Clear, Normal Breath Sounds, No Respiratory Distress, No Accessory Muscle Use Neck: Yes: No masses,lesions,Nodules, Trachea in good position Cardiology: Yes: Regular Rhythm, Regular Rate, S1, S2 Abdominal: Yes: Non Tender, Soft Musculoskeletal: Yes: Gait Steady Extremities: Yes: Normal Range of Motion, Non-Tender Neurological: Yes: Alert, Motor Strength 5/5, Normal Mood/Affect Integumentary: Yes: Warm - Diagnostic (1) Alcohol dependence with uncomplicated withdrawal Current Visit: Yes Status: Acute (2) Opioid dependence with withdrawal Current Visit: Yes Status: Acute (3) Cocaine dependence Current Visit: Yes Status: Chronic Qualifiers: Substance use status: uncomplicated Qualified Code(s): F14.20 - Cocaine dependence, uncomplicated (4) Nicotine dependence Current Visit: Yes Status: Chronic Qualifiers: Nicotine product type: cigarettes Breathalyzer - Breathalyzer Breathalyzer: 0 Urine Drug Screen - Test Device Lot number: [id number] Expiration date: 06/08/20 - Control Is test valid?: Yes - Results Drug screen NEGATIVE: No Urine drug screen results: GEOVANNA-Cocaine, MET-Methamphetamine, FEN-Fentanyl, MOP- Opiates Inpatient Rehab Admission - Rehab Decision to Admit Inpatient rehab admission?: No
[2018-08-27] MEDS ORDERED: MAGNESIUM HYDROX 2400MG/30ML ORAL SUSPENSION 30 ML CUP PO PRN (10:11)
[2018-08-27] MEDS ORDERED: IBUPROFEN 400 MG TABLET (FP) PO PRN (10:11)
[2018-08-27] MEDS ORDERED: METHOCARBAMOL 500 MG TABLET PO PRN (10:11)
[2018-08-27] MEDS ORDERED: hydrOXYzine HCL 25 MG TABLET (FP) PO PRN (10:11)
[2018-08-27] MEDS ORDERED: ALBUTEROL SO4 8 GM HFA INHALER IH PRN (10:11)
[2018-08-27] MEDS ORDERED: MAG HYDROX/AL HYDROX/SIMETH 30 ML UNIT-DOSE CUP PO PRN (10:11)
[2018-08-27] MEDS ORDERED: ACETAMINOPHEN 325 MG TABLET (FP) PO PRN ×2 (10:11)
[2018-08-27] MEDS ORDERED: NICOTINE POLACRILEX 2 MG GUM BUC PRN (10:11)
[2018-08-27] MEDS ORDERED: BISMUTH SUBSALICYLATE 524 MG/30 ML UD PO PRN (10:11)
[2018-08-27] MEDS ORDERED: MENTHOL/PHENOL 1 EACH UD MM PRN (10:11)
[2018-08-27] MEDS ORDERED: MAGNESIUM CITRATE 300 ML BOTTLE PO PRN (10:11)
[2018-08-27] MEDS ORDERED: cloNIDine HCL 0.1 MG TABLET PO PRN (10:14)
[2018-08-27] MEDS ORDERED: chlordiazePOXIDE HCL 10 MG CAPSULE PO PRN (10:15)
[2018-08-27] MEDS ORDERED: METHADONE HCL 10 MG TABLET (FOR DETOX USE ONLY) PO ONE (10:45)
[2018-08-27] MEDS: chlordiazePOXIDE HCL 25 MG CAPSULE PO SCH ×2 (13:04→22:16)
[2018-08-27] MEDS ORDERED: guaiFENesin 200 MG/10 ML 10 ML UNIT-DOSE CUPS PO PRN (13:08)
[2018-08-27] MEDS: THIAMINE HCL 100 MG TABLET (FP) PO SCH (22:16)
[2018-08-27] MEDS: MELATONIN 5 MG TABLETS PO PRN (22:16)
[2018-08-28] MEDS: chlordiazePOXIDE HCL 25 MG CAPSULE PO SCH ×3 (05:27→21:14)
[2018-08-28] MEDS ORDERED: METHADONE HCL 10 MG TABLET (FOR DETOX USE ONLY) ONE (08:36)
[2018-08-28] MEDS ORDERED: METHADONE HCL 5 MG TABLET (FOR DETOX USE ONLY) ONE (08:37)
--- NOTE | 2018-08-28 09:48 | PN ---
S CIWA - CIWA Score Nausea/Vomitin-Mild Nausea/No Vomiting Muscle Tremors: 4-Moderate,w/Arms Extend Anxiety: 3 Agitation: 3 Paroxysmal Sweats: 1-Minimal Palms Moist Orientation: 1-Uncertain about Date Tacttile Disturbances: 1-Very Mild Itch/Numbness Auditory Disturbances: 0-None Visual Disturbances: 0-None Headache: 2-Mild CIWA-Ar Total Score: 16 BHS COWS - Scale Resting Pulse: 1= [place] 81-100 Sweatin= Chills/Flushing Restless Observation: 0= Sits Still Pupil Size: 0= Normal to Room Light Bone or Joint Aches: 1= Mild Discomfort Runny Nose/ Eye Tearin= Nasal Congestion GI Upset > 30mins: 2= Nausea/Diarrhea Tremor Observation of Outstretched Hands: 2= Slight Tremor Visible Yawning Observation: 1= 1-2x During Session Anxiety or Irritability: 1=Feels Anxious/Irritable Goose Flesh Skin: 0=Smooth Skin COWS Score: 10 BHS Progress Note (SOAP) Subjective: patient is dong well with librium and methadone detox regimen tired tremor body aches limited food toleration Objective: 08/28/18 10:12 Vital Signs Temperature 98.4 F 08/28/18 09:09 Pulse Rate 81 08/28/18 09:09 Respiratory Rate 18 08/28/18 09:09 Blood Pressure 123/70 08/28/18 09:09 O2 Sat by Pulse Oximetry (%) Laboratory Last Values WBC 7.1 K/mm3 (4.0-10.0) 08/28/18 07:50 RBC 4.50 M/mm3 (4.00-5.60) 08/28/18 07:50 Hgb 13.4 GM/dL (11.7-16.9) 08/28/18 07:50 Hct 40.3 % (35.4-49) 08/28/18 07:50 MCV 89.5 fl (80-96) 08/28/18 07:50 MCH 29.7 pg (25.7-33.7) 08/28/18 07:50 MCHC 33.2 g/dl (32.0-35.9) 08/28/18 07:50 RDW 14.5 % (11.9-15.9) 08/28/18 07:50 Plt Count 235 K/MM3 (134-434) 08/28/18 07:50 MPV 10.8 fl (7.5-11.1) 08/28/18 07:50 lab noted Assessment: 08/28/18 10:12 alcohol and opiate withdrawal sx Plan: continue alcohol and opiate detox
[2018-08-28] MEDS ORDERED: METHADONE (DETOX) 20 MG, METHADONE (DETOX) 5 MG PO ONE (10:00)
[2018-08-28 10:08] LABS: HEMATOCRIT 40.3 % (35.4-49); HEMOGLOBIN 13.4 GM/dL (11.7-16.9); MCH 29.7 pg (25.7-33.7); MCHC 33.2 g/dl (32.0-35.9); MEAN CELL VOLUME 89.5 fl (80-96); MEAN PLT VOLUME 10.8 fl (7.5-11.1); PLATELET COUNT 235 K/MM3 (134-434); RDW 14.5 % (11.9-15.9); WHITE BLOOD COUNT 7.1 K/mm3 (4.0-10.0)
[2018-08-28 10:13] LABS: ALBUMIN 3.2 g/dl (3.4-5.0); BILIRUBIN,TOTAL 0.5 mg/dL (0.2-1); CALCIUM 8.3 mg/dL (8.5-10.1); POTASSIUM 4.2 mmol/L (3.5-5.1); TOT PROT 6.3 g/dl (6.4-8.2)
[2018-08-28] MEDS: PRENATAL VITAMINS W/ FOLIC ACID TABLET (FP) PO SCH (10:15)
--- NOTE | 2018-08-28 14:51 | CONSULT ---
[facility] Psychiatric Consult - Data Date of interview: 08/28/18 Admission source: [facility] Identifying data: Patient is a 48 year old male, father of three, unemployed, domiciled, and financially supported by . This is one of multiple admissions for patient. Patient admitted to for alcohol, cocaine and opiate dependence. Substance Abuse History: - Smoking Cessation. Smoking history: Current every day smoker. Have you smoked in the past 12 months: Yes. Aproximately how many cigarettes per day: 20. Cigars Per Day: 0. Hx Chewing Tobacco Use: No. Initiated information on smoking cessation: No. - Substances abused. Alcohol. Substance route: Oral. Frequency: Daily. Amount used: 2 PINTS. Age of first use: 23. Date of last use: 08/27/18. Heroin. Substance route: Inhalation. Frequency: Daily. Amount used: 10 BAGS. Age of first use: 24. Date of last use: 08/26/18. Cocaine. Substance route: Smoking. Frequency: Daily. Amount used: $80. Age of first use: 22. Date of last use: 08/26/18 Medical History: Asthma, R knee in 2005 arthroscopy Psychiatric History: Patient reports h/o psychiatric hospitalizations, most recently two years ago at [facility] after experencing depressive symptoms. He is also known to facilities in [place]. Diagnosis of Bipolar disorder and anxiety disorder. Patient denies h/o suicide attempt. Patient with a past history of accepting seroquel. Mr. Madison last saw a psychiatrist [facility]. States that he was incarcerated for 4 months. As per external records he was given a two week prescription of lexapro 20mg and risperdal 3mg on 08/01/18. Mr Madison reports sub-optimal adherence. States he last took the medications two days ago. Patient should have completed the prescription as the medication was only fourteen days. At present, patient reports feeling sad and lethargic. Physical/Sexual Abuse/Trauma History: denies. Mental Status Exam - Mental Status Exam Alert and Oriented to: Time, Place, Person Cognitive Function: Good Patient Appearance: Well Groomed Mood: Withdrawn Affect: Mood Congruent Patient Behavior: Fatigued Speech Pattern: Clear Voice Loudness: Moderately Soft/Quiet Thought Process: Goal Oriented Thought Disorder: Not Present Hallucinations: Denies Suicidal Ideation: Denies Homicidal Ideation: Denies Insight/Judgement: Poor Sleep: Poorly Appetite: Fair Muscle strength/Tone: Normal Gait/Station: Normal Psychiatric Findings - Problem List ([place] 1, 2,3) (1) Alcohol dependence with uncomplicated withdrawal Current Visit: Yes Status: Acute (2) Opioid dependence with withdrawal Current Visit: Yes Status: Acute (3) Cocaine dependence Current Visit: Yes Status: Chronic Qualifiers: Substance use status: uncomplicated Qualified Code(s): F14.20 - Cocaine dependence, uncomplicated (4) Substance-induced sleep disorder Current Visit: Yes Status: Acute (5) Bipolar disorder Current Visit: Yes Status: Chronic (6) Substance induced mood disorder Current Visit: Yes Status: Acute - Initial Treatment Plan Initial Treatment Plan: Psychoeducation provided. Detoxification in progress. Will order Lexapro 10mg + Risperdal 2mg HS. Benefits and side effects discussed. Verbal consent given.
[2018-08-28] MEDS: THIAMINE HCL 100 MG TABLET (FP) PO SCH (21:14)
[2018-08-28] MEDS: MELATONIN 5 MG TABLETS PO PRN (21:15)
[2018-08-28] MEDS: risperiDONE 2 MG TABLET PO SCH (21:15)
[2018-08-28] MEDS ORDERED: QUEtiapine FUMARATE 100 MG TABLET (FP) PO SCH (22:00)
[2018-08-29] MEDS: chlordiazePOXIDE 5 MG CAPSULE PO SCH ×3 (05:55→22:04)
[2018-08-29] MEDS ORDERED: METHADONE HCL 10 MG TABLET (FOR DETOX USE ONLY) PO ONE (10:00)
[2018-08-29] MEDS: ESCITALOPRAM OXALATE 10 MG TABLET (FP) PO SCH (10:18)
[2018-08-29] MEDS: PRENATAL VITAMINS W/ FOLIC ACID TABLET (FP) PO SCH (10:18)
--- NOTE | 2018-08-29 10:44 | PN ---
S CIWA - CIWA Score Nausea/Vomitin-Mild Nausea/No Vomiting Muscle Tremors: 3 Anxiety: 2 Agitation: 2 Paroxysmal Sweats: 1-Minimal Palms Moist Orientation: 0-Oriented Tacttile Disturbances: 0-None Auditory Disturbances: 0-None Visual Disturbances: 0-None Headache: 2-Mild CIWA-Ar Total Score: 11 S COWS - Scale Resting Pulse: 0= [place] 80 or Below Sweatin= Chills/Flushing Restless Observation: 0= Sits Still Pupil Size: 0= Normal to Room Light Bone or Joint Aches: 1= Mild Discomfort Runny Nose/ Eye Tearin= Nasal Congestion GI Upset > 30mins: 1= Stomach Cramp Tremor Observation of Outstretched Hands: 2= Slight Tremor Visible Yawning Observation: 1= 1-2x During Session Anxiety or Irritability: 2=Irritable/Anxious Goose Flesh Skin: 0=Smooth Skin COWS Score: 9 S Progress Note (SOAP) Subjective: 48 years old male admitted on 08/27/18 for alcohol and opiate withdrawal history of asthma patient smokes cigarette a pack daily discuss cigarette related health risks Objective: 08/29/18 10:47 Vital Signs Temperature 97.6 F 08/29/18 09:14 Pulse Rate 70 08/29/18 09:14 Respiratory Rate 18 08/29/18 09:14 Blood Pressure 127/83 08/29/18 09:14 O2 Sat by Pulse Oximetry (%) Laboratory Last Values WBC 7.1 K/mm3 (4.0-10.0) 08/28/18 07:50 RBC 4.50 M/mm3 (4.00-5.60) 08/28/18 07:50 Hgb 13.4 GM/dL (11.7-16.9) 08/28/18 07:50 Hct 40.3 % (35.4-49) 08/28/18 07:50 MCV 89.5 fl (80-96) 08/28/18 07:50 MCH 29.7 pg (25.7-33.7) 08/28/18 07:50 MCHC 33.2 g/dl (32.0-35.9) 08/28/18 07:50 RDW 14.5 % (11.9-15.9) 08/28/18 07:50 Plt Count 235 K/MM3 (134-434) 08/28/18 07:50 MPV 10.8 fl (7.5-11.1) 08/28/18 07:50 Sodium 145 mmol/L (136-145) 08/28/18 07:50 Potassium 4.2 mmol/L (3.5-5.1) 08/28/18 07:50 Chloride 111 mmol/L (98-107) H 08/28/18 07:50 Carbon Dioxide 29 mmol/L (21-32) 08/28/18 07:50 Anion Gap 5 MMOL/L (8-16) L 08/28/18 07:50 BUN 20.0 mg/dL (7-18) H 08/28/18 07:50 Creatinine 1.0 mg/dL (0.55-1.3) 08/28/18 07:50 Est GFR (CKD-EPI)AfAm 102.69 08/28/18 07:50 Est GFR (CKD-EPI)NonAf 88.61 08/28/18 07:50 Random Glucose 80 mg/dL (74-106) 08/28/18 07:50 Calcium 8.3 mg/dL (8.5-10.1) L 08/28/18 07:50 Total Bilirubin 0.5 mg/dL (0.2-1) 08/28/18 07:50 AST 12 U/L (15-37) L 08/28/18 07:50 ALT 16 U/L (13-61) 08/28/18 07:50 Alkaline Phosphatase 78 U/L (45-117) 08/28/18 07:50 Total Protein 6.3 g/dl (6.4-8.2) L 08/28/18 07:50 Albumin 3.2 g/dl (3.4-5.0) L 08/28/18 07:50 RPR Titer Nonreactive (NONREACTIVE) 08/28/18 07:50 lab noted Assessment: 08/29/18 10:47 alcohol and opiate withdrawal sx Plan: continue alcohol detox nicotine gum replacement therapy
[2018-08-29] MEDS: MELATONIN 5 MG TABLETS PO PRN (22:05)
[2018-08-29] MEDS: THIAMINE HCL 100 MG TABLET (FP) PO SCH (22:05)
[2018-08-29] MEDS: risperiDONE 2 MG TABLET PO SCH (22:05)
[2018-08-30] MEDS ORDERED: chlordiazePOXIDE HCL 10 MG CAPSULE PO PRN
[2018-08-30] MEDS: chlordiazePOXIDE HCL 10 MG CAPSULE PO SCH ×3 (06:26→22:09)
[2018-08-30] MEDS ORDERED: METHADONE HCL 10 MG TABLET (FOR DETOX USE ONLY) ONE (09:10)
[2018-08-30] MEDS ORDERED: METHADONE HCL 5 MG TABLET (FOR DETOX USE ONLY) ONE (09:10)
[2018-08-30] MEDS ORDERED: METHADONE (DETOX) 10 MG, METHADONE (DETOX) 5 MG PO ONE (10:00)
[2018-08-30] MEDS: ESCITALOPRAM OXALATE 10 MG TABLET (FP) PO SCH (10:14)
[2018-08-30] MEDS: PRENATAL VITAMINS W/ FOLIC ACID TABLET (FP) PO SCH (10:14)
--- NOTE | 2018-08-30 14:32 | PN ---
S CIWA - CIWA Score Nausea/Vomitin-No Nausea/No Vomiting Muscle Tremors: None Anxiety: 2 Agitation: 0-Normal Activity Paroxysmal Sweats: 3 Orientation: 0-Oriented Tacttile Disturbances: 1-Very Mild Itch/Numbness Auditory Disturbances: 0-None Visual Disturbances: 2-Mild Sensitivity Headache: 0-None Present CIWA-Ar Total Score: 8 S COWS - Scale Resting Pulse: 1= [place] 81-100 Sweatin= Chills/Flushing Restless Observation: 0= Sits Still Pupil Size: 0= Normal to Room Light Bone or Joint Aches: 0= None Runny Nose/ Eye Tearin= None GI Upset > 30mins: 0= None Tremor Observation of Outstretched Hands: 0= None Yawning Observation: 2= >3x During Session Anxiety or Irritability: 2=Irritable/Anxious Goose Flesh Skin: 0=Smooth Skin COWS Score: 6 S Progress Note (SOAP) Subjective: Anxious, Fatigue, Sweating. Objective: PATIENT A & O X 3. IN NO ACUTE DISTRESS. 08/30/18 14:34 Vital Signs Temperature 97.0 F L 08/30/18 13:49 Pulse Rate 90 08/30/18 13:49 Respiratory Rate 20 08/30/18 13:49 Blood Pressure 124/84 08/30/18 13:49 O2 Sat by Pulse Oximetry (%) Laboratory Tests 08/28/18 08/28/18 08/28/18 07:50 07:50 07:50 WBC 7.1 RBC 4.50 Hgb 13.4 Hct 40.3 MCV 89.5 MCH 29.7 MCHC 33.2 RDW 14.5 Plt Count 235 MPV 10.8 Sodium 145 Potassium 4.2 Chloride 111 H Carbon Dioxide 29 Anion Gap 5 L BUN 20.0 H Creatinine 1.0 Est GFR (CKD-EPI)AfAm 102.69 Est GFR (CKD-EPI)NonAf 88.61 Random Glucose 80 Calcium 8.3 L Total Bilirubin 0.5 AST 12 L ALT 16 Alkaline Phosphatase 78 Total Protein 6.3 L Albumin 3.2 L RPR Titer Nonreactive LABS NOTED Assessment: 08/30/18 14:35 WITHDRAWAL SYMPTOMS. Plan: CONTINUE DETOX.
[2018-08-30] MEDS: THIAMINE HCL 100 MG TABLET (FP) PO SCH (22:09)
[2018-08-30] MEDS: risperiDONE 2 MG TABLET PO SCH (22:09)
[2018-08-31] MEDS ORDERED: chlordiazePOXIDE HCL 10 MG CAPSULE PO ONE (05:00)
[2018-08-31] MEDS ORDERED: METHADONE HCL 10 MG TABLET (FOR DETOX USE ONLY) PO ONE (10:00)
[2018-08-31] MEDS: PRENATAL VITAMINS W/ FOLIC ACID TABLET (FP) PO SCH (10:10)
[2018-08-31] MEDS: ESCITALOPRAM OXALATE 10 MG TABLET (FP) PO SCH (10:10)
--- NOTE | 2018-08-31 13:41 | PN ---
[facility] CIWA - CIWA Score Nausea/Vomitin-No Nausea/No Vomiting Muscle Tremors: None Anxiety: 1-Mildly Anxious Agitation: 0-Normal Activity Paroxysmal Sweats: No Perspiration Orientation: 0-Oriented Tacttile Disturbances: 2-Mild Itch/Numbness/Burn Auditory Disturbances: 0-None Visual Disturbances: 0-None Headache: 0-None Present CIWA-Ar Total Score: 3 S COWS - Scale Resting Pulse: 1= [place] 81-100 Sweatin= No chills or Flushing Restless Observation: 0= Sits Still Pupil Size: 0= Normal to Room Light Bone or Joint Aches: 0= None Runny Nose/ Eye Tearin= None GI Upset > 30mins: 0= None Tremor Observation of Outstretched Hands: 0= None Yawning Observation: 2= >3x During Session Anxiety or Irritability: 2=Irritable/Anxious Goose Flesh Skin: 0=Smooth Skin COWS Score: 5 S Progress Note (SOAP) Subjective: Anxious, Fatigue. Objective: PATIENT A & O X 3. IN NO ACUTE DISTRESS. 08/31/18 13:40 Vital Signs Temperature 97.5 F L 08/31/18 09:13 Pulse Rate 85 08/31/18 09:13 Respiratory Rate 16 08/31/18 09:13 Blood Pressure 116/71 08/31/18 09:13 O2 Sat by Pulse Oximetry (%) Laboratory Tests 08/28/18 08/28/18 08/28/18 07:50 07:50 07:50 WBC 7.1 RBC 4.50 Hgb 13.4 Hct 40.3 MCV 89.5 MCH 29.7 MCHC 33.2 RDW 14.5 Plt Count 235 MPV 10.8 Sodium 145 Potassium 4.2 Chloride 111 H Carbon Dioxide 29 Anion Gap 5 L BUN 20.0 H Creatinine 1.0 Est GFR (CKD-EPI)AfAm 102.69 Est GFR (CKD-EPI)NonAf 88.61 Random Glucose 80 Calcium 8.3 L Total Bilirubin 0.5 AST 12 L ALT 16 Alkaline Phosphatase 78 Total Protein 6.3 L Albumin 3.2 L RPR Titer Nonreactive LABS NOTED. Assessment: 08/31/18 13:40 WITHDRAWAL SYMPTOMS. Plan: CONTINUE DETOX. PATIENT SCHEDULED FOR D/C FROM DETOX UNIT TOMORROW.
[2018-08-31 14:15] VITALS: BP 118/70; PULSE 82; TEMP 96
--- NOTE | 2018-08-31 15:05 | DS ---
[facility] Detox Discharge Summary Admission Date: 08/27/18 Discharge Date: 08/31/18 - History Present History: Alcohol Dependence, Cocaine Dependence, Opioid Dependence Additional Comments: PATIENT REPORTS THAT CURRENT WITHDRAWAL / DETOX SYMPTOMS ARE MINIMAL IN DEGREE AND THAT HE FEELS WELL OVERALL AT TIME OF DISCHARGE FROM DETOX UNIT. PATIENT ADVISED TO CONSIDER LOCAL 12-STEP / NA / AA OUTPATIENT SUPPORT GROUP PROGRAMS FOR AFTERCARE. PATIENT VERBALIZED UNDERSTANDING OF RECOMMENDATION. PATIENT DECLINED OFFER OF MEDICATION PRESCRIPTION FOR HOME MEDICATION (VENTOLIN HFA INHALER) AT TIME OF DISCHARGE FROM DETOX, NOTING THAT HE CURRENTLY HAS ADEQUATE SUPPLIES OF ALL PRESCRIBED HOME MEDICATIONS AT HOME. PATIENT WAS DISCHARGED FROM DETOX UNIT IN STABLE MEDICAL CONDITION. Pertinent Past History: Asthma, Depression, Bipolar Disorder, Anxiety. - Physical Exam Results Vital Signs: Vital Signs Temperature 96 F L 08/31/18 14:14 Pulse Rate 82 08/31/18 14:14 Respiratory Rate 18 08/31/18 14:14 Blood Pressure 118/70 08/31/18 14:14 O2 Sat by Pulse Oximetry (%) Pertinent Admission Physical Exam Findings: WITHDRAWAL SYMPTOMS. Laboratory Tests 08/28/18 08/28/18 08/28/18 07:50 07:50 07:50 WBC 7.1 RBC 4.50 Hgb 13.4 Hct 40.3 MCV 89.5 MCH 29.7 MCHC 33.2 RDW 14.5 Plt Count 235 MPV 10.8 Sodium 145 Potassium 4.2 Chloride 111 H Carbon Dioxide 29 Anion Gap 5 L BUN 20.0 H Creatinine 1.0 Est GFR (CKD-EPI)AfAm 102.69 Est GFR (CKD-EPI)NonAf 88.61 Random Glucose 80 Calcium 8.3 L Total Bilirubin 0.5 AST 12 L ALT 16 Alkaline Phosphatase 78 Total Protein 6.3 L Albumin 3.2 L RPR Titer Nonreactive LABS NOTED. - Treatment Hospital Course: Detox Protocol Followed, Detoxed Safely, Responded well, Discharged Condition Good Patient has Accepted a Rehab Referral to: PT. ADVISED TO CONSIDER LOCAL 12-STEP/ NA/AA OUTPATIENT SUPPORT GROUPS. - Medication Discharge Medications: Ambulatory Orders Albuterol Sulfate Inhaler - [Ventolin HFA Inhaler -] 2 puff IH Q4H PRN #1 inhaler 03/04/18 Escitalopram Oxalate [Lexapro -] 20 mg PO DAILY 08/27/18 Risperidone [Risperdal -] 3 mg PO HS 08/27/18 - Diagnosis (1) Alcohol dependence with uncomplicated withdrawal Current Visit: Yes Status: Acute (2) Opioid dependence with withdrawal Current Visit: Yes Status: Acute (3) Substance induced mood disorder Current Visit: Yes Status: Acute (4) Substance-induced sleep disorder Current Visit: Yes Status: Acute (5) Bipolar disorder Current Visit: Yes Status: Chronic Qualifiers: Active/Remission status: remission status unspecified Qualified Code(s): F31.9 - Bipolar disorder, unspecified (6) Cocaine dependence Current Visit: Yes Status: Chronic Qualifiers: Substance use status: uncomplicated Qualified Code(s): F14.20 - Cocaine dependence, uncomplicated (7) Nicotine dependence Current Visit: Yes Status: Chronic Qualifiers: Nicotine product type: cigarettes Substance use status: uncomplicated Qualified Code(s): F17.210 - Nicotine dependence, cigarettes, uncomplicated - AMA Did Patient Leave Against Medical Advice: No
[2018-09-01] MEDS ORDERED: METHADONE HCL 5 MG TABLET (FOR DETOX USE ONLY) PO ONE (06:00)
== END 2018-08-31 15:20 | disposition home or self-care (01) | DRG 897 ==
LOC: YASAS 08:36 → Y3N 10:32
PROVIDERS: ADMIT Surgery; ATTEND Surgery
PROC: HZ2ZZZZ Detoxification Services for Substance Abuse Treatment (ICD-10-PCS; principal; 2018-08-27)
DX: F11.23 Opioid dependence with withdrawal (principal); F14.20 Cocaine dependence, uncomplicated; F19.282 Other psychoactive substance dependence with psychoactive substance-induced sleep disorder; F10.230 Alcohol dependence with withdrawal, uncomplicated; F17.210 Nicotine dependence, cigarettes, uncomplicated; F19.24 Other psychoactive substance dependence with psychoactive substance-induced mood disorder; F31.9 Bipolar disorder, unspecified; F41.8 Other specified anxiety disorders; F32.9 Major depressive disorder, single episode, unspecified; J45.909 Unspecified asthma, uncomplicated; Z91.5 Personal history of self-harm; Z91.013 Allergy to seafood
CPT/HCPCS: 36415; 80053; 85027; 86593

== ENCOUNTER 2018-10-22 21:45 | Inpatient (IN) | payer BC, OTHER ==
[2018-10-23 00:12] VITALS: BMI 26.6
--- NOTE | 2018-10-23 02:48 | HP ---
COWS - Scale Resting Pulse: 0= [place] 80 or Below Sweatin=Flushed/Facial Moisture Restless Observation: 1= Difficult to Sit Still Pupil Size: 2= Moderately Dilated (Pupils = 5 mm) Bone or Joint Aches: 0= None Runny Nose/ Eye Tearin= Nasal Congestion GI Upset > 30mins: 3= Vomiting/Diarrhea Tremor Observation: 4= Gross Tremor/Twitching (Moderate w/ arms extended) Yawning Observation: 1= 1-2x During Session Anxiety or Irritability: 1=Feels Anxious/Irritable Goose Flesh Skin: 0=Smooth Skin COWS Score: 15 CIWA Score Nausea/Vomitin Muscle Tremors: 4-Moderate,w/Arms Extend Anxiety: 1-Mildly Anxious Agitation: 1-Slight > Activity Paroxysmal Sweats: 3 (Increased facial moisture) Orientation: 0-Oriented Tacttile Disturbances: 0-None Auditory Disturbances: 0-None Visual Disturbances: 0-None Headache: 2-Mild CIWA-Ar Total Score: 16 - Admission Criteria OASAS Guidelines: Admission for Medically Managed Detox: Requires at least one of the followin. CIWA greater than 12 2. Seizures within the past 24 hours 3. Delirium tremens within the past 24 hours 4. Hallucinations within the past 24 hours 5. Acute intervention needed for co occurring medical disorder 6. Acute intervention needed for co occurring psychiatric disorder 7. Severe withdrawal that cannot be handled at a lower level of care (continued vomiting, continued diarrhea, abnormal vital signs) requiring intravenous medication and/or fluids 8. Patient presents the following: CIWA greater than 12 Admission Criteria Met: Admission criteria met Admission ROS [facility] Chief Complaint: Having alcohol and heroin withdrawal symptoms. Allergies/Adverse Reactions: Allergies Allergy/AdvReac Type Severity Reaction Status Date / Time shellfish derived Allergy Severe Difficulty Verified 10/23/18 00:07 Breathing No Known Drug Allergies Allergy Verified 08/27/18 09:18 History of Present Illness: 48 yo presents w/ heroin and alcohol withdrawal seeking detox. Multiple [facility] visits. Last discharge 08/31/18. States relapsed the next day after last discharge. UTox + GEOVANNA/FEN/OXY/MOP NICHOLE: 0.0 Alcohol use began at age 19. States currently drinking 2 pints/ day. Heroin use began at age 17. Currently using 15 bags via inhalation. States has a Narcan Kit at home. Cocaine use began at age 21. Current use approx $100/day - naal Tobacco use began at age 21. Current use a little over 1/2 PPD. Denies hx blackouts, seizures. Recent heroin overdose 2 days ago. States was saved by a friend. Methadone program 5 yrs ago. PMHx: Asthma (last exacerbation over 1 year ago) Last CXR: 03/19/18. No active pulm disease. Last RPR: 08/28/18. Non-reactive. Will not repeat this visit. MHHX : Bipolar, Depression , Anxiety. last saw on Provider 1 year ago. Denies S/. SHx: Domiciled. Unemployed. No legal issues. Patient Name: Duc Madison Date: 1970 Address: [address] [place] [address] Sex: Male Rx Written Rx Dispensed Drug Quantity Days Supply Prescriber Name 04/08/2018 04/10/2018 chlordiazepoxide 25 mg capsule 26 5 Jalil Ram MD Exam Limitations: No Limitations - Ebola screening Have you traveled outside of the country in the last 21 days: No (N) Have you had contact with anyone from an Ebola affected area: No Do you have a fever: No - Review of Systems Constitutional: Chills, Diaphoresis, Changes in sleep (Difficulty falling asleep. has used Seroquel in past) EENT: reports: Blurred Vision, Nose Congestion Cardiac: reports: No Symptoms Reported GI: reports: Diarrhea (soft, light brown,), Nausea, Vomiting (Vomited x 2 food earlier today), Indigestion (Acid reflux) : reports: No Symptoms Reported Musculoskeletal: reports: Back Pain (Chronic LBP x 5-6 years. Triggers by bending, walking. Current dull pain "9". Pain improves w/ stretching, resting.) , Joint Pain ((R) knee pain - intermittent) Integumentary: reports: No Symptoms Reported Neuro: reports: Headache (Frontal achy DELATORRE, mild) Endocrine: reports: No Symptoms Reported Hematology: reports: No Symptoms Reported Psychiatric: reports: Orientated x3, Agitated, Anxious, Depressed (Denies thoughts of harming self or others) Patient History - Patient Medical History Hx Anemia: No Hx Asthma: Yes (on albuterol inhaler) Hx Chronic Obstructive Pulmonary Disease (COPD): No Hx Cancer: No Hx Cardiac Disorders: No Hx Congestive Heart Failure: No Hx Hypertension: No Hx Hypercholesterolemia: No Hx Pacemaker: No HX Cerebrovascular Accident: No Hx Seizures: No Hx Dementia: No Hx Diabetes: No Hx Gastrointestinal Disorders: No Hx Liver Disease: No Hx Genitourinary Disorders: No Hx Sexually Transmitted Disorders: No Hx Renal Disease (ESRD): No Hx Thyroid Disease: No Hx Human Immunodeficiency Virus (HIV): No (NEGATIVE HX LAST 1995) Hx Hepatitis C: No Hx Depression: Yes Hx Suicide Attempt: Yes (overose ar age of 30) Hx Bipolar Disorder: Yes ('I just stopped going for treatment') Hx Schizophrenia: No - Patient Surgical History Past Surgical History: Yes Hx Neurologic Surgery: No Hx Cataract Extraction: No Hx Cardiac Surgery: No Hx Lung Surgery: No Hx Breast Surgery: No Hx Breast Biopsy: No Hx Abdominal Surgery: No Hx Appendectomy: No Hx Cholecystectomy: No Hx Genitourinary Surgery: No Hx Section: No Hx Orthopedic Surgery: Yes (R knee in 2005 arthroosocpy ) Other Surgical History: right foot surgery for calcium build-up plantar 2000 Anesthesia Reaction: No - PPD History Previous Implant?: Yes Documented Results: Negative w/proof Implanted On Prior R Admission?: Yes Date: 02/25/17 Results: 0 mm PPD to be Administered?: No - Smoking Cessation Smoking history: Current every day smoker Have you smoked in the past 12 months: Yes Aproximately how many cigarettes per day: 10 Cigars Per Day: 0 Hx Chewing Tobacco Use: No Initiated information on smoking cessation: Yes 'Breaking Loose' booklet given: 10/23/18 - Substance & Tx. History Hx Alcohol Use: Yes Hx Substance Use: Yes Substance Use Type: Alcohol, Cocaine, Heroin Hx Substance Use Treatment: Yes (DETOX, REHAB; [facility] 5 years ago.) - Substances abused Alcohol Substance route: Oral Frequency: Daily Amount used: 2 PINTS Age of first use: 23 Date of last use: 10/21/18 Heroin Substance route: Inhalation Frequency: Daily Amount used: 15 BAGS Age of first use: 24 Date of last use: 10/22/18 Cocaine Substance route: Smoking Frequency: Daily Amount used: $80 Age of first use: 22 Date of last use: 10/21/18 Family Disease History - Family Disease History Family Disease History: Other: Father (living, DRUG & ALCOHOL), Mother (living, healthy), Brother (two - living - healthy), Son (one - living - age 15), Daughter (two - living - ages 30, 25) Admission Physical Exam S - Vital Signs Vital Signs: Vital Signs - 24 hr 10/23/18 10/23/18 00:09 01:37 Temperature 98.2 F 98.2 F Pulse Rate 83 83 Respiratory 16 18 Rate Blood Pressure 143/90 143/90 - Physical General Appearance: Yes: Nourished, Mild Distress, Tremorous (Moderate w/ arms extended), Sweating (Increased facial moisture), Anxious HEENTM: Yes: Hearing grossly Normal, Normal ENT Inspection, Normocephalic, Normal Voice, MARVIN (Pupils = 5 mm), Pharynx Normal Respiratory: Yes: Lungs Clear (O2 = 98%), No Respiratory Distress, Wheezing ( Slight inspiratory wheen on expiration) Neck: Yes: No masses,lesions,Nodules, Supple Breast: Yes: Breast Exam Deferred Cardiology: Yes: Regular Rhythm, Regular Rate (HR: 78), S1, S2 Abdominal: Yes: Non Tender, Soft, Increased Bowel Sounds Genitourinary: Yes: Within Normal Limits Back: Yes: Normal Inspection Musculoskeletal: Yes: full range of Motion (No crepitus.), Gait Steady Extremities: Yes: Normal Capillary Refill, Normal Range of Motion, Tremors ( Moderate w/ arms extended) Neurological: Yes: water chemist II-XII NML intact, Fully Oriented, Alert, Motor Strength 5/5 Integumentary: Yes: Normal Color, Warm, Moist (Increased facial moisture) Lymphatic: Yes: Within Normal Limits - Diagnostic (1) Scratches self Current Visit: Yes Status: Chronic (2) Alcohol dependence with uncomplicated withdrawal Current Visit: Yes Status: Acute (3) Knee pain, right Current Visit: Yes Status: Chronic Qualifiers: Chronicity: chronic Qualified Code(s): M25.561 - Pain in right knee; G89.29 - Other chronic pain (4) Opioid dependence with withdrawal Current Visit: Yes Status: Acute (5) Asthma Current Visit: Yes Status: Acute Qualifiers: Asthma severity: mild Asthma persistence: intermittent Asthma complication type: unspecified Qualified Code(s): J45.20 - Mild intermittent asthma, uncomplicated Comment: ventolin (6) Cocaine dependence, uncomplicated Current Visit: Yes Status: Chronic (7) GERD (gastroesophageal reflux disease) Current Visit: Yes Status: Chronic Qualifiers: Esophagitis presence: esophagitis presence not specified Qualified Code(s) : K21.9 - Gastro-esophageal reflux disease without esophagitis (8) Nicotine dependence Current Visit: Yes Status: Chronic Qualifiers: Nicotine product type: cigarettes Substance use status: uncomplicated Qualified Code(s): F17.210 - Nicotine dependence, cigarettes, uncomplicated Cleared for Admission [facility] - Detox or Rehab [facility] Level of Care: Medically Managed Detox Regimen/Protocol: Methadone/Librium Claeared for Rehab Admission: No Breathalyzer - Breathalyzer Breathalyzer: 0 Urine Drug Screen - Test Device Lot number: [id number] Expiration date: 07/19/20 - Control Is test valid?: Yes - Results Drug screen NEGATIVE: Yes Urine drug screen results: GEOVANNA-Cocaine, FEN-Fentanyl, MOP-Opiates, OXY-Oxycodone Inpatient Rehab Admission - Rehab Decision to Admit Inpatient rehab admission?: No
[2018-10-23] MEDS ORDERED: MENTHOL/PHENOL 1 EACH UD MM PRN (03:32)
[2018-10-23] MEDS ORDERED: MAGNESIUM CITRATE 300 ML BOTTLE PO PRN (03:32)
[2018-10-23] MEDS ORDERED: BISMUTH SUBSALICYLATE 524 MG/30 ML UD PO PRN (03:32)
[2018-10-23] MEDS ORDERED: MAGNESIUM HYDROX 2400MG/30ML ORAL SUSPENSION 30 ML CUP PO PRN (03:32)
[2018-10-23] MEDS ORDERED: ACETAMINOPHEN 325 MG TABLET (FP) PO PRN ×2 (03:32)
[2018-10-23] MEDS ORDERED: NICOTINE POLACRILEX 2 MG GUM BUC PRN (03:32)
[2018-10-23] MEDS ORDERED: IBUPROFEN 400 MG TABLET (FP) PO PRN (03:32)
[2018-10-23] MEDS ORDERED: METHADONE HCL 10 MG TABLET (FOR DETOX USE ONLY) PO ONE (03:32)
[2018-10-23] MEDS ORDERED: MAG HYDROX/AL HYDROX/SIMETH 30 ML UNIT-DOSE CUP PO PRN (03:32)
[2018-10-23] MEDS ORDERED: METHOCARBAMOL 500 MG TABLET PO PRN (03:32)
[2018-10-23] MEDS ORDERED: ALBUTEROL SO4 8 GM HFA INHALER IH PRN (03:38)
--- NOTE | 2018-10-23 08:04 | EKG ---
Test Reason : Blood Pressure : / mmHG Vent. Rate : 068 BPM Atrial Rate : 068 BPM P-R Int : 148 ms QRS Dur : 084 ms QT Int : 388 ms P-R-T Axes : 066 050 044 degrees QTc Int : 412 ms NORMAL SINUS RHYTHM NORMAL ECG WHEN COMPARED WITH ECG OF 21-DEC-2017 12:04, NO SIGNIFICANT CHANGE WAS FOUND Confirmed by JEANINE ROSAS MD ([id number]) on 10/23/2018 8:04:37 AM Referred By: Benjamin Kirkpatrick Confirmed By:JEANINE ROSAS MD
[2018-10-23] MEDS ORDERED: METHADONE HCL 10 MG TABLET PO ONE (10:00)
[2018-10-23] MEDS: PANTOPRAZOLE 20 MG TABLET (FP) PO SCH ×2 (10:37→22:01)
[2018-10-23] MEDS: NICOTINE 14 MG/24 HOURS TOPICAL PATCH TD SCH (10:37)
[2018-10-23] MEDS: PRENATAL VITAMINS W/ FOLIC ACID TABLET (FP) PO SCH (10:37)
[2018-10-23] MEDS: BACITRACIN 15 GM TUBE TOPICAL OINTMENT TP SCH ×2 (10:37→22:27)
[2018-10-23] MEDS ORDERED: chlordiazePOXIDE HCL 10 MG CAPSULE PO PRN (10:45)
[2018-10-23] MEDS ORDERED: chlordiazePOXIDE HCL 25 MG CAPSULE PO ONE (10:45)
--- NOTE | 2018-10-23 10:48 | PN ---
[facility] Progress Note (SOAP) Subjective: drinking 2 pints of vodka daily add librium into detox regimen
[2018-10-23 12:23] LABS: ALBUMIN 3.3 g/dl (3.4-5.0); BILIRUBIN,TOTAL 0.3 mg/dL (0.2-1); BLOOD UREA NITROGEN 21.5 mg/dL (7-18); CALCIUM 8.5 mg/dL (8.5-10.1); POTASSIUM 4.2 mmol/L (3.5-5.1); TOT PROT 6.4 g/dl (6.4-8.2)
[2018-10-23] MEDS: chlordiazePOXIDE HCL 25 MG CAPSULE PO SCH ×2 (12:23→22:01)
[2018-10-23 12:26] LABS: HEMATOCRIT 38.4 % (35.4-49); HEMOGLOBIN 12.5 GM/dL (11.7-16.9); MCH 29.4 pg (25.7-33.7); MCHC 32.5 g/dl (32.0-35.9); MEAN CELL VOLUME 90.5 fl (80-96); MEAN PLT VOLUME 11.1 fl (7.5-11.1); PLATELET COUNT 187 K/MM3 (134-434); RBC 4.25 M/mm3 (4.00-5.60); RDW 15.8 % (11.9-15.9); WHITE BLOOD COUNT 6.1 K/mm3 (4.0-10.0)
--- NOTE | 2018-10-23 12:57 | CONSULT ---
[facility] Psychiatric Consult - Data Date of interview: 10/23/18 Admission source: [facility] Identifying data: Readmission to [facility] for this 48 y/o AA male seeking detoxification treatment, on , for alcohol, heroin and cocaine dependence. Patient is , a father of three, domiciled, unemployed and supported by spouse. Substance Abuse History: Confirmed by patient in this interview. Details in current [facility] report as follows : Smoking history: Current every day smoker. Have you smoked in the past 12 months: Yes. Aproximately how many cigarettes per day: 10. Cigars Per Day: 0. Hx Chewing Tobacco Use: No. Initiated information on smoking cessation: Yes. 'Breaking Loose' booklet given: . - Substance & Tx. History. Hx Alcohol Use: Yes. Hx Substance Use: Yes. Substance Use Type: Alcohol, Cocaine, Heroin. Hx Substance Use Treatment: Yes ( DETOX, REHAB; [facility] 5 years ago.). - Substances abused. Alcohol. Substance route: Oral. Frequency: Daily. Amount used: 2 PINTS. Age of first use: 23. Date of last use: 10/21/18. Heroin. Substance route: Inhalation. Frequency : Daily. Amount used: 15 BAGS. Age of first use: 24. Date of last use: . Cocaine. Substance route: Smoking. Frequency: Daily. Amount used: $ 80. Age of first use: 22. Date of last use: 10/21/18 Medical History: Medical profile is remarkable for a history of colitis, diverticulitis, bronchial asthma, GERD and gastric ulcer. Remote history of orthosurgery (injury of right knee in 2005) and left foot surgery (1999). Psychiatric History: Patient presents with a history of multiple psychiatric hospitalizations ([facility] in [place] + [facility] in [facility]). Diagnosed with Bipolar Disorder and PTSD. Mr Madison has been prescribed, in the past, seroquel + risperdal + lexapro ([facility] providers). Patient indicates that he has NOT seen a mental health care provider ( psychiatris or therapist) for months. Has dropped out of the [facility] ( [facility]) + [facility] clinic. History of one suicide attempt, 20 years ago (overdose with medications). Physical/Sexual Abuse/Trauma History: Patient denies. Additional Comment: Urine drug screen results: GEOVANNA-Cocaine, FEN-Fentanyl, MOP- Opiates, OXY-Oxycodone. Noted. Mental Status Exam - Mental Status Exam Alert and Oriented to: Time, Place, Person Cognitive Function: Good Patient Appearance: Unkempt, Disheveled Mood: Nervous, Withdrawn Affect: Mood Congruent, Constricted Patient Behavior: Fatigued, Cooperative Speech Pattern: Clear Voice Loudness: Normal Thought Process: Goal Oriented Thought Disorder: Not Present Hallucinations: Denies Suicidal Ideation: Denies Homicidal Ideation: Denies Insight/Judgement: Poor Sleep: Poorly, Difficulty falling asleep Appetite: Good Muscle strength/Tone: Normal Gait/Station: Normal Psychiatric Findings - Problem List ([place] 1, 2,3) (1) Alcohol dependence with uncomplicated withdrawal Current Visit: Yes Status: Acute (2) Opioid dependence with withdrawal Current Visit: Yes Status: Acute (3) Cocaine dependence, uncomplicated Current Visit: Yes Status: Chronic (4) Nicotine dependence Current Visit: Yes Status: Chronic Qualifiers: Nicotine product type: cigarettes Substance use status: uncomplicated Qualified Code(s): F17.210 - Nicotine dependence, cigarettes, uncomplicated (5) Substance induced mood disorder Current Visit: Yes Status: Chronic (6) Bipolar disorder Current Visit: Yes Status: Chronic Qualifiers: Active/Remission status: remission status unspecified Qualified Code(s): F31.9 - Bipolar disorder, unspecified (7) Insomnia Current Visit: Yes Status: Chronic Qualifiers: Insomnia type: unspecified Qualified Code(s): G47.00 - Insomnia, unspecified (8) Non-compliance Current Visit: Yes Status: Chronic - Initial Treatment Plan Initial Treatment Plan: Psychoeducation. Sleep hygiene. Support. Detoxification. Patient is offered seroquel and trazodone. Declined to resume any psychotropic medication not indicated for detoxification purposes. Observation.
--- NOTE | 2018-10-23 15:30 | PN ---
S CIWA - CIWA Score Nausea/Vomitin-Mild Nausea/No Vomiting Muscle Tremors: 4-Moderate,w/Arms Extend Anxiety: 3 Agitation: 2 Paroxysmal Sweats: 2 Orientation: 0-Oriented Tacttile Disturbances: 0-None Auditory Disturbances: 0-None Visual Disturbances: 0-None Headache: 2-Mild CIWA-Ar Total Score: 14 BHS COWS - Scale Resting Pulse: 0= [place] 80 or Below Sweatin= Chills/Flushing Restless Observation: 0= Sits Still Pupil Size: 0= Normal to Room Light Bone or Joint Aches: 2= Severe Diffuse Aches Runny Nose/ Eye Tearin= Nasal Congestion GI Upset > 30mins: 2= Nausea/Diarrhea Tremor Observation of Outstretched Hands: 2= Slight Tremor Visible Yawning Observation: 1= 1-2x During Session Anxiety or Irritability: 2=Irritable/Anxious Goose Flesh Skin: 3=Piloerection COWS Score: 14 S Progress Note (SOAP) Subjective: 48 years old male admitted on 10/23/18 for alcohol and opiate withdrawal sx management multiple patient [facility] admission since 2016 was admitted on 10/23/18 for alcohol and opiate withdrawal sx management doing well with methadone detox regimen "heavy drinker" ciwa = 14 begin libirum detox regimen addition to methadone detox regimen Objective: 10/23/18 15:32 Vital Signs Temperature 98.1 F 10/23/18 13:32 Pulse Rate 68 10/23/18 13:32 Respiratory Rate 18 10/23/18 13:32 Blood Pressure 133/79 10/23/18 13:32 O2 Sat by Pulse Oximetry (%) Laboratory Last Values WBC 6.1 K/mm3 (4.0-10.0) 10/23/18 08:30 RBC 4.25 M/mm3 (4.00-5.60) 10/23/18 08:30 Hgb 12.5 GM/dL (11.7-16.9) 10/23/18 08:30 Hct 38.4 % (35.4-49) 10/23/18 08:30 MCV 90.5 fl (80-96) 10/23/18 08:30 MCH 29.4 pg (25.7-33.7) 10/23/18 08:30 MCHC 32.5 g/dl (32.0-35.9) 10/23/18 08:30 RDW 15.8 % (11.9-15.9) 10/23/18 08:30 Plt Count 187 K/MM3 (134-434) D 10/23/18 08:30 MPV 11.1 fl (7.5-11.1) 10/23/18 08:30 Sodium 141 mmol/L (136-145) 10/23/18 08:30 Potassium 4.2 mmol/L (3.5-5.1) 10/23/18 08:30 Chloride 107 mmol/L (98-107) 10/23/18 08:30 Carbon Dioxide 31 mmol/L (21-32) 10/23/18 08:30 Anion Gap 4 MMOL/L (8-16) L 10/23/18 08:30 BUN 21.5 mg/dL (7-18) H 10/23/18 08:30 Creatinine 1.0 mg/dL (0.55-1.3) 10/23/18 08:30 Est GFR (CKD-EPI)AfAm 102.69 10/23/18 08:30 Est GFR (CKD-EPI)NonAf 88.61 10/23/18 08:30 Random Glucose 86 mg/dL (74-106) 10/23/18 08:30 Calcium 8.5 mg/dL (8.5-10.1) 10/23/18 08:30 Total Bilirubin 0.3 mg/dL (0.2-1) 10/23/18 08:30 AST 15 U/L (15-37) 10/23/18 08:30 ALT 18 U/L (13-61) 10/23/18 08:30 Alkaline Phosphatase 76 U/L (45-117) 10/23/18 08:30 Total Protein 6.4 g/dl (6.4-8.2) 10/23/18 08:30 Albumin 3.3 g/dl (3.4-5.0) L 10/23/18 08:30 lab noted encourage oral fluid Assessment: 10/23/18 15:32 alcohol and opiate withdrawal sx Plan: continue librium and methadone detox regimen
[2018-10-23] MEDS: THIAMINE HCL 100 MG TABLET (FP) PO SCH (22:01)
[2018-10-23] MEDS: MELATONIN 5 MG TABLETS PO PRN (22:02)
[2018-10-24] MEDS: chlordiazePOXIDE HCL 25 MG CAPSULE PO SCH ×3 (06:34→21:12)
[2018-10-24] MEDS ORDERED: METHADONE HCL 10 MG TABLET (FOR DETOX USE ONLY) ONE (09:01)
[2018-10-24] MEDS ORDERED: METHADONE HCL 5 MG TABLET (FOR DETOX USE ONLY) ONE (09:02)
[2018-10-24] MEDS ORDERED: METHADONE (DETOX) 20 MG, METHADONE (DETOX) 5 MG PO ONE (10:00)
[2018-10-24] MEDS: PRENATAL VITAMINS W/ FOLIC ACID TABLET (FP) PO SCH (10:33)
[2018-10-24] MEDS: PANTOPRAZOLE 20 MG TABLET (FP) PO SCH ×2 (10:34→21:11)
[2018-10-24] MEDS: NICOTINE 14 MG/24 HOURS TOPICAL PATCH TD SCH (10:35)
[2018-10-24] MEDS: BACITRACIN 15 GM TUBE TOPICAL OINTMENT TP SCH ×2 (10:59→21:14)
--- NOTE | 2018-10-24 17:37 | PN ---
S CIWA - CIWA Score Nausea/Vomitin-No Nausea/No Vomiting Muscle Tremors: 3 Anxiety: 3 Agitation: 1-Slight > Activity Paroxysmal Sweats: 2 Orientation: 2-Disoriented Date<2 days Tacttile Disturbances: 0-None Auditory Disturbances: 0-None Visual Disturbances: 0-None Headache: 0-None Present CIWA-Ar Total Score: 11 BHS COWS - Scale Resting Pulse: 0= [place] 80 or Below Sweatin= Chills/Flushing Restless Observation: 1= Difficult to Sit Still Pupil Size: 0= Normal to Room Light Bone or Joint Aches: 0= None Runny Nose/ Eye Tearin= None GI Upset > 30mins: 0= None Tremor Observation of Outstretched Hands: 2= Slight Tremor Visible Yawning Observation: 1= 1-2x During Session Anxiety or Irritability: 2=Irritable/Anxious Goose Flesh Skin: 3=Piloerection COWS Score: 10 BHS Progress Note (SOAP) Subjective: Sweating, Chills, tremors, Anxious. Objective: PATIENT A & O X 2 (UNCERTAIN ABOUT CURRENT DAY / DATE). IN NO ACUTE DISTRESS. 10/24/18 17:36 Vital Signs Temperature 97.5 F L 10/24/18 13:50 Pulse Rate 68 10/24/18 13:50 Respiratory Rate 18 10/24/18 13:50 Blood Pressure 139/92 10/24/18 13:50 O2 Sat by Pulse Oximetry (%) Laboratory Tests 10/23/18 10/23/18 08:30 08:30 WBC 6.1 RBC 4.25 Hgb 12.5 Hct 38.4 MCV 90.5 MCH 29.4 MCHC 32.5 RDW 15.8 Plt Count 187 D MPV 11.1 Sodium 141 Potassium 4.2 Chloride 107 Carbon Dioxide 31 Anion Gap 4 L BUN 21.5 H Creatinine 1.0 Est GFR (CKD-EPI)AfAm 102.69 Est GFR (CKD-EPI)NonAf 88.61 Random Glucose 86 Calcium 8.5 Total Bilirubin 0.3 AST 15 ALT 18 Alkaline Phosphatase 76 Total Protein 6.4 Albumin 3.3 L LABS NOTED. Assessment: 10/24/18 17:37 WITHDRAWAL SYMPTOMS. Plan: CONTINUE DETOX. INCREASE DAILY PO WATER INTAKE.
[2018-10-24] MEDS: THIAMINE HCL 100 MG TABLET (FP) PO SCH (21:11)
[2018-10-24] MEDS: MELATONIN 5 MG TABLETS PO PRN (21:11)
[2018-10-25] MEDS: chlordiazePOXIDE 5 MG CAPSULE PO SCH ×3 (06:11→22:09)
[2018-10-25] MEDS: chlordiazePOXIDE HCL 25 MG CAPSULE PO SCH (06:54)
[2018-10-25] MEDS ORDERED: METHADONE HCL 10 MG TABLET (FOR DETOX USE ONLY) PO ONE (10:00)
[2018-10-25] MEDS: PRENATAL VITAMINS W/ FOLIC ACID TABLET (FP) PO SCH (10:15)
[2018-10-25] MEDS: NICOTINE 14 MG/24 HOURS TOPICAL PATCH TD SCH (10:16)
[2018-10-25] MEDS: BACITRACIN 15 GM TUBE TOPICAL OINTMENT TP SCH ×2 (10:17→22:09)
[2018-10-25] MEDS: PANTOPRAZOLE 20 MG TABLET (FP) PO SCH ×2 (10:50→22:09)
--- NOTE | 2018-10-25 16:50 | PN ---
[facility] CIWA - CIWA Score Nausea/Vomitin-No Nausea/No Vomiting Muscle Tremors: None Anxiety: 3 Agitation: 0-Normal Activity Paroxysmal Sweats: 3 Orientation: 2-Disoriented Date<2 days Tacttile Disturbances: 1-Very Mild Itch/Numbness Auditory Disturbances: 0-None Visual Disturbances: 1-Very Mild Sensitivity Headache: 0-None Present CIWA-Ar Total Score: 10 S COWS - Scale Resting Pulse: 0= [place] 80 or Below Sweatin= Chills/Flushing Restless Observation: 0= Sits Still Pupil Size: 0= Normal to Room Light Bone or Joint Aches: 0= None Runny Nose/ Eye Tearin= None GI Upset > 30mins: 0= None Tremor Observation of Outstretched Hands: 0= None Yawning Observation: 1= 1-2x During Session Anxiety or Irritability: 2=Irritable/Anxious Goose Flesh Skin: 3=Piloerection (Chills.) COWS Score: 7 S Progress Note (SOAP) Subjective: Sweating, Anxious, Chills. Objective: PATIENT A & O X 2 (UNCERTAIN ABOUT CURRENT DAY / DATE). IN NO ACUTE DISTRESS. 10/25/18 16:48 Vital Signs Temperature 98.8 F 10/25/18 14:36 Pulse Rate 74 10/25/18 14:36 Respiratory Rate 18 10/25/18 14:36 Blood Pressure 121/82 10/25/18 14:36 O2 Sat by Pulse Oximetry (%) Laboratory Tests 10/23/18 10/23/18 08:30 08:30 WBC 6.1 RBC 4.25 Hgb 12.5 Hct 38.4 MCV 90.5 MCH 29.4 MCHC 32.5 RDW 15.8 Plt Count 187 D MPV 11.1 Sodium 141 Potassium 4.2 Chloride 107 Carbon Dioxide 31 Anion Gap 4 L BUN 21.5 H Creatinine 1.0 Est GFR (CKD-EPI)AfAm 102.69 Est GFR (CKD-EPI)NonAf 88.61 Random Glucose 86 Calcium 8.5 Total Bilirubin 0.3 AST 15 ALT 18 Alkaline Phosphatase 76 Total Protein 6.4 Albumin 3.3 L LABS NOTED. Assessment: 10/25/18 16:49 WITHDRAWAL SYMPTOMS. Plan: CONTINUE DETOX. INCREASE DAILY PO WATER INTAKE.
[2018-10-25] MEDS: QUEtiapine FUMARATE 100 MG TABLET (FP) PO SCH (22:09)
[2018-10-25] MEDS: THIAMINE HCL 100 MG TABLET (FP) PO SCH (22:09)
[2018-10-26] MEDS ORDERED: chlordiazePOXIDE HCL 10 MG CAPSULE PO PRN
[2018-10-26] MEDS: chlordiazePOXIDE HCL 10 MG CAPSULE PO SCH ×3 (06:48→22:20)
[2018-10-26] MEDS ORDERED: METHADONE HCL 10 MG TABLET (FOR DETOX USE ONLY) ONE (08:35)
[2018-10-26] MEDS ORDERED: METHADONE HCL 5 MG TABLET (FOR DETOX USE ONLY) ONE (08:36)
[2018-10-26] MEDS ORDERED: METHADONE (DETOX) 10 MG, METHADONE (DETOX) 5 MG PO ONE (10:00)
[2018-10-26] MEDS: BACITRACIN 15 GM TUBE TOPICAL OINTMENT TP SCH ×2 (10:55→22:21)
[2018-10-26] MEDS: PANTOPRAZOLE 20 MG TABLET (FP) PO SCH ×2 (10:55→22:20)
[2018-10-26] MEDS: PRENATAL VITAMINS W/ FOLIC ACID TABLET (FP) PO SCH (10:55)
[2018-10-26] MEDS: NICOTINE 14 MG/24 HOURS TOPICAL PATCH TD SCH (10:56)
--- NOTE | 2018-10-26 16:37 | PN ---
S CIWA - CIWA Score Nausea/Vomitin-No Nausea/No Vomiting Muscle Tremors: None Anxiety: 3 Agitation: 2 Paroxysmal Sweats: 3 Orientation: 0-Oriented Tacttile Disturbances: 0-None Auditory Disturbances: 0-None Visual Disturbances: 1-Very Mild Sensitivity Headache: 0-None Present CIWA-Ar Total Score: 9 S COWS - Scale Resting Pulse: 0= [place] 80 or Below Sweatin= Chills/Flushing Restless Observation: 1= Difficult to Sit Still Pupil Size: 0= Normal to Room Light Bone or Joint Aches: 1= Mild Discomfort Runny Nose/ Eye Tearin= None GI Upset > 30mins: 0= None Tremor Observation of Outstretched Hands: 0= None Yawning Observation: 1= 1-2x During Session Anxiety or Irritability: 2=Irritable/Anxious Goose Flesh Skin: 0=Smooth Skin COWS Score: 6 BHS Progress Note (SOAP) Subjective: Sweating, Anxious, Fatigue. Patient reports That Current withdrawal Detox Symptoms in General Are Gradually Subsiding in Severity. Objective: PATIENT A & O X 3, OBSERVED AMBULATING ON DETOX UNIT UNASSISTED. IN NO ACUTE DISTRESS. 10/26/18 16:36 Vital Signs Temperature 98.4 F 10/26/18 13:26 Pulse Rate 79 10/26/18 13:26 Respiratory Rate 18 10/26/18 13:26 Blood Pressure 106/72 10/26/18 13:26 O2 Sat by Pulse Oximetry (%) Laboratory Tests 10/23/18 10/23/18 08:30 08:30 WBC 6.1 RBC 4.25 Hgb 12.5 Hct 38.4 MCV 90.5 MCH 29.4 MCHC 32.5 RDW 15.8 Plt Count 187 D MPV 11.1 Sodium 141 Potassium 4.2 Chloride 107 Carbon Dioxide 31 Anion Gap 4 L BUN 21.5 H Creatinine 1.0 Est GFR (CKD-EPI)AfAm 102.69 Est GFR (CKD-EPI)NonAf 88.61 Random Glucose 86 Calcium 8.5 Total Bilirubin 0.3 AST 15 ALT 18 Alkaline Phosphatase 76 Total Protein 6.4 Albumin 3.3 L LABS NOTED. Assessment: 10/26/18 16:36 WITHDRAWAL SYMPTOMS. Plan: CONTINUE DETOX. INCREASE DAILY PO WATER INTAKE.
[2018-10-26] MEDS: QUEtiapine FUMARATE 100 MG TABLET (FP) PO SCH (22:20)
[2018-10-26] MEDS: THIAMINE HCL 100 MG TABLET (FP) PO SCH (22:20)
[2018-10-26] MEDS: MELATONIN 5 MG TABLETS PO PRN (22:21)
[2018-10-27] MEDS ORDERED: chlordiazePOXIDE HCL 10 MG CAPSULE PO ONE (05:00)
[2018-10-27] MEDS ORDERED: METHADONE HCL 10 MG TABLET (FOR DETOX USE ONLY) PO ONE (10:00)
[2018-10-27] MEDS: BACITRACIN 15 GM TUBE TOPICAL OINTMENT TP SCH (10:29)
[2018-10-27] MEDS: PRENATAL VITAMINS W/ FOLIC ACID TABLET (FP) PO SCH (10:29)
[2018-10-27] MEDS: PANTOPRAZOLE 20 MG TABLET (FP) PO SCH (10:29)
[2018-10-27] MEDS: NICOTINE 14 MG/24 HOURS TOPICAL PATCH TD SCH (10:30)
--- NOTE | 2018-10-27 10:40 | PN ---
S CIWA - CIWA Score Nausea/Vomitin-No Nausea/No Vomiting Muscle Tremors: 2 Anxiety: 1-Mildly Anxious Agitation: 1-Slight > Activity Paroxysmal Sweats: 1-Minimal Palms Moist Orientation: 0-Oriented Tacttile Disturbances: 0-None Auditory Disturbances: 0-None Visual Disturbances: 0-None Headache: 0-None Present CIWA-Ar Total Score: 5 BHS COWS - Scale Resting Pulse: 1= [place] 81-100 Sweatin= No chills or Flushing Restless Observation: 0= Sits Still Pupil Size: 0= Normal to Room Light Bone or Joint Aches: 1= Mild Discomfort Runny Nose/ Eye Tearin= Nasal Congestion GI Upset > 30mins: 0= None Tremor Observation of Outstretched Hands: 1= Tremor [place], Not Seen Yawning Observation: 0= None Anxiety or Irritability: 1=Feels Anxious/Irritable Goose Flesh Skin: 0=Smooth Skin COWS Score: 5 S Progress Note (SOAP) Subjective: 48 years old male numerous patient [facility] admission was admitted on 10/23/18 doing well with librum and methadone detox regimen discuss aftercare with staff preferred [facility] Objective: 10/27/18 10:42 Vital Signs Temperature 97.3 F L 10/27/18 09:37 Pulse Rate 88 10/27/18 09:37 Respiratory Rate 18 10/27/18 09:37 Blood Pressure 125/89 10/27/18 09:37 O2 Sat by Pulse Oximetry (%) Laboratory Last Values WBC 6.1 K/mm3 (4.0-10.0) 10/23/18 08:30 RBC 4.25 M/mm3 (4.00-5.60) 10/23/18 08:30 Hgb 12.5 GM/dL (11.7-16.9) 10/23/18 08:30 Hct 38.4 % (35.4-49) 10/23/18 08:30 MCV 90.5 fl (80-96) 10/23/18 08:30 MCH 29.4 pg (25.7-33.7) 10/23/18 08:30 MCHC 32.5 g/dl (32.0-35.9) 10/23/18 08:30 RDW 15.8 % (11.9-15.9) 10/23/18 08:30 Plt Count 187 K/MM3 (134-434) D 10/23/18 08:30 MPV 11.1 fl (7.5-11.1) 10/23/18 08:30 Sodium 141 mmol/L (136-145) 10/23/18 08:30 Potassium 4.2 mmol/L (3.5-5.1) 10/23/18 08:30 Chloride 107 mmol/L (98-107) 10/23/18 08:30 Carbon Dioxide 31 mmol/L (21-32) 10/23/18 08:30 Anion Gap 4 MMOL/L (8-16) L 10/23/18 08:30 BUN 21.5 mg/dL (7-18) H 10/23/18 08:30 Creatinine 1.0 mg/dL (0.55-1.3) 10/23/18 08:30 Est GFR (CKD-EPI)AfAm 102.69 10/23/18 08:30 Est GFR (CKD-EPI)NonAf 88.61 10/23/18 08:30 Random Glucose 86 mg/dL (74-106) 10/23/18 08:30 Calcium 8.5 mg/dL (8.5-10.1) 10/23/18 08:30 Total Bilirubin 0.3 mg/dL (0.2-1) 10/23/18 08:30 AST 15 U/L (15-37) 10/23/18 08:30 ALT 18 U/L (13-61) 10/23/18 08:30 Alkaline Phosphatase 76 U/L (45-117) 10/23/18 08:30 Total Protein 6.4 g/dl (6.4-8.2) 10/23/18 08:30 Albumin 3.3 g/dl (3.4-5.0) L 10/23/18 08:30 lab noted encourage oral fluid Assessment: 10/27/18 10:42 alcohol and opiate withdrawal sx cardiac S1S2 regular rate rhythm respiratory: clear lung bilaterally on auscultation skin warm moist Plan: continue libirum and methadone detox regimen
[2018-10-27 17:44] VITALS: BP 120/82; PULSE 115; TEMP 98.9
--- NOTE | 2018-10-27 18:02 | DS ---
[facility] Detox Discharge Summary Admission Date: 10/23/18 Discharge Date: 10/27/18 - History Present History: Alcohol Dependence, Opioid Dependence Additional Comments: Pt was admitted for heroin and alcohol detox- pt completed heroin and alcohol detox. Will f/u with PCP- Chase. Pt states he does not need any medications. Pt will f/u with rehab at [facility]. - Physical Exam Results Vital Signs: Vital Signs Temperature 98.9 F 10/27/18 17:44 Pulse Rate 115 H 10/27/18 17:44 Respiratory Rate 16 10/27/18 17:44 Blood Pressure 120/82 10/27/18 17:44 O2 Sat by Pulse Oximetry (%) - Treatment Hospital Course: Detox Protocol Followed, Detoxed Safely, Responded well, Discharged Condition Good, Rehab Referral Accepted - Medication Discharge Medications: Ambulatory Orders Escitalopram Oxalate [Lexapro -] 20 mg PO DAILY 08/27/18 Risperidone [Risperdal -] 3 mg PO HS 08/27/18 Albuterol Sulfate Inhaler - [Ventolin HFA Inhaler -] 2 puff IH Q4H PRN #1 inhaler 10/27/18 - Diagnosis (1) Alcohol dependence with uncomplicated withdrawal Current Visit: Yes Status: Acute (2) Asthma Current Visit: Yes Status: Acute Qualifiers: Asthma severity: mild Asthma persistence: intermittent Asthma complication type: unspecified Qualified Code(s): J45.20 - Mild intermittent asthma, uncomplicated (3) Opioid dependence with withdrawal Current Visit: Yes Status: Acute - AMA Did Patient Leave Against Medical Advice: No
[2018-10-28] MEDS ORDERED: METHADONE HCL 5 MG TABLET (FOR DETOX USE ONLY) PO ONE (06:00)
== END 2018-10-27 18:20 | disposition home or self-care (01) | DRG 897 ==
LOC: YASAS 21:45 → Y3N 10-23 03:05
PROVIDERS: ADMIT Surgery; ATTEND Surgery
PROC: HZ2ZZZZ Detoxification Services for Substance Abuse Treatment (ICD-10-PCS; principal; 2018-10-23)
DX: F11.23 Opioid dependence with withdrawal (principal); F10.230 Alcohol dependence with withdrawal, uncomplicated; F12.20 Cannabis dependence, uncomplicated; F17.210 Nicotine dependence, cigarettes, uncomplicated; F19.24 Other psychoactive substance dependence with psychoactive substance-induced mood disorder; F31.9 Bipolar disorder, unspecified; J45.20 Mild intermittent asthma, uncomplicated; G47.00 Insomnia, unspecified; Z91.19 Patient's noncompliance with other medical treatment and regimen; Z91.013 Allergy to seafood; Z91.5 Personal history of self-harm
CPT/HCPCS: 36415; 80053; 85027; 93005; 93010

== ENCOUNTER 2018-12-13 18:28 | Inpatient (IN) | payer BC, OTHER ==
[2018-12-13 21:37] VITALS: BMI 25.1
--- NOTE | 2018-12-14 00:58 | HP ---
"COWS - Scale Resting Pulse: 0= [place] 80 or Below Sweatin= Chills/Flushing Restless Observation: 1= Difficult to Sit Still Pupil Size: 1= Pupils >than Normal Bone or Joint Aches: 2= Severe Diffuse Aches Runny Nose/ Eye Tearin= Nasal Congestion GI Upset > 30mins: 3= Vomiting/Diarrhea Tremor Observation: 2= Slight Tremor Visible Yawning Observation: 1= 1-2x During Session Anxiety or Irritability: 2=Irritable/Anxious Goose Flesh Skin: 3=Piloerection COWS Score: 17 CIWA Score Nausea/Vomitin-Mild Nausea/No Vomiting Muscle Tremors: 4-Moderate,w/Arms Extend Anxiety: 3 Agitation: 4-Moderately Restless Paroxysmal Sweats: 3 Orientation: 0-Oriented Tacttile Disturbances: 0-None Auditory Disturbances: 0-None Visual Disturbances: 0-None Headache: 3-Moderate CIWA-Ar Total Score: 18 - Admission Criteria OASAS Guidelines: Admission for Medically Managed Detox: Requires at least one of the followin. CIWA greater than 12 2. Seizures within the past 24 hours 3. Delirium tremens within the past 24 hours 4. Hallucinations within the past 24 hours 5. Acute intervention needed for co occurring medical disorder 6. Acute intervention needed for co occurring psychiatric disorder 7. Severe withdrawal that cannot be handled at a lower level of care (continued vomiting, continued diarrhea, abnormal vital signs) requiring intravenous medication and/or fluids 8. Admitting History and Physical - Smoking History Smoking history: Current every day smoker Have you smoked in the past 12 months: Yes Aproximately how many cigarettes per day: 10 - Alcohol/Substance Use Hx Alcohol Use: Yes Admission [facility] Allergies/Adverse Reactions: Allergies Allergy/AdvReac Type Severity Reaction Status Date / Time shellfish derived Allergy Severe Difficulty Verified 12/13/18 21:32 Breathing No Known Drug Allergies Allergy Verified 08/27/18 09:18 History of Present Illness: 48 years old male with a long history of alcohol and heroin dependence is seeking admission to detox from alcohol and heroin. Patient has been in multiple detox admissions and reports 2 years of sobriety. He has medical history of asthma and is unemployed. Patient reports that he he relapsed about 2 months ago and lost his job. He denies suicidal ideation at his time Confidential Drug Utilization Report Search Terms: Mann Madison, 1970 Search Date: 12/14/2018 12:54:56 AM The Drug Utilization Report below displays all of the controlled substance prescriptions, if any, that your patient has filled in the last twelve months. The information displayed on this report is compiled from pharmacy submissions to the Department, and accurately reflects the information as submitted by the pharmacies. This report was requested by: Lynnette Stovall | Reference #: [id number] There are no results for the search terms that you entered. Exam Limitations: No Limitations - Ebola screening Have you traveled outside of the country in the last 21 days: No (N) Have you had contact with anyone from an Ebola affected area: No Do you have a fever: No - Review of Systems Constitutional: Chills, Malaise, Night Sweats, Changes in sleep EENT: reports: Nose Congestion, Sinus Pressure Respiratory: reports: No Symptoms reported Cardiac: reports: No Symptoms Reported GI: reports: Diarrhea (x 3), Poor Appetite, Poor Fluid Intake, Vomiting (x 2), Abdominal cramping : reports: No Symptoms Reported Musculoskeletal: reports: Joint Swelling, Muscle Pain, Muscle Weakness Integumentary: reports: Dryness, Flushing Neuro: reports: Tingling Endocrine: reports: No Symptoms Reported Hematology: reports: No Symptoms Reported Psychiatric: reports: Orientated x3, Anxious, Depressed Other Systems: Reviewed and Negative Patient History - Patient Medical History Hx Anemia: No Hx Asthma: Yes (albuterol) Hx Chronic Obstructive Pulmonary Disease (COPD): No Hx Cancer: No Hx Cardiac Disorders: No Hx Congestive Heart Failure: No Hx Hypertension: No Hx Hypercholesterolemia: No Hx Pacemaker: No HX Cerebrovascular Accident: No Hx Seizures: No Hx Dementia: No Hx Diabetes: No Hx Gastrointestinal Disorders: No Hx Liver Disease: No Hx Genitourinary Disorders: No Hx Sexually Transmitted Disorders: No Hx Renal Disease (ESRD): No Hx Thyroid Disease: No Hx Human Immunodeficiency Virus (HIV): No (NEGATIVE HX LAST 1995) Hx Hepatitis C: No Hx Depression: Yes Hx Suicide Attempt: No Hx Bipolar Disorder: Yes ('I just stopped going for treatment') Hx Schizophrenia: No - Patient Surgical History Past Surgical History: Yes Hx Neurologic Surgery: No Hx Cataract Extraction: No Hx Cardiac Surgery: No Hx Lung Surgery: No Hx Breast Surgery: No Hx Breast Biopsy: No Hx Abdominal Surgery: No Hx Appendectomy: No Hx Cholecystectomy: No Hx Genitourinary Surgery: No Hx Section: No Hx Orthopedic Surgery: Yes (R knee in 2006 arthroosocpy ) Other Surgical History: right foot surgery for calcium build-up plantar 2000 Anesthesia Reaction: No - PPD History Previous Implant?: Yes Documented Results: Negative w/proof Implanted On Prior [facility] Admission?: Yes Date: 02/25/17 Results: 0 mm PPD to be Administered?: Yes - Reproductive History Patient is a Female of Child Bearing Age (11 -55 yrs old): No (male) - Smoking Cessation Smoking history: Current every day smoker Have you smoked in the past 12 months: Yes Aproximately how many cigarettes per day: 10 Cigars Per Day: 0 Hx Chewing Tobacco Use: No Initiated information on smoking cessation: Yes 'Breaking Loose' booklet given: 12/14/18 - Substance & Tx. History Hx Alcohol Use: Yes Hx Substance Use: Yes Substance Use Type: Alcohol, Heroin, Marijuana, Opiates Hx Substance Use Treatment: Yes - Substances abused Alcohol Substance route: Oral Frequency: Daily Amount used: 2pints of Vodka/day Age of first use: 23 Date of last use: 12/12/18 Heroin Substance route: Inhalation Frequency: Daily Amount used: 15 -20 BAGS Age of first use: 24 Date of last use: 12/12/18 Cocaine Substance route: Smoking Frequency: Daily Amount used: $80 Age of first use: 22 Date of last use: 12/10/18 Admission Physical Exam [facility] - Vital Signs Vital Signs: Vital Signs - 24 hr 12/13/18 21:34 Temperature 97.0 F L Pulse Rate 68 Respiratory 16 Rate Blood Pressure 125/73 - Physical General Appearance: Yes: Moderate Distress, Tremorous, Sweating, Anxious HEENTM: Yes: Within Normal Limits, Normal Voice Neck: Yes: Within Normal Limits, Supple Breast: Yes: Breast Exam Deferred Cardiology: Yes: Regular Rhythm, Regular Rate Abdominal: Yes: Normal Bowel Sounds Genitourinary: Yes: Within Normal Limits Back: Yes: Normal Inspection Musculoskeletal: Yes: Back pain Extremities: Yes: Tremors Neurological: Yes: Within Normal Limits, Alert, Normal Mood/Affect Integumentary: Yes: Normal Color Lymphatic: Yes: Within Normal Limits Cleared for Admission [facility] - Detox or Rehab [facility] Level of Care: Medically Managed Detox Regimen/Protocol: Methadone/Librium Breathalyzer - Breathalyzer Breathalyzer: 0 Urine Drug Screen - Test Device Lot number: [id number] Expiration date: 07/19/20 - Control Is test valid?: Yes - Results Drug screen NEGATIVE: No Urine drug screen results: GEOVANNA-Cocaine, FEN-Fentanyl, MOP-Opiates, OXY-Oxycodone , MTD-Methadone, BZO-Benzodiazepines Inpatient Rehab Admission - Rehab Decision to Admit Inpatient rehab admission?: No"
[2018-12-14] MEDS ORDERED: hydrOXYzine PAMOATE 25 MG CAPSULE (FP) PO PRN (01:17)
[2018-12-14] MEDS ORDERED: ACETAMINOPHEN 325 MG TABLET (FP) PO PRN ×2 (01:17)
[2018-12-14] MEDS ORDERED: MAGNESIUM HYDROX 2400MG/30ML ORAL SUSPENSION 30 ML CUP PO PRN (01:17)
[2018-12-14] MEDS ORDERED: METHADONE HCL 10 MG TABLET (FOR DETOX USE ONLY) PO ONE (01:17)
[2018-12-14] MEDS ORDERED: METHOCARBAMOL 500 MG TABLET PO PRN (01:17)
[2018-12-14] MEDS ORDERED: chlordiazePOXIDE HCL 25 MG CAPSULE PO PRN (01:17)
[2018-12-14] MEDS ORDERED: cloNIDine HCL 0.1 MG TABLET PO PRN (01:17)
[2018-12-14] MEDS ORDERED: MENTHOL/PHENOL 1 EACH UD MM PRN (01:17)
[2018-12-14] MEDS ORDERED: MAGNESIUM CITRATE 300 ML BOTTLE PO PRN (01:17)
[2018-12-14] MEDS ORDERED: NICOTINE POLACRILEX 2 MG GUM BUC PRN (01:17)
[2018-12-14] MEDS ORDERED: MAG HYDROX/AL HYDROX/SIMETH 30 ML UNIT-DOSE CUP PO PRN (01:17)
[2018-12-14] MEDS ORDERED: BISMUTH SUBSALICYLATE 524 MG/30 ML UD PO PRN (01:17)
[2018-12-14] MEDS ORDERED: IBUPROFEN 400 MG TABLET (FP) PO PRN (01:17)
[2018-12-14] MEDS ORDERED: ALBUTEROL SO4 8 GM HFA INHALER IH PRN (01:22)
--- NOTE | 2018-12-14 02:14 | PN ---
[facility] Progress Note Note: Patient EKG shows bradycardia. prior EKG's at [facility] were above 60. Patient denies dizziness, blackouts, SOB. chest pain. Plan: Will repeat EKG in a.m.
[2018-12-14] MEDS: chlordiazePOXIDE HCL 25 MG CAPSULE PO SCH ×4 (07:10→22:31)
[2018-12-14] MEDS: PRENATAL VITAMINS W/ FOLIC ACID TABLET (FP) PO SCH (10:19)
[2018-12-14] MEDS: NICOTINE 14 MG/24 HOURS TOPICAL PATCH TD SCH (10:20)
--- NOTE | 2018-12-14 10:56 | CONSULT ---
[facility] Psychiatric Consult - Data Date of interview: 12/14/18 Admission source: [facility] Identifying data: This is one of multiple admissions to [facility] for this 48 y/ o AA male self-referred for detoxification treatment (CRISTIAN issues : alcohol, heroin, nicotine, cocaine). Interviewed at [address] [place] [address]. Patient is , a father of three, domiciled, unemployed and supported by spouse. Substance Abuse History: Discussed with patient. Details in current [facility] report as follows : Smoking history: Current every day smoker. Have you smoked in the past 12 months: Yes. Aproximately how many cigarettes per day: 10. Cigars Per Day: 0. Hx Chewing Tobacco Use: No. Initiated information on smoking cessation : Yes. 'Breaking Loose' booklet given: 12/14/18. - Substance & Tx. History. Hx Alcohol Use: Yes. Hx Substance Use: Yes. Substance Use Type: Alcohol, Heroin, Marijuana, Opiates. Hx Substance Use Treatment: Yes. - Substances abused. Alcohol. Substance route: Oral. Frequency: Daily. Amount used: 2pints of Vodka/day. Age of first use: 23. Date of last use: 12/12/18. Heroin. Substance route: Inhalation. Frequency: Daily. Amount used: 15 -20 BAGS. Age of first use: 24. Date of last use: 12/12/18. Cocaine. Substance route: Smoking. Frequency: Daily. Amount used: $80. Age of first use: 22. Date of last use: 12/10/18 Medical History: Medical profile is remarkable for a history of colitis, diverticulitis, bronchial asthma, GERD and gastric ulcer. Remote history of orthosurgery (injury of right knee in 2005) and left foot surgery (1999). Psychiatric History: History of multiple psychiatric hospitalizations ([facility] in [place] + [facility] in [facility]). Diagnosed with Bipolar Disorder and PTSD. Mr Madison reports past exposure on seroquel + risperdal + lexapro (prescribed in longterm + occasional CPEP providers). Patient admits to no formal contact with mental health care providers (psychiatrists or therapists) for months. He is a drop-out from the [facility] ([facility]) and [facility] clinic. Presents with a history of one suicide attempt, 20 years ago (overdose with medications). Physical/Sexual Abuse/Trauma History: Denies. Additional Comment: Urine drug screen results: GEOVANNA-Cocaine, FEN-Fentanyl, MOP- Opiates, OXY-Oxycodone, MTD-Methadone, BZO-Benzodiazepines. Noted. Mental Status Exam - Mental Status Exam Alert and Oriented to: Time, Place, Person Patient Appearance: Unkempt, Disheveled Mood: Nervous, Withdrawn Affect: Mood Congruent, Constricted Patient Behavior: Fatigued, Cooperative Speech Pattern: Clear Voice Loudness: Normal Thought Process: Goal Oriented Thought Disorder: Not Present Hallucinations: Denies Suicidal Ideation: Denies Homicidal Ideation: Denies Insight/Judgement: Poor Sleep: Poorly, Difficulty falling asleep Appetite: Good Muscle strength/Tone: Normal Gait/Station: Normal Psychiatric Findings - Problem List ([place] 1, 2,3) (1) Alcohol dependence with uncomplicated withdrawal Current Visit: Yes Status: Acute (2) Opioid dependence with withdrawal Current Visit: Yes Status: Acute (3) Cocaine dependence Current Visit: Yes Status: Chronic Qualifiers: Substance use status: uncomplicated Qualified Code(s): F14.20 - Cocaine dependence, uncomplicated (4) Substance induced mood disorder Current Visit: Yes Status: Chronic (5) History of bipolar disorder Current Visit: Yes Status: Acute (6) Insomnia Current Visit: Yes Status: Chronic Qualifiers: Insomnia type: unspecified Qualified Code(s): G47.00 - Insomnia, unspecified (7) Non-compliance Current Visit: Yes Status: Chronic - Initial Treatment Plan Initial Treatment Plan: Psychoeducation. Sleep hygiene. Detoxification. AA/NA meetings. Resumed : lexapro 10 mg po daily + seroquel 100 mg po hs. Side effects /benefits of both drugs are discussed with the patient. Mr Madison agrees with this plan of care. Verbal consent granted to MD. Delgadillo.
[2018-12-14] MEDS ORDERED: FLU VACCINE QUAD 60 MCG/0.5 ML (MDV 19-20) IM ONE (12:00)
--- NOTE | 2018-12-14 16:03 | EKG ---
Test Reason : Blood Pressure : / mmHG Vent. Rate : 054 BPM Atrial Rate : 054 BPM P-R Int : 140 ms QRS Dur : 090 ms QT Int : 416 ms P-R-T Axes : 047 066 056 degrees QTc Int : 394 ms SINUS BRADYCARDIA OTHERWISE NORMAL ECG WHEN COMPARED WITH ECG OF 23-OCT-2018 03:34, NO SIGNIFICANT CHANGE WAS FOUND Confirmed by JEANINE ROSAS MD ([id number]) on 12/14/2018 4:02:48 PM Referred By: BOLA CRAIG Confirmed By:JEANINE ROSAS MD
--- NOTE | 2018-12-14 16:16 | PN ---
[facility] CIWA - CIWA Score Nausea/Vomitin-No Nausea/No Vomiting Muscle Tremors: None Anxiety: 4-Mod. Anxious/Guarded Agitation: 0-Normal Activity Paroxysmal Sweats: 3 Orientation: 0-Oriented Tacttile Disturbances: 2-Mild Itch/Numbness/Burn Auditory Disturbances: 0-None Visual Disturbances: 2-Mild Sensitivity Headache: 0-None Present CIWA-Ar Total Score: 11 S COWS - Scale Resting Pulse: 0= [place] 80 or Below Sweatin= Chills/Flushing Restless Observation: 0= Sits Still Pupil Size: 0= Normal to Room Light Bone or Joint Aches: 1= Mild Discomfort Runny Nose/ Eye Tearin= None GI Upset > 30mins: 0= None Tremor Observation of Outstretched Hands: 0= None Yawning Observation: 1= 1-2x During Session Anxiety or Irritability: 2=Irritable/Anxious Goose Flesh Skin: 3=Piloerection COWS Score: 8 S Progress Note (SOAP) Subjective: Sweating, Fatigue, Anxious. Objective: PATIENT A & O X 3. IN NO ACUTE DISTRESS. 12/14/18 16:15 Vital Signs Temperature 97.4 F L 12/14/18 09:34 Pulse Rate 60 12/14/18 09:34 Respiratory Rate 18 12/14/18 09:34 Blood Pressure 131/83 12/14/18 09:34 O2 Sat by Pulse Oximetry (%) RESULTS OF DETOX ADMISSION LABS PENDING. 12/14/18 16:15 Assessment: 12/14/18 16:16 WITHDRAWAL SYMPTOMS. Plan: CONTINUE DETOX.
[2018-12-14] MEDS: THIAMINE HCL 100 MG TABLET (FP) PO SCH (22:31)
[2018-12-14] MEDS: QUEtiapine FUMARATE 100 MG TABLET (FP) PO SCH (22:31)
[2018-12-14] MEDS: MELATONIN 5 MG TABLETS PO PRN (22:32)
[2018-12-15] MEDS: chlordiazePOXIDE HCL 25 MG CAPSULE PO SCH ×4 (06:42→22:39)
--- NOTE | 2018-12-15 09:25 | PN ---
[facility] CIWA - CIWA Score Nausea/Vomitin-No Nausea/No Vomiting Muscle Tremors: 2 Anxiety: 2 Agitation: 2 Paroxysmal Sweats: 1-Minimal Palms Moist Orientation: 0-Oriented Tacttile Disturbances: 0-None Auditory Disturbances: 0-None Visual Disturbances: 0-None Headache: 0-None Present CIWA-Ar Total Score: 7 BHS COWS - Scale Resting Pulse: 0= [place] 80 or Below Sweatin= Chills/Flushing Restless Observation: 0= Sits Still Pupil Size: 0= Normal to Room Light Bone or Joint Aches: 1= Mild Discomfort Runny Nose/ Eye Tearin= None GI Upset > 30mins: 1= Stomach Cramp Tremor Observation of Outstretched Hands: 2= Slight Tremor Visible Yawning Observation: 1= 1-2x During Session Anxiety or Irritability: 1=Feels Anxious/Irritable Goose Flesh Skin: 0=Smooth Skin COWS Score: 7 [facility] Progress Note (SOAP) Subjective: 48 years old male admitted on 12/14/18 for alcohol and opiate withdrawal sx managemetn treated with librium and methadone detox regimen tolerate well at this time body aches anxiety ate breakfast tolerate food and fluid well Objective: 12/15/18 09:23 Vital Signs Temperature 99.7 F H 12/15/18 09:03 Pulse Rate 73 12/15/18 09:03 Respiratory Rate 18 12/15/18 09:03 Blood Pressure 133/86 12/15/18 09:03 O2 Sat by Pulse Oximetry (%) 12/15/18 09:23 lab pending Assessment: 12/15/18 09:24 alcohol and opiate withdrawal sx 12/15/18 09:24 discuss medication assisted treatment program Plan: continue librium and methadone detox regimen
[2018-12-15] MEDS ORDERED: METHADONE HCL 10 MG TABLET (FOR DETOX USE ONLY) ONE (09:41)
[2018-12-15] MEDS ORDERED: METHADONE HCL 5 MG TABLET (FOR DETOX USE ONLY) ONE (09:41)
[2018-12-15] MEDS ORDERED: METHADONE (DETOX) 20 MG, METHADONE (DETOX) 5 MG PO ONE (10:00)
[2018-12-15 10:06] LABS: HEMATOCRIT 38.3 % (35.4-49); HEMOGLOBIN 12.6 GM/dL (11.7-16.9); MCH 29.6 pg (25.7-33.7); MCHC 33.1 g/dl (32.0-35.9); MEAN CELL VOLUME 89.6 fl (80-96); MEAN PLT VOLUME 11.1 fl (7.5-11.1); PLATELET COUNT 209 K/MM3 (134-434); RBC 4.27 M/mm3 (4.00-5.60); RDW 14.7 % (11.9-15.9); WHITE BLOOD COUNT 5.3 K/mm3 (4.0-10.0)
[2018-12-15 10:09] LABS: BILIRUBIN,TOTAL 0.3 mg/dL (0.2-1); CALCIUM 8.6 mg/dL (8.5-10.1); CREATININE 0.9 mg/dL (0.55-1.3); POTASSIUM 3.7 mmol/L (3.5-5.1); TOT PROT 5.9 g/dl (6.4-8.2)
[2018-12-15] MEDS: ESCITALOPRAM OXALATE 10 MG TABLET (FP) PO SCH (10:21)
[2018-12-15] MEDS: NICOTINE 14 MG/24 HOURS TOPICAL PATCH TD SCH (10:21)
[2018-12-15] MEDS: PRENATAL VITAMINS W/ FOLIC ACID TABLET (FP) PO SCH (10:21)
[2018-12-15] MEDS: MELATONIN 5 MG TABLETS PO PRN (22:39)
[2018-12-15] MEDS: QUEtiapine FUMARATE 100 MG TABLET (FP) PO SCH (22:39)
[2018-12-15] MEDS: THIAMINE HCL 100 MG TABLET (FP) PO SCH (22:39)
[2018-12-16] MEDS ORDERED: chlordiazePOXIDE HCL 10 MG CAPSULE PO PRN
[2018-12-16] MEDS: chlordiazePOXIDE HCL 10 MG CAPSULE PO SCH ×4 (07:26→22:08)
[2018-12-16] MEDS ORDERED: METHADONE HCL 10 MG TABLET (FOR DETOX USE ONLY) PO ONE (10:00)
[2018-12-16] MEDS: PRENATAL VITAMINS W/ FOLIC ACID TABLET (FP) PO SCH (10:06)
[2018-12-16] MEDS: NICOTINE 14 MG/24 HOURS TOPICAL PATCH TD SCH (10:06)
[2018-12-16] MEDS: ESCITALOPRAM OXALATE 10 MG TABLET (FP) PO SCH (10:06)
[2018-12-16] MEDS ORDERED: FLU VACCINE QUAD 60 MCG/0.5 ML (MDV 19-20) IM ONE (13:00)
--- NOTE | 2018-12-16 13:47 | PN ---
S CIWA - CIWA Score Nausea/Vomitin-No Nausea/No Vomiting Muscle Tremors: 2 Anxiety: 2 Agitation: 2 Paroxysmal Sweats: No Perspiration Orientation: 0-Oriented Tacttile Disturbances: 0-None Auditory Disturbances: 0-None Visual Disturbances: 0-None Headache: 0-None Present CIWA-Ar Total Score: 6 BHS COWS - Scale Resting Pulse: 0= [place] 80 or Below Sweatin= Chills/Flushing Restless Observation: 0= Sits Still Pupil Size: 0= Normal to Room Light Bone or Joint Aches: 0= None Runny Nose/ Eye Tearin= None GI Upset > 30mins: 0= None Tremor Observation of Outstretched Hands: 1= Tremor [place], Not Seen Yawning Observation: 1= 1-2x During Session Anxiety or Irritability: 1=Feels Anxious/Irritable Goose Flesh Skin: 0=Smooth Skin COWS Score: 4 S Progress Note (SOAP) Subjective: 48 years old male admitted on 12/14/18 for alcohol and opiate with drawal sx management treated with librium and methadone detox regimen ambulating on hallway discuss aftercare with staff Objective: 12/16/18 13:49 Vital Signs Temperature 98 F 12/16/18 13:36 Pulse Rate 67 12/16/18 13:36 Respiratory Rate 18 12/16/18 13:36 Blood Pressure 131/86 12/16/18 13:36 O2 Sat by Pulse Oximetry (%) Laboratory Last Values WBC 5.3 K/mm3 (4.0-10.0) 12/15/18 07:40 RBC 4.27 M/mm3 (4.00-5.60) 12/15/18 07:40 Hgb 12.6 GM/dL (11.7-16.9) 12/15/18 07:40 Hct 38.3 % (35.4-49) 12/15/18 07:40 MCV 89.6 fl (80-96) 12/15/18 07:40 MCH 29.6 pg (25.7-33.7) 12/15/18 07:40 MCHC 33.1 g/dl (32.0-35.9) 12/15/18 07:40 RDW 14.7 % (11.9-15.9) 12/15/18 07:40 Plt Count 209 K/MM3 (134-434) 12/15/18 07:40 MPV 11.1 fl (7.5-11.1) 12/15/18 07:40 Sodium 144 mmol/L (136-145) 12/15/18 07:40 Potassium 3.7 mmol/L (3.5-5.1) 12/15/18 07:40 Chloride 110 mmol/L (98-107) H 12/15/18 07:40 Carbon Dioxide 29 mmol/L (21-32) 12/15/18 07:40 Anion Gap 5 MMOL/L (8-16) L 12/15/18 07:40 BUN 15.0 mg/dL (7-18) 12/15/18 07:40 Creatinine 0.9 mg/dL (0.55-1.3) 12/15/18 07:40 Est GFR (CKD-EPI)AfAm 116.65 12/15/18 07:40 Est GFR (CKD-EPI)NonAf 100.64 12/15/18 07:40 Random Glucose 88 mg/dL (74-106) 12/15/18 07:40 Calcium 8.6 mg/dL (8.5-10.1) 12/15/18 07:40 Total Bilirubin 0.3 mg/dL (0.2-1) 12/15/18 07:40 AST 9 U/L (15-37) L 12/15/18 07:40 ALT 17 U/L (13-61) 12/15/18 07:40 Alkaline Phosphatase 59 U/L (45-117) 12/15/18 07:40 Total Protein 5.9 g/dl (6.4-8.2) L 12/15/18 07:40 Albumin 3.0 g/dl (3.4-5.0) L 12/15/18 07:40 RPR Titer Nonreactive (NONREACTIVE) 12/15/18 07:40 lab noted Assessment: 12/16/18 13:49 alcohol and opiate withdrawal sx Plan: continue librium and methadone detox regimen
[2018-12-16] MEDS: THIAMINE HCL 100 MG TABLET (FP) PO SCH (22:08)
[2018-12-16] MEDS: QUEtiapine FUMARATE 100 MG TABLET (FP) PO SCH (22:08)
[2018-12-16] MEDS: MELATONIN 5 MG TABLETS PO PRN (22:08)
[2018-12-17] MEDS: chlordiazePOXIDE HCL 10 MG CAPSULE PO SCH ×2 (05:59→17:21)
[2018-12-17] MEDS ORDERED: METHADONE HCL 5 MG TABLET (FOR DETOX USE ONLY) ONE (09:17)
[2018-12-17] MEDS ORDERED: METHADONE HCL 10 MG TABLET (FOR DETOX USE ONLY) ONE (09:17)
[2018-12-17] MEDS ORDERED: METHADONE (DETOX) 10 MG, METHADONE (DETOX) 5 MG PO ONE (10:00)
[2018-12-17] MEDS: PRENATAL VITAMINS W/ FOLIC ACID TABLET (FP) PO SCH (10:15)
[2018-12-17] MEDS: ESCITALOPRAM OXALATE 10 MG TABLET (FP) PO SCH (10:16)
[2018-12-17] MEDS: NICOTINE 14 MG/24 HOURS TOPICAL PATCH TD SCH (10:16)
--- NOTE | 2018-12-17 14:03 | PN ---
[facility] CIWA - CIWA Score Nausea/Vomitin-Mild Nausea/No Vomiting Muscle Tremors: 2 Anxiety: 2 Agitation: 2 Paroxysmal Sweats: No Perspiration Orientation: 0-Oriented Tacttile Disturbances: 1-Very Mild Itch/Numbness Auditory Disturbances: 0-None Visual Disturbances: 0-None Headache: 1-Very Mild CIWA-Ar Total Score: 9 BHS COWS - Scale Resting Pulse: 0= [place] 80 or Below Sweatin= No chills or Flushing Restless Observation: 1= Difficult to Sit Still Pupil Size: 1= Pupils >than Normal Bone or Joint Aches: 1= Mild Discomfort Runny Nose/ Eye Tearin= Nasal Congestion GI Upset > 30mins: 1= Stomach Cramp Tremor Observation of Outstretched Hands: 1= Tremor [place], Not Seen Yawning Observation: 1= 1-2x During Session Anxiety or Irritability: 2=Irritable/Anxious Goose Flesh Skin: 0=Smooth Skin COWS Score: 9 [facility] Progress Note (SOAP) Subjective: alert,irritable,anxious,interrupted sleep,tremor,pain in the body and back Objective: 12/17/18 14:02 Vital Signs Temperature 98.2 F 12/17/18 13:39 Pulse Rate 80 12/17/18 13:39 Respiratory Rate 18 12/17/18 13:39 Blood Pressure 140/79 12/17/18 13:39 O2 Sat by Pulse Oximetry (%) Assessment: 12/17/18 14:02 withdrawal symptom Plan: continue detox methadone and librium regimen
[2018-12-17] MEDS: QUEtiapine FUMARATE 100 MG TABLET (FP) PO SCH (22:19)
[2018-12-17] MEDS: MELATONIN 5 MG TABLETS PO PRN (22:19)
[2018-12-17] MEDS: THIAMINE HCL 100 MG TABLET (FP) PO SCH (22:19)
[2018-12-18] MEDS ORDERED: chlordiazePOXIDE HCL 10 MG CAPSULE PO ONE (05:00)
[2018-12-18 09:04] VITALS: BP 118/75; PULSE 76; TEMP 97.1
[2018-12-18] MEDS ORDERED: METHADONE HCL 5 MG TABLET (FOR DETOX USE ONLY) PO ONE (09:26)
[2018-12-18] MEDS: PRENATAL VITAMINS W/ FOLIC ACID TABLET (FP) PO SCH (09:39)
[2018-12-18] MEDS: ESCITALOPRAM OXALATE 10 MG TABLET (FP) PO SCH (09:39)
[2018-12-18] MEDS ORDERED: METHADONE HCL 10 MG TABLET (FOR DETOX USE ONLY) PO ONE (10:00)
--- NOTE | 2018-12-18 14:25 | DS ---
[facility] Detox Discharge Summary Admission Date: 12/14/18 Discharge Date: 12/18/18 - History Present History: Alcohol Dependence, Opioid Dependence Additional Comments: 48 years old male admitted on 12/14/18 for alcohol and opiate withdrawal sx management treated with librium and methadone detox regimen patient tolerate well patient is alert oriented x 3 cardiac S1S2 regular rate rhythm respiratory clear lung bilaterally on auscultation abdomen soft no rebound tenderness - Physical Exam Results Vital Signs: Vital Signs Temperature 97.1 F L 12/18/18 09:03 Pulse Rate 76 12/18/18 09:03 Respiratory Rate 16 12/18/18 09:03 Blood Pressure 118/75 12/18/18 09:03 O2 Sat by Pulse Oximetry (%) Pertinent Admission Physical Exam Findings: alcohol and opiate withdrawal sx Laboratory Last Values WBC 5.3 K/mm3 (4.0-10.0) 12/15/18 07:40 RBC 4.27 M/mm3 (4.00-5.60) 12/15/18 07:40 Hgb 12.6 GM/dL (11.7-16.9) 12/15/18 07:40 Hct 38.3 % (35.4-49) 12/15/18 07:40 MCV 89.6 fl (80-96) 12/15/18 07:40 MCH 29.6 pg (25.7-33.7) 12/15/18 07:40 MCHC 33.1 g/dl (32.0-35.9) 12/15/18 07:40 RDW 14.7 % (11.9-15.9) 12/15/18 07:40 Plt Count 209 K/MM3 (134-434) 12/15/18 07:40 MPV 11.1 fl (7.5-11.1) 12/15/18 07:40 Sodium 144 mmol/L (136-145) 12/15/18 07:40 Potassium 3.7 mmol/L (3.5-5.1) 12/15/18 07:40 Chloride 110 mmol/L (98-107) H 12/15/18 07:40 Carbon Dioxide 29 mmol/L (21-32) 12/15/18 07:40 Anion Gap 5 MMOL/L (8-16) L 12/15/18 07:40 BUN 15.0 mg/dL (7-18) 12/15/18 07:40 Creatinine 0.9 mg/dL (0.55-1.3) 12/15/18 07:40 Est GFR (CKD-EPI)AfAm 116.65 12/15/18 07:40 Est GFR (CKD-EPI)NonAf 100.64 12/15/18 07:40 Random Glucose 88 mg/dL (74-106) 12/15/18 07:40 Calcium 8.6 mg/dL (8.5-10.1) 12/15/18 07:40 Total Bilirubin 0.3 mg/dL (0.2-1) 12/15/18 07:40 AST 9 U/L (15-37) L 12/15/18 07:40 ALT 17 U/L (13-61) 12/15/18 07:40 Alkaline Phosphatase 59 U/L (45-117) 12/15/18 07:40 Total Protein 5.9 g/dl (6.4-8.2) L 12/15/18 07:40 Albumin 3.0 g/dl (3.4-5.0) L 12/15/18 07:40 RPR Titer Nonreactive (NONREACTIVE) 12/15/18 07:40 lab noted - Treatment Hospital Course: Detox Protocol Followed, Detoxed Safely, Responded well, Discharged Condition Good, Rehab Referral Accepted Patient has Accepted [facility] - Medication Discharge Medications: Ambulatory Orders Escitalopram Oxalate [Lexapro -] 20 mg PO DAILY 08/27/18 Risperidone [Risperdal -] 3 mg PO HS 08/27/18 Naloxone HCl [Narcan] 4 mg NS ASDIR PRN #1 spray 12/15/18 Albuterol Sulfate Inhaler - [Ventolin HFA Inhaler -] 2 puff IH Q4H PRN #1 inhaler 12/18/18 - Diagnosis (1) Alcohol dependence with uncomplicated withdrawal Status: Acute (2) Asthma Status: Chronic Qualifiers: Asthma severity: mild Asthma persistence: intermittent Asthma complication type: unspecified Qualified Code(s): J45.20 - Mild intermittent asthma, uncomplicated (3) Opioid dependence with withdrawal Status: Acute (4) GERD (gastroesophageal reflux disease) Status: Chronic Qualifiers: Esophagitis presence: esophagitis presence not specified Qualified Code(s) : K21.9 - Gastro-esophageal reflux disease without esophagitis - AMA Did Patient Leave Against Medical Advice: No CIWA Score - CIWA Score Nausea/Vomitin-No Nausea/No Vomiting Muscle Tremors: 1-None Visible, but [place] Anxiety: 1-Mildly Anxious Agitation: 1-Slight > Activity Paroxysmal Sweats: No Perspiration Orientation: 0-Oriented Tacttile Disturbances: 1-Very Mild Itch/Numbness Auditory Disturbances: 0-None Visual Disturbances: 0-None Headache: 1-Very Mild CIWA-Ar Total Score: 5 COWS (PN) - Opiate Withdrawal Resting Pulse: 0= [place] 80 or Below Sweatin= Chills/Flushing Restless Observation: 0= Sits Still Pupil Size: 0= Normal to Room Light Bone or Joint Aches: 1= Mild Discomfort Runny Nose/ Eye Tearin= None GI Upset > 30mins: 0= None Tremor Observation of Outstretched Hands: 1= Tremor [place], Not Seen Yawning Observation: 0= None Anxiety or Irritability: 1=Feels Anxious/Irritable Goose Flesh Skin: 0=Smooth Skin COWS Score: 4
[2018-12-19] MEDS ORDERED: METHADONE HCL 5 MG TABLET (FOR DETOX USE ONLY) PO ONE (06:00)
== END 2018-12-18 09:52 | disposition home or self-care (01) | DRG 897 ==
LOC: YASAS 18:28 → Y3N 12-14 02:03
PROVIDERS: ADMIT Allergy & Immunology; ATTEND Allergy & Immunology
PROC: HZ2ZZZZ Detoxification Services for Substance Abuse Treatment (ICD-10-PCS; principal; 2018-12-14)
DX: F11.23 Opioid dependence with withdrawal (principal); F14.20 Cocaine dependence, uncomplicated; F10.230 Alcohol dependence with withdrawal, uncomplicated; F17.210 Nicotine dependence, cigarettes, uncomplicated; F19.24 Other psychoactive substance dependence with psychoactive substance-induced mood disorder; J45.20 Mild intermittent asthma, uncomplicated; K21.9 Gastro-esophageal reflux disease without esophagitis; G47.00 Insomnia, unspecified; R00.1 Bradycardia, unspecified; Z91.19 Patient's noncompliance with other medical treatment and regimen; Z91.013 Allergy to seafood
CPT/HCPCS: 36415; 80053; 85027; 86593; 93005; 93010

== ENCOUNTER 2019-01-17 14:45 | Inpatient (IN) | payer OTHER ==
[2019-01-17 17:21] VITALS: BMI 25.5
--- NOTE | 2019-01-17 18:09 | HP ---
COWS - Scale Resting Pulse: 0= [place] 80 or Below Sweatin= Chills/Flushing Restless Observation: 1= Difficult to Sit Still Pupil Size: 0= Normal to Room Light Bone or Joint Aches: 2= Severe Diffuse Aches Runny Nose/ Eye Tearin= Runny Nose/Eyes GI Upset > 30mins: 2= Nausea/Diarrhea Tremor Observation: 0= None Yawning Observation: 0= None Anxiety or Irritability: 2=Irritable/Anxious Goose Flesh Skin: 0=Smooth Skin COWS Score: 10 CIWA Score Nausea/Vomitin Muscle Tremors: None Anxiety: 4-Mod. Anxious/Guarded Agitation: 4-Moderately Restless Paroxysmal Sweats: 2 Orientation: 0-Oriented Tacttile Disturbances: 0-None Auditory Disturbances: 0-None Visual Disturbances: 0-None Headache: 4-Moderately Severe CIWA-Ar Total Score: 16 - Admission Criteria OASAS Guidelines: Admission for Medically Managed Detox: Requires at least one of the followin. CIWA greater than 12 2. Seizures within the past 24 hours 3. Delirium tremens within the past 24 hours 4. Hallucinations within the past 24 hours 5. Acute intervention needed for co occurring medical disorder 6. Acute intervention needed for co occurring psychiatric disorder 7. Severe withdrawal that cannot be handled at a lower level of care (continued vomiting, continued diarrhea, abnormal vital signs) requiring intravenous medication and/or fluids 8. Admitting History and Physical - Smoking History Smoking history: Current every day smoker Have you smoked in the past 12 months: Yes Aproximately how many cigarettes per day: 10 - Alcohol/Substance Use Hx Alcohol Use: Yes Admission ROS [facility] Allergies/Adverse Reactions: Allergies Allergy/AdvReac Type Severity Reaction Status Date / Time shellfish derived Allergy Severe Difficulty Verified 01/17/19 17:11 Breathing No Known Drug Allergies Allergy Verified 01/17/19 17:11 History of Present Illness: 48 yo male here requesting detox from opiate and etoh use , relapsed immediately after d/c from this facility 12/18/18 , current daily use 15-20 bags heroin via inhalation , latest use yesterday, first age of use 17 . MMTP " A long time ago " MDD 80 mg etoh 1 pint /day since 10 yrs ago , denies seizures, + blackouts , + tremors if not drinking cocaine : latest use 4-5 days ago , 50-60 $//day denies IV , first age of use 21. tobacco : 1/2 ppd since age 21 PSHX : r knee > 20 yrs ago PMHx: Asthma (last exacerbation over 1 year ago) CXR: 03/19/18. No active pulm disease. PSHX : bipolar d/o denies SI / HI SHX : denies current legal issues Exam Limitations: Clinical Condition - Ebola screening Have you traveled outside of the country in the last 21 days: No Have you had contact with anyone from an Ebola affected area: No Do you have a fever: No - Review of Systems Constitutional: No Symptoms Reported EENT: reports: Other (hypermetropia , denies dysphagia) Respiratory: reports: No Symptoms reported Cardiac: reports: No Symptoms Reported GI: reports: Diarrhea, Nausea, Poor Appetite, Vomiting : reports: No Symptoms Reported Musculoskeletal: reports: Muscle Pain Integumentary: reports: See HPI Neuro: reports: See HPI, Headache Endocrine: reports: No Symptoms Reported Hematology: reports: No Symptoms Reported Psychiatric: reports: Orientated x3, Agitated, Anxious Patient History - Patient Medical History Hx Anemia: No Hx Asthma: Yes (albuterol) Hx Chronic Obstructive Pulmonary Disease (COPD): No Hx Cancer: No Hx Cardiac Disorders: No Hx Congestive Heart Failure: No Hx Hypertension: No Hx Hypercholesterolemia: No Hx Pacemaker: No HX Cerebrovascular Accident: No Hx Seizures: No Hx Dementia: No Hx Diabetes: No Hx Gastrointestinal Disorders: No Hx Liver Disease: No Hx Genitourinary Disorders: No Hx Sexually Transmitted Disorders: No Hx Renal Disease (ESRD): No Hx Thyroid Disease: No Hx Human Immunodeficiency Virus (HIV): No (NEGATIVE HX LAST 1995) Hx Hepatitis C: No Hx Depression: Yes Hx Suicide Attempt: No Hx Bipolar Disorder: Yes ('I just stopped going for treatment') Hx Schizophrenia: No - Patient Surgical History Past Surgical History: Yes Hx Neurologic Surgery: No Hx Cataract Extraction: No Hx Cardiac Surgery: No Hx Lung Surgery: No Hx Breast Surgery: No Hx Breast Biopsy: No Hx Abdominal Surgery: No Hx Appendectomy: No Hx Cholecystectomy: No Hx Genitourinary Surgery: No Hx Section: No Hx Orthopedic Surgery: Yes (R knee in 2005 arthroosocpy ) Other Surgical History: right foot surgery for calcium build-up plantar 1999 Anesthesia Reaction: No - PPD History Date: 02/25/17 Results: 0 mm - Smoking Cessation Smoking history: Current every day smoker Have you smoked in the past 12 months: Yes Aproximately how many cigarettes per day: 10 Cigars Per Day: 0 Hx Chewing Tobacco Use: No Initiated information on smoking cessation: Yes 'Breaking Loose' booklet given: 01/17/19 - Substances abused Alcohol Substance route: Oral Frequency: Daily Amount used: 1 pint of Vodka/day Age of first use: 23 Date of last use: 01/17/19 Heroin Substance route: Inhalation Frequency: Daily Amount used: 15 -20 BAGS Age of first use: 24 Date of last use: 01/17/19 Cocaine Substance route: Smoking Frequency: 3-6 times per week Amount used: $80 Age of first use: 22 Date of last use: 01/13/19 Admission Physical Exam BHS - Vital Signs Vital Signs: Vital Signs - 24 hr 01/17/19 17:10 Temperature 98.9 F Respiratory 16 Rate Blood Pressure 129/84 - Physical General Appearance: Yes: Moderate Distress, Intoxicated, Anxious HEENTM: Yes: EOMI, Hearing grossly Normal, Normocephalic, Normal Voice Respiratory: Yes: Chest Non-Tender, Lungs Clear, Normal Breath Sounds, No Respiratory Distress, No Accessory Muscle Use Neck: Yes: No masses,lesions,Nodules, Trachea in good position Cardiology: Yes: Regular Rhythm, Regular Rate, S1, S2, Other (QTC 394 ms NSR) Abdominal: Yes: Non Tender, Soft Musculoskeletal: Yes: Gait Steady Extremities: Yes: Normal Range of Motion, Non-Tender Neurological: Yes: Fully Oriented, Alert, Motor Strength 5/5, Depressed Affect Integumentary: Yes: Warm - Diagnostic (1) Alcohol dependence with uncomplicated withdrawal Current Visit: Yes Status: Chronic (2) Opioid dependence with withdrawal Current Visit: Yes Status: Chronic (3) Cocaine dependence, uncomplicated Current Visit: Yes Status: Chronic (4) Nicotine dependence Current Visit: Yes Status: Chronic Qualifiers: Nicotine product type: cigarettes Substance use status: uncomplicated Qualified Code(s): F17.210 - Nicotine dependence, cigarettes, uncomplicated Breathalyzer - Breathalyzer Breathalyzer: 0 Urine Drug Screen - Test Device Lot number: [id number] Expiration date: 09/17/20 - Control Is test valid?: Yes - Results Drug screen NEGATIVE: No Urine drug screen results: FEN-Fentanyl, MOP-Opiates Inpatient Rehab Admission - Rehab Decision to Admit Inpatient rehab admission?: No
[2019-01-17] MEDS ORDERED: hydrOXYzine PAMOATE 25 MG CAPSULE (FP) PO PRN (18:20)
[2019-01-17] MEDS ORDERED: METHOCARBAMOL 500 MG TABLET PO PRN (18:20)
[2019-01-17] MEDS ORDERED: IBUPROFEN 400 MG TABLET (FP) PO PRN (18:20)
[2019-01-17] MEDS ORDERED: MENTHOL/PHENOL 1 EACH UD MM PRN (18:20)
[2019-01-17] MEDS ORDERED: ACETAMINOPHEN 325 MG TABLET (FP) PO PRN ×2 (18:20)
[2019-01-17] MEDS ORDERED: MELATONIN 5 MG TABLETS PO PRN (18:20)
[2019-01-17] MEDS ORDERED: BISMUTH SUBSALICYLATE 524 MG/30 ML UD PO PRN (18:20)
[2019-01-17] MEDS ORDERED: MAGNESIUM HYDROX 2400MG/30ML ORAL SUSPENSION 30 ML CUP PO PRN (18:20)
[2019-01-17] MEDS ORDERED: MAGNESIUM CITRATE 300 ML BOTTLE PO PRN (18:20)
[2019-01-17] MEDS ORDERED: PROCHLORPERAZINE MALEATE 5 MG TABLET PO PRN (18:20)
[2019-01-17] MEDS ORDERED: chlordiazePOXIDE HCL 10 MG CAPSULE PO PRN (18:20)
[2019-01-17] MEDS ORDERED: NICOTINE POLACRILEX 2 MG GUM BUC PRN (18:20)
[2019-01-17] MEDS ORDERED: MAG HYDROX/AL HYDROX/SIMETH 30 ML UNIT-DOSE CUP PO PRN (18:20)
[2019-01-17] MEDS ORDERED: METHADONE HCL 10 MG TABLET (FOR DETOX USE ONLY) PO ONE (20:15)
[2019-01-17] MEDS: chlordiazePOXIDE HCL 25 MG CAPSULE PO SCH (20:29)
[2019-01-17] MEDS: THIAMINE HCL 100 MG TABLET (FP) PO SCH (22:52)
[2019-01-18] MEDS: chlordiazePOXIDE HCL 25 MG CAPSULE PO SCH ×3 (05:45→22:09)
[2019-01-18] MEDS ORDERED: METHADONE HCL 5 MG TABLET (FOR DETOX USE ONLY) ONE (09:43)
[2019-01-18] MEDS ORDERED: METHADONE HCL 10 MG TABLET (FOR DETOX USE ONLY) ONE (09:43)
--- NOTE | 2019-01-18 09:57 | PN ---
[facility] CIWA - CIWA Score Nausea/Vomitin-Mild Nausea/No Vomiting Muscle Tremors: 2 Anxiety: 2 Agitation: 2 Paroxysmal Sweats: 2 Orientation: 0-Oriented Tacttile Disturbances: 0-None Auditory Disturbances: 0-None Visual Disturbances: 0-None Headache: 1-Very Mild CIWA-Ar Total Score: 10 S COWS - Scale Resting Pulse: 1= [place] 81-100 Sweatin= Chills/Flushing Restless Observation: 1= Difficult to Sit Still Pupil Size: 1= Pupils >than Normal Bone or Joint Aches: 1= Mild Discomfort Runny Nose/ Eye Tearin= Nasal Congestion GI Upset > 30mins: 0= None Tremor Observation of Outstretched Hands: 1= Tremor [place], Not Seen Yawning Observation: 0= None Anxiety or Irritability: 0= None Goose Flesh Skin: 0=Smooth Skin COWS Score: 7 [facility] Progress Note (SOAP) Subjective: Pt states doing well with dual detox with methadone and librium. O: Vital Signs - 24 hr 01/17/19 01/17/19 01/18/19 17:10 20:29 00:44 Temperature 98.9 F 98.1 F Pulse Rate 77 Respiratory 16 18 18 Rate Blood Pressure 129/84 143/76 01/18/19 01/18/19 06:00 09:40 Temperature 97.9 F 97.9 F Pulse Rate 63 66 Respiratory 18 18 Rate Blood Pressure 128/79 142/89 alert/oriented a/p: OUD and AUD- continue detox protocols to d/w counselor re half-way treatment, rehab options.
[2019-01-18] MEDS ORDERED: METHADONE (DETOX) 20 MG, METHADONE (DETOX) 5 MG PO ONE (10:00)
[2019-01-18] MEDS: PRENATAL VITAMINS W/ FOLIC ACID TABLET (FP) PO SCH (10:35)
--- NOTE | 2019-01-18 14:18 | CONSULT ---
[facility] Psychiatric Consult - Data Date of interview: 01/18/19 Admission source: [facility] Identifying data: Readmission to [facility] for this 48 y/o AA male self- referred for detoxification treatment (CRISTIAN issues : alcohol, heroin, nicotine, cocaine). Interviewed at [address] [place] [address]. Patient is , a father of three, domiciled, unemployed and supported by spouse. Substance Abuse History: Revisited with patient. He confirms data in current [facility] report as follows : Smoking history: Current every day smoker. Have you smoked in the past 12 months: Yes. Aproximately how many cigarettes per day: 10. Cigars Per Day: 0. Hx Chewing Tobacco Use: No. Initiated information on smoking cessation: Yes. 'Breaking Loose' booklet given: 01/17/19. - Substances abused. Alcohol. Substance route: Oral. Frequency: Daily. Amount used: 1 pint of Vodka/day. Age of first use: 23. Date of last use: . Heroin. Substance route: Inhalation. Frequency: Daily. Amount used : 15 -20 BAGS. Age of first use: 24. Date of last use: 01/17/19. Cocaine. Substance route: Smoking. Frequency: 3-6 times per week. Amount used: $80. Age of first use: 22. Date of last use: 01/13/19 Medical History: Medical profile is remarkable for a history of colitis, diverticulitis, bronchial asthma, GERD and gastric ulcer. Remote history of orthosurgery (injury of right knee in 2005) and left foot surgery (1999). Psychiatric History: No change in longitudinal history since encounter of . History as follows : multiple psychiatric hospitalizations ([facility] in [place] + [facility] in [facility]). Patient has been diagnosed with Bipolar Disorder and PTSD. Mr Madison reports past exposure on seroquel + risperdal + lexapro (prescribed in detention + occasional CPEP providers) . Lost to psychiatric OPD care. No contact with psychiatrists or therapists for months except for brief admissions to detox/rehab institutions. Patient is known to the [facility] ([facility]) and [facility] OPD clinic. Endorses history of one suicide attempt (20 years ago via overdose with medications). Physical/Sexual Abuse/Trauma History: Patient denies. Additional Comment: Urine drug screen results: FEN-Fentanyl, MOP-Opiates. Noted. Mental Status Exam - Mental Status Exam Alert and Oriented to: Time, Place, Person Cognitive Function: Good Patient Appearance: Well Groomed Mood: Withdrawn Affect: Mood Congruent, Constricted Patient Behavior: Fatigued, Cooperative Speech Pattern: Clear Voice Loudness: Normal Thought Process: Goal Oriented Thought Disorder: Not Present Hallucinations: Denies Suicidal Ideation: Denies Homicidal Ideation: Denies Insight/Judgement: Poor Sleep: Poorly, Difficulty falling asleep (wants seroquel) Psychiatric Findings - Problem List ([place] 1, 2,3) (1) Alcohol dependence with uncomplicated withdrawal Current Visit: Yes Status: Acute (2) Opioid dependence with withdrawal Current Visit: Yes Status: Acute (3) Cocaine dependence, uncomplicated Current Visit: Yes Status: Chronic (4) Nicotine dependence Current Visit: Yes Status: Chronic Qualifiers: Nicotine product type: cigarettes Substance use status: uncomplicated Qualified Code(s): F17.210 - Nicotine dependence, cigarettes, uncomplicated (5) History of bipolar disorder Current Visit: Yes Status: Chronic (6) Non-compliance Current Visit: Yes Status: Chronic (7) Substance induced mood disorder Current Visit: Yes Status: Chronic (8) Insomnia Current Visit: Yes Status: Chronic Qualifiers: Insomnia type: unspecified Qualified Code(s): G47.00 - Insomnia, unspecified - Initial Treatment Plan Initial Treatment Plan: Psychoeducation. Sleep hygiene. Detoxification. AA/NA meetings. Seroquel 100 mg po hs (patient's request). Side effects/benefits discussed with the patient. Mr Madison gave verbal consent to MD. Delgadillo.
[2019-01-18] MEDS: THIAMINE HCL 100 MG TABLET (FP) PO SCH (22:09)
[2019-01-18] MEDS: QUEtiapine FUMARATE 100 MG TABLET (FP) PO SCH (22:09)
[2019-01-19] MEDS: chlordiazePOXIDE 5 MG CAPSULE PO SCH ×3 (06:22→22:04)
[2019-01-19] MEDS ORDERED: METHADONE HCL 10 MG TABLET (FOR DETOX USE ONLY) PO ONE (10:00)
[2019-01-19] MEDS: PRENATAL VITAMINS W/ FOLIC ACID TABLET (FP) PO SCH (10:10)
--- NOTE | 2019-01-19 11:24 | PN ---
[facility] CIWA - CIWA Score Nausea/Vomitin-No Nausea/No Vomiting Muscle Tremors: 3 Anxiety: 2 Agitation: 2 Paroxysmal Sweats: 2 Orientation: 0-Oriented Tacttile Disturbances: 0-None Auditory Disturbances: 0-None Visual Disturbances: 0-None Headache: 0-None Present CIWA-Ar Total Score: 9 BHS COWS - Scale Resting Pulse: 1= [place] 81-100 Sweatin= Chills/Flushing Restless Observation: 0= Sits Still Pupil Size: 0= Normal to Room Light Bone or Joint Aches: 1= Mild Discomfort Runny Nose/ Eye Tearin= None GI Upset > 30mins: 0= None Tremor Observation of Outstretched Hands: 1= Tremor [place], Not Seen Yawning Observation: 1= 1-2x During Session Anxiety or Irritability: 1=Feels Anxious/Irritable Goose Flesh Skin: 0=Smooth Skin COWS Score: 6 BHS Progress Note (SOAP) Subjective: sweats shakes interrupted sleep irritable Objective: 01/19/19 11:24 Vital Signs Temperature 98.2 F 01/19/19 09:20 Pulse Rate 70 01/19/19 09:20 Respiratory Rate 18 01/19/19 09:20 Blood Pressure 155/96 01/19/19 09:20 O2 Sat by Pulse Oximetry (%) labs noted from most recent visit aaox3 ambulating no acute distress Assessment: 01/19/19 11:25 withdrawals Plan: continue detox increase fluids
[2019-01-19] MEDS: QUEtiapine FUMARATE 100 MG TABLET (FP) PO SCH (22:04)
[2019-01-19] MEDS: THIAMINE HCL 100 MG TABLET (FP) PO SCH (22:04)
[2019-01-20] MEDS ORDERED: chlordiazePOXIDE HCL 10 MG CAPSULE PO PRN
[2019-01-20] MEDS: chlordiazePOXIDE HCL 10 MG CAPSULE PO SCH ×3 (06:32→22:09)
[2019-01-20] MEDS ORDERED: METHADONE HCL 5 MG TABLET (FOR DETOX USE ONLY) ONE (09:11)
[2019-01-20] MEDS ORDERED: METHADONE HCL 10 MG TABLET (FOR DETOX USE ONLY) ONE (09:12)
--- NOTE | 2019-01-20 09:55 | PN ---
[facility] CIWA - CIWA Score Nausea/Vomitin-Mild Nausea/No Vomiting Muscle Tremors: 2 Anxiety: 2 Agitation: 2 Paroxysmal Sweats: No Perspiration Orientation: 0-Oriented Tacttile Disturbances: 1-Very Mild Itch/Numbness Auditory Disturbances: 0-None Visual Disturbances: 0-None Headache: 2-Mild CIWA-Ar Total Score: 10 BHS COWS - Scale Resting Pulse: 0= [place] 80 or Below Sweatin= No chills or Flushing Restless Observation: 1= Difficult to Sit Still Pupil Size: 1= Pupils >than Normal Bone or Joint Aches: 1= Mild Discomfort Runny Nose/ Eye Tearin= Nasal Congestion GI Upset > 30mins: 2= Nausea/Diarrhea Tremor Observation of Outstretched Hands: 1= Tremor [place], Not Seen Yawning Observation: 1= 1-2x During Session Anxiety or Irritability: 2=Irritable/Anxious Goose Flesh Skin: 0=Smooth Skin COWS Score: 10 [facility] Progress Note (SOAP) Subjective: alert,irritable,anxious,interrupted sleep,pain in the body and back Objective: 01/20/19 09:52 Vital Signs Temperature 98.2 F 01/20/19 09:43 Pulse Rate 61 01/20/19 09:43 Respiratory Rate 18 01/20/19 09:43 Blood Pressure 131/74 01/20/19 09:43 O2 Sat by Pulse Oximetry (%) Assessment: 01/20/19 09:54 withdrawal symptom Plan: continue detox methadone and librium
[2019-01-20] MEDS ORDERED: METHADONE (DETOX) 10 MG, METHADONE (DETOX) 5 MG PO ONE (10:00)
[2019-01-20] MEDS: PRENATAL VITAMINS W/ FOLIC ACID TABLET (FP) PO SCH (10:50)
--- NOTE | 2019-01-20 14:18 | PN ---
BHS Progress Note Note: patient refused librium,still on methadone regimen,closed monitoring
[2019-01-20 15:31] LABS: HEMATOCRIT 40.8 % (35.4-49); HEMOGLOBIN 13.4 GM/dL (11.7-16.9); MCH 29.4 pg (25.7-33.7); MCHC 32.8 g/dl (32.0-35.9); MEAN CELL VOLUME 89.5 fl (80-96); MEAN PLT VOLUME 10.9 fl (7.5-11.1); PLATELET COUNT 223 K/MM3 (134-434); RBC 4.55 M/mm3 (4.00-5.60); RDW 14.6 % (11.9-15.9); WHITE BLOOD COUNT 7.6 K/mm3 (4.0-10.0)
[2019-01-20 15:33] LABS: ALBUMIN 3.3 g/dl (3.4-5.0); BILIRUBIN,TOTAL 0.5 mg/dL (0.2-1); BLOOD UREA NITROGEN 19.2 mg/dL (7-18); CREATININE 1.1 mg/dL (0.55-1.3); POTASSIUM 4.1 mmol/L (3.5-5.1); TOT PROT 6.4 g/dl (6.4-8.2)
[2019-01-20] MEDS: THIAMINE HCL 100 MG TABLET (FP) PO SCH (22:09)
[2019-01-20] MEDS: QUEtiapine FUMARATE 100 MG TABLET (FP) PO SCH (22:09)
[2019-01-21] MEDS ORDERED: chlordiazePOXIDE HCL 10 MG CAPSULE PO ONE (05:00)
[2019-01-21 09:10] VITALS: BP 114/87; PULSE 83; TEMP 98.1
--- NOTE | 2019-01-21 09:31 | PN ---
[facility] CIWA - CIWA Score Nausea/Vomitin-Mild Nausea/No Vomiting Muscle Tremors: 1-None Visible, but [place] Anxiety: 2 Agitation: 2 Paroxysmal Sweats: No Perspiration Orientation: 0-Oriented Tacttile Disturbances: 1-Very Mild Itch/Numbness Auditory Disturbances: 0-None Visual Disturbances: 0-None Headache: 1-Very Mild CIWA-Ar Total Score: 8 BHS COWS - Scale Resting Pulse: 0= [place] 80 or Below Sweatin= No chills or Flushing Restless Observation: 1= Difficult to Sit Still Pupil Size: 1= Pupils >than Normal Bone or Joint Aches: 1= Mild Discomfort Runny Nose/ Eye Tearin= Nasal Congestion GI Upset > 30mins: 1= Stomach Cramp Tremor Observation of Outstretched Hands: 1= Tremor [place], Not Seen Yawning Observation: 1= 1-2x During Session Anxiety or Irritability: 2=Irritable/Anxious Goose Flesh Skin: 0=Smooth Skin COWS Score: 9 [facility] Progress Note (SOAP) Subjective: alert,irritable,anxious,interrupted sleep,pain in the body Objective: 01/21/19 09:27 Vital Signs Temperature 98.1 F 01/21/19 09:08 Pulse Rate 83 01/21/19 09:08 Respiratory Rate 16 01/21/19 09:08 Blood Pressure 114/87 01/21/19 09:08 O2 Sat by Pulse Oximetry (%) Laboratory Last Values WBC 7.6 K/mm3 (4.0-10.0) 01/20/19 10:50 RBC 4.55 M/mm3 (4.00-5.60) 01/20/19 10:50 Hgb 13.4 GM/dL (11.7-16.9) 01/20/19 10:50 Hct 40.8 % (35.4-49) 01/20/19 10:50 MCV 89.5 fl (80-96) 01/20/19 10:50 MCH 29.4 pg (25.7-33.7) 01/20/19 10:50 MCHC 32.8 g/dl (32.0-35.9) 01/20/19 10:50 RDW 14.6 % (11.9-15.9) 01/20/19 10:50 Plt Count 223 K/MM3 (134-434) 01/20/19 10:50 MPV 10.9 fl (7.5-11.1) 01/20/19 10:50 Sodium 143 mmol/L (136-145) 01/20/19 10:50 Potassium 4.1 mmol/L (3.5-5.1) 01/20/19 10:50 Chloride 107 mmol/L (98-107) 01/20/19 10:50 Carbon Dioxide 33 mmol/L (21-32) H 01/20/19 10:50 Anion Gap 4 MMOL/L (8-16) L 01/20/19 10:50 BUN 19.2 mg/dL (7-18) H 01/20/19 10:50 Creatinine 1.1 mg/dL (0.55-1.3) 01/20/19 10:50 Est GFR (CKD-EPI)AfAm 90.88 01/20/19 10:50 Est GFR (CKD-EPI)NonAf 78.41 01/20/19 10:50 Random Glucose 96 mg/dL (74-106) 01/20/19 10:50 Calcium 9.0 mg/dL (8.5-10.1) 01/20/19 10:50 Total Bilirubin 0.5 mg/dL (0.2-1) 01/20/19 10:50 AST 11 U/L (15-37) L 01/20/19 10:50 ALT 13 U/L (13-61) 01/20/19 10:50 Alkaline Phosphatase 68 U/L (45-117) 01/20/19 10:50 Total Protein 6.4 g/dl (6.4-8.2) 01/20/19 10:50 Albumin 3.3 g/dl (3.4-5.0) L 01/20/19 10:50 Assessment: 01/21/19 09:30 withdrawal symptom Plan: continue detox methadone and librium,disharge in am
[2019-01-21] MEDS ORDERED: METHADONE HCL 10 MG TABLET (FOR DETOX USE ONLY) PO ONE (10:00)
[2019-01-21] MEDS: PRENATAL VITAMINS W/ FOLIC ACID TABLET (FP) PO SCH (10:12)
--- NOTE | 2019-01-21 10:27 | PN ---
S Progress Note Note: alert,would like to go home today instead of tomorrow,stable for discharge, follow up with after care program as arrangement
--- NOTE | 2019-01-21 10:30 | DS ---
[facility] Detox Discharge Summary Admission Date: 01/17/19 Discharge Date: 01/21/19 - History Present History: Alcohol Dependence, Cocaine Dependence, Opioid Dependence Additional Comments: stable for discharge,follow up with after care program as arrangement,has albuterol at home Pertinent Past History: asthma nicotine dependence - Physical Exam Results Vital Signs: Vital Signs Temperature 98.1 F 01/21/19 09:08 Pulse Rate 83 01/21/19 09:08 Respiratory Rate 16 01/21/19 09:08 Blood Pressure 114/87 01/21/19 09:08 O2 Sat by Pulse Oximetry (%) Pertinent Admission Physical Exam Findings: withdrawal sign and symptom Laboratory Last Values WBC 7.6 K/mm3 (4.0-10.0) 01/20/19 10:50 RBC 4.55 M/mm3 (4.00-5.60) 01/20/19 10:50 Hgb 13.4 GM/dL (11.7-16.9) 01/20/19 10:50 Hct 40.8 % (35.4-49) 01/20/19 10:50 MCV 89.5 fl (80-96) 01/20/19 10:50 MCH 29.4 pg (25.7-33.7) 01/20/19 10:50 MCHC 32.8 g/dl (32.0-35.9) 01/20/19 10:50 RDW 14.6 % (11.9-15.9) 01/20/19 10:50 Plt Count 223 K/MM3 (134-434) 01/20/19 10:50 MPV 10.9 fl (7.5-11.1) 01/20/19 10:50 Sodium 143 mmol/L (136-145) 01/20/19 10:50 Potassium 4.1 mmol/L (3.5-5.1) 01/20/19 10:50 Chloride 107 mmol/L (98-107) 01/20/19 10:50 Carbon Dioxide 33 mmol/L (21-32) H 01/20/19 10:50 Anion Gap 4 MMOL/L (8-16) L 01/20/19 10:50 BUN 19.2 mg/dL (7-18) H 01/20/19 10:50 Creatinine 1.1 mg/dL (0.55-1.3) 01/20/19 10:50 Est GFR (CKD-EPI)AfAm 90.88 01/20/19 10:50 Est GFR (CKD-EPI)NonAf 78.41 01/20/19 10:50 Random Glucose 96 mg/dL (74-106) 01/20/19 10:50 Calcium 9.0 mg/dL (8.5-10.1) 01/20/19 10:50 Total Bilirubin 0.5 mg/dL (0.2-1) 01/20/19 10:50 AST 11 U/L (15-37) L 01/20/19 10:50 ALT 13 U/L (13-61) 01/20/19 10:50 Alkaline Phosphatase 68 U/L (45-117) 01/20/19 10:50 Total Protein 6.4 g/dl (6.4-8.2) 01/20/19 10:50 Albumin 3.3 g/dl (3.4-5.0) L 01/20/19 10:50 - Treatment Hospital Course: Detox Protocol Followed, Detoxed Safely, Responded well, Discharged Condition Good Patient has Accepted a Rehab Referral to: declined - Medication Discharge Medications: Ambulatory Orders Escitalopram Oxalate [Lexapro -] 20 mg PO DAILY 08/27/18 Risperidone [Risperdal -] 3 mg PO HS 08/27/18 Naloxone HCl [Narcan] 4 mg NS ASDIR PRN #1 spray 12/15/18 Albuterol Sulfate Inhaler - [Ventolin HFA Inhaler -] 2 puff IH Q4H PRN #1 inhaler 12/18/18 - Diagnosis (1) Alcohol dependence with uncomplicated withdrawal Current Visit: Yes Status: Acute (2) Opioid dependence with withdrawal Current Visit: Yes Status: Acute (3) Cocaine dependence, uncomplicated Current Visit: Yes Status: Chronic (4) History of bipolar disorder Current Visit: Yes Status: Chronic (5) Nicotine dependence Current Visit: Yes Status: Chronic Qualifiers: Nicotine product type: cigarettes Substance use status: uncomplicated Qualified Code(s): F17.210 - Nicotine dependence, cigarettes, uncomplicated - AMA Did Patient Leave Against Medical Advice: No
[2019-01-21] MEDS ORDERED: ALBUTEROL SO4 8 GM HFA INHALER IH PRN (10:43)
[2019-01-22] MEDS ORDERED: METHADONE HCL 5 MG TABLET (FOR DETOX USE ONLY) PO ONE (06:00)
== END 2019-01-21 11:45 | disposition home or self-care (01) | DRG 897 ==
LOC: YASAS 14:45 → Y6N 19:59
PROVIDERS: ADMIT Allergy & Immunology; ATTEND Allergy & Immunology
PROC: HZ2ZZZZ Detoxification Services for Substance Abuse Treatment (ICD-10-PCS; principal; 2019-01-17)
DX: F10.230 Alcohol dependence with withdrawal, uncomplicated (principal); F14.20 Cocaine dependence, uncomplicated; F11.23 Opioid dependence with withdrawal; F17.210 Nicotine dependence, cigarettes, uncomplicated; F31.9 Bipolar disorder, unspecified; F19.24 Other psychoactive substance dependence with psychoactive substance-induced mood disorder; J45.909 Unspecified asthma, uncomplicated; G47.00 Insomnia, unspecified; Z87.19 Personal history of other diseases of the digestive system; Z91.013 Allergy to seafood; Z91.19 Patient's noncompliance with other medical treatment and regimen
CPT/HCPCS: 36415; 80053; 85027; 86593

== ENCOUNTER 2019-03-10 11:01 | Inpatient (IN) | payer BC, OTHER ==
--- NOTE | 2019-03-10 11:22 | HP ---
CIWA Score - Admission Criteria OASAS Guidelines: Admission for Medically Managed Detox: Requires at least one of the followin. CIWA greater than 12 2. Seizures within the past 24 hours 3. Delirium tremens within the past 24 hours 4. Hallucinations within the past 24 hours 5. Acute intervention needed for co occurring medical disorder 6. Acute intervention needed for co occurring psychiatric disorder 7. Severe withdrawal that cannot be handled at a lower level of care (continued vomiting, continued diarrhea, abnormal vital signs) requiring intravenous medication and/or fluids 8. Admitting History and Physical - Admission History of Present Illness: 49 year old male with history of opioid dependence and alcohol dependence with withdrawals. He states last admission here in 12/2018 he completed detox but did not follow up with rehab. He has had multiple admissions to detox without follow up. The rehab he attempted in 2018 he never completed. He had a blackout 3 months ago. He denies withdrawal seizures. He last used yesterday in the afternoon. He uses heroin daily up to 1 bundle of heroin intransally, last used yesterday. Breathalyzer is zero but last drink more than 24 hours ago. He smokes ciggarettes: PMH: Asthma Psurg: Right Knee surgery and Right foot surgery Psych: Bipolar Disorder and Depression He is homeless History Source: Patient Limitations to Obtaining History: No Limitations - Smoking History Smoking history: Current every day smoker Have you smoked in the past 12 months: Yes Aproximately how many cigarettes per day: 10 - Alcohol/Substance Use Hx Alcohol Use: Yes Admission [facility] Allergies/Adverse Reactions: Allergies Allergy/AdvReac Type Severity Reaction Status Date / Time shellfish derived Allergy Severe Difficulty Verified 03/10/19 11:32 Breathing No Known Drug Allergies Allergy Verified 01/17/19 17:11 Exam Limitations: No Limitations - Ebola screening Have you traveled outside of the country in the last 21 days: No (N) Have you had contact with anyone from an Ebola affected area: No Have you been sick,other than usual withdrawal symptoms: No Do you have a fever: No Patient History - Patient Medical History Hx Anemia: No Hx Asthma: Yes (albuterol) Hx Chronic Obstructive Pulmonary Disease (COPD): No Hx Cancer: No Hx Cardiac Disorders: No Hx Congestive Heart Failure: No Hx Hypertension: No Hx Hypercholesterolemia: No Hx Pacemaker: No HX Cerebrovascular Accident: No Hx Seizures: No Hx Dementia: No Hx Diabetes: No Hx Gastrointestinal Disorders: No Hx Liver Disease: No Hx Genitourinary Disorders: No Hx Sexually Transmitted Disorders: No Hx Renal Disease (ESRD): No Hx Thyroid Disease: No Hx Human Immunodeficiency Virus (HIV): No (NEGATIVE HX LAST 1995) Hx Hepatitis C: No Hx Depression: Yes Hx Suicide Attempt: No Hx Bipolar Disorder: Yes ('I just stopped going for treatment') Hx Schizophrenia: No - Patient Surgical History Past Surgical History: Yes Hx Neurologic Surgery: No Hx Cataract Extraction: No Hx Cardiac Surgery: No Hx Lung Surgery: No Hx Breast Surgery: No Hx Breast Biopsy: No Hx Abdominal Surgery: No Hx Appendectomy: No Hx Cholecystectomy: No Hx Genitourinary Surgery: No Hx Section: No Hx Orthopedic Surgery: Yes (R knee in 2005 arthroosocpy ) Other Surgical History: right foot surgery for calcium build-up plantar 2000 Anesthesia Reaction: No - PPD History Date: 02/25/17 Results: 0 mm - Smoking Cessation Smoking history: Current every day smoker Have you smoked in the past 12 months: Yes Aproximately how many cigarettes per day: 10 Cigars Per Day: 0 Hx Chewing Tobacco Use: No Cleared for Admission BHS - Detox or Rehab S Level of Care: Medically Managed Detox Regimen/Protocol: Methadone/Librium Claeared for Rehab Admission: No Screened but not Admitted - Documentation of Visit Screened but not Admitted: No Breathalyzer - Breathalyzer Breathalyzer: 0 (more than 24 hours last drink) Urine Drug Screen - Test Device Lot number: [id number] Expiration date: 09/17/20 - Control Is test valid?: Yes - Results Drug screen NEGATIVE: No Urine drug screen results: FEN-Fentanyl, MOP-Opiates Inpatient Rehab Admission - Rehab Decision to Admit Inpatient rehab admission?: No
[2019-03-10 11:45] VITALS: BMI 23.9
--- NOTE | 2019-03-10 12:56 | HP ---
COWS - Scale Resting Pulse: 2= [place] 101-120 Sweatin=Flushed/Facial Moisture Restless Observation: 1= Difficult to Sit Still Pupil Size: 1= Pupils >than Normal Bone or Joint Aches: 2= Severe Diffuse Aches Runny Nose/ Eye Tearin= Nasal Congestion GI Upset > 30mins: 2= Nausea/Diarrhea Tremor Observation: 1= Tremor [place], Not Seen Yawning Observation: 1= 1-2x During Session Anxiety or Irritability: 1=Feels Anxious/Irritable Goose Flesh Skin: 0=Smooth Skin COWS Score: 14 CIWA Score Nausea/Vomitin-Mild Nausea/No Vomiting Muscle Tremors: 1-None Visible, but [place] Anxiety: 4-Mod. Anxious/Guarded Agitation: 2 Paroxysmal Sweats: 2 Orientation: 1-Uncertain about Date Tacttile Disturbances: 0-None Auditory Disturbances: 0-None Visual Disturbances: 0-None Headache: 6-Very Severe CIWA-Ar Total Score: 17 - Admission Criteria OASAS Guidelines: Admission for Medically Managed Detox: Requires at least one of the followin. CIWA greater than 12 2. Seizures within the past 24 hours 3. Delirium tremens within the past 24 hours 4. Hallucinations within the past 24 hours 5. Acute intervention needed for co occurring medical disorder 6. Acute intervention needed for co occurring psychiatric disorder 7. Severe withdrawal that cannot be handled at a lower level of care (continued vomiting, continued diarrhea, abnormal vital signs) requiring intravenous medication and/or fluids 8. Admitting History and Physical - Admission History of Present Illness: 49 year old with history of opioid dependence and alcohol dependence, cocaine use disorder and benzodiazepine use disorder. He is using heroin 1-2 bundles of heroin daily, last used yesterday. He is using cocaine 1-2 grams daily, last used 2-3 days ago. He is drinking alcohol 1 pint of vodka daily, last used 2-3 days ago. PMH:Asthma Psurg: Right knee and right foot surgery Psych:Depression Bipolar Disorder History Source: Patient Limitations to Obtaining History: No Limitations - Past Medical History Pulmonary: Yes: Asthma - Smoking History Smoking history: Current every day smoker Have you smoked in the past 12 months: Yes Aproximately how many cigarettes per day: 10 - Alcohol/Substance Use Hx Alcohol Use: Yes ( 1pint of vodka daily) History of Substance Use: reports: Cocaine, Heroin - Social History Usual Living Arrangement: Yes: Alone ADL: Independent History of Recent Travel: No Admission ROS [facility] Allergies/Adverse Reactions: Allergies Allergy/AdvReac Type Severity Reaction Status Date / Time shellfish derived Allergy Severe Difficulty Verified 03/10/19 11:32 Breathing No Known Drug Allergies Allergy Verified 01/17/19 17:11 Exam Limitations: No Limitations - Ebola screening Have you traveled outside of the country in the last 21 days: No (N) Have you had contact with anyone from an Ebola affected area: No Have you been sick,other than usual withdrawal symptoms: No Do you have a fever: No - Review of Systems Constitutional: Chills, Diaphoresis EENT: reports: No Symptoms Reported Respiratory: reports: No Symptoms reported Cardiac: reports: No Symptoms Reported GI: reports: Nausea, Abdominal cramping : reports: No Symptoms Reported Musculoskeletal: reports: No Symptoms Reported Integumentary: reports: No Symptoms Reported Neuro: reports: Headache Endocrine: reports: No Symptoms Reported Hematology: reports: No Symptoms Reported Psychiatric: reports: Judgement Intact, Mood/Affect Appropiate, Orientated x3, Agitated, Anxious, Depressed Other Systems: Reviewed and Negative Patient History - Patient Medical History Hx Anemia: No Hx Asthma: Yes Hx Chronic Obstructive Pulmonary Disease (COPD): No Hx Cancer: No Hx Cardiac Disorders: No Hx Congestive Heart Failure: No Hx Hypertension: No Hx Hypercholesterolemia: No Hx Pacemaker: No HX Cerebrovascular Accident: No Hx Seizures: No Hx Dementia: No Hx Diabetes: No Hx Gastrointestinal Disorders: No Hx Liver Disease: No Hx Genitourinary Disorders: No Hx Sexually Transmitted Disorders: No Hx Renal Disease (ESRD): No Hx Thyroid Disease: No Hx Human Immunodeficiency Virus (HIV): No (NEGATIVE HX LAST 1995) Hx Hepatitis C: No Hx Depression: Yes Hx Suicide Attempt: No Hx Bipolar Disorder: Yes ('I just stopped going for treatment') Hx Schizophrenia: Yes - Patient Surgical History Past Surgical History: Yes Hx Neurologic Surgery: No Hx Cataract Extraction: No Hx Cardiac Surgery: No Hx Lung Surgery: No Hx Breast Surgery: No Hx Breast Biopsy: No Hx Abdominal Surgery: No Hx Appendectomy: No Hx Cholecystectomy: No Hx Genitourinary Surgery: No Hx Section: No Hx Orthopedic Surgery: Yes (R knee in 2005 arthroosocpy ) Other Surgical History: right foot surgery for calcium build-up plantar 2000 Anesthesia Reaction: No - PPD History Previous Implant?: Yes Documented Results: Negative w/proof Implanted On Prior R Admission?: Yes Date: 02/25/17 Results: 0 mm PPD to be Administered?: Yes - Reproductive History Patient : No - Smoking Cessation Smoking history: Current every day smoker Have you smoked in the past 12 months: Yes Aproximately how many cigarettes per day: 10 Cigars Per Day: 0 Hx Chewing Tobacco Use: No Initiated information on smoking cessation: Yes 'Breaking Loose' booklet given: 03/10/19 - Substances abused Heroin Substance route: Inhalation Frequency: Daily Amount used: 15bags Age of first use: 19 Date of last use: 03/10/19 Alcohol Substance route: Oral Frequency: Daily Amount used: 1 p8int of vodka Age of first use: 19 Date of last use: 03/08/19 Cocaine Substance route: Smoking Amount used: $75/day Age of first use: 19 Date of last use: 03/08/19 Alprazolam (Xanax) Substance route: Oral Frequency: Daily Amount used: 3bars Age of first use: 34 Date of last use: 03/09/19 Admission Physical Exam BHS - Vital Signs Vital Signs: Vital Signs - 24 hr 03/10/19 11:38 Temperature 98.4 F Pulse Rate 108 H Respiratory 18 Rate Blood Pressure 118/74 - Physical General Appearance: Yes: Mild Distress, Irritable, Anxious HEENTM: Yes: EOMI, Hearing grossly Normal, Normal ENT Inspection, Normocephalic , Normal Voice, MARVIN, Pharynx Normal, Tm's normal Respiratory: Yes: Chest Non-Tender, Lungs Clear, Normal Breath Sounds, No Respiratory Distress, No Accessory Muscle Use Neck: Yes: No masses,lesions,Nodules, Supple, Trachea in good position Breast: Yes: Within Normal Limits Cardiology: Yes: Regular Rhythm, Regular Rate, S1, S2 Abdominal: Yes: Normal Bowel Sounds, Non Tender, Flat, Soft Genitourinary: Yes: Within Normal Limits Back: Yes: Normal Inspection Musculoskeletal: Yes: full range of Motion, Gait Steady, Pelvis Stable Extremities: Yes: Normal Capillary Refill, Normal Inspection, Normal Range of Motion, Non-Tender Neurological: Yes: 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 II-XII NML intact, Fully Oriented, Alert, Motor Strength 5/5, Normal Mood/Affect, Normal Response Integumentary: Yes: Normal Color, Warm Lymphatic: Yes: Within Normal Limits - Diagnostic (1) Alcohol dependence with uncomplicated withdrawal Current Visit: Yes Status: Acute (2) Opioid dependence with withdrawal Current Visit: Yes Status: Acute (3) Anxiety and depression Current Visit: Yes Status: Chronic (4) Asthma Current Visit: Yes Status: Chronic Qualifiers: Asthma severity: mild Asthma persistence: intermittent Asthma complication type: unspecified Qualified Code(s): J45.20 - Mild intermittent asthma, uncomplicated Comment: ventolin (5) Bipolar 1 disorder, depressed Current Visit: Yes Status: Chronic (6) Cocaine dependence, uncomplicated Current Visit: Yes Status: Chronic (7) History of bipolar disorder Current Visit: Yes Status: Chronic (8) Nicotine dependence Current Visit: Yes Status: Chronic Qualifiers: Nicotine product type: cigarettes Substance use status: uncomplicated Qualified Code(s): F17.210 - Nicotine dependence, cigarettes, uncomplicated Cleared for Admission BHS - Detox or Rehab S Level of Care: Medically Managed Detox Regimen/Protocol: Methadone/Librium Claeared for Rehab Admission: No Screened but not Admitted - Documentation of Visit Screened but not Admitted: No Breathalyzer - Breathalyzer Breathalyzer: 0 (used 2-3 days ago) Urine Drug Screen - Test Device Lot number: [id number] Expiration date: 09/17/20 - Control Is test valid?: Yes - Results Drug screen NEGATIVE: No Urine drug screen results: FEN-Fentanyl, MOP-Opiates Inpatient Rehab Admission - Rehab Decision to Admit Inpatient rehab admission?: No
[2019-03-10] MEDS ORDERED: cloNIDine HCL 0.1 MG TABLET PO PRN (13:01)
[2019-03-10] MEDS ORDERED: MAGNESIUM HYDROX 2400MG/30ML ORAL SUSPENSION 30 ML CUP PO PRN (13:01)
[2019-03-10] MEDS ORDERED: MAGNESIUM CITRATE 300 ML BOTTLE PO PRN (13:01)
[2019-03-10] MEDS ORDERED: METHOCARBAMOL 500 MG TABLET PO PRN (13:01)
[2019-03-10] MEDS ORDERED: ACETAMINOPHEN 325 MG TABLET (FP) PO PRN ×2 (13:01)
[2019-03-10] MEDS ORDERED: MENTHOL/PHENOL 1 EACH UD MM PRN (13:01)
[2019-03-10] MEDS ORDERED: BISMUTH SUBSALICYLATE 524 MG/30 ML UD PO PRN (13:01)
[2019-03-10] MEDS ORDERED: hydrOXYzine PAMOATE 25 MG CAPSULE (FP) PO PRN (13:01)
[2019-03-10] MEDS ORDERED: IBUPROFEN 400 MG TABLET (FP) PO PRN (13:01)
[2019-03-10] MEDS ORDERED: MAG HYDROX/AL HYDROX/SIMETH 30 ML UNIT-DOSE CUP PO PRN (13:01)
[2019-03-10] MEDS ORDERED: chlordiazePOXIDE HCL 25 MG CAPSULE PO PRN (13:01)
[2019-03-10] MEDS ORDERED: ALBUTEROL SO4 HFA INHALER IH PRN (13:04)
[2019-03-10] MEDS: ESCITALOPRAM OXALATE 20 MG TABLET PO SCH (13:58)
[2019-03-10] MEDS ORDERED: METHADONE HCL 10 MG TABLET (FOR DETOX USE ONLY) PO ONE (14:00)
[2019-03-10] MEDS: chlordiazePOXIDE HCL 25 MG CAPSULE PO SCH ×2 (17:07→22:02)
[2019-03-10] MEDS: THIAMINE HCL 100 MG TABLET (FP) PO SCH (22:02)
[2019-03-10] MEDS: MELATONIN 5 MG TABLETS PO PRN (22:02)
[2019-03-11] MEDS: chlordiazePOXIDE HCL 25 MG CAPSULE PO SCH ×4 (06:25→22:12)
[2019-03-11] MEDS ORDERED: METHADONE HCL 10 MG TABLET (FOR DETOX USE ONLY) ONE (09:00)
[2019-03-11] MEDS ORDERED: METHADONE HCL 5 MG TABLET (FOR DETOX USE ONLY) ONE (09:00)
[2019-03-11 09:32] LABS: HEMOGLOBIN 12.2 GM/dL (11.7-16.9); MCH 29.8 pg (25.7-33.7); MEAN CELL VOLUME 90.4 fl (80-96); MEAN PLT VOLUME 10.2 fl (7.5-11.1); PLATELET COUNT 229 K/MM3 (134-434); RBC 4.09 M/mm3 (4.00-5.60); RDW 15.1 % (11.9-15.9)
[2019-03-11] MEDS ORDERED: METHADONE (DETOX) 20 MG, METHADONE (DETOX) 5 MG PO ONE (10:00)
[2019-03-11] MEDS: PRENATAL VITAMINS W/ FOLIC ACID TABLET (FP) PO SCH (10:21)
[2019-03-11] MEDS: NICOTINE 7 MG/24 HOURS TOPICAL PATCH TD SCH (10:21)
[2019-03-11] MEDS: ESCITALOPRAM OXALATE 20 MG TABLET PO SCH (10:21)
--- NOTE | 2019-03-11 10:27 | PN ---
S CIWA - CIWA Score Nausea/Vomitin-No Nausea/No Vomiting Muscle Tremors: 3 Anxiety: 3 Agitation: 4-Moderately Restless Paroxysmal Sweats: 3 Orientation: 0-Oriented Tacttile Disturbances: 0-None Auditory Disturbances: 0-None Visual Disturbances: 0-None Headache: 0-None Present CIWA-Ar Total Score: 13 BHS COWS - Scale Resting Pulse: 0= [place] 80 or Below Sweatin= Chills/Flushing Restless Observation: 1= Difficult to Sit Still Pupil Size: 0= Normal to Room Light Bone or Joint Aches: 2= Severe Diffuse Aches Runny Nose/ Eye Tearin= Nasal Congestion GI Upset > 30mins: 0= None Tremor Observation of Outstretched Hands: 2= Slight Tremor Visible Yawning Observation: 2= >3x During Session Anxiety or Irritability: 2=Irritable/Anxious Goose Flesh Skin: 3=[place] COWS Score: 14 S Progress Note (SOAP) Subjective: chills sweats shakes body aches interrupted sleep agitation restless Objective: 03/11/19 10:26 Vital Signs Temperature 97.9 F 03/11/19 09:33 Pulse Rate 63 03/11/19 09:33 Respiratory Rate 18 03/11/19 09:33 Blood Pressure 105/67 03/11/19 09:33 O2 Sat by Pulse Oximetry (%) Laboratory Tests 03/11/19 07:45 WBC 6.0 RBC 4.09 Hgb 12.2 Hct 37.0 MCV 90.4 MCH 29.8 MCHC 33.0 RDW 15.1 Plt Count 229 MPV 10.2 rest of labs pending aaox3 ambulating no acute distress Assessment: 03/11/19 10:26 withdrawals Plan: continue detox increase fluids pending labs
[2019-03-11 10:58] LABS: BILIRUBIN,TOTAL 0.2 mg/dL (0.2-1); BLOOD UREA NITROGEN 17.5 mg/dL (7-18); CALCIUM 8.3 mg/dL (8.5-10.1); CREATININE 0.9 mg/dL (0.55-1.3); POTASSIUM 4.1 mmol/L (3.5-5.1); TOT PROT 5.8 g/dl (6.4-8.2)
[2019-03-11] MEDS ORDERED: PNEUMOC 13-VAL CONJ-DIP CRM/PF 0.5 ML DISP.SYRIN IM ONE (12:00)
[2019-03-11] MEDS ORDERED: risperiDONE 3 MG TABLET PO SCH (22:00)
[2019-03-11] MEDS: THIAMINE HCL 100 MG TABLET (FP) PO SCH (22:13)
[2019-03-11] MEDS: MELATONIN 5 MG TABLETS PO PRN (22:14)
[2019-03-12] MEDS: chlordiazePOXIDE HCL 25 MG CAPSULE PO SCH ×3 (06:12→17:38)
[2019-03-12] MEDS ORDERED: METHADONE HCL 10 MG TABLET (FOR DETOX USE ONLY) PO ONE (10:00)
[2019-03-12] MEDS: PRENATAL VITAMINS W/ FOLIC ACID TABLET (FP) PO SCH (10:09)
[2019-03-12] MEDS: NICOTINE 7 MG/24 HOURS TOPICAL PATCH TD SCH (10:09)
--- NOTE | 2019-03-12 12:04 | PN ---
S CIWA - CIWA Score Nausea/Vomitin-Mild Nausea/No Vomiting Muscle Tremors: 2 Anxiety: 1-Mildly Anxious Agitation: 1-Slight > Activity Paroxysmal Sweats: 2 Orientation: 0-Oriented Tacttile Disturbances: 1-Very Mild Itch/Numbness Auditory Disturbances: 0-None Visual Disturbances: 0-None Headache: 0-None Present CIWA-Ar Total Score: 8 BHS COWS - Scale Resting Pulse: 0= [place] 80 or Below Sweatin= Chills/Flushing Restless Observation: 1= Difficult to Sit Still Pupil Size: 1= Pupils >than Normal Bone or Joint Aches: 1= Mild Discomfort Runny Nose/ Eye Tearin= Nasal Congestion GI Upset > 30mins: 1= Stomach Cramp Tremor Observation of Outstretched Hands: 1= Tremor [place], Not Seen Yawning Observation: 0= None Anxiety or Irritability: 1=Feels Anxious/Irritable Goose Flesh Skin: 0=Smooth Skin COWS Score: 8 BHS Progress Note (SOAP) Subjective: interrupted sleep, sweats, shakes Objective: 03/12/19 12:03 Vital Signs Temperature 97.9 F 03/12/19 10:49 Pulse Rate 82 03/12/19 10:49 Respiratory Rate 16 03/12/19 10:49 Blood Pressure 115/72 03/12/19 10:49 O2 Sat by Pulse Oximetry (%) Laboratory Tests 03/11/19 03/11/19 03/11/19 07:45 07:45 07:45 WBC 6.0 RBC 4.09 Hgb 12.2 Hct 37.0 MCV 90.4 MCH 29.8 MCHC 33.0 RDW 15.1 Plt Count 229 MPV 10.2 Sodium 143 Potassium 4.1 Chloride 109 H Carbon Dioxide 30 Anion Gap 3 L BUN 17.5 Creatinine 0.9 Est GFR (CKD-EPI)AfAm 115.83 Est GFR (CKD-EPI)NonAf 99.94 Random Glucose 97 Calcium 8.3 L Total Bilirubin 0.2 AST 11 L ALT 14 Alkaline Phosphatase 56 Total Protein 5.8 L Albumin 3.0 L RPR Titer Nonreactive pt aox3 in nad ambulating Assessment: 03/12/19 12:03 gustavo arriazax's Plan: cont. detox increase fluids
--- NOTE | 2019-03-12 17:29 | DS ---
[facility] Detox Discharge Summary Admission Date: 03/10/19 Discharge Date: 03/12/19 - History Additional Comments: pt reports he wishes to leave today , states he wanted additional psychiatric medications and a room change . program writer and staff offered medication assistance and psychiatric call for consultation , pt declined " I just want to go " . risks of leaving AMA were discussed at length , as well as benefits of completing the detox protocol. Safety concerns were addressed. Pt insisting to leave despite encouragement to complete program. - Physical Exam Results Vital Signs: Vital Signs Temperature 97.9 F 03/12/19 10:49 Pulse Rate 82 03/12/19 10:49 Respiratory Rate 16 03/12/19 10:49 Blood Pressure 115/72 03/12/19 10:49 O2 Sat by Pulse Oximetry (%) - Medication Discharge Medications: Ambulatory Orders Escitalopram Oxalate [Lexapro -] 20 mg PO DAILY 08/27/18 Risperidone [Risperdal -] 3 mg PO HS 08/27/18 Albuterol Sulfate Inhaler - [Ventolin HFA Inhaler -] 2 puff IH Q4H PRN inhaler 01/21/19 - AMA Did Patient Leave Against Medical Advice: Yes
[2019-03-12 19:14] VITALS: BP 130/77; PULSE 73; TEMP 98
[2019-03-13] MEDS ORDERED: chlordiazePOXIDE HCL 10 MG CAPSULE PO PRN
[2019-03-13] MEDS ORDERED: chlordiazePOXIDE HCL 10 MG CAPSULE PO SCH (05:00)
[2019-03-13] MEDS ORDERED: METHADONE (DETOX) 10 MG, METHADONE (DETOX) 5 MG PO ONE (10:00)
[2019-03-14] MEDS ORDERED: chlordiazePOXIDE HCL 10 MG CAPSULE PO SCH (05:00)
[2019-03-14] MEDS ORDERED: METHADONE HCL 10 MG TABLET (FOR DETOX USE ONLY) PO ONE (10:00)
[2019-03-15] MEDS ORDERED: chlordiazePOXIDE HCL 10 MG CAPSULE PO ONE (05:00)
[2019-03-15] MEDS ORDERED: METHADONE HCL 5 MG TABLET (FOR DETOX USE ONLY) PO ONE (06:00)
== END 2019-03-12 17:41 | disposition left against medical advice (07) | DRG 894 ==
LOC: YASAS 11:01 → Y6N 13:16
PROVIDERS: ADMIT Allergy & Immunology; ATTEND Allergy & Immunology
PROC: HZ2ZZZZ Detoxification Services for Substance Abuse Treatment (ICD-10-PCS; principal; 2019-03-10)
DX: F11.23 Opioid dependence with withdrawal (principal); F13.20 Sedative, hypnotic or anxiolytic dependence, uncomplicated; F14.20 Cocaine dependence, uncomplicated; F10.230 Alcohol dependence with withdrawal, uncomplicated; F17.210 Nicotine dependence, cigarettes, uncomplicated; F31.9 Bipolar disorder, unspecified; F41.9 Anxiety disorder, unspecified; J45.20 Mild intermittent asthma, uncomplicated; Z91.013 Allergy to seafood
CPT/HCPCS: 36415; 80053; 85027; 86593; J0735

== ENCOUNTER 2019-08-21 21:20 | Inpatient (IN) | payer BC, OTHER ==
[2019-08-21 21:26] VITALS: BMI 24.3
[2019-08-21] MEDS ORDERED: CLINDAMYCIN 600MG PREMIX IVPB 600 MG/50 ML BAG IVPB ONE (21:26)
--- NOTE | 2019-08-21 21:26 | PDOC ---
Rapid Medical Evaluation Time Seen by Provider: 08/21/19 21:22 Medical Evaluation: Allergies Allergy/AdvReac Type Severity Reaction Status Date / Time shellfish derived Allergy Severe Difficulty Verified 05/03/19 14:17 Breathing No Known Drug Allergies Allergy Verified 01/17/19 17:11 08/21/19 21:23 CC: worsening infection to face, now with headache, denies immunosupression, ivda Exam: + mrsa appearing wounds Plan: iv, iv clinda Discharge Disposition - Diagnosis Cellulitis - Referrals - Patient Instructions - Post Discharge Activity
[2019-08-21 21:39] LABS: BASO % 0.4 % (0-2.0); HEMATOCRIT 36.2 % (35.4-49); HEMOGLOBIN 11.6 GM/dL (11.7-16.9); LYMPH % 16.7 % (8-40); MCH 28.8 pg (25.7-33.7); MCHC 32.1 g/dl (32.0-35.9); MEAN CELL VOLUME 89.6 fl (80-96); MEAN PLT VOLUME 9.7 fl (7.5-11.1); MONO % 6.7 % (3.8-10.2); NEUT % 75.2 % (42.8-82.8); PLATELET COUNT 351 K/MM3 (134-434); RBC 4.04 M/mm3 (4.00-5.60); WHITE BLOOD COUNT 13.1 K/mm3 (4.0-10.0)
--- NOTE | 2019-08-21 22:07 | PDOC ---
History of Present Illness - General Chief Complaint: Abscess Boil Stated Complaint: ABSCESS Time Seen by Provider: 08/21/19 21:22 History Source: Patient Exam Limitations: No Limitations - History of Present Illness Initial Comments: 08/21/19 21:58 49 yo male with PMH of bipolar disorder, substance abuse and cellulites. Pt presents with a 4 day hx of recurrent abscesses throughout his body. He was seen at [facility] ED 2 days ago and discharged with oral and topical clindamycin of which he has only taken 1 pill. Since leaving the ED, the abscesses have grown in size with significant swelling of his forehead. He has a history of substance abuse which consists of tobacco, alcohol, crack (smoking), and heroin (snorting). His last drug use was heroin at noon. He denies ever using IV drugs. He denies fever, chills, fatigue, weight loss, nausea, vomiting. Past History - Medical History Allergies/Adverse Reactions: Allergies Allergy/AdvReac Type Severity Reaction Status Date / Time shellfish derived Allergy Severe Difficulty Verified 08/21/19 21:26 Breathing No Known Drug Allergies Allergy Verified 08/21/19 21:26 Home Medications: Ambulatory Orders Escitalopram Oxalate [Lexapro -] 20 mg PO DAILY 08/27/18 Risperidone [Risperdal -] 3 mg PO HS 08/27/18 Albuterol Sulfate Inhaler - [Ventolin HFA Inhaler -] 2 puff IH Q4H PRN inhaler 01/21/19 Cephalexin [Keflex] 500 mg PO TID 06/05/19 Clindamycin [Cleocin -] 300 mg PO TID 06/05/19 Ibuprofen 800 mg PO TID PRN 06/05/19 Quetiapine Fumarate [Seroquel -] 100 mg PO HS #30 tablet 06/09/19 Anemia: No Asthma: Yes Cancer: No Cardiac Disorders: No CVA: No COPD: No CHF: No Dementia: No Diabetes: No GI Disorders: No Disorders: No HTN: No Hypercholesterolemia: No Kidney Stones: No Liver Disease: No Seizures: No Thyroid Disease: No - Surgical History Abdominal Surgery: No Appendectomy: No Cardiac Surgery: No Cholecystectomy: No Lung Surgery: No Neurologic Surgery: No Orthopedic Surgery: Yes (R knee in 2005 arthroosocpy ) - Reproductive History Testicular Surgery: No - Psycho-Social/Smoking History Smoking History: Current every day smoker Have you smoked in the past 12 months: Yes Number of Cigarettes Smoked Daily: 20 Cigars Per Day: 0 Information on smoking cessation initiated: Yes 'Breaking Loose' booklet given: 06/05/19 - Substance Abuse Hx (Audit-C & DAST Scrn) How often the patient has a drink containing alcohol: 4 0r more times/wk Number of drinks the patient has on a typical day: 5 or 6 How often the patient has six or more drinks on one occasion: Weekly Score: In Men: 4 or > Positive; In Women: 3 or > Positive: 9 Screen Result (Pos requires Nsg. Audit-10AR): Positive In the last yr the pt used illegal drug/Rx for NonMed reason: Yes Score: Yes response is considered Positive: 1 Screen Result (Positive result requires Nsg. DAST-10): Positive Review of Systems - Review of Systems Able to Perform ROS?: Yes Is the patient limited Turkish proficient: No Constitutional: No: Chills, Fever, Night Sweats HEENTM: No: Blurred Vision, Recent change in vision, Double Vision Respiratory: No: Orthopnea, Shortness of Breath, Productive cough Cardiac (ROS): No: Chest Pain, Edema, Palpitations ABD/GI: No: Constipated, Diarrhea, Nausea, Vomiting Musculoskeletal: No: Joint Pain, Joint Swelling, Muscle Weakness, Joint Stiffness Integumentary: No: Pruritus (Abscesses. Swelling. ) Neurological: No: Headache, Numbness, Dizziness Psychiatric: Yes: Stressors, Emotional Problems *Physical Exam - Vital Signs Last Vital Signs Temp Pulse Resp BP Pulse Ox 98.9 F 114 H 18 144/87 97 08/21/19 21:22 08/21/19 21:22 08/21/19 21:22 08/21/19 21:22 08/21/19 21:22 - Physical Exam General Appearance: Yes: Appropriately Dressed, Apparent Distress HEENT: positive: Other (assymetrical swelling along right side of forhead. Abscess on top of forehead (~2cm)) Respiratory/Chest: positive: Lungs Clear, Normal Breath Sounds. negative: Respiratory Distress Cardiovascular: positive: Regular Rhythm, Regular Rate, S1, S2 Gastrointestinal/Abdominal: positive: Flat, Soft. negative: Tender, Organomegaly Male Genitalia: positive: other (Left inguinal lymphadenopathy) Lymphatic: positive: Adenopathy (Enlarged left inguinal lymph node. ). negative: Tenderness Extremity: positive: Normal Range of Motion Integumentary: positive: Dry, Warm (2 cm abscess on left knee. 1 cm abscess on upper lip. 1 cm abscess on top of head. 1 cm abscess on back of head. No drainage from any of the abscesses. Backgrond of cellulitus.) ED Treatment Course - LABORATORY CBC & Chemistry Diagram: 08/21/19 21:00 08/21/19 21:00 - ADDITIONAL ORDERS Additional order review: 08/21/19 21:00 RBC 4.04 MCV 89.6 MCHC 32.1 RDW 15.0 MPV 9.7 D Neutrophils % 75.2 D Lymphocytes % 16.7 D Monocytes % 6.7 Eosinophils % 1.0 D Basophils % 0.4 Medical Decision Making - Medical Decision Making MDM: 49 yo male with PMH of substance abuse and cellulitus presents with 4 day history of multiple abscess formations throughout his body. Pt was tachycardic (114) and had an elevated WBC (13.1) with abscesses as a source of infection resulting in a septic state. Pt given 1 liter LR and 600mg Clindamycin. Blood cultures are ordered. CT Facial ordered to evaluate a labial abscess in proximity to the nasal sinuses. 15 mg Toradol is given for pain. Pt counseled and is interested in a detox program after discharge. 08/21/19 22:55 Discharge - Discharge Information Problems reviewed: Yes Clinical Impression/Diagnosis: Cellulitis Condition: Stable - Admission Yes - Follow up/Referral - Patient Discharge Instructions - Post Discharge Activity
[2019-08-21 22:10] LABS: BILIRUBIN,TOTAL 0.3 mg/dL (0.2-1); MAGNESIUM 2.4 mg/dL (1.8-2.4); TOT PROT 7.1 g/dl (6.4-8.2)
[2019-08-21 22:18] LABS: POTASSIUM 3.6 mmol/L (3.5-5.1)
[2019-08-21] MEDS ORDERED: KETOROLAC TROMETHAMINE 15 MG/ML VIAL IVPUSH ONE (22:38)
[2019-08-21] MEDS ORDERED: LACTATED RINGERS SOLUTION 1000 ML INFUS.BAG IV ONE (22:45)
[2019-08-21] MEDS ORDERED: chlordiazePOXIDE HCL 25 MG CAPSULE PO ONE (23:15)
[2019-08-21] MEDS ORDERED: FOLIC ACID INJECTION - 1 MG, THIAMINE HCL 100 MG, MULTIVIT INJECTION ADULT 10 ML in SOD... IVPB ONE (23:16)
--- NOTE | 2019-08-21 23:23 | PDOC ---
Documentation entered by Viri Kolb SCRIBE, acting as scribe for Gely Ayala DO. Gely Ayala DO: This documentation has been prepared by the Cortes gaona Sydney, SCRIBE, under my direction and personally reviewed by me in its entirety. I confirm that the documentation accurately reflects all work, treatment, procedures, and medical decision making performed by me. Attending Attestation - Resident Resident Name: [email or web address] - ED Attending Attestation I have performed the following: I have examined & evaluated the patient, The case was reviewed & discussed with the resident, I agree w/resident's findings & plan, Exceptions are as noted - HPI HPI: 08/21/19 22:34 Patient is a 49 year old male with a significant past medical history of bipolar disorder, substance abuse (tobacco, EtOH, crack (smoking), heroin (snorting)) and cellulitis who presents to the ED with four days of L knee, top of head, lip and forehead abscesses. As per patient, he was seen at [facility] ED two days ago and prescribed oral and topical clindamycin upon discharge, of which he has only taken one pill. He states his last drug use was heroin at noon today. Denies fever or chills. Allergies: NKDA, shellfish - Physicial Exam PE: 08/21/19 23:54 Constitutional: +appears a little disheveled and anxious. Awake, alert, oriented. No acute distress. Head: Normocephalic. Atraumatic Eyes: PERRL. EOMI. Conjunctivae are not pale. ENT: Mucous membranes are moist and intact. Posterior pharynx without exudate or erythema. Uvula midline. Neck: Supple. Full ROM. Cardiovascular: + Tachycardic. Regular rhythm. S1, S2 regular. No murmurs. Pulmonary/Chest: No evidence of respiratory distress. Clear to auscultation bilaterally No wheezing, rales or rhonchi. Abdominal: Soft and non-distended. There is no tenderness. Back: No CVA tenderness. Musculoskeletal: No edema. No cyanosis. No clubbing. Full range of motion in all extremities. Nocalf tenderness. Skin: + 2.5 cm x 2.5 cm circular abscess on left proximal knee near anterior distal thigh, induration, no fluctuance; 2cm x 1 cm abscess with purulent discharge and indurated to the left upper lip and bottom of the left nare, no fluctuance; 2 excoriated abscesses on top of head; abscess on lower posterior neck Skin is warm and dry. Neurological: +tongue fasciculation and tremulous. Alert and oriented to person, place, and time. Cranial nerves II-XII are grossly intact. Normal speech. Psychiatric: Good eye contact. Normal interaction, affect and behavior. - Medical Decision Making 08/21/19 23:21 a/p: 49yo male with hx of heroin, cocaine, and alcohol use with multiple abscesses -pt was at [facility] and given clinda and keflex at [facility] - took 1 dose lpta -pt with abscess to L thigh, L face, scalp, posterior hair line -has had negative hiv testing in the past -denies ivda -no track adams -has been undomiciled recently and using heroin/cocaine/etoh -requesting detox as well -labs sent from [facility] reviewed, elevated wbc, no fevers -iv clinda ordered for poss mrsa -no fluctuance palpated, needs warm compresses and iv abx -no murmurs 08/22/19 00:00 pt with elevated wbc will need iv abx micro[facility] sent to [facility] given for etoh withdrawal Heart Score/ECG Review - ECG Intrepretation Comment:: 08/21/19 23:23 sinus at 95, nl axis, nl interval, no acute st/t wave findings Discharge - Discharge Information Problems reviewed: Yes Clinical Impression/Diagnosis: Cellulitis Condition: Fair - Admission Yes - Follow up/Referral - Patient Discharge Instructions - Post Discharge Activity
--- NOTE | 2019-08-22 00:22 | PN ---
Teaching Attending Note Name of Resident: Kat Matthew ATTENDING PHYSICIAN STATEMENT I saw and evaluated the patient. I reviewed the resident's note and discussed the case with the resident. I agree with the resident's findings and plan as documented. SUBJECTIVE: Patient is a 49 year old man with a PMH of Tobacco use, Asthma, Bipolar dis order, Polysubstance abuse (Alcohol, crack (smoking), heroin (snorting)) and Cellulitis who presents to the ER with four days of left knee, top of head, lip and forehead abscesses. As per patient, he was seen at [facility] ER two days ago and prescribed oral and topical clindamycin upon discharge, of which he has only taken one pill. He states his last drug use was heroin at noon today. Denies fever, chills, headache, dizziness, photophobia, SOB, chest pain, vomiting, abdominal pain, dysuria or diarrhea. No sick contacts or recent travels. Family history is unremarkable. OBJECTIVE: Alert Vital Signs Period Temp Pulse Resp BP Sys/[place] Pulse Ox Last 24 Hr 98.3 F-98.9 F 82-114 18-18 113-144/65-87 94-97 HEENT: No Jaundice, eye redness or discharge, PERRLA, EOMI. Abscess on lip, forehead, jose of neck; Atraumatic. External ears are normal and hearing is grossly intact. No nasal discharge. Neck: Supple, nontender. No palpable adenopathy or thyromegaly. No JVD Chest: Good effort. Clear to auscultation and percussion. Heart: Regular. No S3, rub or murmur Abdomen: Not distended, soft, nontender and no HSM. No rebound or guarding. Normal bowel sounds. Ext: Peripheral pulses intact. No leg edema. Left thigh abscess. Skin: Warm and dry. No petechiae, rash or ecchymosis. Neuro: Alert. Oriented x3. CN 2-12 grossly intact. Sensation grossly intact in all four extremities and DTR are symmetric. Psych: Appropriate mood and affect. Good insight. Current Medications Generic Name Dose Route Start Last Admin Trade Name Freq PRN Reason Stop Dose Admin Folic Acid 1 mg/ Thiamine HCl 1,000 mls @ 125 mls/hr 08/21/19 23:16 08/22/19 01:05 100 mg/ Multivitamins/Minerals IVPB 08/22/19 07:15 125 mls/hr 10 ml/ Sodium Chloride ONCE ONE Administration Home Medications Medication Instructions Recorded Escitalopram Oxalate [Lexapro -] 20 mg PO DAILY 08/27/18 Risperidone [Risperdal -] 3 mg PO HS 08/27/18 Albuterol Sulfate Inhaler - 2 puff IH Q4H PRN inhaler 01/21/19 [Ventolin HFA Inhaler -] Cephalexin [Keflex] 500 mg PO TID 06/05/19 Clindamycin [Cleocin -] 300 mg PO TID 06/05/19 Ibuprofen 800 mg PO TID PRN 06/05/19 Quetiapine Fumarate [Seroquel -] 100 mg PO HS #30 tablet 06/09/19 Abnormal Lab Results 08/21/19 08/21/19 21:00 21:00 WBC 13.1 H Hgb 11.6 L Absolute Neuts (auto) 9.8 H Anion Gap 5 L BUN 24.0 H Random Glucose 128 H Albumin 3.0 L Current Medications Generic Name Dose Route Start Last Admin Trade Name Freq PRN Reason Stop Dose Admin Folic Acid 1 mg/ Thiamine HCl 1,000 mls @ 125 mls/hr 08/21/19 23:16 08/22/19 01:05 100 mg/ Multivitamins/Minerals IVPB 08/22/19 07:15 125 mls/hr 10 ml/ Sodium Chloride ONCE ONE Administration Clindamycin Phosphate 600 mg in 50 mls @ 100 mls/hr 08/22/19 09:00 Cleocin 600 Mg Premix Ivpb - IVPB Q8H-IV DEMETRI Protocol Ampicillin Sodium/Sulbactam 100 mls @ 200 mls/hr 08/22/19 04:30 Sodium 1.5 gm/ Sodium Chloride IVPB Q6H-IV DEMETRI ASSESSMENT AND PLAN: 1. Multiple skin and facial abscesses - Patient denies IV drug use, thus no obvious risk factor. Sepsis workup being done. Will get HbA1c, HIV test, treat with IV Unasyn and Clindamycin and consult ID and Surgery. No acute abnormality on CXR. Result of facial bone CT scan pending. Viral testing for COVID-19 ordered and patient placed on airborne, droplet and contact isolation. EKG shows NSR at 95/minute and QTc [address]-T wave changes. Initial troponin is negative. Will continue comprehensive care for all of patients comorbid conditions treatment for Bipolar disorder. 2. Polysubstance abuse - Monitor clsely on telemetry for drug withdrawal. Implement [facility] alcohol withdrawal protocol and do neurochecks. Implement seizure, fall and aspiration precautions. Treat with IV Banana bag, thiamine and folic acid. Monitor and replete electrolytes (Ca,Mg,K,P). Counseled patient about abstaining from illicit drugs/alcohol. Will consult facility specialist and refer to alcohol/drug detox upon discharge. 3. Hypoalbuminemia - Possibly due to combined effects of malnutrition and inflammation associated with comorbid conditions. 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 Urinalysis pending. 4. Tobacco Use Counseled on risks associated with tobacco use. We will provide patient all the necessary assistance to facilitate smoking cessation and prescribe Nicotine patch. 5. DVT prophylaxis - Lovenox 40 mg SQ q 24 hours. 6. Advance directives - Full code
[2019-08-22] MEDS ORDERED: chlordiazePOXIDE HCL 25 MG CAPSULE ONE ×2 (00:49→09:27)
[2019-08-22] MEDS ORDERED: KETOROLAC TROMETHAMINE 15 MG/ML VIAL ONE (00:50)
[2019-08-22] MEDS ORDERED: CLINDAMYCIN 600MG PREMIX IVPB 600 MG/50 ML BAG IVPB ONE ×2 (00:50→08:32)
--- NOTE | 2019-08-22 01:36 | HP ---
CHIEF COMPLAINT: Painful abscess' PCP: Dr. Frias HISTORY OF PRESENT ILLNESS: 49 y.o. M with PMHx of asthma presented to the ED with multiple abscess'. Patient stated 1 week ago he noticed small pimple like lesions that he began to pick at. The lesions grew progressively larger so he went to [facility] where he was given topical clindamycin and oral clindamycin which he only took one pill of. The patients abscess are located on the head, posterior hairline, upper lip and L thigh. Patient admits to a 20 pack year Hx, drinks 1/2 pint of vodka daily last drink on 08/19 , and uses heroin (snort), cocaine (smoke) last drug use on 08/20. Patient has been in and out of rehab facilities since 2013 with his most recent admission on 06/05/19. ER course was notable for: (1) Blood Cultures (2) CT Face (3) Clindamycin Recent Travel: None PAST MEDICAL HISTORY: Asthma PAST SURGICAL HISTORY: I&D of face 20 years ago due to a sinus infection Social History: Smokin pack year Alcohol: 1/2 pint vodka daily Drugs: Heroin (snort), cocaine (smoke) Allergies shellfish derived Allergy (Severe, Verified 08/21/19 21:26) Difficulty Breathing No Known Drug Allergies Allergy (Verified 08/21/19 21:26) HOME MEDICATIONS: Home Medications Medication Instructions Recorded Escitalopram Oxalate [Lexapro -] 20 mg PO DAILY 08/27/18 Risperidone [Risperdal -] 3 mg PO HS 08/27/18 Albuterol Sulfate Inhaler - 2 puff IH Q4H PRN inhaler 01/21/19 [Ventolin HFA Inhaler -] Cephalexin [Keflex] 500 mg PO TID 06/05/19 Clindamycin [Cleocin -] 300 mg PO TID 06/05/19 Ibuprofen 800 mg PO TID PRN 06/05/19 Quetiapine Fumarate [Seroquel -] 100 mg PO HS #30 tablet 06/09/19 REVIEW OF SYSTEMS CONSTITUTIONAL: Absent: fever, chills, diaphoresis, generalized weakness, malaise, loss of appetite, weight change HEENT: Headache Absent: rhinorrhea, nasal congestion, throat pain, throat swelling, difficulty swallowing, mouth swelling, ear pain, eye pain, visual changes CARDIOVASCULAR: Absent: chest pain, syncope, palpitations, irregular heart rate, lightheadedness, peripheral edema RESPIRATORY: Absent: cough, shortness of breath, dyspnea with exertion, orthopnea, wheezing, stridor, hemoptysis GASTROINTESTINAL: Absent: abdominal pain, abdominal distension, nausea, vomiting, diarrhea, constipation, melena, hematochezia GENITOURINARY: Absent: dysuria, frequency, urgency, hesitancy, hematuria, flank pain, genital pain MUSCULOSKELETAL: Absent: myalgia, arthralgia, joint swelling, back pain, neck pain SKIN: Multiple Abscess' on the head, posterior hairline, upper lip and L thigh Absent: rash, itching, pallor HEMATOLOGIC/IMMUNOLOGIC: Absent: easy bleeding, easy bruising, lymphadenopathy, frequent infections ENDOCRINE: Absent: unexplained weight gain, unexplained weight loss, heat intolerance, cold intolerance NEUROLOGIC: Absent: headache, focal weakness or paresthesias, dizziness, unsteady gait, seizure, mental status changes, bladder or bowel incontinence PSYCHIATRIC: Absent: anxiety, depression, suicidal or homicidal ideation, hallucinations. PHYSICAL EXAMINATION Vital Signs - 24 hr 08/21/19 21:22 Temperature 98.9 F Pulse Rate 114 H Respiratory 18 Rate Blood Pressure 144/87 O2 Sat by Pulse 97 Oximetry (%) GENERAL: Awake, alert, and fully oriented, in no acute distress. HEAD: Normal with no signs of trauma. EYES: Pupils equal, round and reactive to light, extraocular movements intact, sclera anicteric, conjunctiva clear. EARS, NOSE, THROAT: Oropharynx clear without exudates. Moist mucous membranes. NECK: NO jvd LUNGS: Breath sounds equal, clear to auscultation bilaterally. No wheezes, and no crackles. No accessory muscle use. HEART: Regular rate and rhythm, normal S1 and S2 without murmur, rub or gallop. ABDOMEN: Soft, nontender, not distended, normoactive bowel sounds, no guarding, no rebound, no masses. MUSCULOSKELETAL: Normal range of motion at all joints. No bony deformities or tenderness. UPPER EXTREMITIES: 2+ pulses, warm, well-perfused. No peripheral edema. LOWER EXTREMITIES: 2+ pulses, warm, well-perfused. No calf tenderness. No peripheral edema. NEUROLOGICAL: Cranial nerves II-XII intact. Normal speech. PSYCHIATRIC: Cooperative. Good eye contact. Appropriate mood and affect. SKIN: Warm, normal turgor, no rashes noted, Laboratory Results - last 24 hr 08/21/19 08/21/19 08/21/19 21:00 21:00 21:30 WBC 13.1 H RBC 4.04 Hgb 11.6 L Hct 36.2 MCV 89.6 MCH 28.8 MCHC 32.1 RDW 15.0 Plt Count 351 D MPV 9.7 D Absolute Neuts (auto) 9.8 H Neutrophils % 75.2 D Lymphocytes % 16.7 D Monocytes % 6.7 Eosinophils % 1.0 D Basophils % 0.4 Nucleated RBC % 0 Sodium 143 Potassium 3.6 Chloride 107 Carbon Dioxide 31 Anion Gap 5 L BUN 24.0 H Creatinine 1.0 Est GFR (CKD-EPI)AfAm 101.98 Est GFR (CKD-EPI)NonAf 87.99 Random Glucose 128 H Lactic Acid 1.6 Calcium 9.0 Magnesium 2.4 Total Bilirubin 0.3 AST 25 ALT 33 Alkaline Phosphatase 81 Total Protein 7.1 Albumin 3.0 L ASSESSMENT/PLAN: 49 y.o. M with PMHx of asthma presented to the ED with multiple abscess'. #Abscess - Patient has abscess' located on his head, lip and thigh. - Possibly due to drug use although he states no IVDU - Recieved 600mg Clindamycin in the ED - ID Consulted - Surgery consulted - CT face ordered and will F/U - Blood cultures ordered and will F/U - Antibiotics unison and clindamycin # Alcohol abuse - CIWA 4 - Recieved 50 mg librium in ED - Librium protocol - Will recalculate CIWA and monitor for clinical signs of withdrawal # Mild Anemia - Hgb 11.6 - MCV 89.6 - Repeat CBC # Elevated BUN - Possibly due to dehydration - Encourage oral hydration #Covid - Ordered Covid PCR due to geographic location of pandemic - Covid PCR pending #FEN - Recieved 1L LR Visit type - Emergency Visit Emergency Visit: Yes ED Registration Date: 08/21/19 Care time: The patient presented to the Emergency Department on the above date and was hospitalized for further evaluation of their emergent condition. - New Patient This patient is new to me today: Yes Date on this admission: 08/21/19 - Critical Care Critical Care patient: No ATTENDING PHYSICIAN STATEMENT I saw and evaluated the patient. I reviewed the resident's note and discussed the case with the resident. I agree with the resident's findings and plan as documented. SUBJECTIVE: OBJECTIVE: ASSESSMENT AND PLAN:
[2019-08-22] MEDS ORDERED: chlordiazePOXIDE HCL 10 MG CAPSULE PO PRN (04:32)
[2019-08-22] MEDS: AMPICILLIN NA/SULBACTAM NA 1.5 GM in SODIUM CHLORIDE 100 ML IVPB SCH ×3 (04:52→15:17)
[2019-08-22] MEDS ORDERED: CLINDAMYCIN 600MG PREMIX IVPB 600 MG/50 ML BAG IVPB SCH (09:00)
[2019-08-22] MEDS ORDERED: FOLIC ACID 1 MG TABLET (FP) ONE (09:27)
[2019-08-22] MEDS ORDERED: THIAMINE HCL 100 MG TABLET (FP) ONE (09:27)
[2019-08-22] MEDS ORDERED: THIAMINE HCL 100 MG TABLET (FP) PO SCH (10:00)
[2019-08-22] MEDS ORDERED: FOLIC ACID 1 MG TABLET (FP) PO SCH (10:00)
[2019-08-22 10:33] LABS: BASO % 0.6 % (0-2.0); EOS % 5.6 % (0-4.5); HEMATOCRIT 32.7 % (35.4-49); HEMOGLOBIN 10.6 GM/dL (11.7-16.9); LYMPH % 27.9 % (8-40); MCH 29.4 pg (25.7-33.7); MCHC 32.3 g/dl (32.0-35.9); MEAN CELL VOLUME 91.1 fl (80-96); MEAN PLT VOLUME 9.5 fl (7.5-11.1); MONO % 8.3 % (3.8-10.2); NEUT % 57.6 % (42.8-82.8); PLATELET COUNT 308 K/MM3 (134-434); RBC 3.59 M/mm3 (4.00-5.60); RDW 14.9 % (11.9-15.9); WHITE BLOOD COUNT 8.4 K/mm3 (4.0-10.0)
--- NOTE | 2019-08-22 10:42 | EKG ---
Test Reason : Blood Pressure : / mmHG Vent. Rate : 095 BPM Atrial Rate : 095 BPM P-R Int : 124 ms QRS Dur : 094 ms QT Int : 356 ms P-R-T Axes : 065 069 053 degrees QTc Int : 447 ms NORMAL SINUS RHYTHM NORMAL ECG WHEN COMPARED WITH ECG OF 05-JUN-2019 17:57, VENT. RATE HAS INCREASED BY 38 BPM Confirmed by JUAN MCCARTY MD ([id number]) on 08/22/2019 10:41:57 AM Referred By: Confirmed By:JUAN MCCARTY MD
[2019-08-22 11:27] LABS: BLOOD UREA NITROGEN 20.9 mg/dL (7-18); CALCIUM 8.7 mg/dL (8.5-10.1); CREATININE 0.8 mg/dL (0.55-1.3); POTASSIUM 3.4 mmol/L (3.5-5.1)
[2019-08-22 12:57] VITALS: BP 130/79; PULSE 79; TEMP 98.5
[2019-08-22] MEDS ORDERED: chlordiazePOXIDE HCL 25 MG CAPSULE PO SCH ×2 (13:00→17:00)
[2019-08-22] MEDS ORDERED: cloNIDine HCL 0.1 MG TABLET PO PRN (14:05)
[2019-08-22] MEDS ORDERED: METHADONE HCL 10 MG TABLET (FOR DETOX USE ONLY) PO ONE (14:05)
[2019-08-22] MEDS ORDERED: chlordiazePOXIDE HCL 25 MG CAPSULE PO PRN (14:05)
--- NOTE | 2019-08-22 14:05 | CONSULT ---
Consult Detox [facility] Reason for Current Admission/Consult: Opioid and alcohol use disorder Referred by:: Myron Wong - History History of Present Illness: Case discussed with Pat Wong Pt is a 49 yo man with a hx of heroin, cocaine, nicotine and alcohol use disorder. He has multiple skin abscesses. Was treated with Clindamycin for one week, tx at [facility], ~ one week ago. He was started on a Librium protocol for alcohol use disorder. He is admitted for IV antibiotics for abscess treatment. 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
[2019-08-22] MEDS ORDERED: AMPICILLIN NA/SULBACTAM NA 1.5 GM in SODIUM CHLORIDE 100 ML IVPB SCH (15:02)
[2019-08-22] MEDS ORDERED: SODIUM CHLORIDE 100 ML IVPB ONE (15:06)
[2019-08-22] MEDS ORDERED: AMPICILLIN NA/SULBACTAM NA 1.5 GM VIAL ONE (15:06)
[2019-08-22] MEDS ORDERED: METHADONE HCL 10 MG TABLET PO ONE (15:15)
[2019-08-22] MEDS ORDERED: POTASSIUM CHLORIDE TABS 20 MEQ TABLET.ER (FP) PO ONE (15:19)
[2019-08-22] MEDS ORDERED: ACETAMINOPHEN 325 MG TABLET (FP) PO PRN (15:19)
--- NOTE | 2019-08-22 15:19 | PN ---
Physical Exam: SUBJECTIVE: Patient seen and examined OBJECTIVE: Vital Signs Period Temp Pulse Resp BP Sys/[place] Pulse Ox Last 24 Hr 97.8 F-98.9 F 71-114 15-18 108-144/65-87 94-99 GENERAL: The patient is awake, alert, and fully oriented, in no acute distress. HEAD: Normal with no signs of trauma. EYES: PERRL, extraocular movements intact, sclera anicteric, conjunctiva clear. No ptosis. ENT: Ears normal, nares patent, oropharynx clear without exudates, moist mucous membranes. NECK: Trachea midline, full range of motion, supple. LUNGS: Breath sounds equal, clear to auscultation bilaterally, no wheezes, no crackles, no accessory muscle use. HEART: Regular rate and rhythm, S1, S2 without murmur, rub or gallop. ABDOMEN: Soft, nontender, nondistended, normoactive bowel sounds, no guarding, no rebound, no hepatosplenomegaly, no masses. EXTREMITIES: 2+ pulses, warm, well-perfused, no edema. NEUROLOGICAL: Cranial nerves II through XII grossly intact. Normal speech, gait not observed. PSYCH: Normal mood, normal affect. SKIN: Warm, dry, normal turgor, no rashes or lesions noted Laboratory Results - last 24 hr 08/21/19 08/21/19 08/21/19 21:00 21:00 21:30 WBC 13.1 H RBC 4.04 Hgb 11.6 L Hct 36.2 MCV 89.6 MCH 28.8 MCHC 32.1 RDW 15.0 Plt Count 351 D MPV 9.7 D Absolute Neuts (auto) 9.8 H Neutrophils % 75.2 D Lymphocytes % 16.7 D Monocytes % 6.7 Eosinophils % 1.0 D Basophils % 0.4 Nucleated RBC % 0 Sodium 143 Potassium 3.6 Chloride 107 Carbon Dioxide 31 Anion Gap 5 L BUN 24.0 H Creatinine 1.0 Est GFR (CKD-EPI)AfAm 101.98 Est GFR (CKD-EPI)NonAf 87.99 Random Glucose 128 H Lactic Acid 1.6 Calcium 9.0 Magnesium 2.4 Total Bilirubin 0.3 AST 25 ALT 33 Alkaline Phosphatase 81 Total Protein 7.1 Albumin 3.0 L 08/22/19 08/22/19 10:07 10:24 WBC 8.4 RBC 3.59 L Hgb 10.6 L Hct 32.7 L MCV 91.1 MCH 29.4 MCHC 32.3 RDW 14.9 Plt Count 308 MPV 9.5 Absolute Neuts (auto) 4.8 Neutrophils % 57.6 D Lymphocytes % 27.9 D Monocytes % 8.3 Eosinophils % 5.6 H D Basophils % 0.6 Nucleated RBC % 0 Sodium 144 Potassium 3.4 L Chloride 108 H Carbon Dioxide 30 Anion Gap 6 L BUN 20.9 H Creatinine 0.8 Est GFR (CKD-EPI)AfAm 121.57 Est GFR (CKD-EPI)NonAf 104.89 Random Glucose 104 Lactic Acid Calcium 8.7 Magnesium Total Bilirubin AST ALT Alkaline Phosphatase Total Protein Albumin Active Medications Generic Name Dose Route Start Last Admin Trade Name Freq PRN Reason Stop Dose Admin Chlordiazepoxide HCl 50 mg 08/22/19 17:00 Librium - PO 08/23/19 23:01 [id number] DEMETRI Chlordiazepoxide HCl 25 mg 08/24/19 05:00 Librium - PO 08/24/19 23:01 [id number] DEMETRI Chlordiazepoxide HCl 25 mg 08/22/19 14:05 Librium - PO 08/24/19 23:59 Q4H PRN WITHDRAWAL(CONT SUBST) Chlordiazepoxide HCl 10 mg 08/25/19 05:00 Librium - PO 08/25/19 23:01 [id number] DEMETRI Chlordiazepoxide HCl 10 mg 08/26/19 05:00 Librium - PO 08/26/19 17:01 Q12H DEMETRI Chlordiazepoxide HCl 10 mg 08/25/19 00:00 Librium - PO 08/26/19 00:00 Q4H PRN WITHDRAWAL(CONT SUBST) Chlordiazepoxide HCl 10 mg 08/27/19 05:00 Librium - PO 08/27/19 05:01 ONCE@0500 ONE Clonidine 0.1 mg 08/22/19 14:05 Catapres - PO 08/24/19 23:59 Q4H PRN Withdrawal Symptoms Folic Acid 1 mg 08/22/19 10:00 08/22/19 09:28 Folic Acid - PO 1 mg DAILY DEMETRI Administration Clindamycin Phosphate 600 mg in 50 mls @ 100 mls/hr 08/22/19 09:00 07/03/20 08:34 Cleocin 600 Mg Premix Ivpb - IVPB 100 mls/hr Q8H-IV DEMETRI Administration Protocol Ampicillin Sodium/Sulbactam 100 mls @ 200 mls/hr 08/22/19 15:02 Sodium 1.5 gm/ Sodium Chloride IVPB Q6H-IV DEMETRI Methadone HCl 5 mg 08/27/19 06:00 Dolophine - PO 08/27/19 06:01 ONCE@0600 ONE Methadone HCl 10 mg 08/26/19 10:00 Dolophine - PO 08/26/19 10:01 ONCE ONE Methadone HCl 20 mg 08/24/19 10:00 Dolophine - PO 08/24/19 10:01 ONCE ONE Methadone HCl 20 mg/ Methadone 25 mg 08/23/19 10:00 HCl 5 mg PO 08/23/19 10:01 ONCE ONE Methadone HCl 10 mg/ Methadone 15 mg 08/25/19 10:00 HCl 5 mg PO 08/25/19 10:01 ONCE ONE Thiamine HCl 100 mg 08/22/19 10:00 08/22/19 09:28 Vitamin B1 - PO 100 mg DAILY DEMETRI Administration ASSESSMENT/PLAN: ATTENDING PHYSICIAN STATEMENT I saw and evaluated the patient. I reviewed the resident's note and discussed the case with the resident. I agree with the resident's findings and plan as documented. SUBJECTIVE: OBJECTIVE: ASSESSMENT AND PLAN:
--- NOTE | 2019-08-22 18:04 | DS ---
Physical Exam: SUBJECTIVE: Patient seen and examined at bedside this morning. Patient admitted overnight due to multiple abscesses. Patient reports severe head pain. OBJECTIVE: Vital Signs Temperature 98.5 F 08/22/19 12:56 Pulse Rate 79 08/22/19 12:56 Respiratory Rate 18 08/22/19 12:56 Blood Pressure 130/79 08/22/19 12:56 O2 Sat by Pulse Oximetry (%) 99 08/22/19 12:00 PHYSICAL EXAM GENERAL: The patient is awake, alert, and fully oriented, in no acute distress. HEENT: +tender mass on the top of the head. +erythema and swelling at the right temporal and periorbital area. +Left upper lip abscess with pus NECK: supple. LUNGS: Breath sounds equal, clear to auscultation bilaterally. HEART: Regular rate and rhythm, S1, S2. ABDOMEN: Soft, nontender, nondistended, normoactive bowel sound. EXTREMITIES: 2+ pulses, warm, well-perfused, no edema. SKIN: Warm, dry, normal turgor LABS Laboratory Results - last 24 hr 08/21/19 08/21/19 08/21/19 21:00 21:00 21:30 WBC 13.1 H RBC 4.04 Hgb 11.6 L Hct 36.2 MCV 89.6 MCH 28.8 MCHC 32.1 RDW 15.0 Plt Count 351 D MPV 9.7 D Absolute Neuts (auto) 9.8 H Neutrophils % 75.2 D Lymphocytes % 16.7 D Monocytes % 6.7 Eosinophils % 1.0 D Basophils % 0.4 Nucleated RBC % 0 Sodium 143 Potassium 3.6 Chloride 107 Carbon Dioxide 31 Anion Gap 5 L BUN 24.0 H Creatinine 1.0 Est GFR (CKD-EPI)AfAm 101.98 Est GFR (CKD-EPI)NonAf 87.99 Random Glucose 128 H Lactic Acid 1.6 Calcium 9.0 Magnesium 2.4 Total Bilirubin 0.3 AST 25 ALT 33 Alkaline Phosphatase 81 Total Protein 7.1 Albumin 3.0 L 08/22/19 08/22/19 10:07 10:24 WBC 8.4 RBC 3.59 L Hgb 10.6 L Hct 32.7 L MCV 91.1 MCH 29.4 MCHC 32.3 RDW 14.9 Plt Count 308 MPV 9.5 Absolute Neuts (auto) 4.8 Neutrophils % 57.6 D Lymphocytes % 27.9 D Monocytes % 8.3 Eosinophils % 5.6 H D Basophils % 0.6 Nucleated RBC % 0 Sodium 144 Potassium 3.4 L Chloride 108 H Carbon Dioxide 30 Anion Gap 6 L BUN 20.9 H Creatinine 0.8 Est GFR (CKD-EPI)AfAm 121.57 Est GFR (CKD-EPI)NonAf 104.89 Random Glucose 104 Lactic Acid Calcium 8.7 Magnesium Total Bilirubin AST ALT Alkaline Phosphatase Total Protein Albumin HOSPITAL COURSE: Date of Admission:08/21/19 Date of Discharge: 08/22/19 Patient is a 49 year old male with past medical history of asthma and polysubstance abuse (heroin, cocaine, EtOH, nicotine), presented to the ED due to multiple head/facial abscesses. Patient was started on IV Clindamycin and Unasyn. Facial CT was done. Patient was transferred to [facility] for further management as there was no surgeon available to evaluate the patient. Minutes to complete discharge: 38 Discharge Summary Problems reviewed: Yes Reason For Visit: COCAINE DEPENDENCE, OPIOID DEPENDENCE, ABSCESS Current Active Problems Cellulitis (Acute) Condition: Stable - Instructions Diet, Activity, Other Instructions: you will be transferred to health system for higher level of care Disposition: TRANSFER ACUTE CARE/OTHER HOSP - Home Medications Comprehensive Discharge Medication List: Ambulatory Orders Albuterol Sulfate Inhaler - [Ventolin HFA Inhaler -] 2 puff IH Q4H PRN inhaler 01/21/19 Quetiapine Fumarate [Seroquel -] 100 mg PO HS #30 tablet 06/09/19 This patient is new to me today: Yes Date on this admission: 08/22/19 Emergency Visit: Yes ED Registration Date: 08/21/19 Care time: The patient presented to the Emergency Department on the above date and was hospitalized for further evaluation of their emergent condition. Critical Care patient: No - Discharge Referral Referred to [facility] Med [facility].C[facility] No ATTENDING PHYSICIAN STATEMENT I saw and evaluated the patient. I reviewed the resident's note and discussed the case with the resident. I agree with the resident's findings and plan as documented. SUBJECTIVE: OBJECTIVE: ASSESSMENT AND PLAN:
[2019-08-23] MEDS ORDERED: METHADONE 20 MG, METHADONE 5 MG PO ONE (10:00)
[2019-08-24] MEDS ORDERED: chlordiazePOXIDE 5 MG CAPSULE PO SCH (05:00)
[2019-08-24] MEDS ORDERED: chlordiazePOXIDE HCL 25 MG CAPSULE PO SCH (05:00)
[2019-08-24] MEDS ORDERED: METHADONE HCL 10 MG TABLET PO ONE (10:00)
[2019-08-25] MEDS ORDERED: chlordiazePOXIDE HCL 10 MG CAPSULE PO PRN ×2
[2019-08-25] MEDS ORDERED: chlordiazePOXIDE HCL 10 MG CAPSULE PO SCH ×2 (05:00)
[2019-08-25] MEDS ORDERED: METHADONE 10 MG, METHADONE 5 MG PO ONE (10:00)
[2019-08-26] MEDS ORDERED: chlordiazePOXIDE HCL 10 MG CAPSULE PO ONE (05:00)
[2019-08-26] MEDS ORDERED: chlordiazePOXIDE HCL 10 MG CAPSULE PO SCH (05:00)
[2019-08-26] MEDS ORDERED: METHADONE HCL 10 MG TABLET PO ONE (10:00)
[2019-08-27] MEDS ORDERED: chlordiazePOXIDE HCL 10 MG CAPSULE PO ONE (05:00)
[2019-08-27] MEDS ORDERED: METHADONE HCL 5 MG TABLET PO ONE (06:00)
== END 2019-08-22 17:30 | disposition short-term general hospital (02) | DRG 603 ==
LOC: JER 21:20 → JERBED 23:28 → J7W 08-22 12:35
PROVIDERS: ADMIT Internal Medicine
DX: L02.01 Cutaneous abscess of face (principal); F14.20 Cocaine dependence, uncomplicated; F11.20 Opioid dependence, uncomplicated; L02.419 Cutaneous abscess of limb, unspecified; E46 Unspecified protein-calorie malnutrition; D64.9 Anemia, unspecified; F10.20 Alcohol dependence, uncomplicated; J45.909 Unspecified asthma, uncomplicated; F31.9 Bipolar disorder, unspecified; E86.0 Dehydration; Z68.24 Body mass index [BMI] 24.0-24.9, adult; E88.09 Other disorders of plasma-protein metabolism, not elsewhere classified
CPT/HCPCS: 36415; 70486-TC; 71046-TC-FY; 80048; 80053; 80074; 83605; 83735; 85025; 87040; 93005; 93010; 99285-25; U0003

== ENCOUNTER 2019-09-09 10:11 | Inpatient (IN) | payer BC, OTHER ==
--- NOTE | 2019-09-09 10:27 | BHS.RME ---
Substance Use & Tx History - Substance Use History Alcohol Substance amount: 1 pint vodka Frequency of use: Daily Substance route: Oral Date of Last Use: 09/08/19 Heroin Substance amount: 10-15 bags Frequency of use: Daily Substance route: Inhalation (ex: sniffing or snorting) Date of Last Use: 09/08/19 Cocaine- Powder Substance amount: $100 Frequency of use: Daily Substance route: Inhalation (ex: sniffing or snorting) Date of Last Use: 09/08/19 Nicotine Substance amount: 1 pack Frequency of use: Daily Substance route: Smoking Date of Last Use: 09/09/19 Physical/Psych/Mental Status - Behavior General Behavior: Decreased activity Eye Contact: Normal - Cooperativeness Cooperativeness: Cooperative - Thinking Thought Processes: Tight, Logical, Goal Directed - Physical Health Problems Is patient presently having any pain?: No Does patient presently have any injuries (include location): No Does patient currently have a fever: No Is patient : No COWS - Scale Resting Pulse: 1= [place] 81-100 Sweatin= Beads of Sweat on Face Restless Observation: 0= Sits Still Pupil Size: 1= Pupils >than Normal Bone or Joint Aches: 2= Severe Diffuse Aches Runny Nose/ Eye Tearin= Nasal Congestion GI Upset > 30mins: 1= Stomach Cramp Tremor Observation: 1= Tremor [place], Not Seen Yawning Observation: 1= 1-2x During Session Anxiety or Irritability: 1=Feels Anxious/Irritable Goose Flesh Skin: 3=Piloerection COWS Score: 15 CIWA Nausea/Vomitin-No Nausea/No Vomiting Muscle Tremors: 2 Anxiety: 3 Agitation: 3 Paroxysmal Sweats: 4-Forehead w/Sweat Beads Orientation: 1-Uncertain about Date Tacttile Disturbances: 0-None Auditory Disturbances: 0-None Visual Disturbances: 0-None Headache: 2-Mild CIWA-Ar Total Score: 15
[2019-09-09 12:15] VITALS: BMI 21.8
--- NOTE | 2019-09-09 12:26 | HP ---
COWS - Scale Resting Pulse: 1= [place] 81-100 Sweatin= Beads of Sweat on Face Restless Observation: 0= Sits Still Pupil Size: 1= Pupils >than Normal Bone or Joint Aches: 2= Severe Diffuse Aches Runny Nose/ Eye Tearin= Nasal Congestion GI Upset > 30mins: 1= Stomach Cramp Tremor Observation: 1= Tremor [place], Not Seen Yawning Observation: 1= 1-2x During Session Anxiety or Irritability: 1=Feels Anxious/Irritable Goose Flesh Skin: 3=Piloerection COWS Score: 15 CIWA Score Nausea/Vomitin-No Nausea/No Vomiting Muscle Tremors: 2 Anxiety: 3 Agitation: 3 Paroxysmal Sweats: 4-Forehead w/Sweat Beads Orientation: 1-Uncertain about Date Tacttile Disturbances: 0-None Auditory Disturbances: 0-None Visual Disturbances: 0-None Headache: 2-Mild CIWA-Ar Total Score: 15 - Admission Criteria OASAS Guidelines: Admission for Medically Managed Detox: Requires at least one of the followin. CIWA greater than 12 2. Seizures within the past 24 hours 3. Delirium tremens within the past 24 hours 4. Hallucinations within the past 24 hours 5. Acute intervention needed for co occurring medical disorder 6. Acute intervention needed for co occurring psychiatric disorder 7. Severe withdrawal that cannot be handled at a lower level of care (continued vomiting, continued diarrhea, abnormal vital signs) requiring intravenous medication and/or fluids 8. Admitting History and Physical - Admission Chief Complaint: Mr. Madison is a 49 yo man who presents to [facility] stating " I want to be clean from heroin, cocaine and alcohol". History of Present Illness: Mr. Madison is a 49 yo man who presents to [facility] stating " I want to be clean from heroin, cocaine and alcohol". He was last here between 06/04 and 06/09/19. He was then referred to [facility]. 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 Pulmonary: Yes: Asthma Psych: Yes: Other (bipolar disorder) - Smoking History Smoking history: Current every day smoker Have you smoked in the past 12 months: Yes Aproximately how many cigarettes per day: 20 - Alcohol/Substance Use Hx Alcohol Use: Yes History of Substance Use: reports: Cocaine, Heroin - Social History ADL: Independent Occupation: unemployed History of Recent Travel: No Admission ROS [facility] Allergies/Adverse Reactions: Allergies Allergy/AdvReac Type Severity Reaction Status Date / Time shellfish derived Allergy Severe Difficulty Verified 08/21/19 21:26 Breathing No Known Drug Allergies Allergy Verified 08/21/19 21:26 Exam Limitations: No Limitations - Ebola screening Have you traveled outside of the country in the last 21 days: No Have you been sick,other than usual withdrawal symptoms: No Do you have a fever: No - Review of Systems Constitutional: Unintentional Wgt. Loss (lost 40 lbs in the past 3 mos) EENT: reports: Blurred Vision (poor vision for close objects, has glasses, not with him today) Respiratory: reports: No Symptoms reported Cardiac: reports: No Symptoms Reported GI: reports: Nausea : reports: No Symptoms Reported Musculoskeletal: reports: Back Pain Integumentary: reports: No Symptoms Reported Neuro: reports: Headache (Graded 8/10, holocephalic, started this am, quality is pressure like) Hematology: reports: No Symptoms Reported Psychiatric: reports: Agitated, Anxious, Depressed Patient History - Patient Medical History Hx Anemia: No Hx Asthma: Yes Hx Chronic Obstructive Pulmonary Disease (COPD): No Hx Cancer: No Hx Cardiac Disorders: No Hx Congestive Heart Failure: No Hx Hypertension: No Hx Hypercholesterolemia: No Hx Pacemaker: No HX Cerebrovascular Accident: No Hx Seizures: No Hx Dementia: No Hx Diabetes: No Hx Gastrointestinal Disorders: No Hx Liver Disease: No Hx Genitourinary Disorders: No Hx Sexually Transmitted Disorders: No Hx Renal Disease (ESRD): No Hx Thyroid Disease: No Hx Human Immunodeficiency Virus (HIV): No (negative last test 11/2018 negative) Hx Hepatitis C: No Hx Depression: Yes Hx Suicide Attempt: No Hx Bipolar Disorder: Yes ('I just stopped going for treatment') Hx Schizophrenia: Yes - Patient Surgical History Past Surgical History: Yes Hx Neurologic Surgery: No Hx Cataract Extraction: No Hx Cardiac Surgery: No Hx Lung Surgery: No Hx Breast Surgery: No Hx Breast Biopsy: No Hx Abdominal Surgery: No Hx Appendectomy: No Hx Cholecystectomy: No Hx Genitourinary Surgery: No Hx Section: No Hx Orthopedic Surgery: Yes (R knee in 2005 arthroosocpy ) Other Surgical History: right foot surgery for calcium build-up plantar 2000 Anesthesia Reaction: No - PPD History Date: 03/12/19 Results: 0MM - Smoking Cessation Smoking history: Current every day smoker Have you smoked in the past 12 months: Yes Aproximately how many cigarettes per day: 20 Cigars Per Day: 0 Hx Chewing Tobacco Use: No Initiated information on smoking cessation: Yes 'Breaking Loose' booklet given: 09/09/19 - Substances abused Heroin Substance route: Inhalation Frequency: Daily Amount used: "10-15 bags a day" Age of first use: 20 Date of last use: 09/08/19 Cocaine Substance route: Inhalation Frequency: Daily Amount used: "$100" Age of first use: 23 Date of last use: 09/08/19 Alcohol Substance route: Oral Frequency: Daily Amount used: "1 pint' Age of first use: 21 Date of last use: 09/08/19 Admission Physical Exam BHS - Vital Signs Vital Signs: Vital Signs - 24 hr 09/09/19 12:08 Temperature 98.1 F Pulse Rate 86 Respiratory 10 Rate Blood Pressure 120/78 - Physical General Appearance: Yes: No Apparent Distress, Nourished, Appropriately Dressed, Irritable HEENTM: Yes: EOMI, Hearing grossly Normal, Normocephalic, Normal Voice Respiratory: Yes: Lungs Clear, Normal Breath Sounds Neck: Yes: Within Normal Limits, Supple Breast: Yes: Breast Exam Deferred Cardiology: Yes: Regular Rhythm, Regular Rate, S1, S2 Abdominal: Yes: Normal Bowel Sounds, Non Tender, Flat, Soft Genitourinary: Yes: Other (deferred) Back: Yes: Normal Inspection Musculoskeletal: Yes: Gait Steady Extremities: Yes: Normal Inspection, Non-Tender Neurological: Yes: Other (falls to sleep, easily aroused) Integumentary: Yes: Within Normal Limits - Diagnostic (1) Alcohol dependence with uncomplicated withdrawal Current Visit: Yes Status: Acute (2) Nicotine dependence Current Visit: Yes Status: Acute Qualifiers: Nicotine product type: cigarettes Substance use status: in withdrawal Qualified Code(s): F17.213 - Nicotine dependence, cigarettes, with withdrawal (3) Opioid dependence with withdrawal Current Visit: Yes Status: Acute (4) Asthma Current Visit: No Status: Chronic Qualifiers: Asthma severity: mild Asthma persistence: intermittent Asthma complication type: uncomplicated Qualified Code(s): J45.20 - Mild intermittent asthma, uncomplicated Comment: ventolin (5) Bipolar 1 disorder, depressed Current Visit: Yes Status: Chronic (6) Cocaine dependence, uncomplicated Current Visit: Yes Status: Acute Cleared for Admission S - Detox or Rehab [facility] Level of Care: Medically Managed Detox Regimen/Protocol: Methadone/Librium Breathalyzer - Breathalyzer Breathalyzer: 0 Urine Drug Screen - Test Device Lot number: [id number] Expiration date: 10/19/20 - Control Is test valid?: Yes - Results Drug screen NEGATIVE: No Urine drug screen results: GEOVANNA-Cocaine, FEN-Fentanyl, MOP-Opiates, MTD-Methadone Inpatient Rehab Admission - Rehab Decision to Admit Inpatient rehab admission?: No
[2019-09-09] MEDS ORDERED: cloNIDine HCL 0.1 MG TABLET PO PRN (12:41)
[2019-09-09] MEDS ORDERED: MAGNESIUM HYDROX 2400MG/30ML ORAL SUSPENSION 30 ML CUP PO PRN (12:41)
[2019-09-09] MEDS ORDERED: IBUPROFEN 400 MG TABLET (FP) PO PRN (12:41)
[2019-09-09] MEDS ORDERED: ALBUTEROL SO4 HFA INHALER IH PRN (12:41)
[2019-09-09] MEDS ORDERED: ACETAMINOPHEN 325 MG TABLET (FP) PO PRN (12:41)
[2019-09-09] MEDS ORDERED: ONDANSETRON *ODT* 4 MG TABLET SL PRN (12:41)
[2019-09-09] MEDS ORDERED: NICOTINE POLACRILEX 2 MG GUM BUC PRN (12:41)
[2019-09-09] MEDS ORDERED: MAG HYDROX/AL HYDROX/SIMETH 30 ML UNIT-DOSE CUP PO PRN (12:41)
[2019-09-09] MEDS ORDERED: MAGNESIUM CITRATE 300 ML BOTTLE PO PRN (12:41)
[2019-09-09] MEDS ORDERED: chlordiazePOXIDE HCL 25 MG CAPSULE PO PRN (12:41)
[2019-09-09] MEDS ORDERED: MENTHOL/PHENOL 1 EACH UD MM PRN (12:41)
[2019-09-09] MEDS ORDERED: BISMUTH SUBSALICYLATE 524 MG/30 ML UD PO PRN (12:41)
[2019-09-09] MEDS ORDERED: METHADONE HCL 10 MG TABLET (FOR DETOX USE ONLY) PO ONE (14:30)
[2019-09-09] MEDS: NICOTINE 21 MG/24 HOURS TOPICAL PATCH TD SCH (14:49)
[2019-09-09] MEDS: hydrOXYzine PAMOATE 25 MG CAPSULE (FP) PO SCH ×3 (14:49→22:39)
[2019-09-09 15:06] LABS: HEMATOCRIT 37.7 % (35.4-49); HEMOGLOBIN 12.4 GM/dL (11.7-16.9); MCH 29.4 pg (25.7-33.7); MCHC 32.8 g/dl (32.0-35.9); MEAN CELL VOLUME 89.6 fl (80-96); MEAN PLT VOLUME 11.7 fl (7.5-11.1); PLATELET COUNT 213 K/MM3 (134-434); RBC 4.21 M/mm3 (4.00-5.60); RDW 15.1 % (11.9-15.9); WHITE BLOOD COUNT 8.3 K/mm3 (4.0-10.0)
[2019-09-09 15:12] LABS: ALBUMIN 3.2 g/dl (3.4-5.0); BILIRUBIN,TOTAL 0.5 mg/dL (0.2-1); BLOOD UREA NITROGEN 30.6 mg/dL (7-18); CALCIUM 8.8 mg/dL (8.5-10.1); CREATININE 1.5 mg/dL (0.55-1.3); POTASSIUM 3.4 mmol/L (3.5-5.1)
[2019-09-09] MEDS: chlordiazePOXIDE HCL 25 MG CAPSULE PO SCH ×2 (18:10→22:39)
[2019-09-09] MEDS: MELATONIN 5 MG TABLETS PO SCH (22:39)
[2019-09-09] MEDS: THIAMINE HCL 100 MG TABLET (FP) PO SCH (22:39)
[2019-09-10] MEDS: hydrOXYzine PAMOATE 25 MG CAPSULE (FP) PO SCH ×5 (06:31→22:32)
[2019-09-10] MEDS: chlordiazePOXIDE HCL 25 MG CAPSULE PO SCH ×4 (06:31→22:33)
[2019-09-10] MEDS ORDERED: METHADONE (DETOX) 20 MG, METHADONE (DETOX) 5 MG PO ONE (10:00)
--- NOTE | 2019-09-10 10:28 | CONSULT ---
[facility] Psychiatric Consult - Data Date of interview: 09/10/19 Admission source: Self-referred Identifying data: Mr Madison is a 49 years old Black male, father of 3 children, unemployed, living with his seeking detox treatment for alcohol, opioid and cocaine Substance Abuse History: Reports history of alcohol, heroin and cocaine use. Refer to addiction counselor's summary for further information Medical History: Patient was approached twice at bedside. Requests to be seen later at first attempt. At second one, he appeared lethargic and told junior technical writer:" I cannot do it today doc". Please reconsult when patient is more appropriate for an interview
--- NOTE | 2019-09-10 11:04 | PN ---
S CIWA - CIWA Score Nausea/Vomitin-No Nausea/No Vomiting Muscle Tremors: 4-Moderate,w/Arms Extend Anxiety: 4-Mod. Anxious/Guarded Agitation: 3 Paroxysmal Sweats: 1-Minimal Palms Moist Orientation: 0-Oriented Tacttile Disturbances: 0-None Auditory Disturbances: 0-None Visual Disturbances: 0-None Headache: 0-None Present CIWA-Ar Total Score: 12 S COWS - Scale Resting Pulse: 0= SC 80 or Below Sweatin= Chills/Flushing Restless Observation: 3= Extraneous Movement Pupil Size: 0= Normal to Room Light Bone or Joint Aches: 4=Acute Joint/Muscle Pain Runny Nose/ Eye Tearin= None GI Upset > 30mins: 0= None Tremor Observation of Outstretched Hands: 0= None Yawning Observation: 0= None Anxiety or Irritability: 0= None Goose Flesh Skin: 0=Smooth Skin COWS Score: 8 S Progress Note (SOAP) Subjective: Pt is a 49 y/o male admitted to detox for heroin and alcohol withdrawal sx. c/o Anxiety/irritability tremors sweats/chills body aches intermittent sleep Objective: 09/10/19 11:04 Vital Signs - 24 hr 09/09/19 09/09/19 09/10/19 12:08 18:11 05:43 Temperature 98.1 F 98.4 F Pulse Rate 86 81 72 Respiratory 10 16 18 Rate Blood Pressure 120/78 132/74 124/71 O2 Sat by Pulse 97 95 Oximetry (%) Laboratory Tests 09/09/19 09/09/19 09/09/19 12:20 12:20 12:20 WBC 8.3 RBC 4.21 Hgb 12.4 Hct 37.7 D MCV 89.6 MCH 29.4 MCHC 32.8 RDW 15.1 Plt Count 213 D MPV 11.7 H D Sodium 143 Potassium 3.4 L Chloride 108 H Carbon Dioxide 27 Anion Gap 8 BUN 30.6 H Creatinine 1.5 H Est GFR (CKD-EPI)AfAm 62.46 Est GFR (CKD-EPI)NonAf 53.89 Random Glucose 123 H Calcium 8.8 Total Bilirubin 0.5 AST 15 ALT 20 Alkaline Phosphatase 73 Total Protein 7.0 Albumin 3.2 L Syphilis Serology Non-reactive COVID-19 (HITESH) 09/09/19 13:30 WBC RBC Hgb Hct MCV MCH MCHC RDW Plt Count MPV Sodium Potassium Chloride Carbon Dioxide Anion Gap BUN Creatinine Est GFR (CKD-EPI)AfAm Est GFR (CKD-EPI)NonAf Random Glucose Calcium Total Bilirubin AST ALT Alkaline Phosphatase Total Protein Albumin Syphilis Serology COVID-19 (HITESH) Not detected labs noted-elevated BUN/cr K+ 3.4 covid-19 not detected alert o x 3 nad oob ambulating with steady gait Assessment: 09/10/19 11:05 withdrawal sx Plan: cont detox increase po fluids maintain safety kdur 20 meq po bid repeat CMP in A.M
[2019-09-10] MEDS: NICOTINE 21 MG/24 HOURS TOPICAL PATCH TD SCH (11:12)
[2019-09-10] MEDS: PRENATAL VITAMINS W/ FOLIC ACID TABLET (FP) PO SCH (11:12)
[2019-09-10] MEDS ORDERED: METHADONE HCL 10 MG TABLET (FOR DETOX USE ONLY) ONE (11:13)
[2019-09-10] MEDS ORDERED: METHADONE HCL 5 MG TABLET (FOR DETOX USE ONLY) ONE (11:13)
[2019-09-10] MEDS: ACETAMINOPHEN 325 MG TABLET (FP) PO PRN (11:15)
[2019-09-10] MEDS: METHOCARBAMOL 500 MG TABLET PO PRN (11:16)
[2019-09-10] MEDS: POTASSIUM CHLORIDE TABS 20 MEQ TABLET.ER (FP) PO SCH ×2 (12:36→22:32)
--- NOTE | 2019-09-10 12:57 | EKG ---
Test Reason : Blood Pressure : / mmHG Vent. Rate : 073 BPM Atrial Rate : 073 BPM P-R Int : 124 ms QRS Dur : 092 ms QT Int : 394 ms P-R-T Axes : 067 075 059 degrees QTc Int : 434 ms NORMAL SINUS RHYTHM NORMAL ECG WHEN COMPARED WITH ECG OF 21-AUG-2019 22:35, NO SIGNIFICANT CHANGE WAS FOUND Confirmed by MD BRAND PENG ([id number]) on 09/10/2019 12:57:34 PM Referred By: Confirmed By:NANCY BRAND MD
[2019-09-10] MEDS: THIAMINE HCL 100 MG TABLET (FP) PO SCH (22:32)
[2019-09-10] MEDS: MELATONIN 5 MG TABLETS PO SCH (22:32)
[2019-09-11] MEDS: hydrOXYzine PAMOATE 25 MG CAPSULE (FP) PO SCH ×5 (06:54→22:43)
[2019-09-11] MEDS: chlordiazePOXIDE HCL 25 MG CAPSULE PO SCH ×4 (06:54→22:43)
[2019-09-11] MEDS ORDERED: METHADONE HCL 10 MG TABLET (FOR DETOX USE ONLY) PO ONE (10:00)
[2019-09-11] MEDS: PRENATAL VITAMINS W/ FOLIC ACID TABLET (FP) PO SCH (10:31)
[2019-09-11] MEDS: POTASSIUM CHLORIDE TABS 20 MEQ TABLET.ER (FP) PO SCH ×2 (10:31→22:43)
[2019-09-11] MEDS: NICOTINE 21 MG/24 HOURS TOPICAL PATCH TD SCH (10:31)
[2019-09-11] MEDS: ACETAMINOPHEN 325 MG TABLET (FP) PO PRN (10:33)
[2019-09-11] MEDS: METHOCARBAMOL 500 MG TABLET PO PRN (10:34)
--- NOTE | 2019-09-11 12:09 | PN ---
[facility] CIWA - CIWA Score Nausea/Vomitin-Mild Nausea/No Vomiting Muscle Tremors: 2 Anxiety: 4-Mod. Anxious/Guarded Agitation: 2 Paroxysmal Sweats: No Perspiration Orientation: 0-Oriented Tacttile Disturbances: 0-None Auditory Disturbances: 0-None Visual Disturbances: 0-None Headache: 2-Mild CIWA-Ar Total Score: 11 BHS COWS - Scale Resting Pulse: 0= IN 80 or Below Sweatin= Chills/Flushing Restless Observation: 0= Sits Still Pupil Size: 0= Normal to Room Light Bone or Joint Aches: 4=Acute Joint/Muscle Pain Runny Nose/ Eye Tearin= None GI Upset > 30mins: 2= Nausea/Diarrhea Tremor Observation of Outstretched Hands: 1= Tremor [place], Not Seen Yawning Observation: 0= None Anxiety or Irritability: 1=Feels Anxious/Irritable Goose Flesh Skin: 0=Smooth Skin COWS Score: 9 S Progress Note (SOAP) Subjective: c/o Anxiety nausea but no vomiting headache sweats chills body aches intermittent sleep Objective: 09/11/19 12:12 Vital Signs - 24 hr 09/10/19 09/10/19 09/10/19 14:20 18:05 20:21 Temperature 98.0 F 98 F Pulse Rate 70 86 Respiratory 16 18 Rate Blood Pressure 121/80 129/84 O2 Sat by Pulse 97 95 Oximetry (%) 09/10/19 09/10/19 09/11/19 21:14 21:30 06:41 Temperature 97.3 F L 97.8 F Pulse Rate 59 L 76 Respiratory 16 16 Rate Blood Pressure 100/58 L 136/73 O2 Sat by Pulse 95 97 Oximetry (%) Laboratory Tests 09/09/19 09/09/19 09/09/19 12:20 12:20 12:20 WBC 8.3 RBC 4.21 Hgb 12.4 Hct 37.7 D MCV 89.6 MCH 29.4 MCHC 32.8 RDW 15.1 Plt Count 213 D MPV 11.7 H D Sodium 143 Potassium 3.4 L Chloride 108 H Carbon Dioxide 27 Anion Gap 8 BUN 30.6 H Creatinine 1.5 H Est GFR (CKD-EPI)AfAm 62.46 Est GFR (CKD-EPI)NonAf 53.89 Random Glucose 123 H Calcium 8.8 Total Bilirubin 0.5 AST 15 ALT 20 Alkaline Phosphatase 73 Total Protein 7.0 Albumin 3.2 L Syphilis Serology Non-reactive COVID-19 (HITESH) 09/09/19 13:30 WBC RBC Hgb Hct MCV MCH MCHC RDW Plt Count MPV Sodium Potassium Chloride Carbon Dioxide Anion Gap BUN Creatinine Est GFR (CKD-EPI)AfAm Est GFR (CKD-EPI)NonAf Random Glucose Calcium Total Bilirubin AST ALT Alkaline Phosphatase Total Protein Albumin Syphilis Serology COVID-19 (HITESH) Not detected covid-19 not detected alert ox 3 nad oob ambulating with steady gait Assessment: 09/11/19 12:12 withdrawal sx Plan: cont detox increase po fluids maintain safety zofran odt as directed for nausea/vomiting robaxin prn
[2019-09-11 14:38] LABS: ALBUMIN 2.7 g/dl (3.4-5.0); BLOOD UREA NITROGEN 31.8 mg/dL (7-18); CALCIUM 8.9 mg/dL (8.5-10.1); CREATININE 1.3 mg/dL (0.55-1.3); POTASSIUM 3.8 mmol/L (3.5-5.1); TOT PROT 6.1 g/dl (6.4-8.2)
[2019-09-11 14:44] LABS: BILIRUBIN,TOTAL 0.5 mg/dL (0.2-1)
[2019-09-11] MEDS: MELATONIN 5 MG TABLETS PO SCH (22:43)
[2019-09-11] MEDS: THIAMINE HCL 100 MG TABLET (FP) PO SCH (22:43)
[2019-09-12] MEDS ORDERED: chlordiazePOXIDE HCL 10 MG CAPSULE PO PRN
[2019-09-12] MEDS: hydrOXYzine PAMOATE 25 MG CAPSULE (FP) PO SCH ×5 (06:48→22:20)
[2019-09-12] MEDS: chlordiazePOXIDE HCL 10 MG CAPSULE PO SCH ×4 (06:48→22:29)
[2019-09-12] MEDS ORDERED: METHADONE (DETOX) 10 MG, METHADONE (DETOX) 5 MG PO ONE (10:00)
[2019-09-12] MEDS ORDERED: METHADONE HCL 10 MG TABLET (FOR DETOX USE ONLY) ONE (10:20)
[2019-09-12] MEDS: PRENATAL VITAMINS W/ FOLIC ACID TABLET (FP) PO SCH (10:21)
[2019-09-12] MEDS ORDERED: METHADONE HCL 5 MG TABLET (FOR DETOX USE ONLY) ONE (10:21)
[2019-09-12] MEDS: NICOTINE 21 MG/24 HOURS TOPICAL PATCH TD SCH (10:21)
[2019-09-12] MEDS: POTASSIUM CHLORIDE TABS 20 MEQ TABLET.ER (FP) PO SCH ×2 (10:21→22:20)
--- NOTE | 2019-09-12 13:22 | PN ---
[facility] CIWA - CIWA Score Nausea/Vomitin-No Nausea/No Vomiting Muscle Tremors: 2 Anxiety: 4-Mod. Anxious/Guarded Agitation: 2 Paroxysmal Sweats: 1-Minimal Palms Moist Orientation: 0-Oriented Tacttile Disturbances: 0-None Auditory Disturbances: 0-None Visual Disturbances: 0-None Headache: 2-Mild CIWA-Ar Total Score: 11 BHS COWS - Scale Resting Pulse: 0= [place] 80 or Below Sweatin= Chills/Flushing Restless Observation: 0= Sits Still Pupil Size: 0= Normal to Room Light Bone or Joint Aches: 4=Acute Joint/Muscle Pain Runny Nose/ Eye Tearin= None GI Upset > 30mins: 0= None Tremor Observation of Outstretched Hands: 1= Tremor [place], Not Seen Yawning Observation: 0= None Anxiety or Irritability: 2=Irritable/Anxious Goose Flesh Skin: 0=Smooth Skin COWS Score: 8 S Progress Note (SOAP) Subjective: c/o head ache body aches anxiety Objective: 09/12/19 13:29 Vital Signs - 24 hr 09/11/19 09/11/19 09/12/19 16:44 20:34 06:48 Temperature 98.0 F 97.5 F L 98 F Pulse Rate 69 73 72 Respiratory 20 17 18 Rate Blood Pressure 122/67 124/82 142/91 O2 Sat by Pulse 98 97 Oximetry (%) Laboratory Tests 09/09/19 09/09/19 09/09/19 12:20 12:20 12:20 WBC 8.3 RBC 4.21 Hgb 12.4 Hct 37.7 D MCV 89.6 MCH 29.4 MCHC 32.8 RDW 15.1 Plt Count 213 D MPV 11.7 H D Sodium 143 Potassium 3.4 L Chloride 108 H Carbon Dioxide 27 Anion Gap 8 BUN 30.6 H Creatinine 1.5 H Est GFR (CKD-EPI)AfAm 62.46 Est GFR (CKD-EPI)NonAf 53.89 Random Glucose 123 H Calcium 8.8 Total Bilirubin 0.5 AST 15 ALT 20 Alkaline Phosphatase 73 Total Protein 7.0 Albumin 3.2 L Syphilis Serology Non-reactive COVID-19 (HITESH) 09/09/19 09/11/19 13:30 08:30 WBC RBC Hgb Hct MCV MCH MCHC RDW Plt Count MPV Sodium 145 Potassium 3.8 Chloride 108 H Carbon Dioxide 31 Anion Gap 5 L BUN 31.8 H Creatinine 1.3 Est GFR (CKD-EPI)AfAm 74.26 Est GFR (CKD-EPI)NonAf 64.07 Random Glucose 112 H Calcium 8.9 Total Bilirubin 0.5 AST 10 L ALT 14 Alkaline Phosphatase 56 Total Protein 6.1 L Albumin 2.7 L Syphilis Serology COVID-19 (HITESH) Not detected Assessment: 09/12/19 13:31 withdrawal sx Plan: continue detox increase po fluids maintain safety
[2019-09-12] MEDS: THIAMINE HCL 100 MG TABLET (FP) PO SCH (22:20)
[2019-09-12] MEDS: MELATONIN 5 MG TABLETS PO SCH (22:20)
[2019-09-13] MEDS ORDERED: chlordiazePOXIDE HCL 10 MG CAPSULE PO SCH (05:00)
[2019-09-13 06:54] VITALS: BP 127/84; PULSE 73; TEMP 98.1
[2019-09-13] MEDS: hydrOXYzine PAMOATE 25 MG CAPSULE (FP) PO SCH ×2 (07:08→10:52)
[2019-09-13] MEDS ORDERED: METHADONE HCL 10 MG TABLET (FOR DETOX USE ONLY) PO ONE (10:00)
[2019-09-13] MEDS: POTASSIUM CHLORIDE TABS 20 MEQ TABLET.ER (FP) PO SCH (10:48)
[2019-09-13] MEDS: NICOTINE 21 MG/24 HOURS TOPICAL PATCH TD SCH (10:48)
[2019-09-13] MEDS: PRENATAL VITAMINS W/ FOLIC ACID TABLET (FP) PO SCH (10:48)
--- NOTE | 2019-09-13 10:56 | PN ---
[facility] CIWA - CIWA Score Nausea/Vomitin-Mild Nausea/No Vomiting Muscle Tremors: 2 Anxiety: 2 Agitation: 1-Slight > Activity Paroxysmal Sweats: No Perspiration Orientation: 0-Oriented Tacttile Disturbances: 0-None Auditory Disturbances: 1-Very Mild Visual Disturbances: 0-None Headache: 0-None Present CIWA-Ar Total Score: 7 S Progress Note (SOAP) Subjective: Complaints of abdominal pain with nausea,body aches, anxiety and noise sensitivity. Objective: 09/13/19 10:54 Vital Signs 09/13/19 06:53 Temperature 98.1 F Pulse Rate 73 Respiratory 16 Rate Blood Pressure 127/84 O2 Sat by Pulse 95 Oximetry (%) Laboratory Last Values WBC 8.3 K/mm3 (4.0-10.0) 09/09/19 12:20 RBC 4.21 M/mm3 (4.00-5.60) 09/09/19 12:20 Hgb 12.4 GM/dL (11.7-16.9) 09/09/19 12:20 Hct 37.7 % (35.4-49) D 09/09/19 12:20 MCV 89.6 fl (80-96) 09/09/19 12:20 MCH 29.4 pg (25.7-33.7) 09/09/19 12:20 MCHC 32.8 g/dl (32.0-35.9) 09/09/19 12:20 RDW 15.1 % (11.9-15.9) 09/09/19 12:20 Plt Count 213 K/MM3 (134-434) D 09/09/19 12:20 MPV 11.7 fl (7.5-11.1) H D 09/09/19 12:20 Sodium 145 mmol/L (136-145) 09/11/19 08:30 Potassium 3.8 mmol/L (3.5-5.1) 09/11/19 08:30 Chloride 108 mmol/L (98-107) H 09/11/19 08:30 Carbon Dioxide 31 mmol/L (21-32) 09/11/19 08:30 Anion Gap 5 MMOL/L (8-16) L 09/11/19 08:30 BUN 31.8 mg/dL (7-18) H 07/23/20 08:30 Creatinine 1.3 mg/dL (0.55-1.3) 09/11/19 08:30 Est GFR (CKD-EPI)AfAm 74.26 09/11/19 08:30 Est GFR (CKD-EPI)NonAf 64.07 09/11/19 08:30 Random Glucose 112 mg/dL (74-106) H 09/11/19 08:30 Calcium 8.9 mg/dL (8.5-10.1) 09/11/19 08:30 Total Bilirubin 0.5 mg/dL (0.2-1) 09/11/19 08:30 AST 10 U/L (15-37) L 09/11/19 08:30 ALT 14 U/L (13-61) 09/11/19 08:30 Alkaline Phosphatase 56 U/L (45-117) 09/11/19 08:30 Total Protein 6.1 g/dl (6.4-8.2) L 09/11/19 08:30 Albumin 2.7 g/dl (3.4-5.0) L 09/11/19 08:30 Syphilis Serology Non-reactive (NONREACTIVE) 09/09/19 12:20 COVID-19 (HITESH) Not detected (Not Detected) 09/09/19 13:30 Labs noted. Assessment: 09/13/19 10:54 Alert and oriented x3, in no acute respiratory distress. Full ROM, ambulatory without assistance. Withdrawal symptoms. Plan: Continue detox protocol.
--- NOTE | 2019-09-13 11:18 | DS ---
[facility] Detox Discharge Summary Admission Date: 09/09/19 Discharge Date: 09/13/19 - History Present History: Alcohol Dependence, Cocaine Dependence, Opioid Dependence Additional Comments: Alert and oriented x3, in no acute respiratory distress. Full ROM, ambulatory without assistance. Skin warm to touch , flushed. Withdrawal symptoms, encouraged to stay but refused. Discharged AMA. Pertinent Past History: History of asthma, Syncope, right knee surgery, Heroin, Cocaine, Alcohol and Nicotine use disorder. - Physical Exam Results Vital Signs: Vital Signs Temperature 98.1 F 09/13/19 06:53 Pulse Rate 73 09/13/19 06:53 Respiratory Rate 16 09/13/19 06:53 Blood Pressure 127/84 09/13/19 06:53 O2 Sat by Pulse Oximetry (%) 97 09/13/19 06:53 Vital Signs 09/13/19 06:53 Temperature 98.1 F Pulse Rate 73 Respiratory 16 Rate Blood Pressure 127/84 O2 Sat by Pulse 95 Oximetry (%) Laboratory Last Values WBC 8.3 K/mm3 (4.0-10.0) 09/09/19 12:20 RBC 4.21 M/mm3 (4.00-5.60) 09/09/19 12:20 Hgb 12.4 GM/dL (11.7-16.9) 09/09/19 12:20 Hct 37.7 % (35.4-49) D 09/09/19 12:20 MCV 89.6 fl (80-96) 09/09/19 12:20 MCH 29.4 pg (25.7-33.7) 09/09/19 12:20 MCHC 32.8 g/dl (32.0-35.9) 09/09/19 12:20 RDW 15.1 % (11.9-15.9) 09/09/19 12:20 Plt Count 213 K/MM3 (134-434) D 09/09/19 12:20 MPV 11.7 fl (7.5-11.1) H D 09/09/19 12:20 Sodium 145 mmol/L (136-145) 09/11/19 08:30 Potassium 3.8 mmol/L (3.5-5.1) 09/11/19 08:30 Chloride 108 mmol/L (98-107) H 09/11/19 08:30 Carbon Dioxide 31 mmol/L (21-32) 09/11/19 08:30 Anion Gap 5 MMOL/L (8-16) L 09/11/19 08:30 BUN 31.8 mg/dL (7-18) H 09/11/19 08:30 Creatinine 1.3 mg/dL (0.55-1.3) 09/11/19 08:30 Est GFR (CKD-EPI)AfAm 74.26 09/11/19 08:30 Est GFR (CKD-EPI)NonAf 64.07 09/11/19 08:30 Random Glucose 112 mg/dL (74-106) H 09/11/19 08:30 Calcium 8.9 mg/dL (8.5-10.1) 09/11/19 08:30 Total Bilirubin 0.5 mg/dL (0.2-1) 09/11/19 08:30 AST 10 U/L (15-37) L 09/11/19 08:30 ALT 14 U/L (13-61) 09/11/19 08:30 Alkaline Phosphatase 56 U/L (45-117) 09/11/19 08:30 Total Protein 6.1 g/dl (6.4-8.2) L 09/11/19 08:30 Albumin 2.7 g/dl (3.4-5.0) L 09/11/19 08:30 Syphilis Serology Non-reactive (NONREACTIVE) 09/09/19 12:20 COVID-19 (HITESH) Not detected (Not Detected) 09/09/19 13:30 Labs noted. Pertinent Admission Physical Exam Findings: Withdrawal symptoms. - Treatment Hospital Course: Detox Protocol Followed - Medication Discharge Medications: Ambulatory Orders Albuterol Sulfate Inhaler - [Ventolin HFA Inhaler -] 2 puff IH Q4H PRN inhaler 01/21/19 Quetiapine Fumarate [Seroquel -] 100 mg PO HS #30 tablet 06/09/19 - Diagnosis (1) Alcohol dependence with uncomplicated withdrawal Current Visit: Yes Status: Acute (2) Cocaine dependence, uncomplicated Current Visit: Yes Status: Chronic (3) Nicotine dependence Current Visit: Yes Status: Chronic Qualifiers: Nicotine product type: cigarettes Substance use status: in withdrawal Qualified Code(s): F17.213 - Nicotine dependence, cigarettes, with withdrawal (4) Opioid dependence with withdrawal Current Visit: Yes Status: Acute (5) GERD (gastroesophageal reflux disease) Current Visit: No Status: Chronic Qualifiers: Esophagitis presence: without esophagitis Qualified Code(s): K21.9 - Gastro-esophageal reflux disease without esophagitis (6) History of asthma Current Visit: No Status: Chronic - AMA Did Patient Leave Against Medical Advice: Yes
[2019-09-14] MEDS ORDERED: chlordiazePOXIDE HCL 10 MG CAPSULE PO ONE (05:00)
[2019-09-14] MEDS ORDERED: METHADONE HCL 5 MG TABLET (FOR DETOX USE ONLY) PO ONE (06:00)
== END 2019-09-13 10:50 | disposition left against medical advice (07) | DRG 894 ==
LOC: YASAS 10:11 → Y5N DETOX 13:02
PROVIDERS: ADMIT Allergy & Immunology; ATTEND Allergy & Immunology
PROC: HZ2ZZZZ Detoxification Services for Substance Abuse Treatment (ICD-10-PCS; principal; 2019-09-09)
DX: F10.230 Alcohol dependence with withdrawal, uncomplicated (principal); F14.20 Cocaine dependence, uncomplicated; F11.23 Opioid dependence with withdrawal; F17.210 Nicotine dependence, cigarettes, uncomplicated; F20.9 Schizophrenia, unspecified; F31.9 Bipolar disorder, unspecified; F41.9 Anxiety disorder, unspecified; J45.909 Unspecified asthma, uncomplicated; K21.9 Gastro-esophageal reflux disease without esophagitis; Z98.890 Other specified postprocedural states; Z91.013 Allergy to seafood
CPT/HCPCS: 36415; 80053; 85027; 86780; 93005; 93010; U0003

== ENCOUNTER 2020-03-31 19:23 | Inpatient (IN) | payer BC, OTHER ==
[2020-03-31] MEDS ORDERED: BISMUTH SUBSALICYLATE 524 MG/30 ML UD PO PRN (21:06)
[2020-03-31] MEDS ORDERED: ONDANSETRON *ODT* 4 MG TABLET SL PRN (21:06)
[2020-03-31] MEDS ORDERED: cloNIDine HCL 0.1 MG TABLET PO PRN (21:06)
[2020-03-31] MEDS ORDERED: NICOTINE POLACRILEX 2 MG GUM BUC PRN (21:06)
[2020-03-31] MEDS ORDERED: MAG HYDROX/AL HYDROX/SIMETH 30 ML UNIT-DOSE CUP PO PRN (21:06)
[2020-03-31] MEDS ORDERED: METHADONE HCL 10 MG TABLET (FOR DETOX USE ONLY) PO ONE (21:06)
[2020-03-31] MEDS ORDERED: MAGNESIUM HYDROX 2400MG/30ML ORAL SUSPENSION 30 ML CUP PO PRN (21:06)
[2020-03-31] MEDS ORDERED: MENTHOL/PHENOL 1 EACH UD MM PRN (21:06)
[2020-03-31] MEDS ORDERED: IBUPROFEN 400 MG TABLET (FP) PO PRN (21:06)
[2020-03-31] MEDS ORDERED: MAGNESIUM CITRATE 300 ML BOTTLE PO PRN (21:06)
[2020-03-31] MEDS ORDERED: ACETAMINOPHEN 325 MG TABLET (FP) PO PRN ×2 (21:06)
[2020-03-31] MEDS ORDERED: ALBUTEROL SO4 HFA INHALER IH PRN (21:08)
[2020-03-31 21:09] VITALS: BMI 19.8
[2020-03-31] MEDS: MELATONIN 5 MG TABLETS PO SCH (23:36)
[2020-03-31] MEDS: THIAMINE HCL 100 MG TABLET (FP) PO SCH (23:36)
[2020-04-01] MEDS ORDERED: METHADONE HCL 10 MG TABLET (FOR DETOX USE ONLY) ONE (09:15)
[2020-04-01] MEDS ORDERED: METHADONE HCL 5 MG TABLET (FOR DETOX USE ONLY) ONE (09:15)
[2020-04-01] MEDS ORDERED: METHADONE (DETOX) 20 MG, METHADONE (DETOX) 5 MG PO ONE (10:00)
[2020-04-01] MEDS: NICOTINE 14 MG/24 HOURS TOPICAL PATCH TD SCH (10:18)
[2020-04-01] MEDS: PRENATAL VITAMINS W/ FOLIC ACID TABLET (FP) PO SCH (10:18)
[2020-04-01] MEDS: METHOCARBAMOL 500 MG TABLET PO PRN ×2 (10:20→22:32)
[2020-04-01 11:52] LABS: POTASSIUM 4.2 mmol/L (3.5-5.1)
[2020-04-01 11:52] LABS: HEMATOCRIT 41.8 % (35.4-49); HEMOGLOBIN 13.8 GM/dL (11.7-16.9); MCH 29.8 pg (25.7-33.7); MEAN CELL VOLUME 90.2 fl (80-96); MEAN PLT VOLUME 9.3 fl (7.5-11.1); PLATELET COUNT 352 K/MM3 (134-434); RBC 4.64 M/mm3 (4.00-5.60); RDW 15.4 % (11.9-15.9)
[2020-04-01 11:56] LABS: BLOOD UREA NITROGEN 27.5 mg/dL (7-18); CALCIUM 8.8 mg/dL (8.5-10.1)
[2020-04-01 11:57] LABS: ALBUMIN 2.7 g/dl (3.4-5.0)
[2020-04-01 12:00] LABS: BILIRUBIN,TOTAL 0.5 mg/dL (0.2-1); CREATININE 1.1 mg/dL (0.55-1.3)
[2020-04-01 12:01] LABS: TOT PROT 5.8 g/dl (6.4-8.2)
[2020-04-01] MEDS ORDERED: ALBUTEROL SO4 2.5/IPRATROPIUM 0.5 INH SOL 3 ML VIAL.NEB. NEB ONE (14:27)
[2020-04-01] MEDS ORDERED: ALBUTEROL SO4 2.5/IPRATROPIUM 0.5 INH SOL 3 ML VIAL.NEB. NEB PRN (14:35)
[2020-04-01] MEDS: MELATONIN 5 MG TABLETS PO SCH (22:32)
[2020-04-01] MEDS: THIAMINE HCL 100 MG TABLET (FP) PO SCH (22:32)
[2020-04-01] MEDS: QUEtiapine FUMARATE 100 MG TABLET (FP) PO SCH (22:33)
[2020-04-01] MEDS: guaiFENesin 200 MG/10 ML 10 ML UNIT-DOSE CUPS PO PRN (22:33)
[2020-04-02] MEDS ORDERED: METHADONE HCL 10 MG TABLET (FOR DETOX USE ONLY) PO ONE (10:00)
[2020-04-02] MEDS: METHOCARBAMOL 500 MG TABLET PO PRN ×2 (10:39→22:11)
[2020-04-02] MEDS: PRENATAL VITAMINS W/ FOLIC ACID TABLET (FP) PO SCH (10:39)
[2020-04-02] MEDS: NICOTINE 14 MG/24 HOURS TOPICAL PATCH TD SCH (10:39)
[2020-04-02] MEDS: guaiFENesin 200 MG/10 ML 10 ML UNIT-DOSE CUPS PO PRN (10:41)
[2020-04-02] MEDS: QUEtiapine FUMARATE 100 MG TABLET (FP) PO SCH (22:11)
[2020-04-02] MEDS: MELATONIN 5 MG TABLETS PO SCH (22:11)
[2020-04-02] MEDS: THIAMINE HCL 100 MG TABLET (FP) PO SCH (22:12)
[2020-04-03] MEDS ORDERED: METHADONE HCL 10 MG TABLET (FOR DETOX USE ONLY) ONE (09:03)
[2020-04-03] MEDS ORDERED: METHADONE HCL 5 MG TABLET (FOR DETOX USE ONLY) ONE (09:03)
[2020-04-03] MEDS: PRENATAL VITAMINS W/ FOLIC ACID TABLET (FP) PO SCH (09:58)
[2020-04-03] MEDS: guaiFENesin 200 MG/10 ML 10 ML UNIT-DOSE CUPS PO PRN (09:59)
[2020-04-03] MEDS: NICOTINE 14 MG/24 HOURS TOPICAL PATCH TD SCH (09:59)
[2020-04-03] MEDS: METHOCARBAMOL 500 MG TABLET PO PRN (09:59)
[2020-04-03] MEDS ORDERED: METHADONE (DETOX) 10 MG, METHADONE (DETOX) 5 MG PO ONE (10:00)
[2020-04-03] MEDS: QUEtiapine FUMARATE 100 MG TABLET (FP) PO SCH (21:44)
[2020-04-03] MEDS: THIAMINE HCL 100 MG TABLET (FP) PO SCH (21:44)
[2020-04-03] MEDS: MELATONIN 5 MG TABLETS PO SCH (21:44)
[2020-04-04 09:05] VITALS: BP 130/79; PULSE 106; TEMP 96.8
[2020-04-04] MEDS: PRENATAL VITAMINS W/ FOLIC ACID TABLET (FP) PO SCH (09:50)
[2020-04-04] MEDS ORDERED: METHADONE HCL 10 MG TABLET (FOR DETOX USE ONLY) PO ONE (10:00)
[2020-04-04] MEDS: NICOTINE 14 MG/24 HOURS TOPICAL PATCH TD SCH (10:33)
[2020-04-05] MEDS ORDERED: METHADONE HCL 5 MG TABLET (FOR DETOX USE ONLY) PO ONE (06:00)
== END 2020-04-04 09:57 | disposition home or self-care (01) | DRG 897 ==
LOC: YASAS 19:23 → Y3N 21:10
PROVIDERS: ADMIT Allergy & Immunology; ATTEND Allergy & Immunology
PROC: HZ2ZZZZ Detoxification Services for Substance Abuse Treatment (ICD-10-PCS; principal; 2020-03-31)
DX: F11.23 Opioid dependence with withdrawal (principal); F14.20 Cocaine dependence, uncomplicated; F17.210 Nicotine dependence, cigarettes, uncomplicated; F20.3 Undifferentiated schizophrenia; F31.9 Bipolar disorder, unspecified; F41.9 Anxiety disorder, unspecified; G47.00 Insomnia, unspecified; J45.20 Mild intermittent asthma, uncomplicated; K21.9 Gastro-esophageal reflux disease without esophagitis; R05 Cough; R79.89 Other specified abnormal findings of blood chemistry; Z87.19 Personal history of other diseases of the digestive system; Z98.890 Other specified postprocedural states; Z91.013 Allergy to seafood; Z91.19 Patient's noncompliance with other medical treatment and regimen
CPT/HCPCS: 36415; 80053; 85027; 86780; 93005; 93010; 94640; C9803; U0003